=== PATIENT | female | born 1975 | race Caucasian/White ===

== ENCOUNTER 2018-07-08 01:30 | Emergency (ER) | payer MEDICAID, SELFPAY ==
[2018-07-08] VITALS (9 sets, daily range): BP systolic 143–160; BP diastolic 85–90; PULSE 78–97; RESP 14–18; TEMP 37; O2SAT 97–99; BMI 39.9
[2018-07-08 02:01] LABS: Absolute Lymphocyte Count 3.04 X10^3/ul (0.83-4.51); Absolute Neutrophil Count 10.4 X10^3/uL (2.0-7.7); Basophil# 0.04 X10^3/uL; Basophil% 0.3 % (0-1); Eosinophil# 0.11 X10^3/uL; Eosinophils% 0.8 % (0-5); Hemoglobin 14.8 g/dl (12.0-15.0); Lymphocyte # 3.04 X10^3/ul (4.0); Lymphocyte % 21.5 % (19-41); Mean Corp Hgb Conc 33.6 g/gl (32-36); Mean Corpuscular Hgb 30.5 pg (27.0-32.0); Mean Corpuscular Volume 90.5 fL (81-99); Mean Platelet Vol. 8.8 fl (6.2-12.0); Monocyte# 0.53 X10^3/uL; Monocyte% 3.7 % (0-10); Neutrophil # 10.39 X10^3/uL (2.7-7.7); Neutrophil % 73.4 % (47-70); POSITIVE COUNT NO; POSITIVE DIFFERENTIAL NO; POSITIVE MORPHOLOGY NO; Platelet Count 342 K/mm3 (150-450); RBC Distribution Width CV 13.5 % (11.6-14.6); RBC Distribution Width SD 44.4 fl (35.1-43.9); Red Blood Count 4.86 M/mm3 (4.2-5.4); White Blood Count 14.2 K/mm3 (4.4-11.0)
[2018-07-08 02:03] LABS: Bacteria 0 SEEN /hpf (None Seen); Mucous, Urine 0 SEEN /hpf (<or=2+); Red Blood Cells-Urine 0 SEEN /hpf (0-5); White Blood Cells 0 SEEN /hpf (0-5)
[2018-07-08 02:11] LABS: Internal QC Validated? YES +Cl - CLEAR BKGD; Pregnancy, Urine Negative Negative
[2018-07-08 02:16] LABS: Color, Urine Yellow (Yellow); Glucose, Dipstick Normal (Normal); Ketone-Dipstick Negative (Negative); Leukocyte Esterase-Dipstick Negative /ul (Negative); Nitrite-Dipstick Negative (Negative); Occult Blood-Urine Negative /ul (Negative); Protein-Dipstick Negative (Negative); Specific Gravity, Urine 1.005 (1.002-1.030); Urine Bilirubin Dipstick Negative (Negative); Urine Clarity Sl. Cloudy (Clear); Urine Urobilinogen Normal (Normal)
[2018-07-08 02:17] LABS: Squamous Epithelial Cells - UA 0-5 SEEN /hpf (5-10)
[2018-07-08 02:32] LABS: ALB/GLOB Ratio 1.1 RATIO (0.9-2.4); AST(SGOT) 19 U/L (15-37); Alanine Aminotransfer ALT/SGPT 39 U/L (13-56); Albumin, Serum 3.8 g/dL (3.2-5.0); Alkaline Phosphatase 100 U/L (45-117); Anion Gap 7 (5-15); BUN 9 mg/dL (7-18); BUN/Creat Ratio 12.3 RATIO (10-20); Calcium,Total 8.8 mg/dL (8.5-10.1); Chloride 109 mmol/L (98-107); Creatinine, Serum 0.73 mg/dL (0.55-1.02); EST Glomerular Filtration Rate 92 mL/min (>60); Est Glom Filt Rate - Afr Amer 112 mL/min (>60); Estimated Creatinine Clearance 90.34 ml/min; Globulin 3.5 g/dL (2.2-4.2); Glucose 97 mg/dL (74-106); Potassium 3.6 mmol/L (3.5-5.1); Protein, Total 7.3 g/dL (6.4-8.2); Sodium Level 139 mmol/L (136-145)
[2018-07-08 02:40] LABS: Amphetamine Urine VISTA NEGATIVE (<1000 ng/mL); Barbiturate Urine VISTA NEGATIVE (< 200 ng/mL); Benzodiazepine Urine VISTA NEGATIVE (< 200 ng/mL); Cocaine Urine VISTA NEGATIVE (< 300 ng/mL); Ecstacy Urine VISTA NEGATIVE (< 500 ng/mL); Methadone Urine VISTA NEGATIVE (< 300 ng/mL); PCP Urine VISTA NEGATIVE (< 25 ng/mL); THC Urine VISTA NEGATIVE (< 50 ng/mL); Vista UDS pH Range 7
--- NOTE | 2018-07-08 03:17 | ED.DCSUM_ITS ---
History of Present Illness Chief Complaint: Suicidal Informant: Patient Narrative: As per nursing triage notes, patient was having suicidal thoughts and intentions and wanted help. Has been drinking some alcohol tonight but denies being intoxicated and denies using any other substances except tobacco. When asked why she is feeling depressed, she simply states I am done. She provides very little specific information about events or feelings tonight other than that she has may be felt this way for a couple days at least. She is not in counseling, takes no antidepressant medications, and has had no prior treatment for depression. - Past Medical History (1) Hypothyroid Status: Chronic (2) Migraines Status: Chronic Past Medical History - Allergies and Home Meds Allergies/Adverse Reactions: Allergies Beef Containing Products Allergy (Verified 07/08/18 01:33) Angioedema corn Allergy (Verified 07/08/18 01:33) Angioedema egg Allergy (Verified 07/08/18 01:33) Angioedema Pork/Porcine Containing Products Allergy (Verified 07/08/18 01:33) Angioedema rice Allergy (Verified 07/08/18 01:33) Angioedema gabapentin [From Neurontin] Adverse Reaction (Verified 07/08/18 01:33) Other prochlorperazine [From Compazine] Adverse Reaction (Verified 07/08/18 01:33) Other Primary Care Physician: Michelle Sears MD [Primary Care Provider] - Lives: Spouse/ Significant Other Smoking Status: Current every day smoker Alcohol: Occasional Drugs: None Review of Systems General: Denies: Chills, Fever, Sweats Eyes: Denies: Visual changes - bilaterally, Diplopia ENT: Denies: Rhinorrhea, Sore throat Cardiovascular: Denies: Chest pain, Palpitations Respiratory: Denies: Dyspnea, Cough, Dyspnea on exertion Gastrointestinal: Denies: Abdominal pain, Nausea, Vomiting, Diarrhea, Melena, Hematochezia Genitourinary: Denies: Dysuria, Hematuria, Frequency Musculoskeletal: Denies: Back pain, Extremity Pain Skin: Denies: Rash, Wounds Neurological: Denies: Headache, Weakness, Numbness Psych: Reports: Depression, Suicidal thoughts, Suicidal ideations Physical Exam Vital Signs/Narrative: Vital Signs Temp Pulse Resp BP Pulse Ox 07/08/18 02:44 16 99 07/08/18 01:30 98.6 F 97 16 160/90 H 97 Inital Vital Signs reviewed: Yes General: Well nourished, Well developed, No Acute Distress Head: Normocephalic, Atraumatic Eyes: Perrl, EOMI ENT: Moist mucous membranes, No rhinorrhea Neck: Supple, Nontender Cardiovascular: Regular rate, Regular rhythm, No murmurs Respiratory: No distress, CTA bilaterally, Chest nontender Abdomen: Soft, Nontender, Nondistended, Normal bowel sounds Back: Nontender, Normal Inspection Extremities: Nontender, No edema Skin: Normal color, No rash Neurological: Alert, Oriented x3, Cranial nerves II-XII grossly intact, Normal Strength, Normal Sensation Psychological: Normal Mood, - - Flat affect. Paucity of speech. Answers every question with 1 or 2 word answers. Very poor eye contact. Diagnostic/Tx/Re-eval Laboratory Results 07/08/18 07/08/18 07/08/18 01:40 01:40 01:40 WBC RBC Hgb Hct MCV MCH MCHC RDW RDW Differential Plt Count MPV Immature Gran % (Auto) Neut % (Auto) Lymph % (Auto) Gentry % (Auto) Eos % (Auto) Baso % (Auto) Absolute Neuts (auto) Absolute Lymphs (auto) Total Counted Sodium Potassium Chloride Carbon Dioxide Anion Gap BUN Creatinine Estim Creat Clear Calc Est GFR (MDRD) Af Amer Est GFR (MDRD) Non-Af BUN/Creatinine Ratio Glucose Calcium Total Bilirubin AST ALT Alkaline Phosphatase Total Protein Albumin Globulin Albumin/Globulin Ratio Urine Color Yellow Urine Clarity Sl. Cloudy Urine pH 7.0 Ur Specific [place] 1.005 Urine Protein Negative Urine Glucose (UA) Normal Urine Ketones Negative Urine Occult Blood Negative Urine Nitrite Negative Urine Bilirubin Negative Urine Urobilinogen Normal Ur Leukocyte Esterase Negative Urine RBC 0 SEEN Urine WBC 0 SEEN Ur Squamous Epith Cells 0-5 SEEN Urine Bacteria 0 SEEN Urine Mucus 0 SEEN Urine Test Negative Urine Opiates Screen NEGATIVE Urine Methadone Screen NEGATIVE Ur Barbiturates Screen NEGATIVE Ur Phencyclidine Scrn NEGATIVE Ur Amphetamines Screen NEGATIVE U Methamphetamin-MDMA NEGATIVE U Benzodiazepines Scrn NEGATIVE Urine Cocaine Screen NEGATIVE U Cannabinoids Screen NEGATIVE Ur Drug Screen Comment Ethyl Alcohol 07/08/18 07/08/18 07/08/18 01:55 01:55 01:55 WBC 14.2 H RBC 4.86 Hgb 14.8 Hct 44.0 MCV 90.5 MCH 30.5 MCHC 33.6 RDW 13.5 RDW Differential 44.4 H Plt Count 342 MPV 8.8 Immature Gran % (Auto) 0.300 Neut % (Auto) 73.4 H Lymph % (Auto) 21.5 Gentry % (Auto) 3.7 Eos % (Auto) 0.8 Baso % (Auto) 0.3 Absolute Neuts (auto) 10.4 H Absolute Lymphs (auto) 3.04 Total Counted Not Reportable Sodium 139 Potassium 3.6 Chloride 109 H Carbon Dioxide 23.0 Anion Gap 7 BUN 9 Creatinine 0.73 Estim Creat Clear Calc 90.34 Est GFR (MDRD) Af Amer 112 Est GFR (MDRD) Non-Af 92 BUN/Creatinine Ratio 12.3 Glucose 97 Calcium 8.8 Total Bilirubin 0.50 AST 19 ALT 39 Alkaline Phosphatase 100 Total Protein 7.3 Albumin 3.8 Globulin 3.5 Albumin/Globulin Ratio 1.1 Urine Color Urine Clarity Urine pH Ur Specific [place] Urine Protein Urine Glucose (UA) Urine Ketones Urine Occult Blood Urine Nitrite Urine Bilirubin Urine Urobilinogen Ur Leukocyte Esterase Urine RBC Urine WBC Ur Squamous Epith Cells Urine Bacteria Urine Mucus Urine Test Urine Opiates Screen Urine Methadone Screen Ur Barbiturates Screen Ur Phencyclidine Scrn Ur Amphetamines Screen U Methamphetamin-MDMA U Benzodiazepines Scrn Urine Cocaine Screen U Cannabinoids Screen Ur Drug Screen Comment Ethyl Alcohol 39.0 - Medical Decision Making Medically cleared for psychiatric evaluation. Alcohol is only 39. Awaiting crisis evaluation. She is cooperative. Crisis evaluated and agrees she is high risk and should be admitted. I discussed with the patient, she does not want to be admitted, however she was pink slipped by the police, and in the documentation it states that she sent several text messages to friends about wanting to kill herself and wrote several suicide notes as well, and had a bottle of amitriptyline that she was considering overdosing on that is prescribed to her. She is more forthcoming with discussion now. She did not overdose on her amitriptyline or take any extra pills. ED Disposition - Plan for ED Patient: Disposition: Psychiatric Hospital or Unit Diagnosis: Suicidal ideation, Major depression Referrals: Michelle Sears MD [Primary Care Provider] -
== END 2018-07-08 11:05 ==
PROVIDERS: Emergency Provider Emergency Medicine; Family Provider Family Medicine; PCP Family Medicine
DX: R45.851 Suicidal ideations (principal); F32.9 Major depressive disorder, single episode, unspecified; E03.9 Hypothyroidism, unspecified; G43.909 Migraine, unspecified, not intractable, without status migrainosus
CPT/HCPCS: 80053; 80307; 80320; 81001; 81025; 85025; 99284; G0480

== ENCOUNTER → 2019-11-05 09:10 | Outpatient (CLI) | payer MEDICAID, SELFPAY ==
[2019-11-05 09:06] VITALS: BMI 39.9
--- NOTE | 2019-11-05 09:11 | RAD_ITS ---
STUDY: X-RAY - LEFT KNEE REASON FOR EXAM: Female, 44 years old. PAIN, POPPING AND CRACKING, NKI TECHNIQUE: 4 view(s) of the knee. COMPARISON: None. FINDINGS: Normal visualized distal femur. Normal visualized proximal tibia and fibula. Normal proximal tibiofibular articulation. Normal medial femorotibial compartment. Normal lateral femorotibial compartment. Normal patellofemoral articulation. The soft tissue structures are unremarkable. RAD/Knee 4 or More Views IMPRESSION: Normal x-ray examination of the knee. Electronically Signed: Crispin Barton, at 9:45 EDT , Service support ,
--- NOTE | 2019-11-05 09:11 | RAD_ITS ---
STUDY: X-RAY - RIGHT KNEE REASON FOR EXAM: Female, 44 years old. PAIN, POPPING AND CRACKING, NKI TECHNIQUE: 3 view(s) of the knee. COMPARISON: None. FINDINGS: Normal visualized distal femur. Normal visualized proximal tibia and fibula. Normal proximal tibiofibular articulation. Normal medial femorotibial compartment. Normal lateral femorotibial compartment. Normal patellofemoral articulation. Small joint effusion. RAD/Knee 4 or More Views IMPRESSION: Small joint effusion. Electronically Signed: Crispin Barton, at 9:44 EDT , Service support ,
== END ==
PROVIDERS: Referring Provider Orthopaedic Surgery; Visit Provider Orthopaedic Surgery
DX: M25.561 Pain in right knee (principal); M25.562 Pain in left knee
CPT/HCPCS: 73564

== ENCOUNTER 2023-08-11 18:29 | Emergency (ER) | payer MEDICAID, SELFPAY ==
[2023-08-11 18:29] VITALS: BP 132/98; PULSE 89; RESP 18; TEMP 35.9; O2SAT 98; BMI 42.3
--- NOTE | 2023-08-11 19:52 | RAD_ITS ---
STUDY: X-RAY CHEST REASON FOR EXAM: Female, 48 years old. Pleuritic chest pain, history of lupus TECHNIQUE: Frontal and lateral views of the chest. COMPARISON: None. FINDINGS: The lungs are clear and expanded. There is no demonstrated pleural abnormality. Normal size heart. Normal mediastinum and pop. Normal visualized pulmonary arteries. Normal visualized aortic arch and descending thoracic aorta. Normal visualized thoracic spine. Normal visualized ribs, clavicles, and shoulders. There is no demonstrated abnormality of the visualized soft tissue structures of the upper abdomen. RAD/Chest PA and Lateral IMPRESSION: Normal x-ray examination of the chest. Electronically Signed: Booker Cottrell MD at 20:36 EDT ,
--- NOTE | 2023-08-11 19:59 | EDS_ITS ---
HPI History of Present Illness Chief Complaint: Chest Other Detail of Chief Complaint: Pleuritic chest pain Informant: patient Onset/Context/Timing Onset: Days (Tuesday) Context: Sudden Onset Timing: Continuous and Waxes and wanes Quality: Pain, tight sensation around chest Location: Bra line Current Severity: Mild Maximum Severity: Moderate Worsened by: Breathing Relieved by: Nothing Associated Symptoms Associated Symptoms: Nothing Narrative Narrative: Patient is a 48-year-old woman with history of lupus, chronic pain, asthma, hypothyroidism, anxiety and depression and eosinophilic esophagitis. She also has history of chronic erythema and nodosum. Patient was seen at [facility] earlier today. She had a troponin which was negative. Had a D-dimer which was negative. EKG reportedly negative. No chest x-ray was obtained. Patient denies nausea, vomit diarrhea. She denies black or maroon-colored stool. She denies leg pain, swelling discoloration. She denies renal involvement with regards to her lupus. She states it has affected her liver enzymes. She denies pain in the left upper quadrant or right upper quadrant. There is no history of pancreatitis. [facility] Medical History Bronchitis Carpal tunnel syndrome, right Hx of mixed connective tissue disease Hx of pleurisy Hx of spinal stenosis Lipoma of axilla Home Medications albuterol sulfate 2.5 mg/0.5 mL solution for nebulization 2.5 mg inhalation Q20M 11/10/21 [History Last Taken Unknown] albuterol sulfate 90 mcg/actuation aerosol inhaler 1 inh inhalation ONCE 11/10/21 [History Last Taken Unknown] cetirizine 10 mg tablet 10 mg PO DAILY PRN 11/10/21 [History Last Taken Unknown] cyanocobalamin (vitamin B-12) 1,000 mcg/mL injection solution 100 mcg IM QMONTH 11/10/21 [History Last Taken Unknown] ergocalciferol (vitamin D2) 50 mcg (2,000 unit) capsule 50 mcg PO DAILY 11/10/21 [History Last Taken Unknown] famotidine 40 mg tablet 40 mg PO DAILY 11/10/21 [History Last Taken Unknown] fluticasone furoate 50 mcg/actuation blister powder for inhalation inhalation 11/10/21 [History Last Taken Unknown] ibuprofen 200 mg capsule 200 mg PO Q6H PRN 11/10/21 [History Last Taken Unknown] paroxetine HCl 10 mg tablet 10 mg PO DAILY 11/10/21 [History Last Taken Unknown] potassium chloride 20 mEq/15 mL oral liquid 20 meq PO DAILY 11/10/21 [History Last Taken Unknown] ropinirole 1 mg tablet 1 mg PO DAILY 11/10/21 [History Last Taken Unknown] prednisone 10 mg tablet 10 mg PO UD #33 tabs 08/11/23 [Rx Last Taken Unknown] Allergy/AdvReac Type Severity Reaction Status Date / Time Beef Containing Products Allergy Angioedema Verified 08/11/23 18:33 corn Allergy Angioedema Verified 08/11/23 18:33 egg Allergy Angioedema Verified 08/11/23 18:33 Pork/Porcine Containing Allergy Angioedema Verified 08/11/23 18:33 Products rice Allergy Angioedema Verified 08/11/23 18:33 gabapentin [From Neurontin] AdvReac Other Verified 08/11/23 18:33 prochlorperazine AdvReac Other Verified 08/11/23 18:33 [From Compazine] Family History Mother CHF (congestive heart failure) Diabetes type 1 Myocardial infarction Hypertension Hypercholesterolemia Renal failure CVA (cerebral vascular accident) Father Cancer colon Surgical History H/O esophagogastroduodenoscopy Hx of arthroscopy of knee Hx of cholecystectomy Hx of colonoscopy Hx of total hysterectomy Social History Smoking Status: Current every day smoker tobacco type: cigarettes ROS ROS ED Constitutional Constitutional ED: Denies chills, fever(s), subjective, sweats or weight loss Eyes Eyes: Denies blurry vision or change in vision ENT ENT ED: Denies ear pain, rhinorrhea or sore throat Cardiovascular Cardiovascular: Reports chest pain; Denies orthopnea, palpitations, paroxysmal nocturnal dyspnea or racing heartbeat Respiratory/Chest Respiratory/Chest: Denies cough, dyspnea, dyspnea on exertion, orthopnea or paroxysmal nocturnal dyspnea Gastrointestinal Gastrointestinal: Denies abdominal pain, melena, nausea or vomiting Genitourinary Genitourinary ED: Denies dysuria, hematuria or urinary frequency Musculoskeletal Musculoskeletal: Denies arthralgias, back pain or myalgias Integumentary Denies rash Neurologic Neurologic: Denies headache(s) or paresthesias Psychiatric Psychiatric: Denies anxiety or depression Endocrine Endocrinology: Denies cold intolerance or heat intolerance Hematologic/Lymphatic Hematologic/Lymphatic: Reports systems reviewed and no addt'l complaints, except as documented EXAM Physical Exam Const Vital Signs: 08/11/23 18:29 08/11/23 20:29 08/11/23 20:29 Temperature 96.6 F L Temperature Source Temporal Pulse Rate 89 69 Respiratory Rate 18 14 Respiratory Effort Normal Respiratory Pattern Normal Blood Pressure 132/98 H 165/89 H Blood Pressure Mean 109 114 Pulse Ox 98 99 Oxygen Delivery Method Room Air Room Air Positive well nourished, well developed and obese General Appearance ED: well developed and NAD; Negative for cyanotic, diaphoretic or pallor Nutritional Appearance: obese HEENT Reports moist mucous membranes Negative for trauma or tenderness Eyes PERRL and EOMs intact bilaterally General Eye ED: Negative for pale conjunctiva or scleral icterus Neck no lymphadenopathy, supple and no JVD Chest Wall inspection of chest normal and palpation of chest normal Chest Narrative: There is pain to palpation right side. There is no crepitus subcutaneous air. Resp normal respiratory effort and clear to auscultation bilaterally Cardio regular rate, regular rhythm, S1 normal heart sound, S2 normal heart sound and no murmurs GI normal to inspection, nondistended, normoactive bowel sounds, non-tender, non- distended and no masses; Negative for hepatosplenomegaly Palpation: soft Back/Spine Back/Spine Narrative: Inspection of the back is normal. Extremity Extremity Narrative: There is no asymmetry, swelling, discoloration, leg vein distention, palpable cords or tenderness along the distribution of the deep venous system. Neuro oriented x3 and CN's II-XII intact bilaterally Sensorium / Orientation: alert Skin no rashes or lesions noted, no wounds and skin turgor normal General Skin Exam: elasticity normal; Negative for jaundice or pallor MDM MDM MDM Narrative Medical decision making narrative: With a normal D-dimer normal troponin these were not repeated. This would rule out PE. Suspect this is pleurisy and may be related to her lupus. Chest x-ray was obtained to rule out infiltrate. Patient was treated with prednisone. History & Record Review Additional record(s) reviewed:: Prior outpatient record (Records from outside facility obtained today were reviewed and documented), Prior ED visit and Prior labs Radiography Chest X-Ray - ED: 2 View and Read by ED Physician (3 view chest x-ray report reviewed interpreted by me. There is no abnormality noted. Cardiac silhouette size normal. Hilum is normal. Lung parenchyma is normal. There is no effusion. Osseous trucks unremarkable.) Diagnostic Testing: Clinical Impression(s) from Imaging Studies Chest X-Ray 08/11/23 19:52 IMPRESSION: Normal x-ray examination of the chest. Electronically Signed: Booker Cottrell MD at 20:36 EDT , Treatment and Re-Evaluation :: Patient was discharged prescription for prednisone. Discharge Plan Triage Chief Complaint: Chest Other ED Provider: Samy Alarcon Dx/Rx/DC Orders Clinical Impression: Pleuritic chest pain, Hypothyroid, Eosinophilic esophagitis, History of lupus Instructions: ED Pain, Acute, Uncertain Cause Prescriptions: New prednisone 10 mg tablet 10 mg PO UD Qty: 33 0RF Rx Instructions: Take 4 tablets daily for 3 days, then 3 daily for 3 days, then 2 daily for 3 days, then 1 a day for 3 days then 1 QOD for 3 doses. No Action albuterol sulfate 90 mcg/actuation HFA aerosol inhaler 1 inh inhalation ONCE albuterol sulfate 2.5 mg/0.5 mL solution for nebulization 2.5 mg inhalation Q20M Rx Instructions: for up to 3 doses cetirizine 10 mg tablet 10 mg PO DAILY PRN cyanocobalamin (vitamin B-12) 1,000 mcg/mL solution 100 mcg IM QMONTH ergocalciferol (vitamin D2) 50 mcg (2,000 unit) capsule 50 mcg PO DAILY famotidine 40 mg tablet 40 mg PO DAILY fluticasone furoate 50 mcg/actuation blister with device inhalation ibuprofen 200 mg capsule 200 mg PO Q6H PRN paroxetine HCl 10 mg tablet 10 mg PO DAILY potassium chloride 20 mEq/15 mL liquid 20 meq PO DAILY ropinirole 1 mg tablet 1 mg PO DAILY Primary Care Provider: Michelle Alvarez Referrals: Michelle Alvarez DO [Primary Care Provider] - 3-5 Days Disposition Disposition: Home, Self Care
[2023-08-11] MEDS: predniSONE 20 MG Tablet 60 MG PO (20:19)
[2023-08-11 20:29] VITALS: BP 165/89; PULSE 69; RESP 14; O2SAT 99
== END 2023-08-11 21:55 | disposition home or self-care (01) ==
PROVIDERS: Emergency Provider Emergency Medicine; PCP Family Medicine; Visit Provider Emergency Medicine
DX: R07.81 Pleurodynia (principal); M32.9 Systemic lupus erythematosus, unspecified; E03.9 Hypothyroidism, unspecified; F41.9 Anxiety disorder, unspecified; F32.A Depression, unspecified; K20.0 Eosinophilic esophagitis; J45.909 Unspecified asthma, uncomplicated; F17.210 Nicotine dependence, cigarettes, uncomplicated; Z79.51 Long term (current) use of inhaled steroids; Z90.49 Acquired absence of other specified parts of digestive tract; Z90.710 Acquired absence of both cervix and uterus
CPT/HCPCS: 71046; 99282

== ENCOUNTER 2023-09-12 21:45 | Emergency (ER) | payer MEDICAID, SELFPAY ==
[2023-09-12 21:49] VITALS: BP 158/99; PULSE 83; RESP 18; TEMP 36.3; O2SAT 97
[2023-09-12 22:45] LABS: Absolute Lymphocyte Count 5.34 X10^3/uL (0.83-4.51); Absolute Neutrophil Count 10.2 X10^3/uL (2.0-7.7); Basophil# 0.09 X10^3/uL; Basophil% 0.5 % (0-1); Eosinophil# 0.24 X10^3/uL; Eosinophils% 1.4 % (0-5); Hematocrit 43.8 % (37-47); Hemoglobin 14.6 g/dL (12.0-15.0); Lymphocyte # 5.34 X10^3/ul (0.83-4.51); Lymphocyte % 32.1 % (19-41); Mean Corp Hgb Conc 33.3 g/dL (32-36); Mean Corpuscular Hgb 29.5 pg (27.0-32.0); Mean Corpuscular Volume 88.5 fL (81-99); Mean Platelet Vol. 8.9 fl (6.2-12.0); Monocyte# 0.68 X10^3/uL; Monocyte% 4.1 % (0-10); NRBC Flagged by Analyzer 0 % (0-5); Neutrophil # 10.18 X10^3/uL (2.7-7.7); Neutrophil % 61.4 % (47-70); POSITIVE DIFFERENTIAL YES; POSITIVE MORPHOLOGY YES; Platelet Count 395 K/mm3 (150-450); RBC Distribution Width CV 13.2 % (11.6-14.6); RBC Distribution Width SD 42.9 fl (35.1-43.9); Red Blood Count 4.95 M/mm3 (4.2-5.4); White Blood Count 16.6 K/mm3 (4.4-11.0)
[2023-09-12 22:47] VITALS: RESP 16
[2023-09-12 22:47] LABS: Differential Indicated SCAN CRITERIA MET
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
[2023-09-12 23:11] LABS: Differential Comment SCANNED
[2023-09-12 23:15] LABS: Amphetamine Urine VISTA NEGATIVE (<1000 ng/mL); Barbiturate Urine VISTA NEGATIVE (< 200 ng/mL); Benzodiazepine Urine VISTA NEGATIVE (< 200 ng/mL); Cocaine Urine VISTA NEGATIVE (< 300 ng/mL); Ecstacy Urine VISTA NEGATIVE (< 500 ng/mL); Methadone Urine VISTA NEGATIVE (< 300 ng/mL); PCP Urine VISTA NEGATIVE (< 25 ng/mL); THC Urine VISTA NEGATIVE (< 50 ng/mL); Vista UDS pH Range 6
[2023-09-12 23:25] LABS: Anion Gap 5 (5-15); BUN 11 mg/dL (7-18); BUN/Creat Ratio 13.5 RATIO (10-20); Calcium,Total 9.3 mg/dL (8.5-10.1); Chloride 105 mmol/L (98-107); Creatinine, Serum 0.81 mg/dL (0.55-1.02); EST Glomerular Filtration Rate 80 mL/min (>60); Est Glom Filt Rate - Afr Amer 97 mL/min (>60); Glucose 96 mg/dL (74-106); Potassium 3.7 mmol/L (3.5-5.1); Sodium Level 137 mmol/L (136-145)
[2023-09-12 23:48] LABS: Internal QC Validated? YES +Cl - CLEAR BKGD; Pregnancy, Serum, hCG Quali. NEGATIVE Negative
[2023-09-13] VITALS: PULSE 68; RESP 16; TEMP 37.1; O2SAT 98
[2023-09-13] MEDS: Ibuprofen 600 MG Tablet PO (00:18)
[2023-09-13] MEDS: Metoclopramide 10 MG Tablet PO (00:18)
[2023-09-13] MEDS: hydrOXYzine PAM 25 MG Capsule 50 MG PO (00:18)
[2023-09-13 00:37] LABS: Alcohol, Blood (Medical)-Serum < 3.0 mg/dL
[2023-09-13 01:17] VITALS: BP 118/69; PULSE 68; RESP 16; TEMP 36.5; O2SAT 98
[2023-09-13 05:15] VITALS: BP 126/63; PULSE 61; RESP 17; O2SAT 93
== END 2023-09-13 07:11 ==
PROVIDERS: Emergency Provider Emergency Medicine; PCP Family Medicine; Visit Provider Emergency Medicine
DX: R45.851 Suicidal ideations (principal); F32.A Depression, unspecified; F17.210 Nicotine dependence, cigarettes, uncomplicated; F41.9 Anxiety disorder, unspecified; Z90.49 Acquired absence of other specified parts of digestive tract; Z90.710 Acquired absence of both cervix and uterus; Z79.899 Other long term (current) drug therapy
CPT/HCPCS: 80048; 80307; 80320; 84703; 85025; 87635; 99284; G0480

== ENCOUNTER 2023-10-04 08:00 | Outpatient (RCR) | payer MEDICAID, SELFPAY ==
--- NOTE | 2023-10-04 10:10 | BH.SGPN.GN ---
Behaviors/Verbalizations/Mental Status: [] Eye contact is fair. Motor activity is appropriate. Appearance is casual. Speech is Appropriate. Mood is anxious. Affect is congruent. Thoughts are linear and logical. No evidence of psychosis. Client Response/Progress/Benefit: [] Client responded well to session AEB sharing and listening attentively to others. Group identified types of social support (family, pets, professionals, spiritual, etc) and provided examples of benefits of having social support, including: decreased stress, increased self-esteem, encouragement, distraction, etc. Client also participated in group discussion regarding the barriers to accessing support such as: lack of awareness, lack of trust, and low self-esteem. Client stated she struggles with allowing others to help her because she's so focused on being there for others. Client participated in experiential activity illustrating the impact communication, boundaries, and patience play in creating healthy support systems. Client appeared to benefit from increased knowledge of the benefits of social support and greater self-awareness. Will continue IOP to improve distress tolerance, increase healthy coping skills, and prevent decompensation.
--- NOTE | 2023-10-04 11:10 | BH.SGPN.GN ---
Behaviors/Verbalizations/Mental Status: [] Client alert and oriented, casually dressed and groomed. Eye contact good. Motor activity appropriate. Speech within normal limits. Affect congruent, mood depressed and anxious. Thoughts linear, logical, no signs of hallucinations or delusions. Client Response/Progress/Benefit: [] Client was an active participant throughout AEB contributing to discussion, providing personal examples, and taking notes. Client processed emotions felt in the activity and how they coped in the moment. Client provided input during discussion on the types of support our supports can provide. Client able to identify current support system and barriers that get in the way of using supports by drawing out their own support net. Client reported after identifying what type of supports they receive; they gained awareness that they could benefit from more social and emotional supports. Client identified steps to achieve this by challenging herself to follow-through with making and keeping plans with healthy friends, as well as working on more vulnerable communication. Client shared increasing social and emotional supports will help them have more of a sense of belonging and different perspective. Client seemed to benefit from identifying the type of support client needs to work on improving. Client recommended to continue IOP tx to promote continued application distress tolerance and boundary setting skills and increase self-compassion skills. Narrative Note: []
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
--- NOTE | 2023-10-04 14:53 | BH.COMM ---
Communication Note Communication with Client Communication Note: Met with pt to complete initial paperwork and administer the CSSR-S screening and risk assessment. Pt is high risk as pt was recently hospitalized for suicide ideation with plan for overdose. This was in August 2023. Pt denies any current SI, plan, or intent since discharging from the hospital. Pt has multiple protective factors including her friends, children, and goals for her future. No access to weapons or stockpiles of medications. Discussed case with Dr. Pinzon and pt will be admitted to [facility] with a diagnosis of MDD F33.2 Pt and therapist also discussed treatment goals and began the psychosocial assessment.
--- NOTE | 2023-10-05 09:03 | BH.SGPN.GN ---
Behaviors/Verbalizations/Mental Status: [] Eye contact fair to good, tearful. Motor activity appropriate. Speech within normal limits. Affect constricted, mood depressed. Thoughts linear, logical, no signs of hallucinations or delusions. Reviewed client?s symptom tracker, denies SI, plan, or intent as of 10/05/2023. Client Response/Progress/Benefit: [] Client second day in IOP treatment, receptive of session, attentive and willing to process with group. Identified not knowing what her mental health ?wins? are today as she is struggling with only being able to focus on her stressors. Described going through several losses including her relationship of 6 years, housing, and being able to see her ex partner's children whom client helped to raise. Noted she got to a place of deep depression and struggled with seeing another way out, resulting in hospitalization and beginning the IOP program. Discussed wanting to maintain boundaries with her ex, learn to rebuild her life, and finding more hope for herself and her future. Noted she has been isolated for the past 6 years while in the relationship and is now staying with supportive friends. Shared this has been very helpful and she is hoping to reconnect with other supportive people from her past as well. Receptive of and appearing to benefit from supportive feedback and suggestions provided by the group. Recommended continued IOP tx to improve mood stability, promote skill building and application, as well as prevent decompensation. Narrative Note: []
--- NOTE | 2023-10-05 11:20 | BH.NA ---
Physical Data Vital Signs Pulse Rate: 77 Blood Pressure: 156/89 Height/Weight Height: 1.65 m Weight:: 111.13 kg Weight in Pounds: 245.0 lbs Current Medication Compliance Medication Compliance Do you take your medication as prescribed?: Yes (when able, client states some of her meds are at her old residence now) Nutritional History Appetite Nutritional Instructions: Describe your appetite:: Fair Additional nutritional information:: Client states she has unintentionally lost weight recently due to a decrease in appetite. Functional Assessment Sleep Pattern Describe any problems with sleeping: Client states she sleeps about 3 hours per night. Sensory/Communication Assess Communication Problems Do you have difficulty understanding what people are saying?: No Medical Problems/History Cardiac Conditions Cardiovascular: Hypertension and Other (See comments) (high cholesterol) Respiratory Conditions Respiratory: Asthma and Other (See comments) (hx pleurisy) Neurological Conditions Neurological: Headaches Metabolic Conditions Metabolic: Other (See comments) (pre-diabetic) Gastrointestinal Conditions Gastrointestinal: Other (See comments) (Barretts esophagus, eosinophilic esophagitis ) Musculoskeletal Conditions Musculoskeletal: Other (See comments) (degenerative disc disease, neck pain, spinal stenosis, connective tissue disease, fibromyalgia, carpal tunnel) Pain Assessment Do you have acute or chronic pain?: Yes (neck/back/joints) Family History Family History Mother CHF (congestive heart failure) Diabetes type 1 Myocardial infarction Hypertension Hypercholesterolemia Renal failure CVA (cerebral vascular accident) Father Cancer colon Additional History Additional comments:: history of lupus, restless leg syndrome Surgical History Surgical History Have you had any surgeries? If so, list type and date:: Yes (carpal tunnel, rasheed, hysterectomy, knee scope) Substance Abuse Substance Abuse Please describe substance abuse in the last 30 days:: Client states she used to drink alcohol heavily in the past, stating she currently drinks occasionally on weekends. Client states she has been a cigarette smoker since age 14 and currently smokes 1 pack per day. Client states she was a cocaine user in the past, stating she quit when she was 25. Client states she did relapse and used cocaine for a few days in April 2023. Client states she currently drinks 5-7 energy drinks per day. Discussed with client about how unhealthy this is for mental health, sleep, and for her overall health (especially with cardiac history in family and clients need for cardiac testing). Client voiced understanding of same. Mental Status Summary Mental Status Significant Findings/Observations on Appearance and Mood:: Client is alert and oriented x 4. Client is casually groomed. Client is cooperative with assessment. Client makes good eye contact. Client's voice has normal rate and volume. Client has appropriate affect. Client makes logical associations and has normal processing. Client denies delusions/hallucinations. Client reports survival ambivalence since discharge from hospital 09/16/23, but denies active SI. Suicide Assessment Suicidal Ideation Are you currently or have you been suicidal in the past?: Yes Suicidal Intentional Rating Scale (SIRS): Suicidal thoughts (past) Physician Notification Past Psychiatric History MH Treatment Hx Past Psychiatric Medications:: Paxil in her 20's Age of first mental health symptoms: Client states she first took medication for depression in her 's, and until recently had not been on medication until after her hospitalization in August 2023. Describe (age, circumstance, etc) any past hospitalizations: Once in the , recently at [facility] 09/11-09/16/23 for SI with plan to overdose on BP meds. Current providers for mental health treatment (counselor, psychiatrist, manager case, etc.): therapy at [facility] Fall Risk Assessment Age Age: Less than 60 Mental Status Mental Status: Willing & able to ask for assistance when needed Physical Status Physical Status: No problems Impairments Impairments: None Elimination Elimination: Continent AND independent Gait or Balance Gait or Balance: Walks independently Hx of Falls History of falls in the past 6 months: No known history Medications/Substances Psychotropics:: Antidepressants Others:: Antihypertensives Medications/substances used within the past 24 hours or ordered to administer: 1-2 of the medications/substances listed above Total Score Total Points:: 1 RN Summary of Impressions Impressions Recommendations Impressions: Psychiatric Issues: 1. Major depressive disorder, recurrent severe without psychosis 2. Generalized anxiety disorder 3. PTSD 4. Primary support issues Impression: General Medical Conditions: Discussed with client possible poor health outcomes with high caffeine intake (mental health, sleep, cardiac health). Client voices understanding and agrees she should cut back on caffeine use. Client states she was told she had high cholesterol and triglycerides while hospitalized at [facility]. Client states she was given Lipitor while in the hospital but was not ordered it on discharge. Client states she is going to talk to her PCP to see if they have blood test results regarding cholesterol, kidney function (was told it was decreased) and potassium (was told it was low). Client states prior to hospitalization, client's PCP talked to her about needing to get a cardiac stress test done due to recent new diagnosis of HTN and family history of mother dying from CHF and had stents in her 50's. Client states she is going to follow up with PCP soon about her BP and will discuss cardiac tests again with PCP. Level of Care How do the client's current symptoms and functional deficits support need for this level of care?: Client was referred to IOP after a recent hospitalization 09/11-09/16/23 due to SI with plan to overdose on BP medication. Client states she has had a stressful several months, mainly surrounding her relationship with her now ex-girlfriend. Client states her ex-girlfriend lies a lot, was manipulative, and was very back and forth with her about their relationship over the last 6 years. Client states as of today, her ex-girlfriend texted her and told the client she will no longer be on her health insurance and client states this is a stressor to her financially about this program and her current medical issues. Client denies SI since hospitalization, but does report survival ambivalence, stating she often feels like it doesn't matter if she wakes up in the morning. Client states her ex has 5 kids that she was close to, and it is a stressor to her that she no longer gets to see them/have a relationship with them. Client has several current health concerns (HTN, high cholesterol that needs addressed by PCP, needs cardiac stress test) and client states I'm not very good at taking care of myself because I feel like I've always had to take care of other people. IOP will promote gains and prevent further decompensation while providing social support and skills training.
[2023-10-05 12:01] VITALS: BP 156/89; PULSE 77
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
--- NOTE | 2023-10-05 12:25 | BH.DR.ITP ---
Initial Treatment Plan Patient Information Visit Information: ADMISSION DATE: EXPECTED LOS: 4-6 weeks Problems/Symptoms Problem #1:: Depression Symptom:: Sadness, hopelessness, worthlessness, guilt, low energy, decreased concentration, biological disruption of sleep, anhedonia, passive thoughts of , recent suicidal ideation Problem #2:: Anxiety Symptom:: Worry, rumination, avoidance, nightmares, flashbacks
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
--- NOTE | 2023-10-06 10:10 | BH.SGPN.GN ---
Behaviors/Verbalizations/Mental Status: [] Eye contact is good. Alert and oriented. Motor activity is appropriate. Appearance is casual. grooming is appropriate. Speech is Appropriate. Mood is anxious and depressed. Affect is congruent. Thoughts are linear and logical. No evidence of psychosis or hallucinations. Client Response/Progress/Benefit: [] Client was an active participate AEB listening attentively to others, participating in group discussions, and taking notes throughout. Participated as the group identified the impact of emotions on communication such as change in tone, body language, shutting down, misperceiving the communication, and willingness to communicate. Participated with peers to identified reasons why one stuffs emotions which include; to avoid conflict, not draw attention to struggles, being emotional can be perceived as a weakness, and it can make when feel vulnerable.Participated during group activity. Client benefited from session by gaining an increased understanding on the importance of managing emotions to improve daily functioning. Client will continue IOP to prevent decompensation/re-admission to psych unit, increase healthy coping strategies, and improve functioing. Narrative Note: []
--- NOTE | 2023-10-06 11:15 | BH.SGPN.GN ---
Behaviors/Verbalizations/Mental Status: []Pt alert and oriented, casually dressed and well groomed. Eye contact good. Motor activity appropriate. Speech within normal limits. Affect constricted, mood anxious. Thoughts linear, logical, no signs of hallucinations or delusions. Client Response/Progress/Benefit: [] Pt engaged in session AEB Pt listening attentively to peers and providing input. Attentive during psychoeducation on 4 zones of regulation. Pt able to identify feelings and behaviors for each zone. Pt identified coping skills one can use to support self in each zone. Pt wants to practice opposite action, engaging in hobbies, and moving body as skills that can help get self out of the blue zone when feeling low. Benefited from increased education on zones of regulation or stages of alertness for emotions and healthy coping skills to use for each zone. Will continue IOP tx to challenge distorted thoughts, improve distress tolerance, and prevent decompensation.
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
--- NOTE | 2023-10-11 10:10 | BH.SGPN.GN ---
Behaviors/Verbalizations/Mental Status: [] Eye contact is good. Motor activity is appropriate. Appearance is casual. Speech is Appropriate. Mood is dysthymic and anxious. Affect is congruent. Thoughts are linear and logical. No evidence of psychosis. Client Response/Progress/Benefit: []Pt engaged participant AEB listening to others, engaging in activity, and providing feedback at times. Attentive during psychoeducation and provided insight into obstacles that impede mental wellness. Pt shared with group current mental health reality and desired mental health reality. Stated she would like to feel more stable and do things that she enjoys. Identified barriers to desired reality include: using humor to mask emotions, financial stress, low self-esteem, lack of boundaries, and toxic relationships. Benefited from taking look at current mental health state and obstacles for progress. Pt to continue IOP tx to improve view of self, reduce thought distortions, and prevent decompensation.
--- NOTE | 2023-10-11 11:15 | BH.SGPN.GN ---
Behaviors/Verbalizations/Mental Status: [] Eye contact is good. Motor activity is appropriate. Appearance is casual. Speech is Appropriate. Mood is anxious and depressed. Affect is congruent. Thoughts are linear and logical. No evidence of psychosis Client Response/Progress/Benefit: [] Pt was an active participant in group discussion and activity. Worked with group to identify strategies to help overcome barriers and obstacles to desired reality. Group developed strategies for the common barriers. Identified personal barriers to desired reality and choose one obstacle to work. Pt stated he wants to work on barrier of poor boundaries by practicing checking in with herself on what her boundaries are and then regularly communicating them. Pt seemed to benefit from increased repertoire of healthy coping skills/strategies to overcome common barriers to moving forward. Pt is to continue IOP to improve confidence, increase healthy coping skill application, and prevent decompensation. Narrative Note: []
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
--- NOTE | 2023-10-12 10:15 | BH.SGPN.GN ---
Behaviors/Verbalizations/Mental Status: [] Eye contact is good. Motor activity is appropriate. Appearance is casual. Speech is Appropriate. Mood is depressed and anxious. Affect is congruent. Thoughts are linear and logical. No evidence of psychosis. Client Response/Progress/Benefit: [] Client receptive to session AEB listening attentively to others, providing input, and taking notes. Contributed and attentive throughout psychoeducation on the cognitive triangle and maintenance cycles. Attentive during group discussion reviewing the impact of daily activities and behaviors in either reinforcing unhealthy maintenance cycles and depression or assisting in reducing symptoms (?down? vs ?up? activities). Client identified personal ?down? activities they engage in as: humor as a defense, isolation, and accept mistreatment from others. Attentive during discussion on Common ?Up? activities client identified theirs to include: completing hygiene routine and engaging with healthy supports. Appeared to benefit from increased awareness of current behaviors and impact these have on mental health. Will continue in IOP to stabilize mood, prevent decompensation, and improve functioning. Narrative Note: []
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
--- NOTE | 2023-10-13 10:15 | BH.SGPN.GN ---
Behaviors/Verbalizations/Mental Status: []Pt alert and oriented, neatly dressed and groomed. Eye contact good. Motor activity appropriate. Speech within normal limits. Affect congruent, mood anxious. Thoughts linear, logical, no signs of hallucinations or delusions. Client Response/Progress/Benefit: [] Pt was attentive during psychoeducation and participated in group activity. Group discussed what contributes to a person?s perspective and how perspective can positively or negatively impact mental health treatment. Pt reflected on their perspective today and how it is impacting them. Pt shared her perspective today is ?almost hopeful and positive? as pt is open-minded and tying new skills to help her challenge her thoughts. However, pt still struggles with negative self-talk and all or nothing expectations of self. Pt appeared to benefit from increasing awareness of different perspectives and how they can affect mental health. Pt will continue IOP tx to prevent decompensation, improve daily functioning, and increase self-confidence in boundary setting. ? Narrative Note: []
--- NOTE | 2023-10-13 11:15 | BH.SGPN.GN ---
Behaviors/Verbalizations/Mental Status: []Pt alert and oriented, casually dressed and groomed. Eye contact good. Motor activity appropriate. Speech within normal limits. Affect congruent, mood depressed and anxious. Thoughts linear, logical, no signs of hallucinations or delusions. Client Response/Progress/Benefit: []Pt was attentive and contributed to group discussion. Pt worked with group to identify strategies that can help with challenging negative perspective. Pt completed strengths exploration worksheet, identifying empathy, kindness, love, and humor as personal strengths. Pt able to acknowledge how these strengths are helping pt and can continue to help pt in mental health journey. Pt identified wanting to work on leaning on his strength of love to begin practicing treating herself with kindness and improve self-care. Benefited from identifying personal strengths and strategies for enhancing use of identified strengths. Pt will continue IOP tx to work on application of distress tolerance skills, improve mood stability and boundary setting, and prevent decompensation. Narrative Note: []
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
--- NOTE | 2023-10-20 09:02 | BH.SGPN.GN ---
Behaviors/Verbalizations/Mental Status: [] Eye contact good. Motor activity appropriate. Speech within normal limits. Affect congruent, mood depressed. Thoughts linear, logical, no signs of hallucinations or delusions. Reviewed client?s symptom tracker, denies SI, plan, or intent as of 10/20/2023. Client Response/Progress/Benefit: [] Client receptive of session, attentive and willing to process with group. Identified mental health ?wins? as making progress on her ability to sit with the uncomfortable and remind herself that maintaining boundaries with her ex is the best thing for her own mental health. Reports this has been a struggle but reading the list of reasons why the boundary is important has been helpful in encouraging her to maintain the boundaries. Went on to share an additional win as engaging in some much needed self-care by allowing herself to challenge negative thoughts that she isn't allowed to take up space and finally setting up a room for herself in her friends finished basement. Shared feeling accomplished and relieved to finally have a space of her own. Shared that the relationship and moving forward from it remains an ongoing stressor. Receptive of and appearing to benefit from supportive feedback and suggestions provided by the group. Recommended continued IOP tx to improve mood stability, promote skill building and application, as well as prevent decompensation. Narrative Note: []
--- NOTE | 2023-10-20 10:10 | BH.SGPN.GN ---
Behaviors/Verbalizations/Mental Status: [] Client alert and oriented, casually dressed and groomed. Eye contact good. Motor activity appropriate. Speech within normal limits. Affect congruent, mood depressed. Thoughts linear, logical, no signs of hallucinations or delusions. Client Response/Progress/Benefit: [] Client was an active participant, AEB taking notes and providing input in group discussions and activities. Attentive during psychoeducation. Client engaged during interactive discussion in which the group defined self-care and discussed its benefits. Group discussed barriers to engaging in self-care. Group members together came up with guilt, time, urge to put others first, not knowing what to do for self-care,and perception that its unproductive as barriers to engage in self care. Client participated in small groups where they worked to identified and challenged common self-care ?myths?. Benefited from increased awareness of self-care, its benefits, and the consequences of not utilizing self-care strategies. Will continue IOP tx to prevent decompensation/readmissoin to psych unit, stablize mood, and increase healthy coping. Narrative Note: []
--- NOTE | 2023-10-20 11:10 | BH.SGPN.GN ---
Behaviors/Verbalizations/Mental Status: [] Client alert and oriented, casually dressed and groomed. Eye contact fair. Motor activity appropriate. Speech within normal limits. Affect constricted, mood dysthymic and anxious. Thoughts linear, logical, no signs of hallucinations or delusions. Client Response/Progress/Benefit: [] Client a little distracted during group when compared to previous group sessions. Client engaged in completing self-assessment of current self care and providing input throughout discussion. Client completed worksheet identifying current self-care practices and what self-care activities client wants to start using. Client selected emotional self-care to begin practicing more consistently. Client plans to do this by setting boundaries. Appeared to benefit from completing the self-care evaluation and gaining insights into current self-care practices, as well as identifying areas in which client would like to improve upon. Client will continue IOP tx to prevent decompensation and increase emotional regulation skills.
--- NOTE | 2023-10-20 13:42 | BH.MDN ---
Multi-Disciplinary Note Note 60-min Individual: Time Started:: 11:35 Date: 10/19/23 Purpose of session/treatment goals addressed:: Purpose of session to address recent stressor impacting pt ability to maintain consistent boundaries and impacting pt mental health. Additionally, discussed strategies for improving self-talk. Eye Contact:: Good (tearful) Motor Activity:: Appropriate Appearance:: Neat and Casual Speech:: Appropriate Mood:: Anxious and Depressed Affect:: Congruent Thoughts:: Linear, Logical and No evidence of hallucinations/delusions noted Staff Interventions:: thought challenging, motivational interviewing, psychoeducation on: (positive affirmations and behavioral activation to promote self-care), CBT techniques and strengths perspective Client Response:: Pt receptive of session, actively engaged throughout. Reports she has been trying to maintain the boundary of no contact with her ex; however, this was recently made more difficult. Explained that her ex?s cousin, whom pt had been close to, was murdered over the weekend and she has been communicating with her ex about this. Reports she has been doing well to maintain firm boundaries that all communication is limited to discussing the /memorial plans and nothing else. Shared that her ex has made several attempts to steer the conversation back to their relationship and her desire to reconcile. Pt reports reading the list of reasons she does not want to and communicating that she is not willing to discuss it. Shared that since her ex is no longer blocked, she has also made attempts to contact pt and apologize or guilt pt for not being in contact with her ex?s children any longer. Pt shared she does not respond or acknowledge these messages and plans to block her ex again after the memorial arrangements have been finalized. Went on to report taking steps to continue moving forward from the relationship by making arrangements to get the remainder of her things from the house she had been renting with her ex. Additionally, moved her things from the enclosed porch of her friend?s home, where she had been staying, to their finished basement. Reports continuing to struggle with feeling comfortable in the home as she still feels like an inconvenience or in the way. Did well to challenge these thoughts and remind herself that her friends want her to be there and have encouraged her to make herself comfortable in the home. Receptive of beginning to practice daily affirmations and reminders that ?This is my home too?, ?I am wanted and deserve to be here?, as well as ?I have the right to take up space?. Additional goal to begin a daily accomplishment log to improve her self-confidence and reflect on progress despite ongoing stressors. Reflected on some areas of progress since beginning IOP tx and pt reports improving upon her boundaries and self-care, as well as beginning to reconnect with healthy supports from her past. Described getting breakfast with old friends over the weekend and plans to spend time with her grandson this coming weekend as well. Risks/Concerns:: Pt denies suicidal ideation, plan, or intent as of this date, 10/19/23 Progress Toward Goals/Plan:: Progress noted. Pt continues to apply skills she is learning in groups and individual sessions. She reports working to improve her ability to maintain the boundaries set with her ex and refrain from contacting her. This boundary was recently broken due to the of a mutual support. Despite this pt reports maintaining firm on boundary of not discussing their relationship despite attempts from her ex. Improving upon her engagement in self-care and communication with healthy supports. Continues to report difficulties with self-talk but has made strides to begin challenging and reframing unhelpful thoughts and self-talk statements. Continues to endorse anxiety, crying spells, low self-confidence, rumination, doubt, and moments of hopelessness. Pt recommended continued IOP tx to promote ongoing skill building, challenge unhelpful thoughts, as well as prevent decompensation. Time Stopped:: 12:22
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
--- NOTE | 2023-10-21 10:15 | BH.SGPN.GN ---
Behaviors/Verbalizations/Mental Status: [] Eye contact is good. Motor activity is appropriate. Appearance is casual. Speech is Appropriate. Mood is depressed and anxious. Affect is congruent. Thoughts are linear and logical. No evidence of psychosis. Client Response/Progress/Benefit: [] Attentive and engaged throughout the group discussions. Attentive during psychoeducation on the 4 communication styles (Passive, Passive-Aggressive, Aggressive, and Assertive) and the obstacles to effective communication. Attentive during interactive discussion on the benefits of communicating effectively, as well as the benefits and disadvantages to the different communication styles. Reports connecting most with passive styles which has resulted in pt being taken advantage of and her needs not being met. Benefited from increased understanding of communication styles and how these can impact effective communication. Will continue in IOP to prevent decompensation, increase healthy coping and self-confidence, and improve functioning. Narrative Note: []
--- NOTE | 2023-10-21 11:15 | BH.SGPN.GN ---
Behaviors/Verbalizations/Mental Status: []Pt alert and oriented, casually dressed. Eye contact good. Motor activity appropriate. Speech within normal limits. Affect congruent, mood depressed and anxious. Thoughts linear, logical, no signs of hallucinations or delusions. Client Response/Progress/Benefit: [] Pt responded well to session AEB Pt listening attentively to others and providing input during group discussion on the pay offs and costs of the different communication styles. Pt able to connect how current communication style impacts mental health. Connected with peers? comments about importance of using assertive communication. Pt did well being assertive in the group activity and worked with group to identify potential skills for improving communication skills. Pt seemed to benefit from increasing awareness of healthy strategies to improve communication and identified wanting to work on improving ability to better express herself in a confident manner. Will continue IOP tx to prevent decompensation, gain distress tolerance skills and self-confidence, and improve daily functioning. Narrative Note: []
== END 2023-10-23 23:59 ==
LOC: BHIOP 08:00
PROVIDERS: PCP Family Medicine; Referring Provider Psychiatry & Neurology Psychiatry; Visit Provider Psychiatry & Neurology Psychiatry
DX: F33.2 Major depressive disorder, recurrent severe without psychotic features (principal); F41.1 Generalized anxiety disorder; F43.10 Post-traumatic stress disorder, unspecified; F15.99 Other stimulant use, unspecified with unspecified stimulant-induced disorder; Z79.899 Other long term (current) drug therapy
CPT/HCPCS: 90839; 99213; H2012; H2020; S9480; T1002; 90832; 90834; 90837

== ENCOUNTER 2023-10-24 07:15 | Outpatient (RCR) | payer MEDICAID, SELFPAY ==
[2023-10-24 00:25] VITALS: BP 156/89; PULSE 77
--- NOTE | 2023-10-25 09:05 | BH.SGPN.GN ---
Behaviors/Verbalizations/Mental Status: [] Eye contact is good. Motor activity is appropriate. Appearance is casual. Speech is Appropriate. Mood is anxious/irritable. Affect is congruent. Thoughts are linear and logical. No evidence of psychosis. Reviewed daily check in sheet and no reports of suicidal ideations or intent. Client Response/Progress/Benefit: [] ?Pt was an active participant in group discussions. Attentive. Daily symptom tacker notes 4/5 for anxiety and irritability. Pt states ?my life is a trainwreck?. Elaborated on several psychosocial stressors which are impacting her thoughts and mood. She describes her emotions as ? a rollercoaster?. Feels that her like is ?chaos? and is stressed about everything. Limited progress. Difficulty managing situational stressors. Benefited from group support, encouragement, and feedback. Will continue in IOP to precent decompensation, increase healthy coping, and stabilize mood. Narrative Note: []
--- NOTE | 2023-10-25 10:10 | BH.SGPN.GN ---
Behaviors/Verbalizations/Mental Status: []Pt alert and oriented, causally dressed and groomed. Eye contact fair. Motor activity appropriate. Speech within normal limits. Affect congruent, mood anxious. Thoughts linear, logical, no signs of hallucinations or delusions. Client Response/Progress/Benefit: [] Pt was actively engaged, providing input, and taking notes throughout session. Connected with the topic of pitfalls and listened to group discussion on internal and external barriers that prevent from choosing a healthier path to mental wellness. Group worked together to identify examples of personal internal pitfalls. Engaged in activity and worked cooperatively with peers. Shared personal pitfalls to include difficulty maintaining boundaries, negative self-talk, and reacting before thinking. Pt engaged in learning about the difference between external triggers and self-sabotaging behaviors. Seemed to benefit from increased awareness of personal pitfalls. Pt will continue IOP tx to improve confidence, increase healthy coping skills, and prevent decompensation.
--- NOTE | 2023-10-26 10:10 | BH.SGPN.GN ---
Behaviors/Verbalizations/Mental Status: [] Eye contact is good. Motor activity is appropriate. Appearance is casual. Speech is Appropriate. Mood is dysthymic. Affect is constricted. Thoughts are linear and logical. No evidence of psychosis. Client Response/Progress/Benefit: [] Pt receptive to session AEB contributing to small group discussion, as well as listening attentively to others, and taking notes. Worked with group to brainstorm the positive and negative aspects of stress on physical and mental health as well as the impact of distress on performance, relationships, and mental health. Pt shared her top stressors to be: rebuilding her belongings, low self-worth, and improve self-advocacy. Shared when feeling overwhelmed with stress she tends to shut down, isolate, give up, and feel worthless. Benefited from increased awareness of positive and negative stress as well as how stress impact individuals. Will continue in IOP to continue work on setting/maintaining boundaries, improving self-talk, and prevent decompensation.
--- NOTE | 2023-10-26 11:10 | BH.SGPN.GN ---
Behaviors/Verbalizations/Mental Status: []Pt alert and oriented, casually dressed and groomed. Eye contact good. Motor activity appropriate. Speech within normal limits. Affect congruent, mood anxious and content. Thoughts linear, logical, no signs of hallucinations or delusions. Client Response/Progress/Benefit: [] Pt was an attentive and active participant in group discussions and experiential activity, doing well to regulate their emotions throughout the activity and work with peers. Attentive during psychoeducation on the 4 A's (Avoid, adapt, alter, accept) of coping with stress. Shared that they would benefit most from avoiding when possible and altering her responses when addressing toxic or unhelpful interactions with her ex. Was able to identify the connection between the experiential activity and utilization of stress management skills. Benefited from increased awareness of stress management strategies. Pt will continue IOP tx to prevent decompensation, improve daily functioning, and increase consistent boundaries and self-care skills. Narrative Note: []
--- NOTE | 2023-10-26 11:18 | BH.MTP_ITS ---
Treatment Plan Review Demographics Date of Admission:: 10/04/23 Date of Treatment Plan Review:: 10/26/23 Admitting Diagnoses:: 1. Major depressive disorder, recurrent severe without psychosis 2. Generalized anxiety disorder 3. PTSD Current Diagnoses:: 1. Major depressive disorder, recurrent severe without psychosis 2. Generalized anxiety disorder 3. PTSD Patient Status Patient's Response to Treatment:: Consistent and engaged in IOP and engaged in both group and individual sessions. Pt completes all homework. Medication compliant. According to pt she benefits from IOP structure, support, and psychoeducation. Does report reduction in energy drink consumption since admission to IOP. Status of Current Problems and Symptoms: Outcomes measurements show a reduction in symptoms since admission to IOP. Scores indicate 19% sx reduction since admission with suicidal ideation reducing by 100%, depression and anxiety however maintaining the same. Pt self-reports decreased depression and anxiety as well as increased functioning; unchanging score may be associated with recent increase in psychosocial stressors associated with her ex and ex?s children. Reports she has been unable to follow-through with blocking her ex out of fear for the children and wanting to ensure children services follows up with pt?s recent complaint. Self-reports improved functioning at work as well as within her healthy supportive friendships. Does indicate feeling overwhelmed by current stressors though. Pt continues to make progress in improving her sense of self- worth and positive self-talk. Progress Problem #1: Problem Name:: Depression, mood stability Status of Goals:: Outcomes scores show no reduction in depression; however do report a 29% reduction in ?personality function? domain. Obj1- incomplete with ongoing work encouraged; pt is learning about depression triggers, warning signs, and coping skills through group psychoeducation and is doing well to begin to apply treatment materials learned. Pt struggles with guilt in doing so and often reports feeling uncomfortable and unpracticed in taking care of herself. Working to challenge mistaken beliefs reinforcing these thoughts. Obj2- Incomplete with ongoing work encouraged; awareness of mistaken beliefs and cog. distortions, however continuing to work on being able to consistently reframe and challenge these independently. Pt continues to struggle significantly with the relationship she has with herself. Is however reporting some improvement in self-confidence and more consistent use of positive affirmations. Team Recommendations:: Due to progress noted plan would be to continue with IOP and current treatment plan. Problem #2: Problem Name:: Anxiety, PTSD Status of Goals:: Outcome scores indicate no reduction in anxiety which is likely related to current stress regarding the safety of her ex?s children. Obj1- incomplete; pt is learning about healthy calming skills for managing sx of anxiety through individual sessions and group psychoeducation. Working on better communicating her needs as well to improve her ability to establish and maintain healthy boundaries in order to prevent taking on additional unnecessary stressors. Object 2- incomplete; pt is learning about anxiety and emotion dysregulation ques/triggers, warning signs, and coping skills through group psychoeducation and individual sessions. Pt continues to do well to connect with this information, but has ongoing difficulties with consistently translating the information into her own life. Team Recommendations:: Due to progress noted plan would be to continue with IOP and current treatment plan.
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
--- NOTE | 2023-11-02 09:00 | BH.SGPN.GN ---
Behaviors/Verbalizations/Mental Status: [] Eye contact is good. Motor activity is appropriate. Appearance is casual. Speech is Appropriate. Mood is anxious. Affect is constricted. Thoughts are linear and logical. No evidence of psychosis. Reviewed daily check in sheet and no reports of suicidal ideations or intent. Client Response/Progress/Benefit: [] Pt was an active participant in group discussions. Attentive. Pt stated feeling stressed because her medical health has started to decline and is starting to experience symptoms of her kidney and cardiac issues. Pt stated she is going to focus on improving her health by taking small steps with healthier decisions. Pt reported mental health positive as setting boundaries with an someone that crossed her verbalized boundaries. Pt stated she was able to manage stressful situation with her ex more effectively when compared to the past. Progress noted per pt report. Benefited from group support, encouragement, and feedback. Will continue in IOP to continue setting boundaries, challenge distortions, and prevent decompensation.
--- NOTE | 2023-11-02 11:05 | BH.SGPN.GN ---
Behaviors/Verbalizations/Mental Status: []Pt alert and oriented, neatly dressed and groomed. Eye contact good. Motor activity appropriate. Speech within normal limits. Affect congruent, mood dysthymic. Thoughts linear, logical, no signs of hallucinations or delusions. Client Response/Progress/Benefit: []Pt responded well to session, engaged in the experiential activity and attentive throughout group processing. Pt reported fear of failure has kept pt from ?truly finding time to get to know myself.? Pt completed fear of failure worksheet and was able to identify thoughts and behaviors that reinforce personal fear of failure including people pleasing, poor boundaries, and not finding worth in herself. Pt participated in group discussion regarding strategies to overcome fear of failure. Identified wanting to work on sitting with the uncomfortable and being kind to herself. Appeared to benefit from increased knowledge of strategies to combat fear of failure and gaining self-awareness. Pt will continue IOP tx to prevent decompensation, improve daily functioning, and gain healthy coping skills. Narrative Note: []
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
--- NOTE | 2023-11-07 09:05 | BH.SGPN.GN ---
Behaviors/Verbalizations/Mental Status: [] Eye contact is good. Motor activity is appropriate. Appearance is casual. Speech is Appropriate. Mood is anxious. Affect is congruent. Thoughts are linear and logical. No evidence of psychosis. Reviewed daily check in sheet and no reports of suicidal ideations or intent. Client Response/Progress/Benefit: [] Pt was an active participant in group discussion. Attentive. Daily symptom tracker notes 4/5 for anxiety and irritability. Shared with the group health issues for the past week which has impacted her ability to work and function. Elaborated briefly on her health issues. Has appt with PCP this afternoon. Gave examples of boundary-setting which has been beneficial to her mental health. She was able to video chat her her ex's kids last week and has begun communicating civilly with her ex simply because of the kids whom she raised and misses. Benefited from group support, encouragement, and feedback.Will continue in IOP to prevent decompensation, stabilize mood, and increase healthy coping. Narrative Note: []
--- NOTE | 2023-11-07 10:10 | BH.SGPN.GN ---
Behaviors/Verbalizations/Mental Status: []Pt alert and oriented, casually dressed and groomed. Eye contact good. Motor activity appropriate. Speech within normal limits. Affect congruent, mood content. Thoughts linear, logical, no signs of hallucinations or delusions. Client Response/Progress/Benefit: [] Pt connected with topic of anxiety and participated throughout, providing input and taking notes. Participated throughout interactive discussion defining anxiety and identifying cognitive and physiological symptoms of anxiety. Group discussed how anxiety can prevent them from trying new things. Pt identified their physical signs of anxiety as: racing heart, leg bouncing, stomach flipping, and jaw clenching. Pt identified safety behaviors as: cancel plans, overly apologize, and isolate. Benefited from increased awareness and insight on anxiety and its impact. Pt will continue IOP tx to maintain boundaries, build confidence, and prevent decompensation.
--- NOTE | 2023-11-07 11:15 | BH.SGPN.GN ---
Behaviors/Verbalizations/Mental Status: []Pt alert and oriented, neatly dressed and groomed. Eye contact good. Motor activity appropriate. Speech within normal limits. Affect congruent, mood tired and stressed. Thoughts linear, logical, no signs of hallucinations or delusions. Client Response/Progress/Benefit: []Pt was an active participant AEB pt providing input and listening attentively to peers. Attentive during psychoeducation on mindfulness coping skills and their impact on reducing anxiety and improving overall mental health wellness. Group was able to identify self-soothing and mind-based coping skills which included: 5-senses, meditation, deep breathing, TIPP, thought challenging, and progressive muscle relaxation. Pt also participated with peers in practicing mindfulness skills in session including deep breathing and PMR. Pt would like to work on using ?pep talks? to manage anxiety. Appeared to benefit from increasing repertoire of anxiety reduction skills. Pt will continue in [facility] tx to improve self-care practices, reduce negative thinking, and increase emotional regulation skills. Narrative Note: []
--- NOTE | 2023-11-09 11:15 | BH.SGPN.GN ---
Behaviors/Verbalizations/Mental Status: []Pt alert and oriented, casually dressed and groomed. Eye contact good. Motor activity appropriate. Speech within normal limits. Affect congruent, mood content. Thoughts linear, logical, no signs of hallucinations or delusions. Client Response/Progress/Benefit: [] Pt responded well to session, participating in activity and small group discussion. Group reviewed the rest of the defense mechanisms and discussed how these are adaptive, maladaptive, or somewhere in the wyman. Pt participated in the experiential activity which encouraged pts to draw a castle that portrayed their different defense mechanisms. Pt's defense mechanisms included suppression, humor, and rationalization. Pt shared she is working on managing suppression by gaining more awareness of when and why she does this. Pt listened to vp production teach different skills to help pt?s cope with or change their defense mechanisms. Pt appeared to benefit from gaining insight to the different defense mechanisms and learning coping skills. Pt will continue IOP tx to promote mood stability, maintain boundaries, and prevent decompensation. Narrative Note: [] Narrative Note: []
--- NOTE | 2023-11-09 12:29 | PCM.BH.PN ---
Progress Note Progress Note: The patient is a 48-year-old female with a history of depression and anxiety and PTSD and caffeine use disorder who is seen in follow-up at the [facility] behavioral health IOP. I last saw the patient 3 weeks ago and at that time she was strongly encouraged to eliminate energy drinks that she was drinking 5-7 Monster energy drinks a day. The patient subsequently had swelling and palpitations and saw her primary care doctor and was found to have atrial fibrillation and edema and some kidney issues. They felt this was due to her high-dose energy drink use so the patient has eliminated completely all caffeine and has not had any caffeine for the past 3 days. She is currently having withdrawal symptoms including severe headaches due to caffeine withdrawal. The patient is still has to complete the workup which is includes getting 2 different kinds of stress test, an echocardiogram and wearing a Holter monitor and blood work every 2 weeks. The patient's sleep is somewhat disrupted lately possibly due to the withdrawal from the caffeine. She feels that her mood is a little less depressed but she has had to decrease her length of her work shifts to not more than 5 hours at a time and so can only work 20 hours a week now and this is causing some financial stress. Her ex girlfriend is being more civil lately and the patient has been able to talk to her her children on the phone and is visiting them tomorrow as she was the caregiver for her ex girlfriend's biological children. She is having much less passive thoughts of now. She denies suicidal ideation, plan for suicide, homicidal ideation, hallucinations or delusions. History of Present Illness/Interim History: [] Current Psychiatric Medications: [] Cymbalta 20 mg p.o. twice daily; trazodone 100 mg p.o. nightly; hydrochlorothiazide added with magnesium and supplements to help with her edema and other issues. Mental Status Examination: [] The patient is a 48-year-old obese female with 3 lip piercings, 1 tongue piercing and bilateral tattoos on both shins and forearms. She has short hair and a somewhat masculine appearance. She is ambulatory with a normal gait and has no psychomotor agitation or retardation. Speech is normal rate and rhythm and fluent with no pressure. Eye contact is good. She is cooperative and pleasant during the interview. Mood is depressed. Affect is mildly constricted. Thought process is goal-directed and organized. Thought content: There is evidence of occasional passive thoughts of but decreasing in incidence. There is no evidence of suicidal ideation, plan for suicide, homicidal ideation, hallucinations or delusions. Reality testing is intact. Judgment is intact. Insight fair and improving. Diagnoses: [] 1. Major depressive disorder, recurrent, severe without psychosis 2. Generalized anxiety disorder 3. PTSD 4. Caffeine withdrawal disorder 5. Primary support issues and health issues Plan: [] The patient will continue the IOP in behavioral health at [facility] as the structure, support, education and group therapy will hopefully prevent worsening of the patient's symptoms. She felt safe during the interview and if it anytime she does not feel safe she agrees to let us know or go to the emergency room. She will continue to stay off of all caffeine and understands the mental health and physical health issues that they can cause. We will observe the patient closely as she is off caffeine for a longer period of time than the current 3 days. She will continue to follow-up with her outpatient medical and psychiatric providers and complete the workup and I will see the patient in follow-up in 2 weeks.
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
--- NOTE | 2023-11-16 10:10 | BH.SGPN.GN ---
Behaviors/Verbalizations/Mental Status: [] Eye contact is good. Motor activity is appropriate. Appearance is casual. Speech is Appropriate. Mood is anxious. Affect is congruent. Thoughts are linear and logical. No evidence of psychosis. Client Response/Progress/Benefit: [] Pt responded well to session AEB contributing to small group discussion, taking notes, and listening attentively to others. Group defined anger and discussed the benefits of managed anger and anger as a secondary emotion. Group shared perspective on personal benefits of anger as advocating for self. Pt completed worksheet on anger triggers and personal warning signs of anger. Pt identified a common trigger for her is when others misplace blame on to others. Pt able to create her personal anger cycle. Appeared to benefit from increased knowledge of the anger cycle as well as personal triggers. Will continue IOP to maintain boundaries, increase consistent use of healthy coping skills, challenge distortions, and prevent decompensation.
--- NOTE | 2023-11-16 11:15 | BH.SGPN.GN ---
Behaviors/Verbalizations/Mental Status: []Client alert and oriented, casually dressed and groomed. Eye contact fair to good. Motor activity appropriate. Speech within normal limits. Affect congruent, mood content. Thoughts linear, logical, no signs of hallucinations or delusions. Client Response/Progress/Benefit: []Pt was engaged throughout AEB contributing to group discussion and activity. Group processed how they each responded to the intentionally difficult task they were asked to completed and described the physical and emotional anger cues experienced throughout, as well as strategies used for managing these frustrations. Pt contributed as group brainstormed healthy coping skills for better managing anger which included: music, walking/exercise, taking a break, healthy venting, avoiding unnecessary stressors, reflection, and journaling. Pt identified plans to work on recognizing her progress and using positive self-talk rather than internalize the anger and self-depreciating. Pt appeared to benefit from identifying different techniques to manage anger as well as gaining awareness of potential consequences of unmanaged anger. Pt to continue IOP to promote use of healthy coping skills, maintain mood stability, and prevent decompensation. Narrative Note: []
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
--- NOTE | 2023-11-22 09:05 | BH.SGPN.GN ---
Behaviors/Verbalizations/Mental Status: [] Eye contact is good. Motor activity is appropriate. Appearance is casual. Speech is Appropriate. Mood is euthymic. Affect is full. Thoughts are linear and logical. No evidence of psychosis. Reviewed daily check in sheet and no reports of suicidal ideations or intent. Client Response/Progress/Benefit: [] Pt was an active participant in group discussions. Attentive. Daily symptom tracker notes 2/5 for anxiety, depression, and irritability. States I'm a basket case. I've had a crapload of stressors. She saw her kids for the first time in several months which was bittersweet. Continuing to maintain boundaries with ex. Utilizing self-care appropriately. Able to spend a whole day resting and completing self-care. I wasn't depressed or thinking negatively I was just enjoying alone time. She reports It was kerwin like a restart. Progress noted. Benefited from group support, encouragement, and feedback. Will continue in IOP to prevent decompensation, stabilize mood, and increase healthy coping skills. Narrative Note: []
--- NOTE | 2023-11-22 10:10 | BH.SGPN.GN ---
Behaviors/Verbalizations/Mental Status: []Pt alert and oriented, casually dressed and groomed. Eye contact good. Motor activity appropriate. Speech within normal limits. Affect congruent, mood content. Thoughts linear, logical, no signs of hallucinations or delusions. Client Response/Progress/Benefit: []Pt was an active participant in group discussion and activity. Attentive during psychoeducation. Along with peers, pt was able to identify barriers to taking action in their life. Identified several symptoms and stressors that pt feels are holding them back from progress such as poor boundaries, people pleasing, and low self-esteem. Stated these things have kept pt from loving herself and leaving toxic environments. Pt shared that she wants to begin addressing low self-esteem. Benefited from increased self-awareness of obstacles. Will continue IOP tx to prevent decompensation, maintain boundarie, and promote ongoing mood stability. Narrative Note: []
--- NOTE | 2023-11-22 11:10 | BH.SGPN.GN ---
Behaviors/Verbalizations/Mental Status: []Pt alert and oriented, casually dressed and groomed. Eye contact good. Motor activity appropriate. Speech within normal limits. Affect congruent, mood euthymic. Thoughts linear, logical, no signs of hallucinations or delusions. Client Response/Progress/Benefit: [] Pt responded well to session, taking notes and participating in worksheet discussion. Pt connected with the discussion on motion vs action steps, and this helped pt learn how to set goals differently. Pt set a goal to improve self-love by living by her boundaries. Pt identified motion steps including positive affirmations, setting boundaries with others, and listing positive qualities. Pt also made action steps which included saying positive things about self every morning while getting ready. Additional step identified as writing down basic boundaries every on a post it note as daily reminder. Appeared to benefit from identifying a small goal to benefit mental health. Client is to continue IOP to continue use of healthy coping skills, challenge distortions, maintain boundaries, and prevent decompensation.
== END 2023-11-23 23:59 ==
LOC: BHIOP 07:15
PROVIDERS: PCP Family Medicine; Referring Provider Psychiatry & Neurology Psychiatry; Visit Provider Psychiatry & Neurology Psychiatry
DX: F33.2 Major depressive disorder, recurrent severe without psychotic features (principal); F41.1 Generalized anxiety disorder; F43.10 Post-traumatic stress disorder, unspecified
CPT/HCPCS: 99213; H2012; H2020; S9480; 90834; 90837

== ENCOUNTER 2023-11-24 07:13 | Outpatient (RCR) | payer MEDICAID, SELFPAY ==
[2023-11-24 00:40] VITALS: BP 156/89; PULSE 77
--- NOTE | 2023-11-24 09:02 | BH.SGPN.GN ---
Behaviors/Verbalizations/Mental Status: [] Client alert and oriented, casual appearance. Eye contact good. Motor activity appropriate. Speech within normal limits. Affect congruent, mood euthymic. Thoughts linear, logical, no signs of hallucinations or delusions. Reviewed client's symptom tracker, no risk for suicidal ideation, plan, or intent. Client Response/Progress/Benefit: [] Client responded well to session AEB listening to others and sharing thoughts/feelings. Client stated mental health positive as doing really well since starting her new position at work with more responsibilities. Client reported her quality engineering manager has noticed how well client has adapted to new responsibilities. Client reported additional mental health positive as getting to see her exes kids that she helped raise on a more regular basis. Client stated she's been able to maintain boundaries with her ex because she recognizes it was extremely unhealthy for her to be in that relationship. Appeared to benefit from support from peers. Will continue IOP tx to maintain boundaries, build confidence, and prevent decompensation.
--- NOTE | 2023-11-24 10:10 | BH.SGPN.GN ---
Behaviors/Verbalizations/Mental Status: [] Eye contact is good. Motor activity is appropriate. Appearance is casual. Speech is Appropriate. Mood is euthymic. Affect is full. Thoughts are linear and logical. No evidence of psychosis. Client Response/Progress/Benefit: [] Pt was an engaged participant AEB listening attentively to others, taking notes, and providing feedback in small group discussions. Attentive during psychoeducation AEB by note taking and providing some input. Pt worked along with peers in small groups to define inappropriate guilt and appropriate guilt. Interactive discussion on examples of both inappropriate and appropriate guilt. Pt able to connect impact inappropriate guilt can have on MH. Benefited from increased awareness of guilt and the differences between appropriate and inappropriate guilt. Plan is to discharge successfully from [facility] today. Narrative Note: []
--- NOTE | 2023-11-24 11:15 | BH.SGPN.GN ---
Behaviors/Verbalizations/Mental Status: []Pt alert and oriented, casually dressed and groomed. Eye contact good. Motor activity appropriate. Speech within normal limits. Affect congruent, mood content, euthymic. Thoughts linear, logical, no signs of hallucinations or delusions. Client Response/Progress/Benefit: []Pt engaged participant AEB listening attentively to others and providing input throughout group. Pt worked within their small group to identify strategies to manage inappropriate guilt. Identified a personal example of inappropriate guilt as ?Not taking someone's shift at work when they asked? Insight cues a feeling of ?fear of disappointing them or potential conflict? Pt wants to work on combatting inappropriate guilt by being more self-compassionate and practicing improving self-confidence. Pt seemed to benefit from learning about strategies to manage appropriate and inappropriate guilt. Pt will d/c from IOP tx and continue in outpatient setting to prevent decompensation and maintain mood stability. ? Narrative Note: []
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
== END 2023-11-24 12:50 | disposition home or self-care (01) ==
LOC: BHIOP 07:13
PROVIDERS: PCP Family Medicine; Referring Provider Psychiatry & Neurology Psychiatry; Visit Provider Psychiatry & Neurology Psychiatry
DX: F33.2 Major depressive disorder, recurrent severe without psychotic features (principal); F41.1 Generalized anxiety disorder; F43.10 Post-traumatic stress disorder, unspecified
CPT/HCPCS: H2020; S9480; 90832

== ENCOUNTER 2023-12-01 13:44 | Outpatient (RCR) | payer MEDICAID, SELFPAY | END 2023-12-23 06:48 | disposition home or self-care (01) | LOC: BHOG 13:44 | PROVIDERS: PCP Family Medicine; Referring Provider Psychiatry & Neurology Psychiatry; Visit Provider Psychiatry & Neurology Psychiatry | DX: F33.2 Major depressive disorder, recurrent severe without psychotic features (principal); F41.1 Generalized anxiety disorder; F43.10 Post-traumatic stress disorder, unspecified | CPT/HCPCS: 90853 ==

== ENCOUNTER 2024-10-12 21:50 | Emergency (ER) | payer MEDICAID, SELFPAY ==
[2024-10-12 21:50] VITALS: BP 181/100; PULSE 98; RESP 18; TEMP 36.8; O2SAT 99
[2024-10-12 21:57] VITALS: BP 181/100; PULSE 98; RESP 18; TEMP 36.8; O2SAT 99; BMI 42.8
--- OUTSIDE RECORDS SUMMARY | 2024-10-12 22:19 | XMS RPT_ITS | CCD ---
Author Organization [facility] Care Team Providers Care Damaged Freight Inspector Name Role Phone Joshua Sebastian Unavailable Unavailable PROVIDER, UNKNOWN Unavailable Unavailable Sid Sears Unavailable Unavailable SID SEARS Unavailable Unavailable SID SEARS M Unavailable Unavailable SID SEARS M Unavailable Unavailable ISD SEARS M Unavailable Unavailable TANIYA SEARSISTIN M Unavailable Unavailable SID SEARS M Unavailable Unavailable SID ALVAREZ DO Primary Care Physician [phone] Sid Alvarez DO Primary Care Provider [phone] CONNER RUEDA Referring Unavailable SID ALVAREZ Primary Care Unavailable SID ALVAREZ Primary Care Unavailable CONNER RUEDA Attending Unavailable Joshua Dean Attending Unavailable SID ALVAREZ DO Primary Care Physician [phone] Sid Alvarez DO Primary Care Provider [phone] SID ALVAREZ Primary Care Unavailable SELF Referring Unavailable SID ALVAREZ Primary Care Unavailable SOCRATES MORRIS Attending UnavailSID Soares DO Primary Care Unavailable SID ALVAREZ DO Primary Care Unavailable CAREY MLEENDREZ DO Attending Unavailable DANETTE ABERNATHY, DR GEORGE Loera Attending Unavailadore e SID ALVAREZ DO Primary Care Unavailable LILLY CALLAWAY Attending SID Villarreal DO Primary Care Unavailable LILLY CALLAWAY Attending SID Villarreal DO Primary Care Unavailable SID ALVAREZ DO Primary Care Unavailable ANTHONY CA DO Attending Unavailable DANY SANTANA MD Attending Unavail able KIM DO, SID Primary Care Unavailable Kim, Sid Primary Care Unavailable Elliot Heller Attending Unavailable Kim, Sid Primary Care Unavailable Erica Pinzon Attending Unavailable Alberta, Erica Referring Unavailable Kim, Sid Referring Unavailable Michi Layne Attending Unavailable Kim, Sid Primary Care Unavailable Kim, Sid Primary Care Unavailable Iglesia Pinzonon Attending Unavailable Alberta, Erica Referring Unavailable Kim, Sid Primary Care Unavailable Erica Pinzon Attending Unavailable Erica Pinzon Referring Unavailable ELLIOT HELLER Admitting Unavailable ELLIOT HELLER Attending Unavailable KIM, SID M Primary Care Unavailable Allergies Allergy Classification Reported Allergen(s) Allergy Type Date of Onset Reaction(s) Facility (20 sources) gabapentin; Translations: [gabapentin] Drug Allergy 12-20-19 15 Other [facility] Work Phone: Comment on above: SUICIDAL (16 sources) influenza A virus A/[facility]/[id number] 5 (H1N1) antigen / influenza A virus A//CY5008 5 (H3N2) antigen / influenza B virus B/ antigen / influenza B virus B/ antigen; Translations: [influenza virus vaccine] Drug Allergy Unknown [facility] Work Phone: (20 sources) Prochlorperazine; Translations: [prochlorperazine] Drug Allergy 08-31-19 04 Other [facility] Work Phone: Comment on above: ANXIOUS, BEHAVIOR CH ANGES (10 sources) hydroCHLOROthiazide; Translations: [hydrochlorothiazide] Drug Allergy Magnesium deficiency (disorder) [facility] (3 sources) Codeine Drug Allergy 12-20-19 15 [facility] (3 sources) Haemophilus influenzae type b Drug Allergy 10-10-19 23 Unknown [facility] (3 sources) hydroCHLOROthiazide Drug Allergy 10-10-19 [facility] (3 sources) Pneumococcal vaccine Drug Allergy 10-10-19 [facility] (3 sources) Eggs Or Egg-Derived Products Propensity to adverse reactions 10-10-19 [facility] (8 sources) Egg Food allergy [facility] (4 sources) Naproxen; Translations: [NAPROXEN] Drug Allergy 09-02-19 12 Other: See Comments [facility] Work Phone: (2 sources) brown rice preparation; Translations: [rice] Drug Allergy 08-11-19 Angioedema [facility] (1 source) corn allergenic extract Drug Allergy 08-11-19 Angioedema [facility] (1 source) egg extract Drug Allergy 08-11-19 24 Angioedema [facility] (1 source) Beef Containing Products Allergy to substance 08-11-19 Angioedema [facility] (1 source) Pork/Porcine Containing Products [facility] ([facility] source) corn extract Drug Allergy 07-11-19 [facility] Repository (1 source) egg extract Drug Allergy 07-11-19 [facility] Repository (1 source) gabapentin Drug Allergy 07-11-19 25 [facility] Repository (1 source) Prochlorperazine Drug Allergy 07-11-19 25 [facility] Repository (1 source) Influenza Virus Vaccines Drug allergy (disorder) 07-11-19 25 [facility] Repository (1 source) Beef Containing Products Drug allergy (disorder) 07-11-19 25 [facility] Repository (1 source) Pork/Porcine Containing Products Drug allergy (disorder) 07-11-19 [facility] Repository Medications Current Medications Medication Drug Class(es) Dates Sig (Normalized) Sig (Original) albuterol 0.833 mg/ml / ipratropium bromide 0.167 mg/ml inhalation solution (14 sources) Anticholinergic, beta2-Adrenergic Agonist Start: 01-17-2023 take 1 dose by inhalation every four hours albuterol-ipratro pium 2.5 mg-0.5 mg/3 mL inhalation solution Dose = 3 mL, Inhalation, q4h, # 100 EA, 0 Refill(s), Pharmacy: [facility] #[id number], Asthma without acute exacerbation, 165.1, cm, 01/17/23 15:13:00 EDT, Height, kg, 07/15/22 14:04:00 EDT, Dosing Weight Start Date: 01/17/23 Status: Ordered Start: 03-16-2022 take 1 dose by inhal ation every four hours albuterol-ipratropium 2.5 mg-0.5 mg/3 mL inhalation solution Dose = 3 mL, Inhalation, q4h, # 100 EA, 0 Refill(s), Pharmacy: [facility] #[id number], Asthma without acute exacerbation, 166, cm, 10/19/21 11:27:00 EDT, Height, kg, 10/19/21 11:27:00 EDT, Dosing Weight Start Date: 03/16/22 Status: Ordered Start: 04-20-2021 take 1 dose by inhal ation every four hours albuterol-ipratropium 2.5 mg-0.5 mg/3 mL inhalation solution Dose = 3 mL, Inhalation, q4h, # 100 EA, 0 Refill(s), Pharmacy: [facility], 165.1, cm, 04/19/21 20:36:00 EST, Height, kg, 04/19/21 20:36:00 EST, Dosing Weight Start Date: 04/20/21 Status: Ordered amoxicillin 500 mg oral capsule (3 sources) Penicillin-class Antibacterial Start: 10-09-2022 End: 10-19-2022 take 2 capsules by mouth once daily amoxicillin (Amoxil) 500 MG capsule Take 2 capsules (1,000 mg) by mouth daily for 10 days. 20 capsule 0 10/09/2022 10/19/2022 Active amoxicillin 875 mg / clavulanate 125 mg oral tablet (1 source) Penicillin-class Antibacterial Start: 07-13-2023 End: 07-20-2023 take 1 tablet by mouth every twelve hours amoxicillin-clavula deniz potassium (AUGMENTIN) 875-125 mg per tablet Take 1 tablet by mouth every 12 hours for 7 days. Patient should start on July 13, 2023. 14 tablet 0 07/13/2023 07/20/2023 Active Comment on above: Take 1 tablet by teddy th every 12 hours for 7 days. Patient should start on July 13, 2023. azithromycin 250 mg oral tablet (1 source) Macrolide Antimicrobial Start: 03-17-2022 End: 03-22-2022 Zithromax 250 mg oral tablet Dose : 250 mg = 1 tab(s), Oral, qDay, follow directions on Z-Cale, X 5 day(s), # 6 tab(s), 0 Refill(s), 03/22/22 8:10:00 EST, Pharmacy: [facility] #[id number], Acute bronchitis with asthma, 166, cm, 10/19/21 11:27:00 EDT, Height, 123.3 Start Date: 03/17/22 Stop Date: 03/22/22 Status: Ordered cetirizine hydrochloride 10 mg oral tablet (8 sources) Histamine-1 Receptor Antagonist Start: 10-07-2021 Zyrtec 10 mg oral tablet Dose : 10 mg = 1 tab(s), Oral, qDay, # 90 tab(s), 1 Refill(s), Pharmacy: [facility] #[id number], Seasonal allergies, 166, cm, 06/10/22 11:32:00 EST, Height, kg, 06/10/22 11:32:00 EST, Dosing Weight Start Date: 06/10/22 Status: Ordered cyclobenzaprine hydrochloride 10 mg oral tablet (1 source) Muscle Relaxant Start: 08-11-2023 End: 08-16-2023 take 1 tablet by mouth every eight hours as needed cyclobenzaprine (FLEXERIL) 10 mg tablet Indications: Rib pain Take 1 tablet by mouth every 8 hours as needed for up to 5 days. 10 tablet 0 08/11/2023 08/16/2023 Active Comment on above: Take 1 tablet by teddy every 8 hours as needed for up to 5 days. DULoxetine 20 mg delayed release oral capsule (7 sources) Serotonin and Norepinephrine Reuptake Inhibitor Start: 09-06-2023 DULoxetine 20 mg oral delayed release capsule Dose : 20 mg = 1 cap(s), Oral, BID, # 180 cap(s), 1 Refill(s), Pharmacy: [facility] #[id number], Recurrent major depression Anxiety, 166, cm, 09/06/23 8:31:00 EDT, Height, kg, 09/06/23 8:31:00 EDT, Dosing Weight Start Date: 09/06/23 Status: Ordered Start: 06-10-2022 Cymbalta 20 mg oral delayed release capsule Dose : 20 mg = 1 cap(s), Oral, BID, inform patient to start at this dose please, # 60 cap(s), 0 Refill(s), [facility]: [facility] #[id number], Anxiety and depression, 166, cm, 06/10/22 11:32:00 EST, Height Start Date: 06/10/22 Status: Ordered Start: 07-06-2021 Cymbalta 20 mg oral delayed release capsule Dose : 20 mg = 1 cap(s), Oral, BID, # 60 cap(s), 1 Refill(s), [facility]: [facility] Anxiety and depression Lumbar radiculopathy, chronic, 165.1, cm, 07/06/21 10:26:00 EDT, Height, kg, 07/06/21 10:26:00 EDT, Dosing Weight Start Date: 07/06/21 Status: Ordered ergocalciferol 0.05 mg oral capsule (1 source) Provitamin D2 Compound Start: 11-10-2021 take 50 ug by mouth once daily Ergocalciferol (Vitamin D2) Active 50 MCG PO DAILY November 10, 2021 12:00am famotidine 40 mg oral tablet (8 sources) Histamine-2 Receptor Antagonist Start: 07-06-2021 End: 01-02-2022 take 40 mg by mouth once daily Famotidine Active 40 MG PO DAILY November 10, 2021 12:00am Start: 12-01-2020 End: 01-30-2021 famotidine 40 mg oral tablet Dose : 40 mg = 1 tab(s), Oral, BID, # 60 tab(s), 1 Refill(s), [facility]: [facility] [facility], 165, cm, 12/01/20 10:30:00 EDT, Height, kg, 12/01/20 10:30:00 EDT, Dosing Weight Start Date: 12/01/20 Stop Date: 01/30/21 Status: Ordered hydroCHLOROthiazide 12.5 mg oral capsule (4 sources) Thiazide Diuretic Start: 11-07-2023 hydroCHLOROthiazide 12.5 mg oral capsule Dose : 12.5 mg = 1 cap(s), Oral, qDay, # 30 cap(s), 2 Refill(s), [facility]acy: [facility] #[id number], 165, cm, 11/07/23 13:31:00 EDT, Height, kg, 11/07/23 13:31:00 EDT, Dosing Weight Start Date: 11/07/23 Status: Ordered Start: 10-07-2021 hydroCHLOROthi azide 25 mg oral tablet Dose : 25 mg = 1 tab(s), Oral, qDay, # 30 tab(s), 2 Refill(s), [facility]acy: [facility] [facility], Hypertension, 165, cm, 10/07/21 10:38:00 EDT, Height Start Date: 10/07/21 Status: Ordered ibuprofen 200 mg oral capsule (7 sources) Nonsteroidal Anti-inflammatory Drug Start: 11-10-2021 take 200 mg by mouth every six hours Ibuprofen Active 200 MG PO EVERY 6 HOURS November 10, 2021 12:00am Start: 07-06-2021 ibuprofen 200 mg oral tablet Dose : 800 mg = 4 tab(s), Oral, q6hr, PRN as needed for fever, # 120 tab(s), 0 Refill(s) Start Date: 07/06/21 Status: Ordered losartan potassium 25 mg oral tablet (2 sources) Angiotensin 2 Receptor Denise Start: 11-07-2023 End: 02-05-2024 losartan 25 mg oral tablet Dose : 50 mg = 2 tab(s), Oral, qDay, # 60 tab(s), 2 Refill(s), [facility]acy: [facility] #[id number], Hypertension, 165, cm, 11/07/23 13:31:00 EDT, Height, kg, 11/07/23 13:31:00 EDT, Dosing Weight Start Date: 11/07/23 Stop Date: 02/05/24 Status: Ordered naproxen sodium 220 mg oral capsule (1 source) Nonsteroidal Anti-inflammatory Drug Start: 08-07-2020 Aleve 220 mg oral capsule Dose : 440 mg = 2 cap(s), Oral, 0 Refill(s) Start Date: 08/07/20 Status: Ordered pantoprazole 40 mg delayed release oral tablet (4 sources) Proton Pump Inhibitor Start: 09-06-2023 Protonix 40 mg oral enteric coated tablet Dose : 40 mg = 1 tab(s), Oral, qDay, # 90 tab(s), 1 Refill(s), [facility]: [facility] #[id number], Chronic GERD, 166, cm, 09/06/23 8:31:00 EDT, Height, kg, 09/06/23 8:31:00 EDT, Dosing Weight Start Date: 09/06/23 Status: Ordered Start: 08-11-2023 Protonix 40 mg oral enteric coated tablet Dose : 40 mg = 1 tab(s), Oral, qDay, # 30 tab(s), 0 Refill(s) Start Date: 08/11/23 Status: Ordered End: 07-10-2023 take 1 tablet by mouth once daily pantoprazole DR (PROTONIX) 40 mg tablet Take 40 mg by mouth once daily. 0 07/10/2023 Discontinued Comment on above: Take 40 mg by mouth once daily. PARoxetine hydrochloride 10 mg oral tablet (5 sources) Serotonin Reuptake Inhibitor Start: 10-07-2021 take 10 mg by mouth once daily Paroxetine Hcl Active 10 MG PO DAILY November 10, 2021 12:00am potassium chloride 1.33 meq/ml oral solution (3 sources) Start: 11-10-2021 take 20 mEq by mouth once daily Potassium Chloride Active 20 MEQ PO DAILY November 10, 2021 12:00am Start: 10-14-2021 End: 10-21-2021 K-Tab 20 mEq oral tablet, ex tended release Dose : 20 mEq = 1 tab(s), Oral, qDay, # 7 tab(s), 0 Refill(s), Palpitations Hyperglycemia Start Date: 10/14/21 Stop Date: 10/21/21 Status: Ordered predniSONE 10 mg oral tablet (3 sources) Start: 08-11-2023 take 4 tablets by mouth once daily, then take 3 tablets by mouth once daily, then take 2 tablets by mouth once daily, then take 1 tablet by mouth once daily, then take 1 tablet by mouth every other day Prednisone Active 10 MG PO DIRECTED 33 August 11, 2023 12:00am Take 4 tablets daily for 3 days, then 3 daily for 3 days, then 2 daily for 3 days, then 1 a day for 3 days then 1 QOD for 3 doses. Start: 07-10-2023 End: 07-15-2023 take 2 tablets by mouth once daily predniSONE (DELTASONE) 20 mg tablet Indications: SOB (shortness of breath) Take 2 tablets by mouth once daily for 5 days. 10 tablet 0 07/10/2023 07/15/2023 Active Start: 12-17-2020 End: 12-23-2020 prednisone 10mg tab (TAPER) Taper 78-50-09-30-20-10 x 1 day, Oral, qAM, # 21 tab(s), 0 Refill(s), [facility]: [facility] 165, cm, 12/16/20 11:06:00 EDT, Height, kg, 12/16/20 11:06:00 EDT, Dosing Weight Start Date: 12/17/20 Stop Date: 12/23/20 Status: Ordered Comment on above: Take 2 tablets by [facility] once daily for 5 days. rOPINIRole 1 mg oral tablet (11 sources) Nonergot Dopamine Agonist Start: 07-06-2021 rOPINIRole 1 mg oral tablet Dose : 1 mg = 1 tab(s), Oral, qHS, # 90 tab(s), 1 Refill(s), [facility]acy: [facility] #[id number], Restless leg syndrome, 166, cm, 06/10/22 11:32:00 EST, Height, kg, 06/10/22 11:32:00 EST, Dosing Weight Start Date: 06/10/22 Status: Ordered Start: 07-08-2020 rOPINIRole 1 m g oral tablet Dose : 1 mg = 1 tab(s), Oral, qHS, # 30 tab(s), 5 Refill(s), [facility]acy: [facility], Restless leg syndrome, 166, cm, 07/08/20 10:37:00 EDT, Height, kg, 07/08/20 10:37:00 EDT, Dosing Weight Start Date: 07/08/20 Status: Ordered traZODone hydrochloride 100 mg oral tablet (3 sources) Serotonin Reuptake Inhibitor Start: 11-07-2023 traZODone 100 mg oral tablet 0 Refill(s) Start Date: 11/07/23 Status: Ordered End: 07-10-2023 take 1 tablet by mouth once daily at bedtime traZODone (DESYREL) 50 mg tablet Take 50 mg by mouth daily at bedtime. 0 07/10/2023 Discontinued Comment on above: Take 50 mg by mouth daily at bedtime. vitamin b12 1 mg oral tablet (6 sources) Vitamin B12 Start: 06-11-2022 cyanocobalamin 1000 mcg oral tablet Dose : 1,000 mcg = 1 tab(s), Oral, qDay, # 90 tab(s), 3 Refill(s), Pharmacy: [facility] #[id number], Vitamin B12 deficiency, 166, cm, 06/10/22 11:32:00 EST, Height Start Date: 06/11/22 Status: Ordered Start: 11-10-2021 inject 100 ug by int ramuscular injection every month Cyanocobalamin (Vitamin B-12) Active 100 MCG IM EVERY MONTH November 10, 2021 12:00am Start: 10-13-2021 inject 1 mL by intra muscular injection every month cyanocobalamin 1000 mcg/mL injectable solution Dose : 1,000 mcg = 1 mL, Intramuscular, qmonth, NOT SENT IN - to get at dr's office monthly, # 1 mL, 11 Refill(s), other reason (Rx), B12 deficiency Start Date: 10/13/21 Status: Ordered Vitamin D2 1.25 mg (50,000 intl units) oral capsule (6 sources) Start: 10-13-2021 Vitamin D2 1.2 5 mg (50,000 intl units) oral capsule Dose : 50,000 International_Unit = 1 cap(s), Oral, 2X/week, # 26 cap(s), 3 Refill(s), Pharmacy: [email or web address], Vitamin D deficiency, 165, cm, 10/07/21 10:38:00 EDT, Height, kg, 10/07/21 10:36:00 EDT, Dosing Weight Start Date: 10/13/21 Status: Ordered Start: 07-22-2021 End: 10-20-2021 Vitamin D2 1.25 mg (50,000 i ntl units) oral capsule Dose : 50,000 International_Unit = 1 cap(s), Oral, qWeek, # 13 cap(s), 3 Refill(s), Pharmacy: [email or web address], Vitamin D deficiency, 165.1, cm, 07/21/21 10:38:00 EDT, Height Start Date: 07/22/21 Stop Date: 10/20/21 Status: Ordered Vitamin D3 1250 mcg (50,000 intl units) oral capsule (1 source) Start: 06-11-2022 Vitamin D3 125 0 mcg (50,000 intl units) oral capsule Dose : 1,250 mcg = 1 cap(s), Oral, 2X/week, # 26 cap(s), 3 Refill(s), Pharmacy: [facility] #[id number], Vitamin D deficiency, 166, cm, 06/10/22 11:32:00 EST, Height Start Date: 06/11/22 Status: Ordered Completed/Discontinued Medications Medication Drug Class(es) Dates Sig (Normalized) Sig (Original) [id number] 200 actuat albuterol 0.09 mg/actuat metered dose inhaler (5 sources) beta2-Adrenergic Agonist Start: 07-10-2023 take 2 puff(s) by inhalation every four hours as needed albuterol HFA (PROVENTIL HFA, VENTOLIN HFA) 90 mcg/actuation inhaler Indications: SOB (shortness of breath) Inhale 2 Puffs as instructed every 4 hours as needed. 8 g 0 07/10/2023 Active Start: 11-10-2021 Albuterol Sulf ate Active 2.5 MG INHALATION Q20M November 10, 2021 12:00am for up to 3 doses Start: 11-10-2021 Albuterol Sulf ate Active 1 INH INHALATION ONCE November 10, 2021 12:00am Start: 09-03-2020 take 2 puff(s) by in halation four times daily as needed for wheezing ProAir HFA MDI (90 mcg/inh) inhalation aerosol 2 puff(s), Inhalation, QID, PRN as needed for wheezing, # 8.5 gram(s), 0 Refill(s) Start Date: 09/03/20 Status: Ordered Comment on above: Inhale 2 Puffs as in structed every 4 hours as needed. albuterol MDI (90 mcg/inh) CFC free inhalation aerosol (16 sources) Start: 3 End: 3 take 2 puff(s) by inhalation every six hours albuterol MDI (90 mcg/inh) CFC free inhalation aerosol 2 puff(s), Inhalation, q6hr, # 1 EA, 5 Refill(s), Pharmacy: [facility] #[id number], Asthma without acute exacerbation Seasonal allergies, 166, cm, 06/10/22 11:32:00 EST, Height, kg, 06/10/22 11:32:00 EST, Dosing Weight Start Date: 06/10/22 Stop Date: 12/07/22 Status: Ordered Start: 03-16-2022 take 2 puff(s) by in halation every two hours albuterol MDI (90 mcg/inh) CFC free inhalation aerosol 2 puff(s), Inhalation, q2h, # 1 EA, 5 Refill(s), Pharmacy: [facility] #[id number], Asthma without acute exacerbation, 166, cm, 10/19/21 11:27:00 EDT, Height, kg, 10/19/21 11:27:00 EDT, Dosing Weight Start Date: 03/16/22 Status: Ordered Start: 04-19-2021 take 2 puff(s) by in halation every two hours albuterol MDI (90 mcg/inh) CFC free inhalation aerosol 2 puff(s), Inhalation, q2h, # 1 EA, 0 Refill(s) Start Date: 04/19/21 Status: Ordered Start: 12-16-2020 take 2 puff(s) by in halation every four hours as needed for wheezing albuterol MDI (90 mcg/inh) CFC free inhalation aerosol 2 puff(s), Inhalation, q4h, PRN as needed for wheezing, # 18 gram(s), 0 Refill(s), Pharmacy: [facility] Cough, 165, cm, 12/16/20 11:06:00 EDT, Height, kg, 12/16/20 11:06:00 EDT, Dosing Weight Start Date: 12/16/20 Status: Ordered baclofen 10 mg oral tablet (1 source) gamma-Aminobutyric Acid-ergic Agonist End: 07-10-2023 take 1 tablet by mouth twice daily baclofen (LIORESAL) 10 mg tablet Take 10 mg by mouth twice daily. 0 07/10/2023 Discontinued Comment on above: Take 10 mg by mouth twice daily. benzonatate 100 mg oral capsule (4 sources) Non-narcotic Antitussive Start: 07-10-2023 take 2 capsules by mouth every eight hours as needed benzonatate (TESSALON PERLES) 100 mg capsule Indications: Viral upper respiratory tract infection with cough Take 2 capsules by mouth every 8 hours as needed. 60 capsule 0 07/10/2023 Active Start: 04-03-2017 End: 07-10-2023 Tessalon Perles 100 mg oral capsule Dose : 100 mg = 1 cap(s), Oral, TID, X 14 day(s), # 42 cap(s), 0 Refill(s), 03/30/22 9:34:00 EST, [facility]acy: [facility] #[id number], URI with cough and congestion, 166, cm, 10/19/21 11:27:00 EDT, Height Start Date: 03/16/22 Stop Date: 03/30/22 Status: Ordered Comment on above: Take 2 capsules by m outh every 8 hours as needed. Take 1 capsule by mo uth three times daily as needed. citalopram 20 mg oral tablet (1 source) Serotonin Reuptake Inhibitor End: 07-10-19 take 1 tablet by mouth once daily citalopram (CELEXA) 20 mg tablet Take 20 mg by mouth once daily. 0 07/10/2023 Discontinued Comment on above: Take 20 mg by mouth once daily. dicyclomine hydrochloride 10 mg oral capsule (1 source) Anticholinergic Start: 12-02-19 End: 01-13-20 dicyclomine 10 mg oral capsule Dose : 10 mg = 1 cap(s), Oral, QID, # 84 cap(s), 1 Refill(s), [facility]acy: [facility], 165, cm, 12/01/20 10:30:00 EDT, Height, kg, 12/01/20 10:30:00 EDT, Dosing Weight Start Date: 12/01/20 Stop Date: 01/12/21 Status: Ordered 2 ml dupilumab 150 mg/ml prefilled syringe (1 source) Interleukin-4 Receptor alpha Antagonist End: 07-10-19 dupilumab (DUPIXENT) 300 mg/2 mL syrg Inject subcutaneously. 0 07/10/2023 Discontinued Comment on above: Inject subcutaneousl y. fluticasone propionate 0.05 mg/actuat metered dose nasal spray (15 sources) Corticosteroid Start: 07-10-19 take 1 spray(s) nasal route twice daily fluticasone (FLONASE ALLERGY RELIEF) 50 mcg/actuation nasal spray Indications: Viral upper respiratory tract infection with cough Use 1 [place] in each nostril two times a day. 1 Each 0 07/10/2023 Active Start: 01-17-2023 End: 07-16-2023 take 1 dose nasal route once daily Flonase 50 mcg/inh nasal spray Dose = 2 spray(s), Nostril, each, qDay, # 3 EA, 1 Refill(s), Pharmacy: [facility] #[id number], Seasonal allergies, 165.1, cm, 01/17/23 15:13:00 EDT, Height, kg, 07/15/22 14:04:00 EDT, Dosing Weight Start Date: 01/17/23 Stop Date: 07/16/23 Status: Ordered Start: 06-10-2022 End: 12-07-2022 take 1 dose nasal route once daily Flonase 50 mcg/inh nasal spray Dose = 2 spray(s), Nostril, each, qDay, # 3 EA, 1 Refill(s), Pharmacy: [facility] #[id number], Seasonal allergies, 166, cm, 06/10/22 11:32:00 EST, Height, kg, 06/10/22 11:32:00 EST, Dosing Weight Start Date: 06/10/22 Stop Date: 12/07/22 Status: Ordered Start: 11-10-2021 Fluticasone Fu roate Active INHALATION November 10, 2021 12:00am Start: 10-07-2021 take 1 dose nasal ro artemio once daily in the morning Flonase 50 mcg/inh nasal spray Dose = 2 spray(s), Nostril, each, qAM, # 1 EA, 5 Refill(s), Pharmacy: [facility], Seasonal allergies, 165, cm, 10/07/21 10:38:00 EDT, Height Start Date: 10/07/21 Status: Ordered Start: 04-03-2017 End: 07-10-2023 take 2 puff(s) by inhalation twice daily fluticasone (FLOVENT HFA) 110 mcg/actuation inhaler Inhale 2 Puffs as instructed twice daily. 1 Inhaler 5 04/03/2017 07/10/2023 Discontinued Start: 01-10-2017 End: 07-10-2023 take 2 spray(s) nasal route once daily fluticasone (FLONASE) 50 mcg/actuation nasal spray place 2 sprays into each nostril once daily 0 01/10/2017 07/10/2023 Discontinued Comment on above: Use 1 [place] in each nostril two times a day. place 2 sprays into each nostril once daily Inhale 2 Puffs as in structed twice daily. 12 hr guaiFENesin 600 mg extended release oral tablet (1 source) Start: 04-03-20 End: 07-10-19 take 2 tablets by mouth twice daily guaiFENesin (MUCINEX) 600 mg 12 hr tablet Indications: Viral URI with cough Take 2 tablets by mouth twice daily. 30 tablet 0 04/03/2017 07/10/2023 Discontinued Comment on above: Take 2 tablets by [facility] twice daily. lidocaine hydrochloride 20 mg/ml mucous membrane topical solution (1 source) Antiarrhythmic, Amide Local Anesthetic Start: 04-03-20 End: 07-10-19 lidocaine viscous (LIDOCAINE VISCOUS) 2 % solution Indications: Sore throat Gargle and spit 10-15mLs every 3-4 hours as need for throat discomfort. 120 mL 0 04/03/2017 07/10/2023 Discontinued Comment on above: Gargle and spit 10-1 5mLs every 3-4 hours as need for throat discomfort. meloxicam (1 source) Nonsteroidal Anti-inflammatory Drug End: 07-10-19 MELOXICAM ORAL Take by mouth once daily. 0 07/10/2023 Discontinued Comment on above: Take by mouth once d aily. metFORMIN hydrochloride 500 mg oral tablet (1 source) Biguanide End: 07-10-19 take 1 tablet by mouth once daily at breakfast metFORMIN (GLUCOPHAGE) 500 mg tablet Take 500 mg by mouth daily with breakfast. 0 07/10/2023 Discontinued Comment on above: Take 500 mg by mouth daily with breakfast. montelukast 10 mg oral tablet (1 source) Leukotriene Receptor Antagonist Start: 01-11-20 End: 07-10-19 24 take 1 tablet by mouth once daily montelukast (SINGULAIR) 10 mg tablet take 1 tablet by mouth once daily 0 01/10/2017 07/10/2023 Discontinued Comment on above: take 1 tablet by teddy th once daily NexIUM 40 mg oral delayed release capsule (1 source) Start: 12-02-19 End: 01-31-20 NexIUM 40 mg oral delayed release capsule Dose : 40 mg = 1 cap(s), Oral, qDayAC, # 30 cap(s), 1 Refill(s), Pharmacy: [facility] [id number], 165, cm, 12/01/20 10:30:00 EDT, Height, kg, 12/01/20 10:30:00 EDT, Dosing Weight Start Date: 12/01/20 Stop Date: 01/30/21 Status: Ordered propranolol hydrochloride 20 mg oral tablet (1 source) beta-Adrenergic Denise End: 07-10-19 take 1 tablet by mouth twice daily propranolol (INDERAL) 20 mg tablet Take 20 mg by mouth twice daily. 0 07/10/2023 Discontinued Comment on above: Take 20 mg by mouth twice daily. sodium chloride 0.111 meq/ml nasal spray (2 sources) Start: 07-10-19 sodium chloride (SALINE MIST) 0.65 % nasal spray Indications: Viral upper respiratory tract infection with cough Use 1 [place] in the nose as needed. 15 mL 0 07/10/2023 Active Comment on above: Use 1 [place] in the n ose as needed. Problems Active Problems Problem Classification Problem Date Documented Da te Episodic/Chronic Anxiety disorders (16 sources) Mixed anxiety and depressive disorder; Translations: [Anxiety disorder, unspecified] 07-06-2021 Chronic Asthma (20 sources) Exacerbation of asthma; Translations: [Asthma] 04-20-2021 Chronic Cardiac dysrhythmias (18 sources) Palpitations; Translations: [Palpitations] Onset: 10-14-2021 05-07-2020 Episodic Chronic obstructive pulmonary disease and bronchiectasis (15 sources) Bronchitis 04-20-2021 Episodic Chronic ulcer of skin (1 source) Non-pressure chronic ulcer of other part of left foot with fat layer exposed; Translations: [Ulcer of left foot, with fat layer exposed (HCC)] Onset: 10-05-2024 Chronic Conditions associated with dizziness or vertigo (3 sources) Dizziness 11-07-2023 Episodic Diabetes mellitus without complication (1 source) Hyperglycemia; Translations: [Hyperglycemia, unspecified] Onset: 10-14-2021 Episodic Diseases of white blood cells (10 sources) Leukocytosis; Translations: [Elevated white blood cell count, unspecified] 06-10-2022 Chronic Disorders of lipid metabolism (3 sources) Dyslipidemia; Translations: [Hyperlipidemia, unspecified] Onset: 12-19-2014 02-04-2022 Chronic E Codes: Fall (16 sources) Fall in home 03-18-2020 Esophageal disorders (20 sources) Pal's esophagus; Translations: [Eosinophilic esophagitis] Onset: 12-19-2014 03-29-2016 Chronic Essential hypertension (17 sources) Hypertensive disorder; Translations: [Essential hypertension] Onset: 10-14-2021 10-07-2021 Chronic Fluid and electrolyte disorders (1 source) Hypokalemia; Translations: [Hypokalemia] Onset: 10-14-2021 Episodic Headache; including migraine (3 sources) Migraine; Translations: [Migraine, unspecified, not intractable, without status migrainosus] 06-16-2011 Chronic Joint disorders and dislocations; trauma-related (2 sources) Chondromalacia of patella; Translations: [Chondromalacia of patella] Onset: 09-14-2011 09-14-2011 Chronic Malaise and fatigue (15 sources) Fatigue 07-06-2021 Episodic Menstrual disorders (6 sources) Irregular periods; Translations: [Irregular menstruation, unspecified] Onset: 02-23-2011 02-23-2011 Chronic Mood disorders (20 sources) Depression; Translations: [Depressive disorder] Onset: 11-14-2022 11-07-2018 Chronic Mycoses (16 sources) Candidiasis of vagina 01-18-2020 Episodic Neoplasms of unspecified nature or uncertain behavior (19 sources) Neoplastic disease of uncertain behavior; Translations: [Neoplasm of uncertain behavior of skin] Onset: 12-19-2014 11-14-2019 Episodic Nonspecific chest pain (19 sources) Atypical chest pain; Translations: [Left sided chest pain] 05-07-2020 Episodic Nutritional deficiencies (15 sources) Vitamin D deficiency 07-06-2021 Chronic Other aftercare (16 sources) Post-discharge follow-up 11-08-2018 Episodic Other aftercare (1 source) Surgical follow-up 09-10-2020 Episodic Other and unspecified benign neoplasm (16 sources) Lipoma of axilla 07-16-2020 Episodic Other and unspecified benign neoplasm (1 source) Benign neoplasm of connective and other soft tissue of left lower limb, including hip; Translations: [Benign neoplasm of connective and soft tissue of leg, including hip, left] Onset: 10-05-2024 Episodic Other connective tissue disease (17 sources) Bursitis; Translations: [Bursopathy, unspecified] 03-29-2016 Episodic Other connective tissue disease (16 sources) H/O: musculoskeletal disease 03-29-2016 Episodic Other connective tissue disease (2 sources) Other specified soft tissue disorders; Translations: [Other specified soft tissue disorders] Onset: 11-07-2023 Episodic Other connective tissue disease (1 source) Foot pain; Translations: [Pain in unspecified foot] Onset: 01-10-2024 Episodic Other connective tissue disease (1 source) Pain in left foot; Translations: [Left foot pain] Onset: 10-05-2024 Episodic Other female genital disorders (2 sources) Dyspareunia; Translations: [Dyspareunia] Onset: 02-23-2011 02-23-2011 Chronic Other gastrointestinal disorders (16 sources) Antibiotic-associated diarrhea 01-18-2020 Episodic Other hematologic conditions (1 source) Serum total protein abnormal; Translations: [Other specified abnormalities of plasma proteins] 12-14-2021 Episodic Other hereditary and degenerative nervous system conditions (20 sources) Restless legs; Translations: [Restless legs syndrome] Onset: 12-19-2014 07-08-2020 Chronic Other infections; including parasitic (16 sources) H/O: viral illness 05-07-2020 Episodic Other inflammatory condition of skin (17 sources) Chronic erythema nodosum; Translations: [Erythema nodosum] 03-29-2016 Episodic Other inflammatory condition of skin (2 sources) Erythema nodosum; Translations: [Erythema nodosum] 06-16-2011 Episodic Other injuries and conditions due to external causes (1 source) Injury of left foot; Translations: [Unspecified injury of left foot, initial encounter] Onset: 01-22-2023 Episodic Other lower respiratory disease (16 sources) Dyspnea on exertion 05-07-2020 Episodic Other lower respiratory disease (16 sources) H/O: respiratory disease 03-29-2016 Episodic Other lower respiratory disease (1 source) Dyspnea; Translations: [Shortness of breath] 07-10-2023 Episodic Other lower respiratory disease (1 source) Pleuritic pain; Translations: [Pleurodynia] 08-11-2023 Episodic Other lower respiratory disease (1 source) Rib pain; Translations: [Pleurodynia] 08-11-2023 Episodic Other nervous system disorders (16 sources) Carpal tunnel syndrome 03-29-2016 Chronic Other non-traumatic joint disorders (16 sources) Shoulder pain 03-18-2020 Episodic Other non-traumatic joint disorders (1 source) Pain in right knee; Translations: [Chronic pain of both knees] 11-10-2021 Episodic Other non-traumatic joint disorders (1 source) Pain of right wrist; Translations: [Pain in right wrist] Onset: 06-05-2024 Episodic Other nutritional; endocrine; and metabolic disorders (10 sources) Body mass index 40+ - severely obese 10-19-2021 Chronic Other nutritional; endocrine; and metabolic disorders (10 sources) Morbid obesity 10-19-2021 Chronic Other nutritional; endocrine; and metabolic disorders (2 sources) Obesity; Translations: [Obesity, unspecified] 06-16-2011 Chronic Other skin disorders (16 sources) H/O: skin disorder 03-29-2016 Episodic Other skin disorders (17 sources) Mass of axilla; Translations: [Localized swelling, mass and lump, unspecified upper limb] 08-07-2020 Episodic Other skin disorders (16 sources) Multiple skin tags 11-14-2019 Episodic Other skin disorders (16 sources) Pigmented skin lesion 11-14-2019 Episodic Other skin disorders (3 sources) Swelling of lower leg 11-07-2023 Episodic Other upper respiratory disease (13 sources) Seasonal allergy 10-07-2021 Chronic Other upper respiratory infections (20 sources) Pharyngitis; Translations: [Upper respiratory infection] Onset: 10-09-2022 10-19-2021 Episodic Residual codes; unclassified (16 sources) Edema of lower extremity 11-08-2018 Episodic Residual codes; unclassified (16 sources) History of arthroscopy of knee joint 03-29-2016 Episodic Residual codes; unclassified (1 source) Bilateral lower limb edema; Translations: [Localized edema] 11-10-2021 Episodic Skin and subcutaneous tissue infections (20 sources) Abscess of left foot; Translations: [Cutaneous abscess of left foot] 08-07-2020 Episodic Spondylosis; intervertebral disc disorders; other back problems (20 sources) Other spondylosis, lumbosacral region; Translations: [Degeneration of cervical intervertebral disc] Onset: 12-19-2014 03-29-2016 Chronic Spondylosis; intervertebral disc disorders; other back problems (20 sources) Lumbago with sciatica, right side; Translations: [Sciatica, left side] Onset: 05-27-2017 07-21-2021 Episodic Sprains and strains (16 sources) Strain of neck muscle 07-08-2020 Episodic Suicide and intentional self-inflicted injury (4 sources) Suicidal thoughts; Translations: [Suicidal ideations] 07-09-2018 Episodic Systemic lupus erythematosus and connective tissue disorders (20 sources) Systemic lupus erythematosus; Translations: [Lupus erythematosus] Onset: 12-19-2014 03-29-2016 Chronic Thyroid disorders (1 source) Hypothyroidism; Translations: [Hypothyroidism, unspecified] 08-11-2023 Chronic Unclassified (1 source) Unknown / UNK(Unknown) Onset: 10-22-2016 Unclassified (16 sources) Patient encounter status 08-07-2020 Unclassified (15 sources) Pain of knee region 07-21-2021 Unclassified (1 source) History of immune disorder; Translations: [History of lupus] 08-11-2023 Past or Other Problems Problem Classification Problem Date Documented Da te Episodic/Chronic Allergic reactions (6 sources) Eczema; Translations: [Dermatitis, unspecified] Onset: 12-19-2014 02-04-2022 Episodic Epilepsy; convulsions (3 sources) Seizure; Translations: [Unspecified convulsions] Onset: 10-10-2018 02-04-2022 Episodic Gastrointestinal hemorrhage (3 sources) Rectal hemorrhage; Translations: [Hemorrhage of anus and rectum] Onset: 12-19-2014 02-04-2022 Episodic Genitourinary symptoms and ill-defined conditions (2 sources) Urgent desire to urinate; Translations: [Urgency of urination] Onset: 02-23-2011 02-23-2011 Episodic Immunizations and screening for infectious disease (2 sources) Contact with and (suspected) exposure to infections with a predominantly sexual mode of transmission; Translations: [Contact with and (suspected) exposure to infections with a predominantly sexual mode of transmission] Onset: 05-30-2023 Episodic Intestinal infection (3 sources) Infection caused by Helicobacter pylori; Translations: [Other specified bacterial intestinal infections] Onset: 12-19-2014 02-04-2022 Episodic Other and unspecified benign neoplasm (3 sources) Benign neoplasm of soft tissue; Translations: [Melanocytic nevi, unspecified] Onset: 12-19-2014 02-04-2022 Episodic Other connective tissue disease (2 sources) Muscle pain; Translations: [Myalgia and myositis, unspecified] Onset: 12-22-2004 12-22-2004 Episodic Other female genital disorders (2 sources) Female genital organ symptoms; Translations: [Unspecified condition associated with female genital organs and menstrual cycle] Onset: 02-23-2011 02-23-2011 Episodic Other gastrointestinal disorders (3 sources) Diarrhea; Translations: [Diarrhea, unspecified] Onset: 12-19-2014 02-04-2022 Episodic Other non-traumatic joint disorders (3 sources) Joint pain; Translations: [Pain in unspecified joint] Onset: 12-19-2014 02-04-2022 Episodic Residual codes; unclassified (2 sources) High risk heterosexual behavior; Translations: [High risk heterosexual behavior] Onset: 05-30-2023 Episodic Residual codes; unclassified (2 sources) Other specified personal risk factors, not elsewhere classified; Translations: [Other specified personal risk factors, not elsewhere classified] Onset: 05-30-2023 Episodic Unclassified (1 source) XRAY OF FOREARM Onset: 10-22-2016 Results Test Name Value Interpretation Reference Range Facility ANES POSTPROC EVALon 025 ANES POSTPROC EVAL HNO ID: [id number] Author: ANTHONY LLAMAS DO Service: Anesthesiology Author Type: Anesthesiologist Type: Anesthesia Postprocedure Evaluation Filed: 10/05/2024 12:18 Note Text: POST ANESTHESIA EVALUATION NOTE : 1975 Procedure Summary Date: 10/05/24 Room / Location: MR OR 05 / MR OR Anesthesia Start: 728 Anesthesia Stop: 854 Procedures: EXCISION SOFT TISSUE TUMOR SUBFASCIAL OF ANKLE = / > 3CM (Left: Foot) EXCISION BENIGN LESION FEET 3.1 TO 4.0 CM (Left: Foot) TRANSFER / REARRANGEMENT ADJACENT TISSUE FOOT DEFECT 10 SQ CM OR LESS (Left: Foot) APPLICATION WOUND VAC EXTREMITY LOWER TOTAL WOUND SURFACE LESS THAN 50 SQ CENTIMETERS (Left: Foot) Diagnosis: Benign neoplasm of connective and soft tissue of leg, including hip, left Left foot pain Ulcer of left foot, with fat layer exposed (HCC) (Benign neoplasm of connective and soft tissue of leg, including hip, left [D21.22]) (Left foot pain [M79.672]) (Ulcer of left foot, with fat layer exposed (HCC) [L97.522]) Surgeons: Elliot Heller DPM Responsible Provider: Anthony Llamas DO Anesthesia Type: general ASA Status: 2 Anesthesia Type: general Airway Type: LMA Last Vitals Vitals Value Taken Time BP 149/75 10/05/24 1044 Temp 36.7 ?C (98 ?F) 10/05/24 1044 HR SpO2 66 10/05/24 1044 Resp 16 10/05/24 1044 SpO2 98 % 10/05/24 1044 Post Anesthesia Patient Status Patient Evaluation: PACU. PACU/ICU Patient Condition: stable. Anticipated Disposition: phase 2 then home. Neurological Status: aware and responsive. Pulmonary Status: breathing comfortably on room air Airway Control: returned to baseline unsupported. Cardiovascular Status: stable. Pain Management: clinically adequate - multimodal analgesia pain management approach Postoperative Hydration: acceptable. Intraoperative Events: no significant anesthesia events Recommendation: continue current plan of care. Anesthesia Observations No Documentation SIGNATURE: Anthony Llamas DO PATIENT NAME: Bere Ortega DATE: October 05, 2024 TIME: 12:18 PM CSN: [id number] [facility] ANES PRE-OPon 10-05-2024 ANES PRE-OP HNO ID: [id number] Author: ANTHONY LLAMAS DO Service: Anesthesiology Author Type: Anesthesiologist Type: Anesthesia Preprocedure Evaluation Filed: 10/05/2024 06:58 Note Text: ANESTHESIOLOGY DAY OF SURGERY NOTE : 1975 Procedure Information Date/Time: 10/05/24 0730 Procedures: EXCISION SOFT TISSUE TUMOR SUBFASCIAL OF ANKLE = / > 3CM (Left: Foot) EXCISION BENIGN LESION FEET 3.1 TO 4.0 CM (Left: Foot) TRANSFER / REARRANGEMENT ADJACENT TISSUE FOOT DEFECT 10 SQ CM OR LESS (Left: Foot) APPLICATION WOUND VAC EXTREMITY LOWER TOTAL WOUND SURFACE LESS THAN 50 SQ CENTIMETERS (Left: Foot) Location: MR OR 05 / MR OR Surgeons: Elliot Heller DPM Estimated body mass index is 44.94 kg/m? as calculated from the following: Height as of this encounter: 165.1 cm (5' 5). Weight as of this encounter: 122.5 kg (270 lb 1 oz). Most recent hematocrit and potassium results: Hematocrit 42.9 08/31/2003 Potassium 4.2 08/31/2003 Relevant Problems CARDIO (+) Migraine headache NEURO-PSYCH (+) Migraine headache Patient is a 49 year old female with a past medical history of asthma and left foot ulcer presenting for excision of left foot soft tissue tumor I - PHYSICAL EVALUATION AIRWAY Patient intubated: No. Tracheostomy tube not present Mallampati: II. TM distance: >3 FB. Neck ROM: full ROM without neurological symptoms. Mouth opening: adequate. Short neck: no. Thick neck: no DENTAL Dental findings: teeth intact. Additional exam findings: no II - ANESTHESIA PLAN ASA Score: 2 Anesthetic Plan: general Airway type: LMA The patient is not a current smoker. NPO Status: adequate Beta Denise Monitoring Plan Monitoring plan: Standard ASA. Post Procedure Analgesic Plan Postoperative analgesic plan: parenteral or oral opioids and multimodal analgesia. Informed Consent Anesthetic risks, benefits, alternatives, personnel and consent discussed: yes. Patient / Responsible Alliance Party agrees to proceed: yes Patient / Surrogate agrees to blood products: yes DNR status not reviewed with patient and/or family prior to surgery. Significant changes in the patient condition since the History and Physical, not otherwise documented in primary service progress note: no. Potential Anesthesia issues that may suggest increased risk of complications or contraindication to planned procedure: none. Discussed the possibility of lip / dental damage: yes Vitals Value Taken Time BP 153/72 10/05/24 0612 Pulse 83 10/05/24 0611 Resp Temp 36.9 ?C (98.5 ?F) 10/05/24 0609 SpO2 96 % 10/05/24 0611 Vitals shown include unfiled device data. Facility-Administered Medications as of 10/05/2024 Medication Dose Route Frequency lidocaine (PF) 10 mg/mL (1 %) 2 mg injection (XYLOCAINE) 0.2 mL INTRADERMAL PRN NaCl 0.9% iv infusion 30 mL/hr INTRAVENOUS CONTINUOUS NaCl 0.9% iv flush bag 20 mL INTRAVENOUS PRN ceFAZolin iv piggyback 2 g in D5W (iso-osmotic) 100 mL (ANCEF) 2 g INTRAVENOUS ONCE Outpatient Medications as of 10/05/2024 Medication Sig albuterol HFA (PROVENTIL HFA, VENTOLIN HFA) 90 mcg/actuation inhaler Inhale 2 Puffs as instructed every 4 hours as needed. Hemoglobin (g/dL) Date Value 08/31/2003 14.5 Hematocrit (%) Date Value 08/31/2003 42.9 WBC (k/uL) Date Value 08/31/2003 10.94 Platelet Count (K/uL) Date Value 08/31/2003 367 CMP: Glucose 71 08/31/2003 BUN 10 08/31/2003 Creatinine 1.0 08/31/2003 Sodium 141 08/31/2003 Potassium 4.2 08/31/2003 Chloride 104 08/31/2003 CO2 28 08/31/2003 Protein, Total 7.3 08/31/2003 Albumin 4.4 08/31/2003 Calcium 9.9 08/31/2003 Alkaline Phosphatase 87 08/31/2003 Bilirubin, Total 0.8 08/31/2003 AST 20 08/31/2003 ALT 18 08/31/2003 No results found for: INR I have interviewed and examined the patient. I have reviewed the medical record and/or the pre-anesthesia evaluation, pertinent labs, and test results. This contains updated information obtained within 48 hours of Surgery/Procedure. SIGNATURE: Anthony Llamas DO PATIENT NAME: Bere Ortega DATE: October 05, 2024 TIME: 6:56 AM CSN: [id number] [facility] HISTORY PHYSICALon HISTORY PHYSICAL HNO ID: [id number] Author: ELLIOT HELLER DPM Service: Podiatry Author Type: Resident Type: H&P Filed: 10/05/2024 09:05 Note Text: Attestation signed by Elliot Heller DPM at 10/05/2024 9:05 AM Patient was seen and evaluated and they understand all risks and complications about her surgery and all risks complicatiions discussed with the patient HISTORY AND PHYSICAL EXAMINATION SERVICE DATE: 10/05/2024 SERVICE TIME: 7:08AM PRIMARY CARE PHYSICIAN: Sid Alvarez DO Subjective CHIEF COMPLAINT: left foot pain HPI: This is a 49 year old female who presents with soft tissue mass on her left foot. Patient has been treating conservatively and has failed conservative treatment. Patient reports it is affecting her ability to walk and to do normal daily functions. Patient is presenting for excision of the soft tissue lesion today. PAST MEDICAL HISTORY: PAST MEDICAL HISTORY Diagnosis Date Asthma (HCC) ASTHMA WHEN SICK, OR WITH EXERTION AT TIMES, DENIES PULMONARY, PRIMARY NEEDED AND MDI NEEDED Pal esophagus PRIMARY MONITORS, DENIES CURRENT MED Bursitis hips Degenerative disc disease, lumbar 04/25/2006 CHRONIC BACK PAIN, DENIES CURRENT ORTHO Delayed emergence from general anesthesia SLOW TO WAKE UP Endometriosis, site unspecified Endometriosis HYSTERECTOMY Erythema nodosum Excessive or frequent menstruation HYSTERECTOMY Fibromyalgia PRIMARY Left foot pain DR HELLER LEFT FOOT SOFT FATTY TUMOR D/T AUTO IMMUNE DIS Lupus PRIMARY MIXED CONNECTIVE TISSUE DISEASE Migraine headache PRIMARY Mixed connective tissue disease (HCC) PRIMARY AT THIS TIME Obesity PCOS (polycystic ovarian syndrome) PRIMARY Pleurisy without mention of effusion or current tuberculosis Pleurisy A FEW TIMES, D/T LUPUS PRIMARY NEEDED Spinal stenosis in cervical region 12/24/2014 CHRONIC BACK AND NECK PAIN PRIMARY NEEDED PAST SURGICAL HISTORY: PAST SURGICAL HISTORY Procedure Laterality Date ARTHROSCOPY KNEE DIAGNOSTIC W/WO SYNOVIAL BX SPX Arthroscopy, right knee COLONOSCOPY 04/25/2011 COLONOSCOPY FLX DX W/COLLJ SPEC WHEN PFRMD 02/26/2015 Colonoscopy ESOPHAGOGASTRODUODENOSCOPY TRANSORAL DIAGNOSTIC 02/26/2015 EGD HYSTERECTOMY HX 04/25/2014 LAPAROSCOPY SURG CHOLECYSTECTOMY Cholecystectomy, lap NEUROPLASTY AND/TRANSPOS MEDIAN NRV CARPAL TUNNE Carpal tunnel decomp on right PAST SURGICAL HISTORY OF Right MASS REMOVED FROM RIGHT ARM PIT FAMILY HISTORY: FAMILY HISTORY Problem Relation Age of Onset Colon Cancer Father Diabetes Father Diabetes Mother Hypertension Mother Heart Mother Kidney Disease Mother Stroke Mother COPD Mother Cancer Mother 50 uterine SOCIAL HISTORY: Social History Tobacco Use Smoking status: Every Day Current packs/day: 0.50 Average packs/day: 0.5 packs/day for 14.0 years (7.0 ttl pk-yrs) Types: Cigarettes Passive exposure: Current Smokeless tobacco: Never Tobacco comments: up to 1 /2 PPD Vaping Use Vaping status: Never Used Substance Use Topics Alcohol use: Not Currently Drug use: No MEDICATIONS: Prior to Admission Medications albuterol HFA (PROVENTIL HFA, VENTOLIN HFA) 90 mcg/actuation inhaler, Inhale 2 Puffs as instructed every 4 hours as needed., Disp: 8 g, Rfl: 0, Taking As Needed CURRENT ALLERGIES: Allergies As of Date: 09/26/2024 Allergen Noted Reaction ALEVE [NAPROXEN] 09/02/2011 Other: See Comments PROCHLORPERAZINE 08/31/2003 Fully Assessed 08/11/2023 COMPLETE REVIEW OF SYSTEMS: REVIEW OF SYSTEMS PAIN ASSESSMENT: Negative for pain, history of chronic pain, or current treatment for a chronic pain condition. GENERAL: No weight loss, malaise or fevers RESPIRATORY: Negative for cough, hemoptysis, wheezing, COPD, dyspnea or shortness of breath CARDIOVASCULAR: Negative for chest pain, leg swelling, hypertension, CHF or palpitations NEURO: No history of headaches, syncope, paralysis, seizures or tremors Objective PHYSICAL EXAM: Patient Vitals for the past 24 hrs: BP Temp Temp src Pulse SpO2 Height Weight 10/05/24 0612 153/72 -- -- -- -- -- -- 10/05/24 0609 162/74 36.9 ?C (98.5 ?F) Temporal 84 96 % 165.1 cm (5' 5) 122.5 kg (270 lb 1 oz) Body mass index is 44.94 kg/m?. PHYSICAL EXAMINATION: General appearance: Well appearing, alert, in no acute distress, well-hydrated, well nourished. Lungs: Lungs clear to auscultation. No wheezing, rhonchi, rales. Heart: RRR without murmur, gallop, or rubs. No ectopy Abdomen: Normal abdominal exam, Abdomen soft, non-tender. Bowel sounds normal. No masses, organomegaly Extremities: No deformities, edema, skin discoloration, clubbing or cyanosis. Good capillary refill. Musculoskeletal: No joint swelling, deformity, or tenderness Peripheral pulses: Normal N (more content not included)... [facility] NURSING PROGon 10-05-2024 NURSING PROG HNO ID: [id number] Author: TERRY HOLLINGSWORTH RN Service: Nursing Author Type: Registered Nurse Type: Nursing Progress Note Filed: 10/05/2024 11:19 Note Text: Pt continues to wait for dr. Heller to come assess seeping bandage. Otherwise, pt is ready for discharge. Crutches provided for home going ambulation. [facility] [facility] OPERATIVE NOon 10-05-2024 OPERATIVE NO HNO ID: [id number] Author: ELLIOT HELLER DPM Service: Orthopaedic Surgery Author Type: Physician Type: Operative Report Filed: 10/07/2024 16:52 Note Text: ORTHO OPERATIVE REPORT LOG ID: [id number] Surgery/Procedure Date: 10/05/2024 Incision/Procedure Start Time: 7:45 AM Incision Close/Procedure End Time: 8:32 AM Surgeon(s)/Procedural ist(s) and Memory Care Director(s): Surgeons and Role: * Elliot Heller DPM - Primary * Josesito King DPM - Resident - Assisting Non Morse Intercept Technician (Relief): Pamela Krueger SA Procedure(s): 1. Excision of mass left ankle 3.0cm large 2. Excision of mass left foot 5.2cm large 3. Excision of mass left foot 2.4cm large 4. Neuroplasty left lateral ankle of sural nerve 5. Neuroplasty left lateral foot Anesthesia: General Procedure Details: Patient seen as a patient of ours at [facility] with pain across the left lateral foot and ankle. She has had pain across the left foot and ankle. Painful nerve pain and nerve pressure with shoes and with rubbing and irritation. She has had these masses for quite sometime and some have been removed before and have grown back to be painful and sore. Today left foot will be treated today. Patient seen for painful mass and benign skin lesion of the left ankle and foot patient has tried all conservative methods and plan for surgical excision and mass removal. Patient has constant pain to her ankle and foot. Patient seen for surgery and understands all risks complications and benefits of the surgery at hand. All risks discussed with the patient. Today patient seen and all questions answered and no guarantees given. Patient seen and pre op holding area. Discussed with the patient that the surgery is best for her to remove these lesions and treat the nerves of the lateral foot and ankle. Today patient seen consent signed and then patient placed on the operating table. Patient placed under general anesthetic and tourniquet placed on the thigh and then injected the ankle and foot with 20 cc's of marcaine plain left ankle Time out performed and then treatment of the left ankle and left foot. Patient then seen and then tourniquet applied and eschmark and set at 250mmhg. Then then the incision oft he lateral posterior heel and ankle was made 4.5 cm and incised into subq and then the fatty tissue was then removed and the fat mass was removed and the tissue was excised in multiple areas of the left ankle and then dissection was then removed around the sural nerve Soft tissue dissection was then treated and mass of fatty lipoma was removed around the nerve and the sural nerve was then neuroplasty was treated of the left ankle and heel Then closed with vicryl and prolene and Monocryl. Then the lateral foot and the sinus tarsi had a large incision made in a serpentine incision and then incised to subq tissue and the mass that was large was 5.2 size of cm and the area was excised with soft tissue dissection and Bovie dissection and removed completley down to the muscle and joint. Next in same incision the other mass was removed dissected again sharp and blunt to the mass that was 2.4 cm and removed to the area of the left foot. Sent off to pathology and then the mass was sent off. Then the nerve of the lateral cutaneous nerve was then dissected and the nerve was released and neuroplasty of the left foot and lower leg was then treated. Then the mass was removed and flushed and the incision was then dressed with steri strips and the provena vac put on the incision and applied with dsd and the vac was set at 125mmhg She tolerated procedure well and given percocet for pain. PRE-OP/PRE-PROCEDURE DIAGNOSIS: 1. Large Painful lipoma mass 2. Neuritis of the sural nerve 3. Neuritis of the superficial peroneal nerve 4. 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 Pain left ankle POST-OP/POST-PROCEDURE DIAGNOSIS: Same as Preop Estimated Blood Loss: 20 mls Specimens: None Implant: Implant Name Type Inv. Item Serial No. Time Clerk Lot No. LRB No. Used Action AlloAid Amniotic Allograft Implant [id number] IMPLANT [id number] MTF Left 1 Implanted [employer] 500MG Graft [facility]-[id number] Left 1 Implanted Drains: None Complications: None Participation in Procedure: I/primary surgeon/proceduralist performed the procedure with assistance. SIGNATURE: Elliot Heller DPM PATIENT NAME: Bere Ortega DATE: October 07, 2024 TIME: 4:29 PM PAGER/CONTACT #: [facility] Pathology biopsy report Magdaleno (Tiss)on 10-05-2024 AP DISCLAIMER [facility] Comment on above: Order Comment: Speci shantell Type: TISSUE SPECIMEN Ordering Facility: [facility] Address: [address] [place] [address] Result Comment: Adriana taylor Developed Test (LDT) Disclaimer: Performance characteristics of immunohistochemical, immunofluorescent, and chromogenic in-situ hybridization tests have been determined by the performing laboratory within [facility] ([facility], [facility], [facility], [facility], [facility], [facility], or [facility]) in a manner consistent with CLIA requirements. One or more of these tests may not have been cleared or approved by the FDA. [facility] is regulated under CLIA as qualified to perform high-complexity testing. These tests are used for clinical purposes. These should not be regarded as investigational or for research. Positive and negative controls stain appropriately. Performed By: #### 6 6121-5 #### [facility] CLIA [id number] [address] [place], [place] [id number] [place] CASE REPORT [facility] Comment on above: Order Comment: Speci men Type: TISSUE SPECIMEN Ordering Facility: [facility] Address: [address] [place] [address] Result Comment: Surg ical Pathology Report Case: [id number] Authorizing Provider: Elliot Heller DPM Collected: 10/05/2024 08:02 AM Ordering Location: [facility] Surgery Received: 10/05/2024 10:02 AM Pathologist: Maurice Shaffer MD Specimen: Lipoma, Left ankle lipoma Performed By: #### 6 6121-5 #### [facility] CLIA [id number] [address] [place] [address] CLINICAL HISTORY Normal [facility] Comment on above: Order Comment: Speci men Type: TISSUE SPECIMEN Ordering Facility: [facility] Address: [address] [place] [address] Result Comment: Pre- op diagnosis: 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 at 1447 EDT Performed By: #### 6 6121-5 #### [facility] CLIA [id number] [address] [place] [address] FINAL PERFORMING LAB Normal [facility] Comment on above: Order Comment: Speci men Type: TISSUE SPECIMEN Ordering Facility: [facility] Address: [address] [place] [address] Result Comment: Diag nostic interpretation performed at: [facility], [address] [place] [address] CLIA# [id number] [employer] Supervisor: Lexii Rajan MD Performed By: #### 6 6121-5 #### [facility] CLIA [id number] [address] [place], [place] [id number] [facility] GROSS DESCRIPTION A. Lipoma Normal [facility] Comment on above: Order Comment: Speci men Type: TISSUE SPECIMEN Ordering Facility: [facility] Address: [address] [place] [address] Result Comment: Rece ived in formalin labeled left ankle lipoma is a yellow-pink, lobulated, fragmented mass aggregating to 5.2 x 4.1 x 2.3 cm. Sectioning reveals lobulated, homogenous cut surfaces. No areas of induration, hemorrhage, or necrosis are identified. Card Services Specialist sections are submitted in cassette A1. [place] [address] JXM 10/05/24 12:10 PM Performed By: #### 6 6121-5 #### [facility] CLIA [id number] [address] [place], [place] [id number] [facility] [place] Office Visit Reporton 2024 Office Visit Report [facility] [address] 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 Allergies Beef Containing Products Allergy (Verified 07/10/24 09:27) Angioedema corn Allergy (Verified 07/10/24 09:27) Angioedema egg Allergy (Verified 07/10/24 09:27) Angioedema Influenza Virus Vaccines (flu shot) Allergy (Verified 07/10/24 09:27) Other Pork/Porcine Containing Products Allergy (Verified 07/10/24 09:27) Angioedema rice Allergy (Verified 07/10/24 09:27) Angioedema gabapentin (From Neurontin) Adverse Reaction (Verified 07/10/24 09:27) Other prochlorperazine (From Compazine) Adverse Reaction (Verified 07/10/24 09:27) Other Office Procedures [facility] Billing Sheet Testing Breath Alcohol Test Pre-Employment: Yes Pre-Employment Drug Screen: Yes Pre-Employment PE: Yes 07/23/24 0708 Date Michi BOND Cosigner Signature: Date (if applicable) CC: Normal [facility] Urgent Care Visit Reporton 0 07-10-2024 Urgent Care Visit Report [facility] [address], [address] [place] [address] OFFICE VISIT Date of Service: 07/10/24 MR#: [id number] Acct: [id number] Name: BERE ORTEGA Rep #: [id number] : 1975 Provider: RONDA Tracy Age/Sex: 49/F Location: [facility] Status: Signed Intake Vital Signs 10/05/23 12:01 07/10/24 09:26 Height 5 ft 5 in 5 ft 5 in Weight: 251 lb 2 oz BMI 41.8 BP 124/82 H Position Sitting Pulse 83 Temp 98.1 F Temp Source Oral Pulse Oximetry (%) 96 Oxygen Delivery Method room air Intake Visit Reasons: PE NON DOT PHYSICAL/GILCREST Accompanied by: Self Allergies Beef Containing Products Allergy (Verified 07/10/24 09:27) Angioedema corn Allergy (Verified 07/10/24 09:27) Angioedema egg Allergy (Verified 07/10/24 09:27) Angioedema Influenza Virus Vaccines (flu shot) Allergy (Verified 07/10/24 09:27) Other Pork/Porcine Containing Products Allergy (Verified 07/10/24 09:27) Angioedema rice Allergy (Verified 07/10/24 09:27) Angioedema gabapentin (From Neurontin) Adverse Reaction (Verified 07/10/24 09:27) Other prochlorperazine (From Compazine) Adverse Reaction (Verified 07/10/24 09:27) Other Medications ???Medication ???Instructions ???Recorded ???Confirmed ???Type ibuprofen 200 mg tablet 200 mg PO Q6H PRN 07/10/24 5 History Nurse's Note: Patient here for a pre-employment physical. [facility] Medical History (Updated 07/10/24 @ 10:17 by Michi BOND, PA) Physical exam, pre-employment PTSD (post-traumatic stress disorder) Generalized anxiety disorder Major depressive disorder, recurrent severe without psychotic features Depression Lipoma of axilla Hx of spinal stenosis Hx of pleurisy Hx of mixed connective tissue disease Carpal tunnel syndrome, right Bronchitis Surgical History (Updated 10/05/23 @ 11:46 by Nveaeh Douglas) History of carpal tunnel release Hx of colonoscopy H/O esophagogastroduodenoscopy Hx of cholecystectomy Hx of total hysterectomy Hx of arthroscopy of knee Family History Mother CHF (congestive heart failure) Diabetes type 1 Myocardial infarction Hypertension Hypercholesterolemia Renal failure CVA (cerebral vascular accident) Father Cancer colon Social History (Updated 09/12/23 @ 22:[address] Ashish Thompson MD) Smoking Status: Current every day smoker tobacco type: cigarettes substance use type: does not use HPI HPI Details: BERE ORTEGA, is a 49 F who presents to the office today for Office Procedures Physical Exam Coding PE Coding Pre-employment PE: Yes Coding Level of Care Code No Charge Diagnoses Physical exam, pre-employment Z02.1 Assessment and Plan Assessment and Plan (1) Physical exam, pre-employment: Status: Acute 07/10/24 1018 Date Michi BOND Cosigner Signature: Date (if applicable) CC: [facility] XR WRIST MINIMUM 3 VIEWS RIG on 06-05-2024 XR WRIST MINIMUM 3 VIEWS RIGHT ORIGINAL EXAMINATION: XR right wrist three views 06/05/2024 12:56 pm COMPARISON: None HISTORY: ORDERING SYSTEM PROVIDED HISTORY: Reason for Exam: Pain, swelling, FINDINGS: No acute fracture, dislocation, lytic process or periosteal reaction is seen in the visualized bones and joints. No erosive type of arthritis. No periarticular soft tissue calcification. No significant degenerative changes at the wrist. IMPRESSION: No acute skeletal abnormality is seen. . Interpreted by: Lakshmi Antoine MD Preliminary Report By: Lakshmi Antoine MD Electronically signed By Lakshmi Antoine MD Dictated Date: 06/05/2024 1:08:29 PM Prelim Date: 06/05/2024 1:09:11 PM Sign Date: 06/05/2024 1:09:11 PM Ordering Provider: MICHI ALARCON [facility] XR FOOT MINIMUM 3 VIEWS [facility] 01-10-2024 XR FOOT MINIMUM 3 VIEWS RIGHT ORIGINAL EXAMINATION: THREE XRAY VIEWS OF THE RIGHT FOOT 01/10/2024 10:24 am COMPARISON: None. HISTORY: ORDERING SYSTEM PROVIDED HISTORY: Reason for Exam: pain Nontraumatic pain great toe. FINDINGS: There is no evidence of acute fracture. There is normal alignment of the tarsometatarsal joints. No acute joint abnormality. No focal osseous lesion. No focal soft tissue abnormality. IMPRESSION: No acute osseous abnormality. Interpreted by: Aniket Rich DO Preliminary Report By: Aniket Rich DO Electronically signed By Aniket Rich DO Dictated Date: 01/10/2024 10:29:56 AM Prelim Date: 01/10/2024 10:31:18 AM Sign Date: 01/10/2024 10:31:18 AM Ordering Provider: ANTHONY CA [facility] .GFRon 11-07-2023 GFR 92 ml/min/1.73sqm [facility] ([place]) Comment on above: Result Comment: GFR Population mean for , Non- Americans Ages 20-29 = 116 mL/min/1.73 sq.m. Ages 30-39 = 107 mL/min/1.73 sq.m. Ages 40-49 = 99 mL/min/1.73 sq.m. Ages 50-59 = 93 mL/min/1.73 sq.m. Ages 60-69 = 85 mL/min/1.73 sq.m. Ages 70+ = 75 mL/min/1.73 sq.m. Chronic Kidney Disease: Less than 60 mL/min/1.73 square meters End Stage Renal Disease: Less than 15 mL/min/1.73 square meters Performed By: #### N GPCR1, CTPCR #### [address] [address] GFR Non- 76 ml/min/1.73sqm Normal [facility] ([place]) Comment on above: Result Comment: GFR Population mean for , Non- Americans Ages 20-29 = 116 mL/min/1.73 sq.m. Ages 30-39 = 107 mL/min/1.73 sq.m. Ages 40-49 = 99 mL/min/1.73 sq.m. Ages 50-59 = 93 mL/min/1.73 sq.m. Ages 60-69 = 85 mL/min/1.73 sq.m. Ages 70+ = 75 mL/min/1.73 sq.m. Chronic Kidney Disease: Less than 60 mL/min/1.73 square meters End Stage Renal Disease: Less than 15 mL/min/1.73 square meters Performed By: #### N GPCR1, CTPCR #### [address] [address] [facility] 11-07-2023 BUN/Creatinine Ratio 17 ratio Normal 7-27 [facility] ([place]) Comment on above: Performed By: #### N GPCR1, CTPCR #### [address] [address] Calcium [Mass/Vol] 9.1 mg/dL Normal 8.4-10.2 [facility] ([place]) Comment on above: Performed By: #### N GPCR1, CTPCR #### [address] [address] Chloride [Moles/Vol] 103 mmol/L Normal 98-107 [facility] ([place]) Comment on above: Performed By: #### N GPCR1, CTPCR #### [address] [address] CO2 [Moles/Vol] 29 mmol/L Normal 22-29 [facility] ([place]) Comment on above: Performed By: #### N GPCR1, CTPCR #### [address] [address] Creatinine [Mass/Vol] 0.81 mg/dL Normal 0.55-1.02 [facility] ([place]) Comment on above: Performed By: #### N GPCR1, CTPCR #### [address] [address] Electrolyte Balance 6.0 mEq/L Normal 4.0-15.0 [facility] ([place]) Comment on above: Performed By: #### N GPCR1, CTPCR #### [place] [address] Glucose [Mass/Vol] 114 mg/dL High 70-105 [facility] ([place]) Comment on above: Performed By: #### N GPCR1, CTPCR #### [place] [address] Potassium [Moles/Vol] 4.0 mmol/L Normal 3.5-5.1 [facility] ([place]) Comment on above: Performed By: #### N GPCR1, CTPCR #### [place] [address] Sodium [Moles/Vol] 138 mmol/L Normal 136-145 [facility] ([place]) Comment on above: Performed By: #### N GPCR1, CTPCR #### [place] [address] Urea nitrogen [Mass/Vol] 14 mg/dL Normal 7-18 [facility] ([place]) Comment on above: Performed By: #### N GPCR1, CTPCR #### [address] [address] LABORATORYOrdered By: SYSTEM SYSTEM on 11-07-2023 Calcium [Mass/Vol] 9.1 mg/dL Normal 8.4 - 10. 2 mg/dL AO ADM SS Chloride [Moles/Vol] 103 mmol/L Normal 98 - 10 7 mmol/L AO ADM SS CO2 [Moles/Vol] 29 mmol/L Normal 22 - 29 mmol/L AO ADM SS Creatinine [Mass/Vol] 0.81 mg/dL Normal 0.55 - 1.02 mg/dL AO ADM SS Electrolyte Balance 6.0 mEq/L Normal 4.0 - 15 .0 mEq/L AO ADM SS GFR/1.73 sq M.predicted among blacks MDRD (S/P/Bld) [Vol rate/Area] 92 ml/min/1.73sqm Invalid Interpretation Code AO Chemistry S Comment on above: Interpretive Data: GFR Population mean for , Non- Americans Ages 20-29 = 116 mL/min/1.73 sq.m. Ages 30-39 = 107 mL/min/1.73 sq.m. Ages 40-49 = 99 mL/min/1.73 sq.m. Ages 50-59 = 93 mL/min/1.73 sq.m. Ages 60-69 = 85 mL/min/1.73 sq.m. Ages 70+ = 75 mL/min/1.73 sq.m. Chronic Kidney Disease: Less than 60 mL/min/1.73 square meters End Stage Renal Disease: Less than 15 mL/min/1.73 square meters GFR/1.73 sq M.predicted among non-blacks MDRD (S/P/Bld) [Vol rate/Area] 76 ml/min/1.73sqm Invalid Interpretation Code AO Chemistry S Comment on above: Interpretive Data: GFR Population mean for , Non- Americans Ages 20-29 = 116 mL/min/1.73 sq.m. Ages 30-39 = 107 mL/min/1.73 sq.m. Ages 40-49 = 99 mL/min/1.73 sq.m. Ages 50-59 = 93 mL/min/1.73 sq.m. Ages 60-69 = 85 mL/min/1.73 sq.m. Ages 70+ = 75 mL/min/1.73 sq.m. Chronic Kidney Disease: Less than 60 mL/min/1.73 square meters End Stage Renal Disease: Less than 15 mL/min/1.73 square meters Glucose [Mass/Vol] 114 mg/dL High 70 - 105 mg/dL AO ADM SS Natriuretic peptide.B prohormone N-Terminal [Mass/Vol] 45 pg/mL Normal 0 - 125 pg/mL AO ADM SS Comment on above: Interpretive Data: N T-proBNP results of less than 300 pg/mL effectively rules out acute congestive heart failure with 99% negative predictive value. Potassium [Moles/Vol] 4.0 mmol/L Normal 3.5 - 5.1 mmol/L AO ADM SS Sodium [Moles/Vol] 138 mmol/L Normal 136 - 145 mmol/L AO ADM SS Urea nitrogen [Mass/Vol] 14 mg/dL Normal 7 - 18 mg/dL AO ADM SS Urea nitrogen/Creatinine [Mass ratio] 17 ratio Normal 7 - 27 ratio AO ADM SS PBNPon 11-07-2023 Natriuretic peptide B (Bld) [Mass/Vol] 45 pg/mL Normal 0-125 [facility] ([place]) Comment on above: Result Comment: NT-p roBNP results of less than 300 pg/mL effectively rules out acute congestive heart failure with 99% negative predictive value. Performed By: #### N GPCR1, CTPCR #### [place] [address] .Auto DiffOrdered By: SYSTEM SYSTEM on 08-11-2023 Basophil, Absolute 0.1 103/mcL Normal 0.0-0.2 AO Wo rkflow SS Comment on above: Performed By: #### M G, ADIFF, TROPHS, CBC, ANEU, MDW, GFR, CMP, PBNP #### [address] [address] Basophils/100 WBC (Bld) 1.0 % Normal 0.0-2.5 AO Workflow SS Comment on above: Performed By: #### M G, ADIFF, TROPHS, CBC, ANEU, MDW, GFR, CMP, PBNP #### [address] [address] Eosinophil, Absolute 0.2 103/mcL Normal 0.0-0.4 AO Workflow SS Comment on above: Performed By: #### M G, ADIFF, TROPHS, CBC, ANEU, MDW, GFR, CMP, PBNP #### [address] [address] Eosinophils/100 WBC (Bld) 1.1 % Normal 0.0-7.0 AO Workflow SS Comment on above: Performed By: #### M G, ADIFF, TROPHS, CBC, ANEU, MDW, GFR, CMP, PBNP #### [address] [address] Lymphocyte, Absolute 3.1 103/mcL Normal 0.8-3.9 AO Workflow SS Comment on above: Performed By: #### M G, ADIFF, TROPHS, CBC, ANEU, MDW, GFR, CMP, PBNP #### [address] [address] Lymphocytes/100 WBC (Bld) 22.5 % Normal 10.0-50.0 AO Workflow SS Comment on above: Performed By: #### M G, ADIFF, TROPHS, CBC, ANEU, MDW, GFR, CMP, PBNP #### [address] [address] Monocyte, Absolute 0.6 103/mcL Normal 0.2-1.0 AO Wo rkflow SS Comment on above: Performed By: #### M G, ADIFF, TROPHS, CBC, ANEU, MDW, GFR, CMP, PBNP #### [address] [address] Monocytes/100 WBC (Bld) 4.3 % Normal 1.7-13.0 AO Workflow SS Comment on above: Performed By: #### M G, ADIFF, TROPHS, CBC, ANEU, MDW, GFR, CMP, PBNP #### [address] [address] Neutrophils/100 WBC (Bld) 71.1 % Normal 37.0-80.0 AO Workflow SS Comment on above: Performed By: #### M G, ADIFF, TROPHS, CBC, ANEU, MDW, GFR, CMP, PBNP #### [address] [address] .GFRon 08-11-2023 GFR 71 ml/min/1.73sqm Normal [facility] ([place]) Comment on above: Result Comment: GFR Population mean for , Non- Americans Ages 20-29 = 116 mL/min/1.73 sq.m. Ages 30-39 = 107 mL/min/1.73 sq.m. Ages 40-49 = 99 mL/min/1.73 sq.m. Ages 50-59 = 93 mL/min/1.73 sq.m. Ages 60-69 = 85 mL/min/1.73 sq.m. Ages 70+ = 75 mL/min/1.73 sq.m. Chronic Kidney Disease: Less than 60 mL/min/1.73 square meters End Stage Renal Disease: Less than 15 mL/min/1.73 square meters Performed By: #### N GPCR1, CTPCR #### [address] [address] GFR Non- 59 ml/min/1.73sqm Normal [facility] ([place]) Comment on above: Result Comment: GFR Population mean for , Non- Americans Ages 20-29 = 116 mL/min/1.73 sq.m. Ages 30-39 = 107 mL/min/1.73 sq.m. Ages 40-49 = 99 mL/min/1.73 sq.m. Ages 50-59 = 93 mL/min/1.73 sq.m. Ages 60-69 = 85 mL/min/1.73 sq.m. Ages 70+ = 75 mL/min/1.73 sq.m. Chronic Kidney Disease: Less than 60 mL/min/1.73 square meters End Stage Renal Disease: Less than 15 mL/min/1.73 square meters Performed By: #### N GPCR1, CTPCR #### [address] [address] .MDWon 08-11-2023 Monocyte Distribution Width 19.76 Normal 0.00-20.00 [facility] ([place]) Comment on above: Result Comment: For ED adult patients suspected of sepsis, MDW<=20.0 does not rule out sepsis or risk of sepsis Performed By: #### M G, ADIFF, TROPHS, CBC, ANEU, MDW, GFR, CMP, PBNP #### Juan Ramon [address] [address] .NEUABSOrdered By: SYSTEM SY STEM on 08-11-2023 Neutrophil, Absolute 9.8 103/mcL High 2.9-6.2 AO Workflow SS Comment on above: Performed By: #### M G, ADIFF, TROPHS, CBC, ANEU, MDW, GFR, CMP, PBNP #### [address] [address] CBCOrdered By: SYSTEM SYSTEM on 08-11-2023 Erythrocyte distribution width (RBC) [Ratio] 13.8 % Normal 11.5-14.5 AO Workflow SS Comment on above: Performed By: #### M G, ADIFF, TROPHS, CBC, ANEU, MDW, GFR, CMP, PBNP #### [place] [address] Hematocrit (Bld) [Volume fraction] 38.3 % Normal 37.0-47.0 AO Workflow SS Comment on above: Performed By: #### Luther G, ADIFF, TROPHS, CBC, ANEU, MDW, GFR, CMP, PBNP #### Juan Ramon [place] [address] MCH (RBC) [Entitic mass] 30.5 pg Normal 27.0-31.2 AO Workflow SS Comment on above: Performed By: #### M G, ADIFF, TROPHS, CBC, ANEU, MDW, GFR, CMP, PBNP #### Juan Ramon [place] [id number] MCHC 35.5 G/dL Normal 33.0-37.0 AO Workflow SS Comment on above: Performed By: #### M G, ADIFF, TROPHS, CBC, ANEU, MDW, GFR, CMP, PBNP #### [address] [address] MCV (RBC) [Entitic vol] 86.0 fL Normal 80.0-94.0 AO Workflow SS Comment on above: Performed By: #### M G, ADIFF, TROPHS, CBC, ANEU, MDW, GFR, CMP, PBNP #### Juan Ramon [address] [address] Platelet mean volume (Bld) [Entitic vol] 6.8 fL Low 7.4-10.4 AO Workflow SS Comment on above: Performed By: #### M G, ADIFF, TROPHS, CBC, ANEU, MDW, GFR, CMP, PBNP #### [address] [address] CBCon 08-11-2023 Hgb 13.6 G/dL Normal 12.0-16.0 [facility] ([place]) Comment on above: Performed By: #### M G, ADIFF, TROPHS, CBC, ANEU, MDW, GFR, CMP, PBNP #### [address] [address] Platelet 358 10 3/mcL Normal 130-400 [facility] ([place]) Comment on above: Performed By: #### M G, ADIFF, TROPHS, CBC, ANEU, MDW, GFR, CMP, PBNP #### [address] [address] RBC 4.45 10 6/mcL Normal 4.20-5.40 [facility] ([place]) Comment on above: Performed By: #### M G, ADIFF, TROPHS, CBC, ANEU, MDW, GFR, CMP, PBNP #### [address] [address] WBC 13.8 10 3/mcL High 4.6-10.8 [facility] ([place]) Comment on above: Performed By: #### M G, ADIFF, TROPHS, CBC, ANEU, MDW, GFR, CMP, PBNP #### [address] [address] CMPon 08-11-2023 Albumin Level 3.5 G/dL Normal 3.5-5.0 [facility] ([place]) Comment on above: Performed By: #### M G, ADIFF, TROPHS, CBC, ANEU, MDW, GFR, CMP, PBNP #### [address] [address] ALT [Catalytic activity/Vol] 27 U/L Normal 14-59 [facility] ([place]) Comment on above: Performed By: #### M G, ADIFF, TROPHS, CBC, ANEU, MDW, GFR, CMP, PBNP #### [address] [address] AST [Catalytic activity/Vol] 17 U/L Normal 10-40 [facility] ([place]) Comment on above: Performed By: #### M G, ADIFF, TROPHS, CBC, ANEU, MDW, GFR, CMP, PBNP #### [address] [address] Bili Total 0.6 mg/dL Normal 0.2-1.0 [facility] ([place]) Comment on above: Result Comment: Use of this assay is not recommended for patients undergoing treatment with eltrombopag due to the potential for falsely elevated results. Performed By: #### M G, ADIFF, TROPHS, CBC, ANEU, MDW, GFR, CMP, PBNP #### [address] [address] BUN/Creatinine Ratio 10 ratio Normal 7-27 [facility] ([place]) Comment on above: Performed By: #### M G, ADIFF, TROPHS, CBC, ANEU, MDW, GFR, CMP, PBNP #### [address] [address] Total Protein 6.7 G/dL Normal 6.4-8.2 [facility] ([place]) Comment on above: Performed By: #### M G, ADIFF, TROPHS, CBC, ANEU, MDW, GFR, CMP, PBNP #### [address] [address] CMPOrdered By: SYSTEM SYSTEM on 08-11-2023 Albumin/Globulin [Mass ratio] 1.1 {ratio} Normal 1.1-2.5 AO ADM SS Comment on above: Performed By: #### M G, ADIFF, TROPHS, CBC, ANEU, MDW, GFR, CMP, PBNP #### [address] [address] ALP [Catalytic activity/Vol] 113 U/L Normal 40-135 AO ADM SS Comment on above: Performed By: #### M G, ADIFF, TROPHS, CBC, ANEU, MDW, GFR, CMP, PBNP #### [address] [address] Calcium [Mass/Vol] 8.6 mg/dL Normal 8.4-10.2 AO ADM SS Comment on above: Performed By: #### M G, ADIFF, TROPHS, CBC, ANEU, MDW, GFR, CMP, PBNP #### [place] [id number] Chloride [Moles/Vol] 101 mmol/L Normal 98-107 AO A DM SS Comment on above: Performed By: #### M G, ADIFF, TROPHS, CBC, ANEU, MDW, GFR, CMP, PBNP #### [place] [address] CO2 [Moles/Vol] 26 mmol/L Normal 22-29 AO ADM SS Comment on above: Performed By: #### M G, ADIFF, TROPHS, CBC, ANEU, MDW, GFR, CMP, PBNP #### [place] [id number] Creatinine [Mass/Vol] 1.01 mg/dL Normal 0.55-1.02 AO ADM SS Comment on above: Performed By: #### M G, ADIFF, TROPHS, CBC, ANEU, MDW, GFR, CMP, PBNP #### [address] [address] Electrolyte Balance 9.0 mEq/L Normal 4.0-15.0 AO AD M SS Comment on above: Performed By: #### M G, ADIFF, TROPHS, CBC, ANEU, MDW, GFR, CMP, PBNP #### [address] [address] Globulin 3.2 G/dL Normal AO ADM SS Comment on above: Performed By: #### M G, ADIFF, TROPHS, CBC, ANEU, MDW, GFR, CMP, PBNP #### [place] [address] Glucose [Mass/Vol] 117 mg/dL High 70-105 AO ADM SS Comment on above: Performed By: #### M G, ADIFF, TROPHS, CBC, ANEU, MDW, GFR, CMP, PBNP #### [address] [address] Potassium [Moles/Vol] 3.4 mmol/L Low 3.5-5.1 AO ADM SS Comment on above: Performed By: #### M G, ADIFF, TROPHS, CBC, ANEU, MDW, GFR, CMP, PBNP #### [address] [address] Sodium [Moles/Vol] 136 mmol/L Normal 136-145 AO ADM SS Comment on above: Performed By: #### M G, ADIFF, TROPHS, CBC, ANEU, MDW, GFR, CMP, PBNP #### [address] [address] Urea nitrogen [Mass/Vol] 10 mg/dL Normal 7-18 AO ADM SS Comment on above: Performed By: #### M G, ADIFF, TROPHS, CBC, ANEU, MDW, GFR, CMP, PBNP #### [address] [address] CNOVon 08-11-2023 CNOV Office Visit (SHELBIE ) BERE ORTEGA ([id number]) 1975 F Date Time Provider Department 08/11/23 12:25 PM CARMITA KHAN During your visit today, we recorded the following information about you: Temperature Pulse Blood pressure Weight 97.8 degrees 94/minute 144/82 114.2 kg Carmita Khan APRN.SLICING MACHINE FEEDER 08/11/2023 12:54 PM Signed This note was created using NoteWriter. Subjective Bere Ortega is a 48 year old female. HPI by patient: Bere is a 48 year old presenting to the office with the complaint of rib pain. Elevated BP Started approximately Tuesday. HAs hx of pleuirsy. NO recent URI. Was in the center of chest originally and shooting through to the back. Now pain is wrapping around her ribs on both sides. Hurts with taking a breath in and with movements. 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 They also did a ECG which showed BBB and a depression per patient. Denies any other concerns Covid Immunization Dates Overdue - Covid-19 Vaccine ( season) Never done No completion, postpone, frequency change, or communication history exists for this topic. ALLERGIES Aleve [Naproxen] Other: See Comments Comment:states that had cramping and rectal bleeding Prochlorperazine Comment:compazine Family History Reviewed Including Cardiac Diseases, Psychiatric Diseases, AND Substance Abuse Problem: Colon Cancer Relation: Father Age of Onset: (Not Specified) Problem: Diabetes Relation: Father Age of Onset: (Not Specified) Problem: Diabetes Relation: Mother Age of Onset: (Not Specified) Problem: Hypertension Relation: Mother Age of Onset: (Not Specified) Problem: Heart Relation: Mother Age of Onset: (Not Specified) Problem: Kidney Disease Relation: Mother Age of Onset: (Not Specified) Problem: Stroke Relation: Mother Age of Onset: (Not Specified) Problem: COPD Relation: Mother Age of Onset: (Not Specified) Problem: Cancer Relation: Mother Age of Onset: 50 Comment: uterine Social History Tobacco Use Smoking status: Every Day Packs/day: 0.50 Years: 14.00 Additional pack years: 0.00 Total pack years: 7.00 Types: Cigarettes Smokeless tobacco: Never Tobacco comments: up to 1 /2 PPD Alcohol use: Yes Comment: rarely Drug use: No Review of Systems Constitutional: Negative. HENT: Negative. Respiratory: Negative. Cardiovascular: Negative. Musculoskeletal: Positive for arthralgias. Lower rib cage pain on both sides Objective BP 144/82 Pulse 94 Temp 36.6 ?C (97.8 ?F) Wt 114.2 kg (251 lb 12.3 oz) LMP 05/02/2014 SpO2 97% BMI 41.90 kg/m? Physical Exam Vitals and nursing note reviewed. Constitutional: Appearance: She is well-developed. Pulmonary: Effort: Pulmonary effort is normal. Skin: General: Skin is warm and dry. Neurological: Mental Status: She is alert and oriented to person, place, and time. Assessment and Plan ASSESSMENT/PLAN: 1. Rib pain - ICD9: 786.50, ICD10: R07.81 Atypical chest pain, symptoms are not consistent with cardiac ischemia due to pleuritic nature of pain possible etiology include Pleurisy Consider ED for cardiac work up vs follow up with PCP - CYCLOBENZAPRINE 10 MG TABLET - XR RIBS/CHEST 3V AP RIB/OBLS/CXR LEFT Carmita Khan APRN.CNP Medical Decision Making: Problems: Moderate: New problem with uncertain prognosis Data: Unique source(s) for external note(s) reviewed: 1 Unique test(s) ordered: 1 Risk: Moderate: Drug management Medical Decision Making Level: 4 - Moderate Allergies As of Date: 08/11/2023 Noted Allergy Reaction ALEVE (NAPROXEN) 09/02/2011 14 - Other: See Comments Comments: states that had cramping and rectal bleeding PROCHLORPERAZINE 08/31/2003 Comments: compazine Date Reviewed: 08/11/2023 Reviewed by: Brooke Loya MA - Fully Assessed Reason for Visit: Rib Pain [Other] Cmt: Started 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 Primary Visit Diagnosis:Rib pain [R07.81] Order(s):cyclobenzaprine (FLEXERIL) 10 mg tabletTake 1 tablet by mouth every 8 hours as needed for up to 5 days.Disp: 10 tabletRfl: 0 XR RIBS/CHEST 3V AP RIB/OBLS/CXR LEFT [[id number]] Order #: [id number] FUTURE Prescriptions as of 08/11/2023 - cyclobenzaprine (FLEXERIL) 10 mg tablet Take 1 tablet by mouth every 8 hours as needed for up to 5 days. - benzonatate (TESSALON PERLES) 100 mg capsule Take 2 capsules by mouth every 8 hours as needed. - fluticasone (FLONASE ALLERGY RELIEF) 50 mcg/actuation nasal spray Use 1 [place] in each nostril two times a day. - sodium chloride (SALINE MIST) 0.65 % nasal spray Use 1 [place] in the nose as needed. - albuterol HFA (PROVENTIL HFA, VENTOLIN HFA) 90 mcg/actuation inhaler Inhale 2 P (more content not included)... Normal [facility] DIMERon 08-11-2023 D-Dimer <200 Normal 0-230 [facility] ([place]) Comment on above: Order Comment: Hemol yzed Result Comment: The result of the D-Dimer test should be evaluated in the context of all the clinical and laboratory data available. In those instances where the laboratory result does not agree with the clinical evaluation, additional tests should be performed accordingly. If the D-Dimer result is used to exclude DVT or PE, the recommended cutoff value is less than 230 ng/mL. The D-Dimer result should not be used alone to rule in DVT/PE, but should be used in conjunction with a clinical pretest probability (PTP)assessment model to exclude venous thromboembolism (VTE) in outpatients suspected of deep venous thrombosis (DVT) and pulmonary embolism (PE). Performed By: #### M G, ADIFF, TROPHS, CBC, ANEU, MDW, GFR, CMP, PBNP #### [place] [address] LABORATORYOrdered By: Benja Valenzuela on 08-11-2023 D-Dimer ng/mL D-DU Normal 0 - 230 ng/mL D-DU AO Coagulation S Comment on above: Interpretive Data: T he result of the D-Dimer test should be evaluated in the context of all the clinical and laboratory data available. In those instances where the laboratory result does not agree with the clinical evaluation, additional tests should be performed accordingly. If the D-Dimer result is used to exclude DVT or PE, the recommended cutoff value is less than 230 ng/mL. The D-Dimer result should not be used alone to rule in DVT/PE, but should be used in conjunction with a clinical pretest probability (PTP)assessment model to exclude venous thromboembolism (VTE) in outpatients suspected of deep venous thrombosis (DVT) and pulmonary embolism (PE). LABORATORYOrdered By: SYSTEM SYSTEM on 08-11-2023 Troponin I.cardiac DL <= 0.01 ng/mL [Mass/Vol] 4 ng/L Normal 0 - 51 ng/L AO ADM SS Comment on above: Interpretive Data: H igh Sensitive Troponin I Reference Ranges: Female: 0-51 ng/L Male: 0-76 ng/L Testing performed on [employer] using a homogeneous sandwich chemiluminescent immunoassay based on [employer] technology. Albumin BCP dye [Mass/Vol] 3.5 G/dL Normal 3.5 - 5.0 G/dL AO ADM SS ALT With P-5'-P [Catalytic activity/Vol] 27 U/L Normal 14 - 59 U/L AO ADM SS AST With P-5'-P [Catalytic activity/Vol] 17 U/L Normal 10 - 40 U/L AO ADM SS Bilirubin [Mass/Vol] 0.6 mg/dL Normal 0.2 - 1 .0 mg/dL AO ADM SS Comment on above: Interpretive Data: U se of this assay is not recommended for patients undergoing treatment with eltrombopag due to the potential for falsely elevated results. GFR/1.73 sq M.predicted among blacks MDRD (S/P/Bld) [Vol rate/Area] 71 ml/min/1.73sqm Invalid Interpretation Code AO Chemistry S Comment on above: Interpretive Data: GFR Population mean for , Non- Americans Ages 20-29 = 116 mL/min/1.73 sq.m. Ages 30-39 = 107 mL/min/1.73 sq.m. Ages 40-49 = 99 mL/min/1.73 sq.m. Ages 50-59 = 93 mL/min/1.73 sq.m. Ages 60-69 = 85 mL/min/1.73 sq.m. Ages 70+ = 75 mL/min/1.73 sq.m. Chronic Kidney Disease: Less than 60 mL/min/1.73 square meters End Stage Renal Disease: Less than 15 mL/min/1.73 square meters GFR/1.73 sq M.predicted among non-blacks MDRD (S/P/Bld) [Vol rate/Area] 59 ml/min/1.73sqm Invalid Interpretation Code AO Chemistry S Comment on above: Interpretive Data: GFR Population mean for , Non- Americans Ages 20-29 = 116 mL/min/1.73 sq.m. Ages 30-39 = 107 mL/min/1.73 sq.m. Ages 40-49 = 99 mL/min/1.73 sq.m. Ages 50-59 = 93 mL/min/1.73 sq.m. Ages 60-69 = 85 mL/min/1.73 sq.m. Ages 70+ = 75 mL/min/1.73 sq.m. Chronic Kidney Disease: Less than 60 mL/min/1.73 square meters End Stage Renal Disease: Less than 15 mL/min/1.73 square meters Hemoglobin (Bld) [Mass/Vol] 13.6 G/dL Normal 12.0 - 16.0 G/dL AO Workflow SS Monocyte distribution width Auto (Bld) [Entitic vol] 19.76 1 Normal 0.00 - 20.00 AO Workflow SS Comment on above: Result Comment: For ED adult patients suspected of sepsis, MDW<=20.0 does not rule out sepsis or risk of sepsis Natriuretic peptide.B prohormone N-Terminal [Mass/Vol] 28 pg/mL Normal 0 - 125 pg/mL AO ADM SS Comment on above: Interpretive Data: N T-proBNP results of less than 300 pg/mL effectively rules out acute congestive heart failure with 99% negative predictive value. Platelets (Bld) [#/Vol] 358 103/mcL Normal 130 - 400 10^3/mcL AO Workflow SS Protein [Mass/Vol] 6.7 G/dL Normal 6.4 - 8.2 G/dL AO ADM SS RBC (Bld) [#/Vol] 4.45 106/mcL Normal 4.20 - 5.4 0 10^6/mcL AO Workflow SS Troponin I.cardiac DL <= 0.01 ng/mL [Mass/Vol] ng/L Normal 0 - 51 ng/L AO ADM SS Comment on above: Interpretive Data: H igh Sensitive Troponin I Reference Ranges: Female: 0-51 ng/L Male: 0-76 ng/L Testing performed on [employer] using a homogeneous sandwich chemiluminescent immunoassay based on [employer] technology. Urea nitrogen/Creatinine [Mass ratio] 10 ratio Normal 7 - 27 ratio AO ADM SS WBC (Bld) [#/Vol] 13.8 103/mcL High 4.6 - 10.8 10^3/mcL AO Workflow SS MGOrdered By: SYSTEM SYSTEM on 08-11-2023 Magnesium [Mass/Vol] 1.8 mg/dL Normal 1.8-2.4 AO A DM SS Comment on above: Performed By: #### N GPCR1, CTPCR #### [address] 08-11-2023 Natriuretic peptide B (Bld) [Mass/Vol] 28 pg/mL Normal 0-125 [facility] ([place]) Comment on above: Result Comment: NT-p roBNP results of less than 300 pg/mL effectively rules out acute congestive heart failure with 99% negative predictive value. Performed By: #### M G, ADIFF, TROPHS, CBC, ANEU, MDW, GFR, CMP, PBNP #### [address] [address] TROPHSon 08-11-2023 High Sensitivity Troponin I 4 ng/L Normal 0-51 [facility] ([place]) Comment on above: Result Comment: High Sensitive Troponin I Reference Ranges: Female: 0-51 ng/L Male: 0-76 ng/L Testing performed on [employer]ension [employer] using a homogeneous sandwich chemiluminescent immunoassay based on [employer] technology. Performed By: #### N GPCR1, CTPCR #### [facility] [address] [place] [address] High Sensitivity Troponin I <4 Normal 0-51 [facility] ([place]) Comment on above: Result Comment: High Sensitive Troponin I Reference Ranges: Female: 0-51 ng/L Male: 0-76 ng/L Testing performed on Dimension EXL using a homogeneous sandwich chemiluminescent immunoassay based on [employer] technology. Performed By: #### M G, ADIFF, TROPHS, CBC, ANEU, MDW, GFR, CMP, PBNP #### [address] [address] XR CHEST 1 VIEWon 08-11-2023 XR CHEST 1 VIEW ORIGINAL EXAMINATION: ONE XRAY VIEW OF THE CHEST 08/11/2023 2:24 pm COMPARISON: 10/14/2021 HISTORY: ORDERING SYSTEM PROVIDED HISTORY: Reason for Exam: chest pain FINDINGS: The cardiomediastinal silhouette is normal. There is no focal consolidation, pleural effusion, vascular congestion, or pneumothorax. Monitoring leads overlie the image. IMPRESSION: No acute radiographic findings. Interpreted by: Catherine Rojo MD Preliminary Report By: Catherine Rojo MD Electronically signed By Catherine Rojo MD Dictated Date: 08/11/2023 2:31:09 PM Prelim Date: 08/11/2023 2:32:02 PM Sign Date: 08/11/2023 2:32:02 PM Ordering Provider: GEORGE Everett [facility] ([place]) Camilla 07-10-2023 CNOV Office Visit ([place]ALK[place] ) BERE ORTEGA ([id number]) 1975 F Date Time Provider Department 07/10/23 10:25 AM ODALIS URRUTIA During your visit today, we recorded the following information about you: Temperature Pulse Respiration Blood pressure 97 degrees 80/minute 16/minute 121/73 Weight Height 113.6 kg 1.651 m Odalis Urrutia APRN.CNP 07/10/2023 10:46 AM Addendum (J06.9) Viral upper respiratory tract infection with cough (primary encounter diagnosis) Plan: benzonatate (TESSALON PERLES) 100 mg capsule, fluticasone (FLONASE ALLERGY RELIEF) 50 mcg/actuation nasal spray, sodium chloride (SALINE MIST) 0.65 % nasal spray (R06.02) SOB (shortness of breath) Plan: predniSONE (DELTASONE) 20 mg tablet, albuterol HFA (PROVENTIL HFA, VENTOLIN HFA) 90 mcg/actuation inhaler Education on viral vs bacterial infections. Most viral infections will last 10 days, sometimes 14. It is possible to have back to back viral infections. An antibiotic will not treat a virus. -Albuterol to help open the airways, prednisone with food for shortness of breath. Tessalon for cough, these are capsules you swallow, do not chew. -Paper script for antibiotic if no improvement with current plan. -Drink lots of fluids and get plenty of rest. -Vaporizers, cool mist humidifiers, warm showers, and warm fluids help open respiratory and sinus passages. Clean humidifiers daily. -OTC tylenol/ibuprofen as directed on the bottle. -Saline nasal spray as needed. Flonase twice daily can help reduce inflammation through the sinus cavities. -Cough/deep breathing education, promote clearing of the airways and good lung expansion. -Make follow up with primary care for monitoring and resolution in symptoms. -Signs that warrant an ER evaluation: Sudden change/worsening in condition, lethargy, signs of dehydration, fever greater than 102 F that is not responding to Tylenol or ibuprofen (Motrin, Advil), drooling, difficulty swallowing, difficulty breathing, shortness of breath, chest pain, evidence of airway compromise (tripod position, neck extension, retractions), seizures, changes in mental status, or other concerns. Odalis Urrutia APRN.SLICING MACHINE FEEDER 07/10/2023 10:49 AM Signed This note was created using [employer]. Subjective Bere Ortega is a 48 year old female. HPI by patient: Bere Ortega is a 48 year old presenting to the office with the complaint of viral symptoms. Started approximately 1 week ago. Associated symptoms include cough, congestion, headache, and shortness of breath. Denies fever, chills, body aches, fatigue, and gi symptoms. Covid Immunization Dates Overdue - Covid-19 Vaccine ( season) Never done No completion, postpone, frequency change, or communication history exists for this topic. Sick contacts: unsure. Smoking history/second hand smoke: none. OTC not helping. No antibiotic use in the last 60 days. ALLERGIES Aleve [Naproxen] Other: See Comments Comment:states that had cramping and rectal bleeding Prochlorperazine Comment:compazine Family History Reviewed Including Cardiac Diseases, Psychiatric Diseases, AND Substance Abuse Problem: Colon Cancer Relation: Father Age of Onset: (Not Specified) Problem: Diabetes Relation: Father Age of Onset: (Not Specified) Problem: Diabetes Relation: Mother Age of Onset: (Not Specified) Problem: Hypertension Relation: Mother Age of Onset: (Not Specified) Problem: Heart Relation: Mother Age of Onset: (Not Specified) Problem: Kidney Disease Relation: Mother Age of Onset: (Not Specified) Problem: Stroke Relation: Mother Age of Onset: (Not Specified) Problem: COPD Relation: Mother Age of Onset: (Not Specified) Problem: Cancer Relation: Mother Age of Onset: 50 Comment: uterine Social History Tobacco Use Smoking status: Every Day Packs/day: 0.50 Years: 14.00 Additional pack years: 0.00 Total pack years: 7.00 Types: Cigarettes Smokeless tobacco: Never Tobacco comments: up to 1 /2 PPD Alcohol use: Yes Comment: rarely Drug use: No Active Ambulatory Problems Myalgia and myositis, unspecified Date Noted: 12/22/2004 Irregular menstrual cycle Date Noted: 02/23/2011 Excessive or frequent menstruation Date Noted: 02/23/2011 Dysmenorrhea Date Noted: 02/23/2011 Dyspareunia Date Noted: 02/23/2011 Unspecified symptom associated with female genital organs Date Noted: 02/23/2011 Urgency of urination Date Noted: 02/23/2011 Obesity Erythema nodosum Migraine headache Pal esophagus Lupus (HCC) Chondromalacia patella Date Noted: 09/14/2011 Resolved Ambulatory Problems No Resolved Ambulatory Problems Past Medical History: No date: Bursitis 2007: Degenerative disc disease, lumbar No date: Endometriosis, site unspecified No date: Fibromyalgia No date: PCOS (polycystic ovarian syndrome) No danielle (more content not included)... Normal [facility] CTPCRon 05-31-2023 C. trachomatis Interp Normal See CT Interp N [facility] ([place]) Comment on above: Result Comment: C. t rachomatis DNA not detected. Specimen is presumptive negative for C. trachomatis. A negative result does not preclude C. trachomatis infection because results depend on adequate specimen collection, absence of inhibitors, and sufficient DNA to be detected. See CT Interp N Performed By: #### N GPCR1, CTPCR #### [address] [address] C.trachomatis PCR Negative Normal Negative [facility] ([place]) Comment on above: Result Comment: Mole cular (PCR) assay performed on the Anneliese Bennie 4800 system. Performed By: #### N GPCR1, CTPCR #### [address] [address] Chlam Source Vaginal Normal [facility] ([place]) Comment on above: Performed By: #### N GPCR1, CTPCR #### [address] [address] [id number] 05-31-2023 GC PCR Source Vaginal Normal [facility] ([place]) Comment on above: Performed By: #### N GPCR1, CTPCR #### [place] [address] N. gonorrhoeae (PCR) Negative Normal Negative [facility] ([place]) Comment on above: Result Comment: Felipe holley (PCR) assay performed on the Anneliese Bennie 4800 System. Performed By: #### N GPCR1, CTPCR #### [place] [address] N. gonorrhoeae Interp Normal See NG Interp N [facility] ([place]) Comment on above: Result Comment: N. g onorrhoeae DNA not detected. Specimen is presumptive negative for N. gonorrhoeae. A negative result does not preclude Neisseria gonorrhoeae infection because results depend on adequate specimen collection, absence of inhibitors, and sufficient DNA to be detected. See NG Interp N Performed By: #### N GPCR1, CTPCR #### [place] [address] RPRon 05-31-2023 Reagin Ab RPR Ql (S) Non-Reactive Normal Non-Lisco ctiv e [facility] ([place]) Comment on above: Result Comment: The RPR test is a non-treponemal assay useful as an aid in the diagnosis of primary and secondary syphilis. It converts to positive generally within 2 weeks after the appearance of a lesion. This test is also useful for monitoring response to antibiotic therapy. A positive RPR screening test will be followed by the FTA ABS test. False positive RPR tests may occur in 1) patients with underlying autoimmune disorders, 2) elderly patients, 3) , and 4) other conditions with abnormal serum globulins. Performed By: #### N GPCR1, CTPCR #### [place] [address] TRVAMPon 05-31-2023 Trich vag EMMETT Cancelled Normal [facility] ([place]) Comment on above: Order Comment: kim booker office and spoke to Umm miranda container they're going to recollect. - KK 05/30/2023 1613 Performed By: #### N GPCR1, CTPCR #### [place] [address] HCVon 05-30-2023 Hep C Ab Non-Reactive Normal Non-Reactiv e [facility] ([place]) Comment on above: Performed By: #### N GPCR1, CTPCR #### [place] [address] Hep C Ab Int Normal [facility] ([place]) Comment on above: Result Comment: Nonr eactive: Samples with a value < 0.80 are considered nonreactive (negative) for antibodies to HCV. A negative test result does not exclude the possibility of exposure to or infection with HCV. HCV antibodies may be undetectable in some stages of the infection and in some clinical conditions. See Interp Performed By: #### N GPCR1, CTPCR #### [place] [address] HIVRPon 05-30-2023 HIV p24 Antigen Non-Reactive Normal Non-Reactiv e [facility] ([place]) Comment on above: Result Comment: Dete ction of p24 may be inhibited by biotin in the sample, causing false negative results in acute infection. Therefore do not test samples from patients who are taking biotin. Performed By: #### N GPCR1, CTPCR #### [place] [address] HIV P24 Int Non-Reactive Invalid Interpretation Code [facility] ([place]) Comment on above: Performed By: #### N GPCR1, CTPCR #### [place] [address] Rapid HIV 1/2 Antibody Non-Reactive Normal Non-Reactiv e [facility] ([place]) Comment on above: Performed By: #### N GPCR1, CTPCR #### [place] [address] RHIV 1/2 Ab Int Non-Reactive Invalid Interpretation Code [facility] ([place]) Comment on above: Performed By: #### N GPCR1, CTPCR #### [place] [address] LABORATORYOrdered By: Catherine Kent on 05-30-2023 Trich vag EMMETT (LC) Cancelled Invalid Interpretation Code AO Sendouts SS LABORATORYOrdered By: Patrizia Flynn on 05-30-2023 Trich Vag Source (LC) Urine (05/30/23 3:57 PM) Normal AO Sendouts SS LABORATORYOrdered By: Cynthia Jimenez on 05-30-2023 C. trachomatis DNA EMMETT+probe Ql (Unsp spec) Negative 2 (05/30/23 3:56 PM) Normal AH Auto Viro/Sero SS Comment on above: Interpretive Data: M olecular (PCR) assay performed on the [employer] 4800 system. C. trachomatis DNA EMMETT+probe Ql (Unsp spec) C. trachomatis DNA not detected. Specimen is presumptive negative forC. trachomatis.A negative result does not preclude C. trachomatis infection becauseresults depend on adequate specimen collection, absence of inhibitors,and sufficient DNA to be detected. Normal See CT Interp N AH Auto Viro/Sero SS N. gonorrhoeae DNA EMMETT+probe Ql (Unsp spec) Negative 1 (05/30/23 3:56 PM) Normal AH Auto Viro/Sero SS Comment on above: Interpretive Data: M olecular (PCR) assay performed on the [employer] 4800 System. N. gonorrhoeae DNA EMMETT+probe Ql (Unsp spec) N. gonorrhoeae DNA not detected. Specimen is presumptive negative forN. gonorrhoeae. A negative result does not preclude Neisseria gonorrhoeaeinfection because results depend on adequate specimen collection, absenceof inhibitors, and sufficient DNA to be detected. Normal See NG Interp N AH Auto Viro/Sero SS LABORATORYOrdered By: Aicha Carpenter on 05-30-2023 HIV 1 p24 Ab Ql (S) Non-Reactive 1 (05/30/23 2:31 PM) Normal Non-Reactiv e AO Rapid Testing SS Comment on above: Interpretive Data: D etection of p24 may be inhibited by biotin in the sample, causing false negative results in acute infection. Therefore do not test samples from patients who are taking biotin. HIV 1 p24 Ab Ql (S) Non-Reactive Invalid Interpretation Code AO Rapid Testing SS HIV 1+2 Ab IA Ql Non-Reactive Invalid Interpretation Code AO Rapid Testing SS HIV 1+2 Ab IA.rapid Ql (Unsp spec) Non-Reactive (05/30/23 2:31 PM) Normal Non-Reactiv e AO Rapid Testing SS LABORATORYOrdered By: Liz Gomez on 05-30-2023 HCV Ab IA Ql Non-Reactive (05/30/23 2:30 PM) Normal Non-Reactiv e AH ADM SS HCV Ab IA Ql Nonreactive: Samples with a value < 0.80 are considered nonreactive (negative) for antibodies to HCV.A negative test result does not exclude the possibility of exposure to or infection with HCV. HCV antibodies may be undetectable in some stages of the infection and in some clinical conditions. Invalid Interpretation Code AH Chemistry S Laboratory - Specimen inform ationOrdered By: Cynthia Jimenez on 05-30-2023 Specimen source Nom (Unsp spec) Vaginal (05/30/23 3:56 PM) Normal Auto Viro/Sero SS TRVAMPon 05-30-2023 Trich Vag Source Urine Normal [facility] ([place]) Comment on above: Order Comment: kim booker office and spoke to Umm wrong container they're going to recollect. - KK 05/30/2023 1613 Performed By: #### N GPCR1, CTPCR #### [place] [address] XR FOOT MINIMUM 3 VIEWS LEFT on 01-22-2023 XR FOOT MINIMUM 3 VIEWS LEFT ORIGINAL EXAMINATION: THREE XRAY VIEWS OF THE LEFT FOOT 01/22/2023 6:14 pm COMPARISON: None. HISTORY: ORDERING SYSTEM PROVIDED HISTORY: Reason for Exam: injury FINDINGS: No acute fracture or dislocation. Small accessory ossicle proximal to the medial navicular. Mild degenerative changes of the tibiotalar joint. Calcaneal enthesophytes at the insertion of the Achilles tendon and plantar fascia. Dorsal soft tissue swelling. No radiopaque foreign body. IMPRESSION: No acute osseous abnormality. I have personally reviewed the images of this examination and agree with the resident's findings and interpretation. Interpreted by: Cristian Crystal Preliminary Report By: Brittany Null Electronically signed By Cristian Crystal Dictated Date: 01/22/2023 6:19:06 PM Prelim Date: 01/22/2023 6:21:34 PM Sign Date: 01/22/2023 6:25:37 PM Ordering Provider: ALBARO ORTEGA Normal [facility] ([place]) LABORATORYOrdered By: Bridgette Sevilla on 11-14-2022 Acetaminophen [Mass/Vol] 0.0 ug/mL Invalid Interpretation Code 10.0 - 30.0 mcg/mL AO Chemistry S Amphetamines Screen Ql (U) Negative (11/14/22 6:33 AM) Invalid Interpretation Code AO Manual Urine SS Barbiturates Screen Ql (U) Negative (11/14/22 6:33 AM) Invalid Interpretation Code AO Manual Urine SS Benzodiazepines Ql (U) Negative (11/14/22 6:33 AM) Invalid Interpretation Code AO Manual Urine SS Benzoylecgonine Screen Ql (U) Negative (11/14/22 6:33 AM) Invalid Interpretation Code AO Manual Urine SS Cannabinoids tested Screen Nom (U) Negative (11/14/22 6:33 AM) Invalid Interpretation Code AO Manual Urine SS Ethanol [Mass/Vol] mg/dL Invalid Interpretation Code 0 - 3 mg/dL AO Chemistry S Methadone Screen Ql (U) Negative (11/14/22 6:33 AM) Invalid Interpretation Code AO Manual Urine SS Opiates Screen Ql (U) Negative (11/14/22 6:33 AM) Invalid Interpretation Code AO Manual Urine SS Phencyclidine Ql (U) Negative (11/14/22 6:33 AM) Invalid Interpretation Code AO Manual Urine SS Tricyclic antidepressants Screen Ql (U) Negative (11/14/22 6:33 AM) Invalid Interpretation Code AO Manual Urine SS LABORATORYOrdered By: SYSTEM SYSTEM on 11-14-2022 Albumin BCP dye [Mass/Vol] 3.7 G/dL Invalid Interpretation Code 3.5 - 5.0 G/dL AO ADM SS Albumin/Globulin [Mass ratio] 0.9 {ratio} Invalid Interpretation Code 1.1 - 2.5 ratio AO ADM SS ALP [Catalytic activity/Vol] 127 U/L Invalid Interpretation Code 40 - 135 U/L AO ADM SS ALT With P-5'-P [Catalytic activity/Vol] 37 U/L Invalid Interpretation Code 14 - 59 U/L AO ADM SS AST With P-5'-P [Catalytic activity/Vol] 19 U/L Invalid Interpretation Code 10 - 40 U/L AO ADM SS Basophil, Absolute 0.1 103/mcL Invalid Interpretation Code 0.0 - 0.2 10^3/mcL AO Workflow SS Basophils/100 WBC (Bld) 0.7 % Invalid Interpretation Code 0.0 - 2.5 % AO Workflow SS Bilirubin [Mass/Vol] 0.6 mg/dL Invalid Interpretation Code 0.2 - 1.0 mg/dL AO ADM SS Comment on above: Interpretive Data: U se of this assay is not recommended for patients undergoing treatment with eltrombopag due to the potential for falsely elevated results. Calcium [Mass/Vol] 9.2 mg/dL Invalid Interpretation Code 8.4 - 10.2 mg/dL AO ADM SS Chloride [Moles/Vol] 102 mmol/L Invalid Interpretation Code 98 - 107 mmol/L AO ADM SS CO2 [Moles/Vol] 25 mmol/L Invalid Interpretation Code 22 - 29 mmol/L AO ADM SS Creatinine [Mass/Vol] 0.79 mg/dL Invalid Interpretation Code 0.55 - 1.02 mg/dL AO ADM SS Electrolyte Balance 10.0 mEq/L Invalid Interpretation Code 4.0 - 15.0 mEq/L AO ADM SS Eosinophil, Absolute 0.2 103/mcL Invalid Interpretation Code 0.0 - 0.4 10^3/mcL AO Workflow SS Eosinophils/100 WBC (Bld) 1.3 % Invalid Interpretation Code 0.0 - 7.0 % AO Workflow SS Erythrocyte distribution width (RBC) [Ratio] 14.1 % Invalid Interpretation Code 11.5 - 14.5 % AO Workflow SS GFR/1.73 sq M.predicted among blacks MDRD (S/P/Bld) [Vol rate/Area] 95 ml/min/1.73sqm Invalid Interpretation Code AO Chemistry S Comment on above: Interpretive Data: GFR Population mean for , Non- Americans Ages 20-29 = 116 mL/min/1.73 sq.m. Ages 30-39 = 107 mL/min/1.73 sq.m. Ages 40-49 = 99 mL/min/1.73 sq.m. Ages 50-59 = 93 mL/min/1.73 sq.m. Ages 60-69 = 85 mL/min/1.73 sq.m. Ages 70+ = 75 mL/min/1.73 sq.m. Chronic Kidney Disease: Less than 60 mL/min/1.73 square meters End Stage Renal Disease: Less than 15 mL/min/1.73 square meters GFR/1.73 sq M.predicted among non-blacks MDRD (S/P/Bld) [Vol rate/Area] 78 ml/min/1.73sqm Invalid Interpretation Code AO Chemistry S Comment on above: Interpretive Data: GFR Population mean for , Non- Americans Ages 20-29 = 116 mL/min/1.73 sq.m. Ages 30-39 = 107 mL/min/1.73 sq.m. Ages 40-49 = 99 mL/min/1.73 sq.m. Ages 50-59 = 93 mL/min/1.73 sq.m. Ages 60-69 = 85 mL/min/1.73 sq.m. Ages 70+ = 75 mL/min/1.73 sq.m. Chronic Kidney Disease: Less than 60 mL/min/1.73 square meters End Stage Renal Disease: Less than 15 mL/min/1.73 square meters Globulin 4.1 G/dL Invalid Interpretation Code AO ADM SS Glucose [Mass/Vol] 138 mg/dL Invalid Interpretation Code 70 - 105 mg/dL AO ADM SS Hematocrit (Bld) [Volume fraction] 42.4 % Invalid Interpretation Code 37.0 - 47.0 % AO Workflow SS Hemoglobin (Bld) [Mass/Vol] 14.6 G/dL Invalid Interpretation Code 12.0 - 16.0 G/dL AO Workflow SS Lymphocyte, Absolute 3.8 103/mcL Invalid Interpretation Code 0.8 - 3.9 10^3/mcL AO Workflow SS Lymphocytes/100 WBC (Bld) 24.6 % Invalid Interpretation Code 10.0 - 50.0 % AO Workflow SS MCH (RBC) [Entitic mass] 29.8 pg Invalid Interpretation Code 27.0 - 31.2 pg AO Workflow SS MCHC 34.4 G/dL Invalid Interpretation Code 33.0 - 37.0 G/dL AO Workflow SS MCV (RBC) [Entitic vol] 86.6 fL Invalid Interpretation Code 80.0 - 94.0 fL AO Workflow SS Monocyte distribution width Auto (Bld) [Entitic vol] 17.17 1 Invalid Interpretation Code 0.00 - 20.00 AO Workflow SS Comment on above: Result Comment: For ED adult patients suspected of sepsis, MDW<=20.0 does not rule out sepsis or risk of sepsis Monocyte, Absolute 0.6 103/mcL Invalid Interpretation Code 0.2 - 1.0 10^3/mcL AO Workflow SS Monocytes/100 WBC (Bld) 4.1 % Invalid Interpretation Code 1.7 - 13.0 % AO Workflow SS Neutrophil, Absolute 10.7 103/mcL Invalid Interpretation Code 2.9 - 6.2 10^3/mcL AO Workflow SS Neutrophils/100 WBC (Bld) 69.3 % Invalid Interpretation Code 37.0 - 80.0 % AO Workflow SS Platelet mean volume (Bld) [Entitic vol] 6.7 fL Invalid Interpretation Code 7.4 - 10.4 fL AO Workflow SS Platelets (Bld) [#/Vol] 374 103/mcL Invalid Interpretation Code 130 - 400 10^3/mcL AO Workflow SS Potassium [Moles/Vol] 4.3 mmol/L Invalid Interpretation Code 3.5 - 5.1 mmol/L AO ADM SS Protein [Mass/Vol] 7.8 G/dL Invalid Interpretation Code 6.4 - 8.2 G/dL AO ADM SS RBC (Bld) [#/Vol] 4.90 106/mcL Invalid Interpretation Code 4.20 - 5.40 10^6/mcL AO Workflow SS Salicylates [Mass/Vol] 2.7 mg/dL Invalid Interpretation Code 2.8 - 20.0 mg/dL AO ADM SS Sodium [Moles/Vol] 137 mmol/L Invalid Interpretation Code 136 - 145 mmol/L AO ADM SS Urea nitrogen [Mass/Vol] 11 mg/dL Invalid Interpretation Code 7 - 18 mg/dL AO ADM SS Urea nitrogen/Creatinine [Mass ratio] 14 ratio Invalid Interpretation Code 7 - 27 ratio AO ADM SS WBC (Bld) [#/Vol] 15.5 103/mcL Invalid Interpretation Code 4.6 - 10.8 10^3/mcL AO Workflow SS LABORATORYOrdered By: Bradley Bermudez on 11-14-2022 SARS-CoV-2 (COVID-19) RNA EMMETT+probe Ql (Resp) Negative results do not preclude SARS-CoV-2 infection and should not be used as the sole basis for patient management decisions. Negative results must be combined with clinical observations, patient history, and epidemiological information.There is a risk of false negative values resulting from improperly collected, transported, or handled specimens.There is a risk of false negative values due to the presence of sequence variants in the pathogen targets of the assay, procedural errors, amplification inhibitors in specimens, or inadequate numbers of organisms for amplification.[employer] SARS-CoV-2 Assay is a Real-Time reverse-transcriptase polymerase chain reaction (RT-PCR) based qualitative in vitro diagnostic test intended for the qualitative detection of nucleic acid from the SARS-CoV-2 in nasopharyngeal swab specimens collected from individuals suspected of COVID-19 by their healthcare provider. Testing is limited to laboratories certified under the Clinical Laboratory Improvement Amendments of 1988 (CLIA), 42 U.S.C. 263a, to perform moderate and high complexity tests. Invalid Interpretation Code AO Auto Urine SS ED Nursing Noteon 10-09-2022 ED Nursing Note Discharge instructio ns, follow up care, and pain management discussed with patient. All questions answered, there are no further questions at this time. RN educated patient on newly prescribed medication including dose, use, and side effects. Patient verbalized understanding. Patient ambulated off the unit independently at discharge. Zuleyma Mcqueen RN 10/09/22 2971 [facility] ED Nursing Note Patient ambulatory t o room 6 presenting with fever, sore throat, body aches and chills for two days. Patient has been taking over the counter Dayquil and tylenol for fever at home, highest recorded temperature at home was last night 102.4. Patient reports difficulty swallowing due to sore throat. In triage patient is afebrile and vital signs are stable. Patient reports no known exposure to anyone who has been sick, has not been tested for COVID or the flu recently. Patient reports that she is non-compliant with medications at home for restless leg syndrome and allergies. Family is bedside, call light in reach. Patient is a daily smoker and smokes half a pack of cigarettes a day. Normal [facility] ED Provider Noteon 3 ED Provider Note EMERGENCY DEPARTMENT ENCOUNTER Pt Name: Bere Ortega Birthdate 1975 Date of evaluation: 10/09/2022 ED Provider: Conner Rueda DO CHIEF COMPLAINT Chief Complaint Patient presents with Fever Sore Throat Fever, sore throat, body aches/chills for 2 days, has been taking OTC medications, highest recorded temperature at home 102.4 HISTORY OF PRESENT ILLNESS (Location/Symptom, Timing/Onset, Context/Setting, Quality, Duration, Modifying Factors, Severity) Note limiting factors. I wore appropriate PPE for the entirety of this encounter. HPI Bere Ortega is a 47 y.o. female who presents to the emergency department with fevers, chills, sore throat, congestion, cough. The patient is currently day 3 of symptoms. The patient reports that cough is nonproductive of sputum. The patient admits to a history of lupus, she reports not taking any medication for it. Nursing Notes were reviewed. Limitations to history: Outside historians: REVIEW OF SYSTEMS Review of Systems Constitutional: Positive for chills and fever. HENT: Positive for congestion and sore throat. Respiratory: Positive for cough. PAST MEDICAL HISTORY Past Medical History: Diagnosis Date Anemia Anxiety Arthralgia Asthma mild Pal's esophagus Bulging discs lumbar DDD (degenerative disc disease) Lumbar Depression Diabetes (HCC) Diarrhea Dyslipidemia Eczema Dyshidrotic eczema, hands and feet Encounter for pain management counseling following physician in [place] Eosinophilic esophagitis [facility] Fibromyalgia GERD (gastroesophageal reflux disease) H. pylori infection IUD (intrauterine device) in place Lupus (CMS/HCC) (HCC) Migraines Neoplasm of uncertain behavior of skin Nevus Right cheek-R/O Atypical nevus. Right dorsal foot-R/O Atypical nevus. Rectal bleeding Restless leg syndrome Screening for skin cancer [facility] Dermatology Dr. Crabtree Spinal stenosis Well woman exam 04/2014 Dr. Patrick SURGICAL HISTORY Past Surgical History: Procedure Laterality Date CARPAL TUNNEL RELEASE 2000 COLONOSCOPY GALLBLADDER SURGERY 2003 HYSTERECTOMY 04/2014 still has ovaries ; Dr. Patrick KNEE SURGERY 1997 SKIN BIOPSY 03/2015 left hand, right foot Dr. Crabtree CURRENT MEDICATIONS Previous Medications No medications on file ALLERGIES Codeine, Eggs or egg-derived products, Gabapentin, Hydrochlorothiazide, Influenza virus vaccine, and Pneumococcal vaccine FAMILY HISTORY Family History Problem Relation Name Age of Onset Kidney disease Mother 70 renal failure Cancer Mother 70 Heart disease Mother 70 CHF Diabetes Mother 70 Diabetes Father Cancer Father colon Cancer Maternal Grandfather colon SOCIAL HISTORY Social History Socioeconomic History Marital status: Single Tobacco Use Smoking status: Former Packs/day: 1.00 Types: Cigarettes Smokeless tobacco: Never Tobacco comments: Quit smoking: pt states quit 4months ago Substance and Sexual Activity Alcohol use: Yes Alcohol/week: 0.0 standard drinks of alcohol Drug use: No SCREENINGS PHYSICAL EXAM ED Triage Vitals Temp Pulse Resp BP -- -- -- -- SpO2 Temp src Heart Rate Source Patient Position -- -- -- -- BP Location FiO2 (%) -- -- Physical Exam Constitutional: General: She is not in acute distress. HENT: Head: Normocephalic. Mouth/Throat: Mouth: Mucous membranes are moist. Pharynx: Posterior oropharyngeal erythema present. No oropharyngeal exudate. Eyes: Conjunctiva/sclera: Conjunctivae normal. Pulmonary: Effort: Pulmonary effort is normal. Abdominal: General: Abdomen is flat. Tenderness: There is no abdominal tenderness. Musculoskeletal: General: No deformity. Skin: General: Skin is warm and dry. Psychiatric: Mood and Affect: Mood normal. DIAGNOSTIC RESULTS RADIOLOGY (Per Emergency Physician): Interpretation per the Radiologist below, if available at the time of this note: XR chest 1 view Final Result No acute process. Report Dictated on Electronically Signed By: Jesse Guidry Electronically Signed Date/Time: 10/09/2022 1:11 PM EDT LABS: Labs Reviewed GROUP A STREP SCREEN BY PCR - Abnormal Result Value Group A Strep Screen Detected (*) Narrative: Methodology: real-time PCR SARS-COV-2, FLU A/B, AND RSV COMBO - Normal SARS-CoV-2 Not Detected Respiratory Syncytial Virus Not Detected Influenza A Not Detected Influenza B Not Detected Narrative: Methodology: real-time, RT-PCR The SARS-CoV-2, Flu A/B, and RSV Combo assay is intended for in vitro diagnostic use under the FDA Emergency Use Authorization (EUA). This test has not been FDA cleared or approved. In compliance with this authorization, please visit www.fda.gov/media/494568/do wnload or www.fda.gov/media/494945/do wnload to access the applicable information sheets. All other labs were within normal range or (more content not included)... Normal [facility] Laboratory - Microbiology an d Antimicrobial susceptibilityon 10-09-2022 FLUAV RNA EMMETT+probe Ql (Resp) Not detected Not Detected [facility] FLUBV RNA EMMETT+probe Ql (Resp) Not detected Not Detected [facility] RSV RNA EMMETT+probe Ql (Resp) Not detected Not Detected [facility] SARS-CoV-2 (COVID-19) RNA EMMETT+probe Ql (Resp) Not detected Not Detected [facility] SARS-CoV-2 (COVID-19) RNA EMMETT+probe Ql (Unsp spec) Methodology: real-time, RT-PCR The SARS-CoV-2, Flu A/B, and RSV Combo assay is intended for in vitro diagnostic use under the FDA Emergency Use Authorization (EUA). This test has not been FDA cleared or approved. In compliance with this authorization, please visit www.fda.gov/media/498435/do wnload or www.fda.gov/media/789505/do wnload to access the applicable information sheets. [facility] S. pyogenes DNA EMMETT+probe No m (Unsp spec)on 10-09-2022 Group A Strep Screen Detected Abnormal Not Detected [facility] Interpretation and review of laboratory results Abnormal [facility] Methodology: real-time PCR [facility] SARS-CoV-2, Flu A/B, and RSV Comboon 10-09-2022 Interpretation and review of laboratory results Normal [facility] XR Chest Single viewon 10-09 No acute process. Report Dictated on Electronically Signed By: Jesse Guidry Electronically Signed Date/Time: 10/09/2022 1:11 PM EDT [facility] Patient Name: BERE ORTEGA : 1975 Exam Date/Time: 10/09/2022 12:57 Procedure: XR CHEST 1 VIEW Ordering Provider: RUEDA JOSEPH Reason For Exam: COUGH PORTABLE CHEST: INDICATION: Cough COMPARISON: No previous studies are available for comparison. Obtained at 1300 hours. A single portable AP radiograph of the chest was obtained. The heart is normal in size. The mediastinal silhouette is normal. The lungs are clear. There are no effusions or infiltrates. There is no pleural thickening. The osseous structures are unremarkable. [facility] [place] Jesse GuidryDO - 10/09/2022 Patient Name: BERE ORTEGA : 1975 Exam Date/Time: 10/09/2022 12:57 Procedure: XR CHEST 1 VIEW Ordering Provider: RUEDA JOSEPH Reason For Exam: COUGH PORTABLE CHEST: INDICATION: Cough COMPARISON: No previous studies are available for comparison. Obtained at 1300 hours. A single portable AP radiograph of the chest was obtained. The heart is normal in size. The mediastinal silhouette is normal. The lungs are clear. There are no effusions or infiltrates. There is no pleural thickening. The osseous structures are unremarkable. IMPRESSION: No acute process. Report Dictated on Electronically Signed By: Jesse Guidry Electronically Signed Date/Time: 10/09/2022 1:11 PM EDT [facility] Radiology Study observation (narrative) [facility] XR Chest Single viewOrdered By: Jesse Guidry on 10-09-2022 [employer] Work Phone: LABORATORYOrdered By: SYSTEM SYSTEM on 06-10-2022 Albumin BCP dye [Mass/Vol] 3.8 G/dL Invalid Interpretation Code 3.5 - 5.0 G/dL AO ADM SS Albumin/Globulin [Mass ratio] 1.1 {ratio} Invalid Interpretation Code 1.1 - 2.5 ratio AO ADM SS ALP [Catalytic activity/Vol] 117 U/L Invalid Interpretation Code 40 - 135 U/L AO ADM SS ALT With P-5'-P [Catalytic activity/Vol] 48 U/L Invalid Interpretation Code 14 - 59 U/L AO ADM SS AST With P-5'-P [Catalytic activity/Vol] 33 U/L Invalid Interpretation Code 10 - 40 U/L AO ADM SS Bilirubin [Mass/Vol] 0.7 mg/dL Invalid Interpretation Code 0.2 - 1.0 mg/dL AO ADM SS Calcium [Mass/Vol] 9.2 mg/dL Invalid Interpretation Code 8.4 - 10.2 mg/dL AO ADM SS Chloride [Moles/Vol] 100 mmol/L Invalid Interpretation Code 98 - 107 mmol/L AO ADM SS CO2 [Moles/Vol] 28 mmol/L Invalid Interpretation Code 22 - 29 mmol/L AO ADM SS Cobalamin (Vitamin B12) [Mass/Vol] 382 pg/mL Invalid Interpretation Code 211 - 911 pg/mL AH ADM SS Creatinine [Mass/Vol] 0.73 mg/dL Invalid Interpretation Code 0.55 - 1.02 mg/dL AO ADM SS Electrolyte Balance 9.0 mEq/L Invalid Interpretation Code 4.0 - 15.0 mEq/L AO ADM SS Free T3 [Mass/Vol] 3.38 pg/mL Invalid Interpretation Code 2.30 - 4.00 pg/mL AO ADM SS Free T4 [Mass/Vol] 1.05 ng/dL Invalid Interpretation Code 0.76 - 1.46 ng/dL AO ADM SS GFR 104 ml/min/1.73sqm Invalid Interpretation Code AO Chemistry S GFR Non- 86 ml/min/1.73sqm Invalid Interpretation Code AO Chemistry S Globulin 3.6 G/dL Invalid Interpretation Code AO ADM SS Glucose [Mass/Vol] 85 mg/dL Invalid Interpretation Code 70 - 105 mg/dL AO ADM SS Magnesium [Mass/Vol] 1.9 mg/dL Invalid Interpretation Code 1.8 - 2.4 mg/dL AO ADM SS Potassium [Moles/Vol] 4.6 mmol/L Invalid Interpretation Code 3.5 - 5.1 mmol/L AO ADM SS Protein [Mass/Vol] 7.4 G/dL Invalid Interpretation Code 6.4 - 8.2 G/dL AO ADM SS Sodium [Moles/Vol] 137 mmol/L Invalid Interpretation Code 136 - 145 mmol/L AO ADM SS TSH Qn 1.18 m[IU]/L Invalid Interpretation Code 0.36 - 3.74 mcIU/mL AO ADM SS Urea nitrogen [Mass/Vol] 13 mg/dL Invalid Interpretation Code 7 - 18 mg/dL AO ADM SS Urea nitrogen/Creatinine [Mass ratio] 18 ratio Invalid Interpretation Code 7 - 27 ratio AO ADM SS Vit. D 25-Hydroxy 14.0 ng/mL Invalid Interpretation Code AO ADM SS LABORATORYOrdered By: Nicole Clemons on 06-10-2022 Basophil, Absolute 0.1 103/mcL Invalid Interpretation Code 0.0 - 0.2 10^3/mcL AO Workflow SS Basophils/100 WBC (Bld) 0.6 % Invalid Interpretation Code 0.0 - 2.5 % AO Workflow SS Eosinophil, Absolute 0.1 103/mcL Invalid Interpretation Code 0.0 - 0.4 10^3/mcL AO Workflow SS Eosinophils/100 WBC (Bld) 1.0 % Invalid Interpretation Code 0.0 - 7.0 % AO Workflow SS Erythrocyte distribution width (RBC) [Ratio] 13.8 % Invalid Interpretation Code 11.5 - 14.5 % AO Workflow SS Hematocrit (Bld) [Volume fraction] 40.6 % Invalid Interpretation Code 37.0 - 47.0 % AO Workflow SS Hemoglobin (Bld) [Mass/Vol] 13.8 G/dL Invalid Interpretation Code 12.0 - 16.0 G/dL AO Workflow SS Lymphocyte, Absolute 3.7 103/mcL Invalid Interpretation Code 0.8 - 3.9 10^3/mcL AO Workflow SS Lymphocytes/100 WBC (Bld) 28.8 % Invalid Interpretation Code 10.0 - 50.0 % AO Workflow SS MCH (RBC) [Entitic mass] 29.5 pg Invalid Interpretation Code 27.0 - 31.2 pg AO Workflow SS MCHC 34.1 G/dL Invalid Interpretation Code 33.0 - 37.0 G/dL AO Workflow SS MCV (RBC) [Entitic vol] 86.7 fL Invalid Interpretation Code 80.0 - 94.0 fL AO Workflow SS Monocyte, Absolute 0.5 103/mcL Invalid Interpretation Code 0.2 - 1.0 10^3/mcL AO Workflow SS Monocytes/100 WBC (Bld) 4.2 % Invalid Interpretation Code 1.7 - 13.0 % AO Workflow SS Neutrophil, Absolute 8.4 103/mcL Invalid Interpretation Code 2.9 - 6.2 10^3/mcL AO Workflow SS Neutrophils/100 WBC (Bld) 65.4 % Invalid Interpretation Code 37.0 - 80.0 % AO Workflow SS Platelet mean volume (Bld) [Entitic vol] 6.8 fL Invalid Interpretation Code 7.4 - 10.4 fL AO Workflow SS Platelets (Bld) [#/Vol] 407 103/mcL Invalid Interpretation Code 130 - 400 10^3/mcL AO Workflow SS RBC (Bld) [#/Vol] 4.68 106/mcL Invalid Interpretation Code 4.20 - 5.40 10^6/mcL AO Workflow SS WBC (Bld) [#/Vol] 12.9 103/mcL Invalid Interpretation Code 4.6 - 10.8 10^3/mcL AO Workflow SS LABORATORYOrdered By: Gabi cobb on 03-16-2022 Adenovirus DNA EMMETT+non-probe Ql (Nph) Not Detected *NA* (03/16/22 1:32 PM) Invalid Interpretation Code Not Detected AH Auto Viro/Sero SS B. parapertussis [id number] DNA EMMETT+non-probe Ql (Nph) Not Detected *NA* (03/16/22 1:32 PM) Invalid Interpretation Code Not Detected AH Auto Viro/Sero SS B. pertussis toxin promoter region EMMETT+non-probe Ql (Nph) Not Detected *NA* (03/16/22 1:32 PM) Invalid Interpretation Code Not Detected AH Auto Viro/Sero SS C. pneumoniae DNA EMMETT+non-probe Ql (Nph) Not Detected *NA* (03/16/22 1:32 PM) Invalid Interpretation Code Not Detected AH Auto Viro/Sero SS FLUAV RNA EMMETT+non-probe Ql (Nph) Not Detected *NA* (03/16/22 1:32 PM) Invalid Interpretation Code Not Detected AH Auto Viro/Sero SS FLUBV RNA MEMETT+non-probe Ql (Nph) Not Detected *NA* (03/16/22 1:32 PM) Invalid Interpretation Code Not Detected AH Auto Viro/Sero SS hMPV RNA EMMETT+non-probe Ql (Nph) Not Detected *NA* (03/16/22 1:32 PM) Invalid Interpretation Code Not Detected AH Auto Viro/Sero SS M. pneumoniae DNA EMMETT+non-probe Ql (Nph) Not Detected *NA* (03/16/22 1:32 PM) Invalid Interpretation Code Not Detected AH Auto Viro/Sero SS Parainfluenza virus 1 RNA EMMETT+non-probe Ql (Nph) Not Detected *NA* (03/16/22 1:32 PM) Invalid Interpretation Code Not Detected AH Auto Viro/Sero SS Parainfluenza virus 2 RNA EMMETT+non-probe Ql (Nph) Not Detected *NA* (03/16/22 1:32 PM) Invalid Interpretation Code Not Detected AH Auto Viro/Sero SS Parainfluenza virus 3 RNA EMMETT+non-probe Ql (Nph) Not Detected *NA* (03/16/22 1:32 PM) Invalid Interpretation Code Not Detected AH Auto Viro/Sero SS Parainfluenza virus 4 RNA EMMETT+non-probe Ql (Nph) Not Detected *NA* (03/16/22 1:32 PM) Invalid Interpretation Code Not Detected AH Auto Viro/Sero SS Rhinovirus+Enterovir us RNA EMMETT+non-probe Ql (Nph) Not Detected *NA* (03/16/22 1:32 PM) Invalid Interpretation Code Not Detected AH Auto Viro/Sero SS RSV RNA EMMETT+non-probe Ql (Nph) Not Detected *NA* (03/16/22 1:32 PM) Invalid Interpretation Code Not Detected AH Auto Viro/Sero SS SARS-CoV-2 (COVID-19) RNA EMMETT+probe Ql (Resp) Not Detected *NA* (03/16/22 1:32 PM) Invalid Interpretation Code Not Detected AH Auto Viro/Sero SS LABORATORYOrdered By: Bradley Bermudez on 10-16-2021 Albumin BCP dye [Mass/Vol] 3.7 G/dL Invalid Interpretation Code 3.5 - 5.0 G/dL AO ADM SS Albumin/Globulin [Mass ratio] 1.1 {ratio} Invalid Interpretation Code 1.1 - 2.5 ratio AO ADM SS ALP [Catalytic activity/Vol] 121 U/L Invalid Interpretation Code 40 - 135 U/L AO ADM SS ALT With P-5'-P [Catalytic activity/Vol] 82 U/L Invalid Interpretation Code 14 - 59 U/L AO ADM SS AST With P-5'-P [Catalytic activity/Vol] 49 U/L Invalid Interpretation Code 10 - 40 U/L AO ADM SS Bilirubin [Mass/Vol] 0.6 mg/dL Invalid Interpretation Code 0.2 - 1.0 mg/dL AO ADM SS Calcium [Mass/Vol] 9.3 mg/dL Invalid Interpretation Code 8.4 - 10.2 mg/dL AO ADM SS Chloride [Moles/Vol] 101 mmol/L Invalid Interpretation Code 98 - 107 mmol/L AO ADM SS CO2 [Moles/Vol] 28 mmol/L Invalid Interpretation Code 22 - 29 mmol/L AO ADM SS Creatinine [Mass/Vol] 0.97 mg/dL Invalid Interpretation Code 0.55 - 1.02 mg/dL AO ADM SS Electrolyte Balance 7.0 mEq/L Invalid Interpretation Code 4.0 - 15.0 mEq/L AO ADM SS Globulin 3.3 G/dL Invalid Interpretation Code AO ADM SS Glucose [Mass/Vol] 106 mg/dL Invalid Interpretation Code 70 - 105 mg/dL AO ADM SS Magnesium Lvl mg/dL Invalid Interpretation Code 1.8 - 2.4 mg/dL AO Chemistry S Potassium [Moles/Vol] 4.4 mmol/L Invalid Interpretation Code 3.5 - 5.1 mmol/L AO ADM SS Protein [Mass/Vol] 7.0 G/dL Invalid Interpretation Code 6.4 - 8.2 G/dL AO ADM SS Sodium [Moles/Vol] 136 mmol/L Invalid Interpretation Code 136 - 145 mmol/L AO ADM SS Urea nitrogen [Mass/Vol] 13 mg/dL Invalid Interpretation Code 7 - 18 mg/dL AO ADM SS Urea nitrogen/Creatinine [Mass ratio] 13 ratio Invalid Interpretation Code 7 - 27 ratio AO ADM SS LABORATORYOrdered By: SYSTEM SYSTEM on 10-16-2021 GFR 75 ml/min/1.73sqm Invalid Interpretation Code AO Chemistry S GFR Non- 62 ml/min/1.73sqm Invalid Interpretation Code AO Chemistry S LABORATORYOrdered By: Yamile Funez on 10-14-2021 Albumin BCP dye [Mass/Vol] 3.9 G/dL Invalid Interpretation Code 3.5 - 5.0 G/dL AO ADM SS Albumin/Globulin [Mass ratio] 1.1 {ratio} Invalid Interpretation Code 1.1 - 2.5 ratio AO ADM SS ALP [Catalytic activity/Vol] 120 U/L Invalid Interpretation Code 40 - 135 U/L AO ADM SS ALT With P-5'-P [Catalytic activity/Vol] 85 U/L Invalid Interpretation Code 14 - 59 U/L AO ADM SS AST With P-5'-P [Catalytic activity/Vol] 53 U/L Invalid Interpretation Code 10 - 40 U/L AO ADM SS Bilirubin [Mass/Vol] 0.6 mg/dL Invalid Interpretation Code 0.2 - 1.0 mg/dL AO ADM SS Calcium [Mass/Vol] 9.4 mg/dL Invalid Interpretation Code 8.4 - 10.2 mg/dL AO ADM SS Chloride [Moles/Vol] 98 mmol/L Invalid Interpretation Code 98 - 107 mmol/L AO ADM SS CO2 [Moles/Vol] 27 mmol/L Invalid Interpretation Code 22 - 29 mmol/L AO ADM SS Creatinine [Mass/Vol] 1.01 mg/dL Invalid Interpretation Code 0.55 - 1.02 mg/dL AO ADM SS Electrolyte Balance 10.0 mEq/L Invalid Interpretation Code 4.0 - 15.0 mEq/L AO ADM SS Globulin 3.7 G/dL Invalid Interpretation Code AO ADM SS Glucose [Mass/Vol] 147 mg/dL Invalid Interpretation Code 70 - 105 mg/dL AO ADM SS Magnesium [Mass/Vol] 1.7 mg/dL Invalid Interpretation Code 1.8 - 2.4 mg/dL AO ADM SS Natriuretic peptide.B prohormone N-Terminal [Mass/Vol] 10 pg/mL Invalid Interpretation Code 0 - 125 pg/mL AO ADM SS Potassium [Moles/Vol] 3.5 mmol/L Invalid Interpretation Code 3.5 - 5.1 mmol/L AO ADM SS Protein [Mass/Vol] 7.6 G/dL Invalid Interpretation Code 6.4 - 8.2 G/dL AO ADM SS Sodium [Moles/Vol] 135 mmol/L Invalid Interpretation Code 136 - 145 mmol/L AO ADM SS Troponin I.cardiac DL <= 0.01 ng/mL [Mass/Vol] 5.5 ng/L Invalid Interpretation Code 0.0 - 51.4 ng/L AO ADM SS TSH Qn 2.14 m[IU]/L Invalid Interpretation Code 0.36 - 3.74 mcIU/mL AO ADM SS Urea nitrogen [Mass/Vol] 13 mg/dL Invalid Interpretation Code 7 - 18 mg/dL AO ADM SS Urea nitrogen/Creatinine [Mass ratio] 13 ratio Invalid Interpretation Code 7 - 27 ratio AO ADM SS LABORATORYOrdered By: Bradley Bermudez on 10-14-2021 Basophil, Absolute 0.2 103/mcL Invalid Interpretation Code 0.0 - 0.2 10^3/mcL AO Workflow SS Basophils/100 WBC (Bld) 1.4 % Invalid Interpretation Code 0.0 - 2.5 % AO Workflow SS Eosinophil, Absolute 0.3 103/mcL Invalid Interpretation Code 0.0 - 0.4 10^3/mcL AO Workflow SS Eosinophils/100 WBC (Bld) 1.6 % Invalid Interpretation Code 0.0 - 7.0 % AO Workflow SS Erythrocyte distribution width (RBC) [Ratio] 14.1 % Invalid Interpretation Code 11.5 - 14.5 % AO Workflow SS Hematocrit (Bld) [Volume fraction] 42.5 % Invalid Interpretation Code 37.0 - 47.0 % AO Workflow SS Hemoglobin (Bld) [Mass/Vol] 14.8 G/dL Invalid Interpretation Code 12.0 - 16.0 G/dL AO Workflow SS Lymphocyte, Absolute 4.2 103/mcL Invalid Interpretation Code 0.8 - 3.9 10^3/mcL AO Workflow SS Lymphocytes/100 WBC (Bld) 25.2 % Invalid Interpretation Code 10.0 - 50.0 % AO Workflow SS MCH (RBC) [Entitic mass] 30.2 pg Invalid Interpretation Code 27.0 - 31.2 pg AO Workflow SS MCHC 34.9 G/dL Invalid Interpretation Code 33.0 - 37.0 G/dL AO Workflow SS MCV (RBC) [Entitic vol] 86.7 fL Invalid Interpretation Code 80.0 - 94.0 fL AO Workflow SS Monocyte distribution width Auto (Bld) [Entitic vol] 19.59 Invalid Interpretation Code 0.00 - 20.00 AO Workflow SS Comment on above: Result Comment: For ED adult patients suspected of sepsis, MDW<=20.0 does not rule out sepsis or risk of sepsis Monocyte, Absolute 0.6 103/mcL Invalid Interpretation Code 0.2 - 1.0 10^3/mcL AO Workflow SS Monocytes/100 WBC (Bld) 3.6 % Invalid Interpretation Code 1.7 - 13.0 % AO Workflow SS Neutrophil, Absolute 11.3 103/mcL Invalid Interpretation Code 2.9 - 6.2 10^3/mcL AO Workflow SS Neutrophils/100 WBC (Bld) 68.2 % Invalid Interpretation Code 37.0 - 80.0 % AO Workflow SS Platelet mean volume (Bld) [Entitic vol] 6.7 fL Invalid Interpretation Code 7.4 - 10.4 fL AO Workflow SS Platelets (Bld) [#/Vol] 398 103/mcL Invalid Interpretation Code 130 - 400 10^3/mcL AO Workflow SS RBC (Bld) [#/Vol] 4.90 106/mcL Invalid Interpretation Code 4.20 - 5.40 10^6/mcL AO Workflow SS WBC 16.6 103/mcL Invalid Interpretation Code 4.6 - 10.8 10^3/mcL AO Workflow SS LABORATORYOrdered By: SYSTEM SYSTEM on 10-14-2021 GFR 72 ml/min/1.73sqm Invalid Interpretation Code AO Chemistry S GFR Non- 59 ml/min/1.73sqm Invalid Interpretation Code AO Chemistry S LABORATORYOrdered By: Aicha Carpenter on 10-07-2021 Albumin BCP dye [Mass/Vol] 3.6 G/dL Invalid Interpretation Code 3.5 - 5.0 G/dL AO ADM SS Albumin/Globulin [Mass ratio] 1.1 {ratio} Invalid Interpretation Code 1.1 - 2.5 ratio AO ADM SS ALP [Catalytic activity/Vol] 111 U/L Invalid Interpretation Code 40 - 135 U/L AO ADM SS ALT With P-5'-P [Catalytic activity/Vol] 65 U/L Invalid Interpretation Code 14 - 59 U/L AO ADM SS AST With P-5'-P [Catalytic activity/Vol] 43 U/L Invalid Interpretation Code 10 - 40 U/L AO ADM SS Bilirubin [Mass/Vol] 0.9 mg/dL Invalid Interpretation Code 0.2 - 1.0 mg/dL AO ADM SS Calcium [Mass/Vol] 9.4 mg/dL Invalid Interpretation Code 8.4 - 10.2 mg/dL AO ADM SS Chloride [Moles/Vol] 102 mmol/L Invalid Interpretation Code 98 - 107 mmol/L AO ADM SS CO2 [Moles/Vol] 28 mmol/L Invalid Interpretation Code 22 - 29 mmol/L AO ADM SS Creatinine [Mass/Vol] 0.84 mg/dL Invalid Interpretation Code 0.55 - 1.02 mg/dL AO ADM SS Electrolyte Balance 8.0 mEq/L Invalid Interpretation Code 4.0 - 15.0 mEq/L AO ADM SS Globulin 3.4 G/dL Invalid Interpretation Code AO ADM SS Glucose [Mass/Vol] 114 mg/dL Invalid Interpretation Code 70 - 105 mg/dL AO ADM SS Potassium [Moles/Vol] 4.4 mmol/L Invalid Interpretation Code 3.5 - 5.1 mmol/L AO ADM SS Protein [Mass/Vol] 7.0 G/dL Invalid Interpretation Code 6.4 - 8.2 G/dL AO ADM SS Sodium [Moles/Vol] 138 mmol/L Invalid Interpretation Code 136 - 145 mmol/L AO ADM SS Urea nitrogen [Mass/Vol] 12 mg/dL Invalid Interpretation Code 7 - 18 mg/dL AO ADM SS Urea nitrogen/Creatinine [Mass ratio] 14 ratio Invalid Interpretation Code 7 - 27 ratio AO ADM SS Vit. D 25-Hydroxy 21.9 ng/mL Invalid Interpretation Code AO ADM SS LABORATORYOrdered By: [employer] SYSTEM on 10-07-2021 Cobalamin (Vitamin B12) [Mass/Vol] 309 pg/mL Invalid Interpretation Code 211 - 911 pg/mL AH ADM SS GFR 89 ml/min/1.73sqm Invalid Interpretation Code AO Chemistry S GFR Non- 73 ml/min/1.73sqm Invalid Interpretation Code AO Chemistry S LABORATORYOrdered By: Bridgette Sevilla on 04-19-2021 ADMITTED TO INTENSIVE CARE UNIT FOR CONDITION OF INTEREST:FIND:PT:^PA TIENT:ORD: No (04/19/21 9:15 PM) Invalid Interpretation Code AO Auto Urine SS EMPLOYED IN A HEALTHCARE SETTING:FIND:PT:^PAT IENT:ORD: No (04/19/21 9:15 PM) Invalid Interpretation Code AO Auto Urine SS FIRST TEST FOR CONDITION OF INTEREST:FIND:PT:^PA TIENT:ORD: No (04/19/21 9:15 PM) Invalid Interpretation Code AO Auto Urine SS HAS SYMPTOMS RELATED TO CONDITION OF INTEREST:FIND:PT:^PA TIENT:ORD: Yes (04/19/21 9:15 PM) Invalid Interpretation Code AO Auto Urine SS Illness or injury onset date and time [id number] Invalid Interpretation Code AO Auto Urine SS Patient was hospitalized because of this condition No (04/19/21 9:15 PM) Invalid Interpretation Code AO Auto Urine SS status Not (04/19/21 9:15 PM) Invalid Interpretation Code AO Auto Urine SS RESIDES IN A CONGREGATE CARE SETTING:FIND:PT:^PAT IENT:ORD: No (04/19/21 9:15 PM) Invalid Interpretation Code AO Auto Urine SS SARS-CoV-2 (COVID-19) RNA EMMETT+probe Ql (Resp) Negative (04/19/21 9:15 PM) Invalid Interpretation Code Negative AO Auto Urine SS SARS-CoV-2 (COVID-19) RNA EMMETT+probe Ql (Unsp spec) Negative results do not preclude SARS-CoV-2 infection and should not be used as the sole basis for patient management decisions. Negative results must be combined with clinical observations, patient history, and epidemiological information.There is a risk of false negative values resulting from improperly collected, transported, or handled specimens.There is a risk of false negative values due to the presence of sequence variants in the pathogen targets of the assay, procedural errors, amplification inhibitors in specimens, or inadequate numbers of organisms for amplification.[employer] SARS-CoV-2 Assay is a Real-Time reverse-transcriptase polymerase chain reaction (RT-PCR) based qualitative in vitro diagnostic test intended for the qualitative detection of nucleic acid from the SARS-CoV-2 in nasopharyngeal swab specimens collected from individuals suspected of COVID-19 by their healthcare provider. Testing is limited to laboratories certified under the Clinical Laboratory Improvement Amendments of 1988 (CLIA), 42 U.S.C. 263a, to perform moderate and high complexity tests. Invalid Interpretation Code AO Auto Urine SS APTTon 10-10-2018 aPTT Coag time (Bld) 29.7 s Normal 20.0-30.5 [facility] Comment on above: Result Comment: NOTE : The therapeutic time for Heparin anticoagulation, based on Xa activity inhibition, is an APTT of 46-80 seconds. Performed By: #### H EMO, APTT, PT, CK3, ETOH4, TSH5, SAL33, ACET4 #### [address] Acetaminophenon 10-10-2018 Acetaminophen mass conc < 10.0 Normal 10.0-30.0 [facility] Comment on above: Performed By: #### H EMOG, APTT, PT, CK3, ETOH4, TSH5, SAL33, ACET4 #### [address] Arterial Blood Gaseson 10-10 CO2 molar conc 24.9 mmol/L Normal 23.0-27.0 [facility] Comment on above: Performed By: #### H EMOG, APTT, PT, CK3, ETOH4, TSH5, SAL33, ACET4 #### [address] HCO3 molar conc (Bld) 23.8 mmol/L Normal 21.0-25.0 [facility] Comment on above: Performed By: #### H EMOG, APTT, PT, CK3, ETOH4, TSH5, SAL33, ACET4 #### [address] Hemoglobin mass conc (Bld) 14.3 g/dL Normal ScreenOnly [facility] Comment on above: Performed By: #### H EMOG, APTT, PT, CK3, ETOH4, TSH5, SAL33, ACET4 #### [address] Oxygen ppres (Bld) 80.6 mm[Hg] Normal 80.0-100.0 [facility] Comment on above: Performed By: #### H EMOG, APTT, PT, CK3, ETOH4, TSH5, SAL33, ACET4 #### [address] Oxygen saturation in Blood 95.9 % Normal 95.0-100.0 [facility] Comment on above: Performed By: #### H EMOG, APTT, PT, CK3, ETOH4, TSH5, SAL33, ACET4 #### [address] [place], [place] pCO2 35.2 mm[Hg] Normal 35.0-45.0 [facility] Comment on above: Performed By: #### H EMOG, APTT, PT, CK3, ETOH4, TSH5, SAL33, ACET4 #### [address] pH (Bld) 7.448 Normal 7.350-7.450 [facility] Comment on above: Performed By: #### H EMOG, APTT, PT, CK3, ETOH4, TSH5, SAL33, ACET4 #### [address] Std Base Excess 0.3 mmol/L Normal -3.0-3.0 [facility] Comment on above: Performed By: #### H EMOG, APTT, PT, CK3, ETOH4, TSH5, SAL33, ACET4 #### [address] [address] [place], [place] FIO2 No data Normal [facility] Comment on above: Performed By: #### H EMOG, APTT, PT, CK3, ETOH4, TSH5, SAL33, ACET4 #### [address] CKon 10-10-2018 CK enzyme act/vol 82 U/L Normal 30-170 [facility] Comment on above: Performed By: #### H EMOG, APTT, PT, CK3, ETOH4, TSH5, SAL33, ACET4 #### [address] Head or Brain w/o Contras ton 10-10-2018 CT Head or Brain w/o Contrast Patient Name: RENETTA CORREA CT Exam Date/Time 10/10/2018 00:54:[address] Head or Brain w/o Contrast Ordering Physician [id number] BARROS Accession Number [id number] CPT4 Codes 02902 () Reason For Exam STROKE Report CT HEAD WITHOUT CONTRAST CLINICAL INDICATION: Change in mental status, downgraded stroke team Axial CT images of the brain were obtained without intravenous contrast. Coronal and sagittal reformatted images were also made available for interpretation. COMPARISON: None. FINDINGS: The ventricles, sulci, and cisterns are within normal limits for the patient's age. No high attenuation material is seen to suggest hemorrhage. There is no evidence for acute cortical infarction. No midline shift or mass effect is noted. No fracture is identified on the bone windows. The visualized portion of the paranasal sinuses appear clear. IMPRESSION: Unremarkable noncontrast CT of the brain. Results were discussed with Dr. Weiner on the stroke team at 1:00 AM. Report Dictated on Workstation: [id number] Final Dictated: 10/10/2018 0:58 am Dictating Physician: MD BOURNE JONATHAN R Signed Date and Time: 10/10/2018 1:00 am Signed by: MD BOURNE JONATHAN R Transcribed Date and Time: 10/10/2018 0:58 Normal [facility] Complete Urinalysison 2018 Appearance Nom (U) Clear Normal [facility] Comment on above: Result Comment: Refe rence Range: Clear Performed By: #### C UA2, ABG, DRGA4 #### [address] [id number] Bilirubin,Urine Negative Normal [facility] Comment on above: Result Comment: Refe rence Range: Negative Performed By: #### C UA2, ABG, DRGA4 #### [facility] [address] [place] [address] Color Nom (U) Light-Yellow Normal [facility] Comment on above: Result Comment: Refe rence Range: Lt. Yellow Performed By: #### C UA2, ABG, DRGA4 #### [address] [address] [place] [address] Glucose Ql (U) Normal Normal [facility] Comment on above: Result Comment: Refe rence Range: Normal (<70) Performed By: #### C UA2, ABG, DRGA4 #### [facility] [address] [place], [place] Ketone,Urine Negative Normal [facility] Comment on above: Result Comment: Refe rence Range: Negative Performed By: #### C UA2, ABG, DRGA4 #### [facility] [address] [place], [place] Leukocytes,Urine Negative Normal [facility] Comment on above: Result Comment: Refe rence Range: Negative Performed By: #### C UA2, ABG, DRGA4 #### [facility] [address] [place], [place] Nitrites,Urine Negative Normal [facility] Comment on above: Result Comment: Refe rence Range: Negative Performed By: #### C UA2, ABG, DRGA4 #### [address] [address] [address] [place], [place] Occult Blood,Urine Negative Normal [facility] Comment on above: Result Comment: Refe rence Range: Negative Performed By: #### C UA2, ABG, DRGA4 #### [address] [address] [address] [place], [place] pH (U) 5.5 Normal 5.0-8.0 [facility] Comment on above: Performed By: #### C UA2, ABG, DRGA4 #### [facility] [address] [place], [place] Protein mass conc (U) Negative Normal [facility] Comment on above: Result Comment: Refe rence Range: Negative Performed By: #### C UA2, ABG, DRGA4 #### [facility] [address] [place], [place] Specific [place],Urine < 1.005 Normal 1.005-1.030 [facility] Comment on above: Performed By: #### C UA2, ABG, DRGA4 #### [address] [address] [place], [place] Urobilinogen,Urine Normal Normal [facility] Comment on above: Result Comment: Refe rence Range: Normal (0-1) Performed By: #### C UA2, ABG, DRGA4 #### [address] [place], [place] Drugs of Abuseon 10-10-2018 Phencyclidine (PCP), Ur Negative Normal [facility] Comment on above: Result Comment: The expected value for all of the drugs listed above is Negative. The following drugs or drug groups have been screened for by Immunoassay at the following thresholds: Amphetamine class (1000 ng/mL), Barbiturates (200 ng/mL), Benzodiazepines (200 ng/mL), Cocaine (300 ng/mL), Methadone (300 ng/mL), Opiates (300 ng/mL), Oxycodone (100 ng/mL), and PCP (25 ng/mL). NOTE: These results are for medical treatment only. Analysis performed using non-forensic procedures. POSITIVE results are NOT confirmed by a more specific alternative method unless requested. If confirmation is needed, request confirmation under separate order. Performed By: #### H EMOG, APTT, PT, CK3, ETOH4, TSH5, SAL33, ACET4 #### [address] [address] [place], [place] Methadone, Ur Negative Normal [facility] Comment on above: Performed By: #### H EMOG, APTT, PT, CK3, ETOH4, TSH5, SAL33, ACET4 #### [address] [place], [place] Opiates, Ur Negative Normal [facility] Comment on above: Performed By: #### H EMOG, APTT, PT, CK3, ETOH4, TSH5, SAL33, ACET4 #### [facility] [address] [facility], [place] Cocaine, Ur Negative Normal [facility] Comment on above: Performed By: #### H EMOG, APTT, PT, CK3, ETOH4, TSH5, SAL33, ACET4 #### [address] [place] [address] Barbiturates, Ur Negative Normal [facility] Comment on above: Performed By: #### H EMOG, APTT, PT, CK3, ETOH4, TSH5, SAL33, ACET4 #### [address] [place], [place] Benzodiazepines, Ur Negative Normal [facility] Comment on above: Performed By: #### H EMOG, APTT, PT, CK3, ETOH4, TSH5, SAL33, ACET4 #### [address] [place], [place] Amphetamines, Ur Negative Normal [facility] Comment on above: Performed By: #### H EMOG, APTT, PT, CK3, ETOH4, TSH5, SAL33, ACET4 #### [address] [address] [place], [place] Oxycodone/Oxymorphin e,Ur Negative Normal [facility] Comment on above: Performed By: #### H EMOG, APTT, PT, CK3, ETOH4, TSH5, SAL33, ACET4 #### [address] [place], [place] Ethanol Serum/Plasmaon 10-10 Ethanol-Serum/Plasma < 0.010 Normal 0.000-0.010 [facility] Comment on above: Result Comment: NOTE : This result is for medical treatment only. Analysis performed using non-forensic procedures. Performed By: #### H EMOG, APTT, PT, CK3, ETOH4, TSH5, SAL33, ACET4 #### [address] [place], [place] Hemogramon 10-10-2018 Erythrocyte distribution width Ratio (RBC) 13.8 % Normal 11.5-14.5 [facility] Comment on above: Performed By: #### H EMOG, APTT, PT, CK3, ETOH4, TSH5, SAL33, ACET4 #### [address] Hematocrit Volume Fraction (Bld) 41.2 % Normal 35.0-47.0 [facility] Comment on above: Performed By: #### H EMOG, APTT, PT, CK3, ETOH4, TSH5, SAL33, ACET4 #### [address] [place], [place] Hemoglobin mass conc (Bld) 14.4 g/dL Normal 11.7-16.0 [facility] Comment on above: Performed By: #### H EMOG, APTT, PT, CK3, ETOH4, TSH5, SAL33, ACET4 #### [address] MCH Entitic mass (RBC) 31.0 pg Normal 26.0-34.0 [facility] Comment on above: Performed By: #### H EMOG, APTT, PT, CK3, ETOH4, TSH5, SAL33, ACET4 #### [address] MCHC mass conc (RBC) 35.0 % Normal 32.0-36.0 [facility] Comment on above: Performed By: #### H EMOG, APTT, PT, CK3, ETOH4, TSH5, SAL33, ACET4 #### [address] MCV Entitic volume (RBC) 88.5 fL Normal 79.0-98.0 [facility] Comment on above: Performed By: #### H EMOG, APTT, PT, CK3, ETOH4, TSH5, SAL33, ACET4 #### [address] Platelet mean volume Entitic volume (Bld) 7.0 fL Low 7.4-10.4 [facility] Comment on above: Performed By: #### H EMOG, APTT, PT, CK3, ETOH4, TSH5, SAL33, ACET4 #### [address] Platelets #/vol (Bld) 341 10*3/uL Normal 140-440 [facility] Comment on above: Performed By: #### H EMOG, APTT, PT, CK3, ETOH4, TSH5, SAL33, ACET4 #### [address] RBC #/vol (Bld) 4.65 10*6/uL Normal 3.80-5.20 [facility] Comment on above: Performed By: #### H EMOG, APTT, PT, CK3, ETOH4, TSH5, SAL33, ACET4 #### [address] WBC #/vol (Bld) 13.7 10*3/uL High 3.6-10.7 [facility] Comment on above: Performed By: #### H EMOG, APTT, PT, CK3, ETOH4, TSH5, SAL33, ACET4 #### [address] [id number] Prothrombin Timeon 9 INR Coag RelTime (PPP) 1.0 Normal 0.9-1.1 [facility] [email or web address] Comment on above: Result Comment: David mmended Anticoagulant Therapy: SEE BELOW ----- INR of 2.0 - 3.0 : - Prophylaxis of Venous Thrombosis (high-risk surgery) - Treatment of Venous Thrombosis - Treatment of Pulmonary Embolism (Includes tissue heart valves, Acute Myocardial Infarction to prevent systemic embolism, Valvular Heart Disease, and Atrial Fibrillation) ----- INR of 2.5 - 3.5 : - Mechanical Prosthetic Valves (high risk) - If oral anticoagulant therapy is used to prevent Myocardial Infarction Performed By: #### H EMOG, APTT, PT, CK3, ETOH4, TSH5, SAL33, ACET4 #### [facility] [address] [address] [place], [place] Prothrombin time (PT) Coag time (PPP) 10.3 s Normal 9.0-12.0 [facility] Comment on above: Result Comment: . Performed By: #### H EMOG, APTT, PT, CK3, ETOH4, TSH5, SAL33, ACET4 #### [address] Salicylateson 10-10-2018 Salicylates < 1.0 Normal 0.0-20.0 [facility] [email or web address] Comment on above: Performed By: #### H EMOG, APTT, PT, CK3, ETOH4, TSH5, SAL33, ACET4 #### [facility] [address] [place] [address] Thyroid Stim. Hormoneon 09-23 Thyroid Stim. Hormone 1.928 u[IU]/mL Normal 0.465-4.680 [facility] Comment on above: Performed By: #### H EMOG, APTT, PT, CK3, ETOH4, TSH5, SAL33, ACET4 #### [facility] [address] [place] [address] CR Spine Lumbosacral 4+ View son 05-28-2017 CR Spine Lumbosacral 4+ Views Patient Name: BERE ORTEGA Diagnostic Radiology Exam Date/Time 05/27/2017 15:45:00 EST Exam CR Spine Lumbosacral 4+ Views Ordering Physician TRAY SEBASTIAN ROBERT K. Accession Number [id number] CPT4 Codes 78140 () Reason For Exam M54.5, M54.32, M54.41 Report LUMBAR SPINE 5 VIEWS CLINICAL INDICATION: M54.5, M54.32, M54.41 TECHNIQUE: Five views of the lumbar spine. COMPARISON: 07/18/2015 FINDINGS: Status post cholecystectomy. Normal SI joints. Moderate facet arthrosis L4-L5 and L5-S1. Grade 1 anterolisthesis of L4 on five with moderate L4-L5 disc space narrowing. Disc space narrowing is worse than on the prior study. Mild disc space narrowing L5-S1. Chronic appearing Schmorl's node upper endplate of L2. No acute fracture. IMPRESSION: 1. Degenerative changes, worse than on the prior study. Report Dictated on Final Dictating Physician: MD ELI, TINA Loera Signed Date and Time: 05/28/2017 8:53 pm Signed by: MD BENITEZ JOHN R Transcribed Date and Time: 05/28/2017 8:54 Normal [facility] VL VENOUS UNILATERAL UPPER E XT FOR DVTon 10-25-2016 INR Coag RelTime (Bld) ORIGINALDUPLEX UPPER EXTREMITY VENOUS DOPPLER: Right-sided Clinical Statement: pain , arm pain, rule out DVT/SVT Comparison: None Findings: The right subclavian, axillary, brachial, radial, ulnar, basilic and cephalic veins show no direct or indirect evidence of thrombosis. There is normal phasic spontaneous flow in these veins which are also compressible. The internal jugular vein is also patent. Spectral analysis shows normal flow augmentation in the subclavian, axillary and basilic veins with physiologic maneuvers. IMPRESSION:No evidence of deep or superficial vein thrombosis in right upper extremity. Interpreted By: Lakshmi Antoine MDPreliminary Report By: Lakshmi Antoine MDElectronically Signed By: Lakshmi Antoine MD Dictated Date: 10/25/2016 9:44:36 AM Prelim Date: 10/25/2016 9:44:36 AM Sign Date: 10/25/2016 9:48:10 AM Normal [facility] XR ELBOW COMPLETE RIGHTon XR ELBOW COMPLETE RIGHT ORIGINALXR ELBOW COMPLETE RIGHT3 views CLINICAL INDICATION: pain COMPARISON: None FINDINGS: There is no evidence of fracture or dislocation. Joint spaces are normally maintained. No soft tissue swelling is visible. IMPRESSION: Normal examination. Interpreted By: Markos Bhandari MDPreliminary Report By: Markos Bhandari MDElectronically Signed By: Markos Bhandari MD Dictated Date: 10/22/2016 9:50:59 AM Prelim Date: 10/22/2016 9:50:59 AM Sign Date: 10/22/2016 9:51:39 AM Normal [facility] Vital Signs Date Time Vital Sign Value Performing Clinician Facility 06-05-2024 12:27-0500 Body height 165 cm DANY SANTANA MD [facility] 06-05-2024 12:27-0500 Body temperature 97.88 [degF] DANY SANTANA MD [facility] 06-05-2024 12:27-0500 Body weight 113.6 kg DANY SANTANA MD [facility] 06-05-2024 12:27-0500 Diastolic Blood Pressure Non-Invasive 80 mm[Hg] DANY SANTANA MD [facility] 06-05-2024 12:27-0500 Heart rate 84 /min DANY SANTANA MD [facility] 06-05-2024 12:27-0500 Respiratory rate 18 /min DANY SANTANA MD [facility] 06-05-2024 12:27-0500 Systolic Blood Pressure Non-Invasive 139 mm[Hg] DANY SANTANA MD [facility] 01-10-2024 10:09-0400 Blood Pressure Location ANTHONY REICHFIELD DO [facility] 01-10-2024 10:09-0400 Blood Pressure Method ANTHONY REICHFIELD D O [facility] 01-10-2024 10:09-0400 Body temperature 98.06 [degF] ANTHONY REICHFIELD DO [facility] 01-10-2024 10:09-0400 Diastolic Blood Pressure Non-Invasive 86 mm[Hg] ANTHONY REICHFIELD DO [facility] 01-10-2024 10:09-0400 Heart rate 71 /min ANTHONY REICHFIELD DO [facility] 01-10-2024 10:09-0400 Respiratory rate 18 /min ANTHONY REICHFIELD DO [facility] 01-10-2024 10:09-0400 Systolic Blood Pressure Non-Invasive 138 mm[Hg] ANTHONY REICHFIELD DO [facility] 08-11-2023 20:29-0400 Diastolic blood pressure 89 mm[Hg] [facility] 08-11-2023 20:29-0400 Heart rate 69 /min [facility] 08-11-2023 20:29-0400 Respiratory rate 14 /min [facility] 08-11-2023 20:29-0400 SaO2% (BldA) [Mass fraction] 99 % [facility] 08-11-2023 20:29-0400 Systolic blood pressure 165 mm[Hg] [facility] 08-11-2023 18:29-0400 Body height 165.1 cm [facility] 08-11-2023 18:29-0400 Body mass index (BMI) [Ratio] 42.3 kg/m2 [facility] 08-11-2023 18:29-0400 Body temperature 96.6 [degF] [facility] 08-11-2023 18:29-0400 Body weight 115.24 kg [facility] 08-11-2023 17:09-0400 Heart rate 77 /min DR GEORGE SAMANIEGO MD [facility] 08-11-2023 17:09-0400 Respiratory rate 18 /min DR GEORGE SAMANIEGO MD [facility] 08-11-2023 13:42-0400 Body height 175.[address] GEORGE SAMANIEGO MD [facility] 08-11-2023 13:42-0400 Body temperature 98.78 [degF] DR GEORGE SAMANIEGO MD [facility] 08-11-2023 13:42-0400 Body weight 113.[address] GEORGE SAMANIEGO MD [facility] 08-11-2023 13:42-0400 Diastolic Blood Pressure Non-Invasive 85 mm[Hg] DR GEORGE SAMANIEGO MD [facility] 08-11-2023 13:42-0400 Heart rate 92 /min DR GEORGE SAMANIEGO MD [facility] 08-11-2023 13:42-0400 Respiratory rate 18 /min DR GEORGE SAMANIEGO MD [facility] 08-11-2023 13:42-0400 Systolic Blood Pressure Non-Invasive 165 mm[Hg] DR GEORGE SAMANIEGO MD [facility] 08-11-2023 12:22-0400 Body temperature 97.81 [degF] Carmita Ball HAT FINISHER.SLICING MACHINE FEEDER Work Phone: [facility] 08-11-2023 12:22-0400 Body weight 114.2 kg Carmita Ball HAT FINISHER.SLICING MACHINE FEEDER Work Phone: [facility] 08-11-2023 12:22-0400 Diastolic blood pressure 82 mm[Hg] Carmita Ball HAT FINISHER.SLICING MACHINE FEEDER Work Phone: [facility] 08-11-2023 12:22-0400 Heart rate 94 /min Carmita Ball HAT FINISHER.SLICING MACHINE FEEDER Work Phone: [facility] 08-11-2023 12:22-0400 SaO2% (BldA) [Mass fraction] 97 % Carmita Ball HAT FINISHER.SLICING MACHINE FEEDER Work Phone: [facility] 08-11-2023 12:22-0400 Systolic blood pressure 144 mm[Hg] Carmita Ball HAT FINISHER.SLICING MACHINE FEEDER Work Phone: [facility] 07-10-2023 10:30-0400 Body height 165.1 cm Odalis Urrutia HAT FINISHER.SLICING MACHINE FEEDER Work Phone: [facility] 07-10-2023 10:30-0400 Body temperature 97 [degF] Odalis Urrutia HAT FINISHER.SLICING MACHINE FEEDER Work Phone: [facility] 07-10-2023 10:30-0400 Body weight 113.6 kg Odalis Urrutia HAT FINISHER.SLICING MACHINE FEEDER Work Phone: [facility] 07-10-2023 10:30-0400 Diastolic blood pressure 73 mm[Hg] Odalis Urrutia HAT FINISHER.SLICING MACHINE FEEDER Work Phone: [facility] 07-10-2023 10:30-0400 Heart rate 80 /min Odalis Urrutia HAT FINISHER.SLICING MACHINE FEEDER Work Phone: [facility] 07-10-2023 10:30-0400 Respiratory rate 16 /min Odalis Urrutia HAT FINISHER.SLICING MACHINE FEEDER Work Phone: [facility] 07-10-2023 10:30-0400 SaO2% (BldA) [Mass fraction] 97 % Odalis Urrutia HAT FINISHER.SLICING MACHINE FEEDER Work Phone: [facility] 07-10-2023 10:30-0400 Systolic blood pressure 121 mm[Hg] Odalis Urrutia HAT FINISHER.SLICING MACHINE FEEDER Work Phone: [facility] 01-22-2023 17:51-0400 Blood Pressure Cuff Size CAREY DURESKA DO [facility] 01-22-2023 17:51-0400 Blood Pressure Location CAREY DURESKA DO [facility] 01-22-2023 17:51-0400 Blood Pressure Method CAREY DURESKA DO [facility] 01-22-2023 17:51-0400 Body temperature 98.24 [degF] CAREY DURESKA DO [facility] 01-22-2023 17:51-0400 Diastolic Blood Pressure Non-Invasive 90 1 CAREY DURESKA DO [facility] 01-22-2023 17:51-0400 Heart rate 95 /min CAREY DURESKA DO [facility] 01-22-2023 17:51-0400 Respiratory rate 18 /min CAREY DURESKA DO [facility] 01-22-2023 17:51-0400 Systolic Blood Pressure Non-Invasive 154 1 CAREY DURESKA DO [facility] 11-14-2022 09:51-0400 Diastolic Blood Pressure Non-Invasive 83 1 DANY SANTANA MD [facility] 11-14-2022 09:51-0400 Heart rate 86 /min DANY SANTANA MD [facility] 11-14-2022 09:51-0400 Respiratory rate 22 /min DANY SANTANA MD [facility] 11-14-2022 09:51-0400 Systolic Blood Pressure Non-Invasive 153 1 DANY SANTANA MD [facility] 11-14-2022 06:13-0400 Body temperature 99.68 [degF] DANY SANTANA MD [facility] 11-14-2022 06:13-0400 Diastolic Blood Pressure Non-Invasive 94 1 DANY SANTANA MD [facility] 11-14-2022 06:13-0400 Heart rate 85 /min DANY SANTANA MD [facility] 11-14-2022 06:13-0400 Respiratory rate 16 /min DANY SANTANA MD [facility] 11-14-2022 06:13-0400 Systolic Blood Pressure Non-Invasive 158 1 DANY SANTANA MD [facility] 10-09-2022 12:43-0400 Body height 165.1 cm Conner Rueda DO Work Phone: [facility] [place] 10-09-2022 12:43-0400 Body mass index (BMI) [Ratio] 44.93 kg/m2 Conner [facility]ueda DO [facility] 10-09-2022 12:43-0400 Body temperature 98.2 [degF] Conner Rueda DO [facility] 10-09-2022 12:43-0400 Body weight 122.47 kg Conner Rueda DO Work Phone: [facility] [place] 10-09-2022 12:43-0400 Diastolic blood pressure 79 mm[Hg] Conner Rueda DO [facility] 10-09-2022 12:43-0400 Heart rate 96 /min Conner Rueda DO Work Phone: [facility] [place] 10-09-2022 12:43-0400 Respiratory rate 17 /min Conner Rueda DO Work Phone: [facility] [place] 10-09-2022 12:43-0400 SaO2% (BldA) [Mass fraction] 98 % Conner Rueda DO Work Phone: [facility] [place] 10-09-2022 12:43-0400 Systolic blood pressure 128 mm[Hg] Conner Rueda DO Work Phone: [facility] [place] 10-14-2021 23:00-0400 Diastolic blood pressure 73 mm[Hg] MARILEE SIEGEL MD [facility] 10-14-2021 23:00-0400 Heart rate 89 /min MARILEE SIEGEL MD [facility] 10-14-2021 23:00-0400 Respiratory rate 19 /min MARILEE SIEGEL MD [facility] 10-14-2021 23:00-0400 Systolic blood pressure 128 mm[Hg] MARILEE SIEGEL MD [facility] 10-14-2021 22:30-0400 Diastolic blood pressure 75 mm[Hg] MARILEE SIEGEL MD [facility] 10-14-2021 22:30-0400 Heart rate 94 /min MARILEE SIEGEL MD [facility] 10-14-2021 22:30-0400 Respiratory rate 17 /min MARILEE SIEGEL MD [facility] 10-14-2021 22:30-0400 Systolic blood pressure 132 mm[Hg] MARILEE SIEGEL MD [facility] 10-14-2021 22:00-0400 Diastolic blood pressure 85 mm[Hg] MARILEE SIEGEL MD [facility] 10-14-2021 22:00-0400 Respiratory rate 20 /min MARILEE SIEGEL MD [facility] 10-14-2021 22:00-0400 Systolic blood pressure 139 mm[Hg] MARILEE SIEGEL MD [facility] 10-14-2021 20:10-0400 Body temperature 97.88 [degF] MARILEE SIEGEL MD [facility] 10-14-2021 20:10-0400 Heart rate 109 /min MARILEE SIEGEL MD [facility] 07-28-2021 07:50-0400 diastolic 93 mm[Hg] TINA RAMOS MD [facility] 07-28-2021 07:50-0400 Heart rate 81 /min TINA RAMOS MD [facility] 07-28-2021 07:50-0400 Respiratory rate 17 /min TINA RAMOS MD [facility] 07-28-2021 07:50-0400 systolic 148 mm[Hg] TINA RAMOS MD [facility] 07-28-2021 07:24-0400 Body height 165 cm TINA RAMOS MD [facility] 07-28-2021 07:24-0400 Body temperature 96.26 [degF] TINA RAMOS MD [facility] 07-28-2021 07:24-0400 Body weight 127 kg TINA RAMOS MD [facility] 07-28-2021 07:24-0400 Body weight 46.65 kg/m2 TINA RAMOS MD [facility] 07-28-2021 07:24-0400 diastolic 93 mm[Hg] TINA RAMOS MD [facility] 07-28-2021 07:24-0400 Heart rate 88 /min TINA RAMOS MD [facility] 07-28-2021 07:24-0400 Respiratory rate 20 /min TINA RAMOS MD [facility] 07-28-2021 07:24-0400 systolic 147 mm[Hg] TINA RAMOS MD [facility] 04-19-2021 20:36-0500 Body height 165.1 cm TITO DIANA MD [facility] 04-19-2021 20:36-0500 Body temperature 98.6 [degF] TITO DIANA MD [facility] 04-19-2021 20:36-0500 Body weight 122.7 kg TITO DIANA MD [facility] 04-19-2021 20:36-0500 Diastolic blood pressure 91 mm[Hg] TITO DIANA MD [facility] 04-19-2021 20:36-0500 Heart rate 97 /min TITO DIANA MD [facility] 04-19-2021 20:36-0500 Respiratory rate 20 /min TITO DIANA MD [facility] 04-19-2021 20:36-0500 Systolic blood pressure 157 mm[Hg] TITO DIANA MD [facility] Encounters Encounter Date Encounter Type Care Provider Facility Start: 10-05-2024 End: 10-05-2024 ambulatory ELLIOT HELLER Facility:[id number] Start: 10-04-2024 ambulatory Sid Alvarez Facility :[facility] Start: 07-10-2024 End: 07-10-2024 ambulatory Sid Alvarez [place] [place]: 06-05-2024 End: 06-05-2024 Emergency department patient visit DANY SANTANA MD [facility] Start: 01-10-2024 End: 01-10-2024 Emergency department patient visit ANTHONY CA [facility] Start: 12-01-2023 End: 12-23-2023 ambulatory Sid Kim Facility:[facility] Start: 11-24-2023 End: 11-24-2023 ambulatory Sid Kim Facility:[facility] Start: 11-07-2023 End: 11-11-2023 ambulatory SOCRATES MAST HAT FINISHER-SLICING MACHINE FEEDER Facility: Start: 11-07-2023 End: 11-11-2023 Outreach Lab SOCRATES MAST HAT FINISHER-SLICING MACHINE FEEDER [facility] Start: 10-24-2023 End: 11-23-2023 ambulatory Sid Kim Facility:[facility] Start: 08-11-2023 End: 08-11-2023 Emergency department patient visit [facility] Work Phone: Start: 08-11-2023 End: 08-11-2023 ambulatory SID M KIM Facility:[facility] Start: 08-11-2023 End: 08-11-2023 Emergency department patient visit DR GEORGE SAMANIEGO MD [facility] Start: 08-11-2023 End: 08-11-2023 Office outpatient visit 10 minutes Carmita Khan HAT FINISHER.SLICING MACHINE FEEDER Work Phone: [facility] Comment on above: Rib pain (Primary Dx ) Start: 07-10-2023 End: 07-10-2023 ambulatory SELF Facility:[facility] Start: 07-10-2023 End: 07-10-2023 Office outpatient new 30 minutes Odalis Urrutia HAT FINISHER.SLICING MACHINE FEEDER Work Phone: [facility] Comment on above: Viral upper respirat ory tract infection with cough (Primary Dx); SOB (shortness of breath) Start: 05-30-2023 End: 06-03-2023 ambulatory LILLY ENGLISH HAT FINISHER-SLICING MACHINE FEEDER Facility:[facility] Start: 05-30-2023 End: 06-03-2023 Outreach Lab LILLY ENGLISH HAT FINISHER-SLICING MACHINE FEEDER [facility] Start: 05-30-2023 End: 05-30-2023 ambulatory LILLY ENGLISH HAT FINISHER-SLICING MACHINE FEEDER Facility:[facility] Start: 05-30-2023 End: 05-30-2023 Patient encounter procedure LILLY ENGLISH HAT FINISHER-SLICING MACHINE FEEDER [facility] Start: 02-11-2023 ambulatory Joshua Dean [facility] Start: 01-22-2023 End: 01-22-2023 Emergency department patient visit CAREY MELENDREZ DO [facility] Start: 11-14-2022 End: 11-14-2022 Emergency department patient visit DANY SANTANA MD [facility] Start: 10-09-2022 End: 10-10-2022 Emergency department patient visit CONNER RUEDA [facility] Start: 10-09-2022 End: 10-09-2022 Subsequent hospital visit by physician [facility] Port[employer] [facility] Radiology Comment on above: Arrived Start: 10-09-2022 End: 10-09-2022 Emergency department patient visit Conner Rueda DO Work Phone: [facility] ED Comment on above: Strep pharyngitis (P rimary Dx) Start: 06-10-2022 End: 06-10-2022 Patient encounter procedure SID ALVAREZ DO [facility] Start: 03-16-2022 End: 03-20-2022 Outreach Lab SID ALVAREZ DO [facility] Start: 10-16-2021 End: 10-16-2021 Patient encounter procedure SID ALVAREZ DO [facility] Start: 10-14-2021 End: 10-14-2021 Emergency department patient visit MARILEE SIEGEL MD [facility] Start: 10-07-2021 End: 10-07-2021 Patient encounter procedure SID ALVAREZ DO [facility] Start: 09-15-2021 End: 09-15-2021 Patient encounter procedure TINA RAMOS MD [facility] Start: 07-28-2021 End: 07-28-2021 Minor Procedure TINA RAMOS MD [facility] Start: 04-19-2021 End: 04-19-2021 Emergency department patient visit TITO DIANA MD [facility] Start: 05-27-2017 Ambulatory [facility] Start: 10-25-2016 End: 10-26-2016 Ambulatory SID SEARS Facility[facility] Start: 10-22-2016 End: 10-23-2016 Ambulatory SID SEARS Facility:[facility] Procedures Date Procedure Procedure Detail Performing Clinician Start: 08-11-2023 Plain chest X-ray Start: 10-09-2022 Radiologic exam chest single view Conner Sony Rueda DO Work Phone: Start: 10-09-2022 Iadna streptococcus group a amplified probe tq Conner Rueda DO Work Phone: Start: 10-09-2022 SARS-COV-2, FLU A/B, AND RSV COMBO Navneet troy Rueda DO Work Phone: Start: 07-28-2021 Lumbar epidural steroid injection TINA GUERRERO MD Start: 02-26-2015 Colonoscopy Odalis Urrutia HAT FINISHER.SLICING MACHINE FEEDER Work Phone: Start: 03-28-2009 Lipid 1996 panel - Serum or Plasma Odalis chambers HAT FINISHER.SLICING MACHINE FEEDER Work Phone: Arthroscopic knee operation TITO DIANA MD Comment on above: right Cholecystectomy TITO DIANA MD Colonoscopy TITO DIANA MD Decompression of median nerve TITO DIANA MD Comment on above: right Esophagogastroduodenoscopy J OEL ADALGISA ABERNATHY H/O: hysterectomy TITO Sloan MD History of cholecystectomy Hx of cholecystectomy( Confirmed ) TITO DIANA MD History of total hysterectomy H/ O total hysterectomy( Confirmed ) TITO DIANA MD Lipoma (disorder) TITO Sloan MD Comment on above: lots of different lipoma's removed. Plan of Treatment Date Care Activity Detail Author Start: 2026 Zoster Vaccines (1 o f 2) Zoster Vaccines (1 of 2) [facility] Start: 12-25-2023 Influenza vaccination Influenz a Vaccine (Season Ended) [facility] Start: 08-11-2023 [facility] Start: 04-25-2023 Behavioral Health Screening Behavioral Health Screening [facility] Start: 04-25-2023 Depression Assessment Depression Ass essment [facility] Start: 12-24-2022 Covid-19 Vaccine ( season) Covid-19 Vaccine ( season) [facility] Start: 12-24-2022 Influenza vaccination Influenza Vacc ine (#1) [facility] Start: 2021 Diabetes Screening Diabetes Screenin g [facility] Start: 2021 Lipid panel Lipid Screening [facility] Start: 2021 Screening for malign ant neoplasm of colon [facility] Start: 02-27-2020 Screening for malign ant neoplasm of colon [facility] Start: 2016 Screening for malign ant neoplasm of breast [facility] Start: 11-01-2016 Screening for malign ant neoplasm of cervix Pap Testing [facility] Start: 2006 Screening for malign ant neoplasm of cervix [facility] Start: 1997 Screening for malign ant neoplasm of cervix Pap Smear [facility] Start: 1995 DTaP/Tdap/Td Vaccine s (1 - Tdap) DTaP/Tdap/Td Vaccines (1 - Tdap) [facility] Start: 1995 Hepatitis B Vaccine (1 of 3 - 19+ 3-dose series) Hepatitis B Vaccine (1 of 3 - 19+ 3-dose series) [facility] Start: 1995 Urine microalbumin profile DTaP,Tdap,Td Vaccine (1 - Tdap) [facility] Start: 1994 Diabetes mellitus screening Diabetes Screening [facility] Start: 1994 Hepatitis C screening Hepatitis C Sc reening [facility] Start: 1994 HIV screening HIV Screening [facility] Start: 1988 Depression Screening Depression Scre ening [facility] Start: 1982 Pneumococcal vaccination Pneumococcal Vaccine (1 of 2 - PCV) [facility] Start: 1977 MMR Vaccines (1 of 1 - Standard series) MMR Vaccines (1 of 1 - Standard series) [facility] Start: 1976 COVID-19 Vaccine (#1) COVID-19 Vacci ne (#1) [facility] Start: 1976 Examination of skin Derm Melan donnie Skin Check [facility] Start: 1975 Hepatitis B Vaccines (1 of 3 - 3-dose series) Hepatitis B Vaccines (1 of 3 - 3-dose series) [facility] Start: 1976 HIV screening HIV Screening [facility] Start: 1976 Lipid panel Lipid Panel [facility] Start: 1976 Screening for malign ant neoplasm of colon [facility] Patient Education ED Pain, Acute , Uncertain Cause [facility] Work Phone: Patient referral [facility] Work Phone: End: 09-09-2024 XR Ribs - left Views and Chest PA XR RIBS/CHEST 3V AP RIB/OBLS/CXR LEFT Radiology Routine Rib pain 1 Occurrences starting 08/11/2023 until 09/09/2024 [facility] Work Phone: Comment on above: 1 Occurrences starti ng 08/11/2023 until 09/09/2024 Immunizations Immunization Date Immunization Notes Care Provider Darrell jackson 03-25-2022 influenza virus vaccine, unspecified formulation Odalis Urrutia APRN.SLICING MACHINE FEEDER Work Phone: [facility] 01-30-2015 influenza virus vaccine, unspecified formulation Conner Rueda DO Work Phone: [facility] Payers Date Payer Category Payer Self-pay 2022 Medicaid [id number] 2022 Medicaid [id number] 2018 Private Health Insurance 2014 Private Health Insurance [id number] 1976 Unknown [id number] 2.16.8 [id number] 1976 Unknown [id number] 2.16.8 [id number] 1976 Unknown [id number] 2.16.8 [id number] 1976 Unknown [id number] 2.16.8 [id number] 1976 Unknown [id number] 2.16.8 [id number] 1976 Unknown [id number] 2.16.8 [id number] 1976 Unknown [id number] 2.16.8 [id number] Unknown [id number] 2.16.8 [id number] Unknown [id number] 2.16.8 [id number] Unknown [id number] 2.16.8 [id number] Unknown [id number] 2.16.8 [id number] Unknown [id number] 2.16.8 [id number] Unknown [id number] 2.16.8 [id number] Unknown [id number] 2.16.8 [id number] Social History Date Type Detail Facility Start: 05-07-2020 End: 11-07-2023 Heavy tobacco smoker (finding) [facility] Start: 1975 Sex Assigned At Female A [facility] Tobacco smoking stat [facility] Ex-smoker [facility] History of tobacco use Current smoker [facility] History of tobacco use Cigarette Smoker C [facility] Work Phone: Start: 12-10-2021 End: 10-09-2022 Alcohol intake Current drinker of alcohol (finding) [facility] Start: 03-30-2020 End: 10-09-2022 Alcohol intake [facility] Start: 1975 Sex Assigned At Not on file [facility] Start: 03-30-2020 End: 12-10-2021 Gender identity Not on file [facility] Start: 09-29-2022 End: 10-09-2022 Exposure to SARS-CoV-2 (event) Not sure [facility] Start: 06-16-2011 [facility] Work Phone: Start: 06-16-2011 Tobacco use and exposure Smoke less tobacco non-user [facility] Work Phone: National Score (1-10 0), lower number is lower risk Not on file [facility] Start: 06-16-2011 Tobacco [facility] Start: 06-16-2011 Alcohol Comment rarely [facility] Start: 08-11-2023 [facility] Unknown if ever smoked [facility] Start: 07-08-2018 Occasional [facility] Start: 07-08-2018 None [facility] Start: 07-08-2018 Spouse/ Signif icant Other [facility] Sexual Orientation [facility] Start: 10-18-2018 Sex Female (finding) [facility] Functional Status Date Assessment Result Facility 06-05-2024 Functional Status Up ad rolanda [facility] [place] [facility] 06-05-2024 Functional Status Standard Safet y ID band on, Allergy Band on, Call device within reach, Bed in low position, Wheels locked, Visitor at bedside [facility] 01-10-2024 Functional Status ID band on, Allergy Band on, Call device within reach, Bed in low position, Wheels locked, Upper/Half-Length side-rails up, Safety level maintained [facility] 08-11-2023 Functional Status Independent [facility] 01-22-2023 Functional Status Independent [facility] 01-22-2023 Functional Status Ambulation in [facility] 11-14-2022 Functional Status Independent [facility] 11-14-2022 Functional Status Awake, Resting 1 [facility] 11-14-2022 Functional Status N/A [facility] 10-14-2021 Functional Status Independent [facility] 10-14-2021 Functional Status ID band on, Call device within reach, Bed in low position, Wheels locked, Visitor at bedside [facility] 07-28-2021 Functional Status [facility] Mental Status Date Assessment Result Facility 06-05-2024 Mental Status [facility] 06-05-2024 Mental Status [facility] 01-10-2024 Mental Status Orientation Oriented x 4 [facility] 08-11-2023 Cognitive function Voice/Name [facility] Work Phone: 08-11-2023 Mental Status Orientation Oriented x [facility] 01-22-2023 Mental Status O[facility] Oriented x [facility] 01-22-2023 Mental Status [facility] 11-14-2022 Mental Status Orientation Oriented x [facility] 11-14-2022 Mental Status [facility] 10-14-2021 Mental Status Orientation Oriented x 4 [facility] 10-14-2021 Mental Status [facility] 07-28-2021 Mental Status [facility] Clinical Notes 05-07-2020 to 10-05-2024 Note Date & Type Note Facility 10-05-2024 Note HNO ID: [id number] Author: STEFAN MEZA AA Service: Anesthesiology Author Type: Medical Cost Consultant Type: Anesthesia Procedure Notes Filed: 10/05/2024 07:38 Note Text: ANESTHESIOLOGY PROCEDURE NOTE Airway General Information Procedure Start Time/Medication Administration: 10/05/2024 7:36 AM Procedure End Time: 10/05/2024 7:38 AM Patient location during procedure: OR Staffing Anesthesiologist: Anthony Llamas DO CAA: Stefan Meza AA Performed by: EDWARD Indications and Patient Condition Indications for airway management: anesthesia Preoxygenated: yes anesthesia circuit Method: sleep Difficult Mask: No Final Airway Details Final airway type: supraglottic airway Number of attempts at approach: 1 Final Supraglottic Airway: i-gel Size 4 Seal Adequate: yes Failed airway: no Unrecognized esophageal intubation: no Airway not difficult SIGNATURE: DELPHINE Blackman PATIENT NAME: Bere Ortega DATE: October 05, 2024 TIME: 7:38 AM CSN: [id number] [facility] 10-04-2024 Note HNO ID: [id number] Author: PAULINA STEVENSON, RN Service: Nursing Author Type: Registered Nurse Type: Progress Notes Filed: 10/04/2024 13:18 Note Text: MEDICATION INSTRUCTIONS PRIOR TO SURGERY Please read below carefully for your personalized instructions. Medications: If you are on blood thinner or anticoagulants including aspirin, please confirm with your surgical team on when to stop these medications. Unless instructed differently by your surgical team, stay on all of your medications until your surgery. Pre Surgery Med Instructions Medication instructions albuterol HFA (PROVENTIL HFA, VENTOLIN HFA) 90 mcg/actuation inhaler Continue as prescribed. If you have any medication changes between receiving these instructions and your surgery date, please provide this updated information with the nurse who calls you the week day prior to your surgical procedure so we can update your list and provide you with updated instructions for the morning of your procedure. PRE-PROCEDURE INSTRUCTIONS TO PREPARE FOR YOUR PROCEDURE: Your arrival time for your procedure is 0600. Do NOT eat any solid foods after MIDNIGHT the night prior to your procedure - this includes gum or mints. You can drink clear liquids* up until 0400, which is 2 hours before your arrival time. *Clear liquids = water, carbohydrate drink (sports drink that is clear or yellow in color), Ensure Pre-Surgery (given by CHANTALE or your DrRachel), fruit juice without pulp (apple/cranberry), clear tea, black coffee (no cream). NO CARBONATED BEVERAGES AND NO ALCOHOL. Shower the morning of the procedure, put on clean clothes, and have clean sheets for your bed to help prevent infection after your procedure. Leave all valuables such as jewelry including rings, piercings, wallets, and purses at home. Wear comfortable, loose-fitting clothing. If you wear glasses or contacts, please bring a case. SPECIAL INSTRUCTIONS: If instructed, bring your first voided urine specimen with you. If you were provided skin preparation to use prior to your procedure, complete this as directed. If you were provided Ensure Pre-Surgery drink, you need to drink this at n/a. This should be consumed quickly (in less than 5 minutes, rather than sipped over time) If a bowel preparation has been ordered by your physician, it is very important to follow the bowel prep instructions or your procedure may need to be rescheduled. If you use crutches or a walker, bring them with you. If you have a home CPAP/BIPAP machine, bring it with you. If you were instructed to complete a fleets enema or bowel prep, complete as directed. Bring copy of Living Will/Power of Numerical Control Tool Programmer. Do not smoke or chew. If you use tobacco, quit or at least cut down before surgery. Do not smoke or chew after midnight the day before your surgery. This effects bleeding, infection, healing, and so much more. Do not take any Diet or Herbal Supplements 2 weeks prior to your surgery date. Please notify your physician if there is any change in your physical condition such as a cold, cough, fever, sore throat, or skin irritation near the surgical site. Visitors under the age of 14 are restricted in the Surgery Center. UPON ARRIVAL: Access to [facility]the [facility]) is located on [address] [place] [address]. Line Fixer parking is available for your convenience from 5am-5pm- there is a $5.00 charge for this service. Take the elevators directly inside the entrance to the 1st Floor Surgery Lobby. Sign in at the podium located to the left when you get off the elevators. A payment may be expected at the time of service. One visitor may come back to the preoperative area with you. The preoperative staff will be reviewing your medical history, please let them know if you prefer not to have a visitor with you during this time. Once you are ready for your procedure, two visitors at a time are permitted in your preprocedure room. [facility] 10-03-2024 Note HNO ID: [id number] Author: ROMÁN HURST APRN.MARIUSZ Service: ? Author Type: Nurse Practitioner Type: Progress Notes Filed: 10/03/2024 15:25 Note Text: Summary: DOS MEDS MEDICATION INSTRUCTIONS PRIOR TO SURGERY Please read below carefully for your personalized instructions. Medications: If you are on blood thinner or anticoagulants including aspirin, please confirm with your surgical team on when to stop these medications. Unless instructed differently by your surgical team, stay on all of your medications until your surgery. Pre Surgery Med Instructions Medication instructions albuterol HFA (PROVENTIL HFA, VENTOLIN HFA) 90 mcg/actuation inhaler Continue as prescribed. If you have any medication changes between receiving these instructions and your surgery date, please provide this updated information with the nurse who calls you the week day prior to your surgical procedure so we can update your list and provide you with updated instructions for the morning of your procedure. [facility] 06-05-2024 Hospital Discharge instructions Patient Education 06/05/2024 13:44:01 R.I.C.E. RICE RICE stands for rest, ice, compression, and elevation. Doing these things helps limit pain and swelling after an injury. RICE also helps injuries heal faster. Use RICE for sprains, strains, and severe bruises or bumps. Follow the tips on this handout and begin RICE as soon as possible after an injury. Rest Pain is your body s way of telling you to rest an injured area. Whether you have hurt an elbow, hand, foot, or knee, limiting its use will prevent further injury and help you heal. Ice Applying ice right after an injury helps prevent swelling and reduce pain. Don t place ice directly on your skin. Wrap a cold pack or bag of ice in a thin cloth. Place it over the injured area. Ice for 10 minutes every 3 hours. Don t ice for more than 20 minutes at a time. Compression Putting pressure (compression) on an injury helps prevent swelling and provides support. Wrap the injured area firmly with an elastic bandage. If your hand or foot tingles, becomes discolored, or feels cold to the touch, the bandage may be too tight. Rewrap it more loosely. If your bandage becomes too loose, rewrap it. Do not wear an elastic bandage overnight. Elevation Keeping an injury elevated helps reduce swelling, pain, and throbbing. Elevation is most effective when the injury is kept elevated higher than the heart. Call your healthcare provider if you notice any of the following: Fingers or toes feel numb, are cold to the touch, or change color. Skin looks shiny or tight. Pain, swelling, or bruising worsens and is not improved with elevation. 4023-1582 [employer]. [address] [place] [address]. All rights reserved. This information is not intended as a substitute for professional medical care. Always follow your healthcare professional's instructions. Follow Up Care 06/05/2024 12:23:29 With:CROW GOODMAN DO Orthopedic Address: [address] [place] [address] [phone] When:2-4 days only if needed Comments:If pain is persisting/worsening With:SID ALVAREZ DO Address: [address] [place] [address] [phone] When:2-4 days [facility] 06-05-2024 Note Discharge Instructions Thank you for allowing [facility] to assist you with your healthcare needs. The following is important discharge information regarding your hospital visit. Diagnosis from Today's Visit Right wrist pain What to Do Next Instructions from Your Care Team No qualifying data available. Post Acute Orders No qualifying data available. You Need to Schedule the Following Appointments Follow Up with CROW GOODMAN DO, Orthopedic When:Within 2-4 days, only if needed Where:[address] [place] [phone] Additional Information: If pain is persisting/worsening Follow Up with SID ALVAREZ DO When:Within 2-4 days Where:[address] [place] [phone] Allergies Compazine Eggs Fluzone Unknown Neurontin hydroCHLOROthiazide Magnesium deficiency Medications Please ask your primary doctor or pharmacist before taking any other medication not listed, including over the counter drugs, herbal medications, vitamins and or supplements as they may interact with your home medications. What How Much When Why Instructions Last Dose New acetaminophen-hydrocodone (Monroe 325- 5 mg oral tablet) 1 tab(s) by mouth Every 8 hours as needed for for pain Right wrist pain Duration: 2 Days Printed Prescription New diclofenac topical (diclofenac 1% topical gel) 2.25 Inch(es) Topical Four (4) times a day as needed for Pain Printed Prescription New naproxen (naproxen 500 mg oral tablet) 1 tab(s) by mouth Two (2) times a day Duration: 10 Days Printed Prescription Unchanged albuterol (albuterol MDI (90 mcg/ inh) CFC free inhalation aerosol) 2 puff(s) by inhalation Every 6 hours Asthma without acute exacerbation Seasonal allergies Duration: 30 Days Unchanged albuterol-ipratropium (albuterol-ipratropium 2.5 mg-0.5 mg/ 3 mL inhalation solution) 3 Milliliter by inhalation Every 4 hours Asthma without acute exacerbation Unchanged DULoxetine (DULoxetine 20 mg oral delayed release capsule) 1 cap by mouth Two (2) times a day Recurrent major depression Anxiety Unchanged hydroCHLOROthiazide (hydroCHLOROthiazide 12.5 mg oral capsule) 1 cap by mouth Once a day Unchanged losartan (losartan 25 mg oral tablet) 2 tab(s) by mouth Once a day Hypertension Duration: 30 Days Unchanged pantoprazole (Protonix 40 mg oral enteric coated tablet) 1 tab(s) by mouth Once a day Chronic GERD Unchanged traZODone (traZODone 100 mg oral tablet) Please take this list to your next doctor s visit. Bring all medications you take, including over the counter medications, herbals and other supplements with you to your doctor s visit. Patients and families are reminded to discard old lists and to update any records with all medication providers or retail pharmacies. Medication Leaflets diclofenac topical (dye KLOE fen ak TOP ik al) Aspercreme Arthritis Pain, DicloPrep-100, Motrin Arthritis Pain, Pennsaid, Rexaphenac, Salonpas Arthritis Pain Relief, Voltaren Arthritis Pain What is the most important information I should know about diclofenac topical? Diclofenac topical can increase your risk of fatal heart attack or stroke. Do not use this medicine just before or after heart bypass surgery (coronary artery bypass graft, or CABG). Diclofenac topical may also cause stomach or intestinal bleeding, which can be fatal. What is diclofenac topical? Diclofenac topical (for the skin) is used in adults to treat joint pain caused by osteoarthritis. This medicine is for use on the hands, wrists, elbows, knees, ankles, or feet. Diclofenac topical is not for use on any other body area (such as back, hip, or shoulder). Diclofenac topical solution is for use only on the knees. Diclofenac topical 3% gel is used to treat warty overgrowths of skin (actinic keratosis) on sun-exposed areas of the body. Diclofenac topical may also be used for purposes not listed in this medication guide. What should I discuss with my healthcare provider before using diclofenac topical? Diclofenac topical can increase your risk of fatal heart attack or stroke. Do not use this medicine just before or after heart bypass surgery (coronary artery bypass graft, or CABG). Diclofenac topical may also cause stomach or intestinal bleeding, which can be fatal. This can occur without warning, especially in older adults. You should not use diclofenac topical if you are allergic to it, or if you have: asthma, or a severe allergic reaction (sneezing, runny or stuffy nose, wheezing) after taking aspirin or another NSAID. Do not use diclofenac topical gel 3% if you have a skin condition such as eczema, a skin infection, lombardi or wounds. Tell your doctor if you have ever had: heart disease, high blood pressure, high cholesterol, smoking, diabetes; a heart attack, stroke, or blood clot; stomach problems such as heartburn, ulcers or bleeding; any other bleeding problems; a habit of drinking more than 3 alcoholic beverages per day; asthma; fluid retention; or liver or kidney disease. Do not use diclofenac topical during unless your doctor tells you to. Using an NSAID in the last 20 weeks can harm the unborn baby or cause complications. Ask a doctor if it is safe to breastfeed while using this medicine. It may be harder for you to get while you are using this medicine. How should I use diclofenac topical? Follow all directions on your prescription label and read all medication guides or instruction sheets. Use the lowest effective dose for your condition. Diclofenac topical is usually applied up to 2 to 4 times a day. Do not use this medicine more often or longer than directed. Your doctor will determine how long you should use diclofenac topical. Your dose needs may change if you switch to a different brand, strength, or form of this medicine. Avoid medication errors by using exactly as directed on the label, or as prescribed by your doctor. Wash your hands before and after applying this medicine, unless you are using it to treat a hand condition. Clean and dry the affected area before application. Use only a small amount of medicine, apply a thin layer over the affected area and rub in gently. If you use diclofenac topical for arthritis pain, make sure to use the included dosing card when applying the medicine. Do not use large amounts of diclofenac topical without medical advice. Do not take by mouth. Topical medicine is for use only on the skin. Read and carefully follow any Instructions for Use provided with your medicine. Ask your doctor or pharmacist if you do not understand these instructions. Do not bandage treated skin, expose it to heat, or exercise right after applying. Your skin may absorb the medicine, which could cause harmful effects. You should wait until diclofenac topical has dried out where it was applied before using cosmetics, sunscreen, lotions, insect repellant, or other medicated skin products. Do not apply diclofenac topical in the eyes and nose, to more than 2 body areas at the same time, to sports injuries, an open skin wound, on areas of infection, rash, burn, or peeling skin. Call your doctor if your symptoms do not improve, or if they get worse. You may not fully benefit from this medicine for up to 30 days if you use it for actinic keratosis, and up to 7 days if you use it for arthritis pain. Your blood may need to be tested often. Store at room temperature away from moisture and heat. Do not freeze. What happens if I miss a dose? Apply the medicine as soon as you can, but skip the missed dose if it is almost time for your next dose. Do not apply two doses at one time. What happens if I overdose? Seek emergency medical attention or call the Poison Help line at if anyone has accidentally swallowed the medicine. What should I avoid while using diclofenac topical? Ask a doctor or pharmacist before using other medicines for pain, fever, swelling, or cold/flu symptoms. They may contain ingredients similar to diclofenac topical (such as aspirin, ibuprofen, ketoprofen, or naproxen). Avoid smoking and drinking alcohol. It may increase your risk of stomach bleeding. Avoid bathing or showering for at least 30 minutes after applying diclofenac topical solution. Avoid letting treated skin areas come into contact with other people. Diclofenac topical could make you sunburn more easily. Avoid sunlight or tanning beds. Wear protective clothing and use sunscreen (SPF 30 or higher) when you are outdoors. Avoid getting this medicine in your eyes. If contact does occur, rinse with water. Call your doctor if you have eye irritation that lasts longer than 1 hour. What are the possible side effects of diclofenac topical? Get emergency medical help if you have signs of an allergic reaction (hives, sneezing, runny or stuffy nose, wheezing or trouble breathing, swelling in your face or throat) or a severe skin reaction (fever, sore throat, burning eyes, skin pain, red or purple skin rash with blistering and peeling). Stop using diclofenac and seek medical treatment if you have a serious drug reaction that can affect many parts of your body. Symptoms may include skin rash, fever, swollen glands, muscle aches, severe weakness, unusual bruising, or yellowing of your skin or eyes. Get emergency medical help if you have signs of a heart attack or stroke: chest pain spreading to your jaw or shoulder, sudden numbness or weakness on one side of the body, slurred speech, leg swelling, feeling short of breath. Also call your doctor at once if you have: any skin rash, no matter how mild; kidney or heart problems--swelling, urinating less, rapid weight gain, feeling tired or short of breath; high blood potassium--tingly feeling, chest pain, irregular heartbeats, loss of movement; high blood pressure--severe headache, blurred vision, pounding in your neck or ears; liver problems--loss of appetite, nausea, vomiting, stomach pain (upper right side), itching, dark urine, sherrie-colored stools, jaundice (yellowing of the skin or eyes); low red blood cells (anemia)--pale skin, unusual tiredness, feeling light-headed or short of breath, cold hands and feet; or signs of stomach bleeding--bloody or tarry stools, coughing up blood or vomit that looks like coffee grounds. Common side effects may include: skin redness, numbness or tingly feeling, itching, dryness, scaling, or peeling where the medicine was applied. This is not a complete list of side effects and others may occur. Call your doctor for medical advice about side effects. You may report side effects to FDA at 6-380-GMQ-6133. What other drugs will affect diclofenac topical? Ask your doctor before using diclofenac topical if you take an antidepressant. Taking certain antidepressants with an NSAID may cause you to bruise or bleed easily. Diclofenac topical can harm your kidneys or liver, especially if you also use certain medicines for infections, control, high cholesterol, seizures, cancer, osteoporosis, organ transplant rejection, high blood pressure, or pain or arthritis (including Advil, Motrin, and Aleve). Tell your doctor about all your other medicines, especially: a blood thinner (warfarin, Coumadin, Jantoven); or steroid medicine (prednisone and others). This list is not complete and many other drugs may affect diclofenac. This includes prescription and qwep-[id number] medicines, vitamins, and herbal products. Not all possible drug interactions are listed here. Where can I get more information? Your doctor or pharmacist can provide more information about diclofenac topical. Remember, keep this and all other medicines out of the reach of children, never share your medicines with others, and use this medication only for the indication prescribed. Every effort has been made to ensure that the information provided by [employer]. [employer] is accurate, up-to-date, and complete, but no guarantee is made to that effect. Drug information contained herein may be time sensitive. [employer] information has been compiled for use by healthcare practitioners and consumers in the [place] and therefore [employer] does not warrant that uses outside of the [place] are appropriate, unless specifically indicated otherwise. [employer] drug information does not endorse drugs, diagnose patients or recommend therapy. [employer] drug information is an informational resource designed to assist licensed healthcare practitioners in caring for their patients and/or to serve consumers viewing this service as a supplement to, and not a substitute for, the expertise, skill, knowledge and judgment of healthcare practitioners. The absence of a warning for a given drug or drug combination in no way should be construed to indicate that the drug or drug combination is safe, effective or appropriate for any given patient. [employer] does not assume any responsibility for any aspect of healthcare administered with the aid of information [employer] provides. The information contained herein is not intended to cover all possible uses, directions, precautions, warnings, drug interactions, allergic reactions, or adverse effects. If you have questions about the drugs you are taking, check with your doctor, nurse or pharmacist. Copyright 6687-3784 [employer]. Version: 15.. Revision Date: 06/20/2023. naproxen (na PROX en) Aleve, Aleve Back and Muscle Pain, Aleve Easy Open Arthritis, Aleve Liquid Gels, Anaprox-DS, EC-Naprosyn, Naprelan, Naprosyn What is the most important information I should know about naproxen? Naproxen can increase your risk of fatal heart attack or stroke. Do not use this medicine just before or after heart bypass surgery (coronary artery bypass graft, or CABG). Naproxen may also cause stomach or intestinal bleeding, which can be fatal. What is naproxen? Naproxen is a nonsteroidal anti-inflammatory drug (NSAID). Naproxen is used to treat pain or inflammation caused by conditions such as arthritis, ankylosing spondylitis, tendinitis, bursitis, gout, or menstrual cramps. The delayed-release or extended-release tablets are slower-acting forms of naproxen that are used only for treating chronic conditions such as arthritis or ankylosing spondylitis. These forms of naproxen will not work fast enough to treat acute pain. Naproxen may also be used for purposes not listed in this medication guide. What should I discuss with my healthcare provider before taking naproxen? Naproxen can increase your risk of fatal heart attack or stroke, even if you don't have any risk factors. Do not use this medicine just before or after heart bypass surgery (coronary artery bypass graft, or CABG). Naproxen may also cause stomach or intestinal bleeding, which can be fatal. These conditions can occur without warning while you are using naproxen, especially in older adults. You should not use naproxen if you are allergic to it, or if you have ever had an asthma attack or severe allergic reaction after taking aspirin or an NSAID. Ask a doctor before giving naproxen to a child younger than 12 years old. Ask a doctor or pharmacist if this medicine is safe to use if you have: heart disease, high blood pressure, high cholesterol, diabetes, or if you smoke; a heart attack, stroke, or blood clot; stomach ulcers or bleeding; asthma; liver or kidney disease; fluid retention; or if you take aspirin to prevent heart attack or stroke. If you are , you should not take naproxen unless your doctor tells you to. Taking an NSAID during the last 20 weeks of can cause serious heart or kidney problems in the unborn baby and possible complications with your . It may not be safe to breastfeed while using this medicine. Ask your doctor about any risk. How should I take naproxen? Use exactly as directed on the label, or as prescribed by your doctor. Use the lowest dose that is effective in treating your condition. Shake the oral suspension (liquid) before you measure a dose. Measure a dose with the supplied measuring device (not a kitchen spoon). Take this medicine with food or milk if it upsets your stomach. Always follow directions on the medicine label about giving this medicine to a child. Naproxen doses are based on weight in children. Your child's dose needs may change if the child gains or loses weight. If you use naproxen long-term, you may need frequent medical tests. This medicine can affect the results of certain medical tests. Tell any doctor who treats you that you are using naproxen. Store at room temperature away from moisture, heat, and light. Keep the bottle tightly closed when not in use. What happens if I miss a dose? Since naproxen is used when needed, you may not be on a dosing schedule. Skip any missed dose if it's almost time for your next dose. Do not use two doses at one time. What happens if I overdose? Seek emergency medical attention or call the Poison Help line at . What should I avoid while taking naproxen? Avoid drinking alcohol. It may increase your risk of stomach bleeding. Avoid taking aspirin or other NSAIDs unless your doctor tells you to. Ask a doctor or pharmacist before using other medicines for pain, fever, swelling, or cold/flu symptoms. They may contain ingredients similar to naproxen (such as aspirin, ibuprofen, or ketoprofen). Ask your doctor before using an antacid, and use only the type your doctor recommends. Some antacids can make it harder for your body to absorb naproxen. What are the possible side effects of naproxen? Get emergency medical help if you have signs of an allergic reaction (runny or stuffy nose, wheezing or trouble breathing, hives, swelling in your face or throat) or a severe skin reaction (fever, sore throat, burning eyes, skin pain, red or purple skin rash with blistering and peeling). Stop using naproxen and seek medical treatment if you have a serious drug reaction that can affect many parts of your body. Symptoms may include skin rash, fever, swollen glands, muscle aches, severe weakness, unusual bruising, or yellowing of your skin or eyes. Get emergency medical help if you have signs of a heart attack or stroke: chest pain spreading to your jaw or shoulder, sudden numbness or weakness on one side of the body, slurred speech, leg swelling, feeling short of breath. Stop using naproxen and call your doctor at once if you have: shortness of breath (even with mild exertion); swelling or rapid weight gain; the first sign of any skin rash or blister, no matter how mild; signs of stomach bleeding--bloody or tarry stools, coughing up blood or vomit that looks like coffee grounds; liver problems--nausea, upper stomach pain, loss of appetite, dark urine, sherrie-colored stools, jaundice (yellowing of the skin or eyes); kidney problems--little or no urination, painful urination, swelling in your feet or ankles; or low red blood cells (anemia)--pale skin, unusual tiredness, feeling light-headed or short of breath, cold hands and feet. Common side effects may include: headache; indigestion, heartburn, stomach pain; or flu symptoms; This is not a complete list of side effects and others may occur. Call your doctor for medical advice about side effects. You may report side effects to FDA at 1-295-OCN-1380. What other drugs will affect naproxen? Ask your doctor before using naproxen if you take an antidepressant. Taking certain antidepressants with an NSAID may cause you to bruise or bleed easily. Ask a doctor or pharmacist before using naproxen with any other medications, especially: other NSAIDs or salicylates (diflunisal, salsalate); antacids and sucralfate; cholestyramine; cyclosporine; digoxin; lithium; methotrexate; pemetrexed; probenecid; warfarin (Coumadin, Jantoven) or similar blood thinners; a diuretic or 'water pill'; or heart or blood pressure medication. This list is not complete. Other drugs may affect naproxen, including prescription and epee-dio-jkfdrvg medicines, vitamins, and herbal products. Not all possible drug interactions are listed here. Where can I get more information? Your pharmacist can provide more information about naproxen. Remember, keep this and all other medicines out of the reach of children, never share your medicines with others, and use this medication only for the indication prescribed. Every effort has been made to ensure that the information provided by [employer] is accurate, up-to-date, and complete, but no guarantee is made to that effect. Drug information contained herein may be time sensitive. [employer] information has been compiled for use by healthcare practitioners and consumers in the [place] and therefore [employer] does not warrant that uses outside of the [place] are appropriate, unless specifically indicated otherwise. [employer] drug information does not endorse drugs, diagnose patients or recommend therapy. [employer] drug information is an informational resource designed to assist licensed healthcare practitioners in caring for their patients and/or to serve consumers viewing this service as a supplement to, and not a substitute for, the expertise, skill, knowledge and judgment of healthcare practitioners. The absence of a warning for a given drug or drug combination in no way should be construed to indicate that the drug or drug combination is safe, effective or appropriate for any given patient. [employer] does not assume any responsibility for any aspect of healthcare administered with the aid of information [employer] provides. The information contained herein is not intended to cover all possible uses, directions, precautions, warnings, drug interactions, allergic reactions, or adverse effects. If you have questions about the drugs you are taking, check with your doctor, nurse or pharmacist. Copyright 3607-4123 [employer]. Version: 22.. Revision Date: 11/25/2022. acetaminophen and hydrocodone (a SEET a MIN oh fen and yani droe KOE done) Verdrocet What is the most important information I should know about acetaminophen and hydrocodone? MISUSE OF OPIOID MEDICINE CAN CAUSE ADDICTION, OVERDOSE, OR . Keep the medication in a place where others cannot get to it. Taking opioid medicine during may cause life-threatening withdrawal symptoms in the . Fatal side effects can occur if you use opioid medicine with alcohol, or with other drugs that cause drowsiness or slow your breathing. Stop taking this medicine and call your doctor right away if you have skin redness or a rash that spreads and causes blistering and peeling. What is acetaminophen and hydrocodone? Acetaminophen and hydrocodone is a combination medicine used to relieve moderate to severe pain. Acetaminophen and hydrocodone contains an opioid medicine, and may be habit-forming. Acetaminophen and hydrocodone may also be used for purposes not listed in this medication guide. What should I discuss with my healthcare provider before taking acetaminophen and hydrocodone? You should not use this medicine if you are allergic to acetaminophen or hydrocodone, or if you have: severe asthma or breathing problems; or a blockage in your stomach or intestines. Tell your doctor if you have ever had: breathing problems, sleep apnea (breathing stops during sleep); liver disease; a drug or alcohol addiction; kidney disease; a head injury or seizures; urination problems; or problems with your thyroid, pancreas, or gallbladder. If you use opioid medicine while you are , your baby could become dependent on the drug. This can cause life-threatening withdrawal symptoms in the baby after it is born. Babies born dependent on opioids may need medical treatment for several weeks. Ask a doctor before using opioid medicine if you are . Tell your doctor if you notice severe drowsiness or slow breathing in the nursing baby. How should I take acetaminophen and hydrocodone? Follow all directions on your prescription label. Never take this medicine in larger amounts, or for longer than prescribed. An overdose can damage your liver or cause . Tell your doctor if you feel an increased urge to use more of this medicine. Never share this medicine with another person, especially someone with a history of drug abuse or addiction. MISUSE CAN CAUSE ADDICTION, OVERDOSE, OR . Keep the medicine in a place where others cannot get to it. Selling or giving away this medicine is against the law. Measure liquid medicine carefully. Use the dosing syringe provided, or use a medicine dose-measuring device (not a kitchen spoon). If you need surgery or medical tests, tell the doctor ahead of time that you are using this medicine. You should not stop using this medicine suddenly. Follow your doctor's instructions about tapering your dose. Store at room temperature away from moisture and heat. Keep track of your medicine. You should be aware if anyone is using it improperly or without a prescription. Do not keep leftover opioid medication. Just one dose can cause in someone using this medicine accidentally or improperly. Ask your pharmacist where to locate a drug take-back disposal program. If there is no take-back program, flush the unused medicine down the toilet. What happens if I miss a dose? Since this medicine is used for pain, you are not likely to miss a dose. Skip any missed dose if it is almost time for your next dose. Do not use two doses at one time. What happens if I overdose? Seek emergency medical attention or call the Poison Help line at . An overdose of this medicine can be fatal, especially in a child or other person using the medicine without a prescription. Overdose symptoms may include nausea, vomiting, sweating, severe drowsiness, pinpoint pupils, slow breathing, or no breathing. Your doctor may recommend you get naloxone (a medicine to reverse an opioid overdose) and keep it with you at all times. A person caring for you can give the naloxone if you stop breathing or don't wake up. Your caregiver must still get emergency medical help and may need to perform CPR (cardiopulmonary resuscitation) on you while waiting for help to arrive. Anyone can buy naloxone from a pharmacy or local health department. Make sure any person caring for you knows where you keep naloxone and how to use it. What should I avoid while taking acetaminophen and hydrocodone? Avoid driving or operating machinery until you know how this medicine will affect you. Dizziness or drowsiness can cause falls, accidents, or severe injuries. Do not drink alcohol. Dangerous side effects or could occur. Ask a doctor or pharmacist before using any other medicine that may contain acetaminophen (sometimes abbreviated as APAP). Taking certain medications together can lead to a fatal overdose. What are the possible side effects of acetaminophen and hydrocodone? Get emergency medical help if you have signs of an allergic reaction: hives; difficulty breathing; swelling of your face, lips, tongue, or throat. Opioid medicine can slow or stop your breathing, and may occur. A person caring for you should give naloxone and/or seek emergency medical attention if you have slow breathing with long pauses, blue colored lips, or if you are hard to wake up. In rare cases, acetaminophen may cause a severe skin reaction that can be fatal. This could occur even if you have taken acetaminophen in the past and had no reaction. Stop taking this medicine and call your doctor right away if you have skin redness or a rash that spreads and causes blistering and peeling. Call your doctor at once if you have: noisy breathing, sighing, shallow breathing, breathing that stops; a light-headed feeling, like you might pass out; liver problems--nausea, upper stomach pain, tiredness, loss of appetite, dark urine, sherrie-colored stools, jaundice (yellowing of the skin or eyes); low cortisol levels-- nausea, vomiting, loss of appetite, dizziness, worsening tiredness or weakness; o high levels of serotonin in the body--agitation, hallucinations, fever, sweating, shivering, fast heart rate, muscle stiffness, twitching, loss of coordination, nausea, vomiting, diarrhea. Serious breathing problems may be more likely in older adults and in those who are debilitated or have wasting syndrome or chronic breathing disorders. Common side effects include: dizziness, drowsiness, feeling tired; nausea, vomiting, stomach pain; constipation; or headache. This is not a complete list of side effects and others may occur. Call your doctor for medical advice about side effects. You may report side effects to FDA at 9-193-RES-9623. What other drugs will affect acetaminophen and hydrocodone? You may have breathing problems or withdrawal symptoms if you start or stop taking certain other medicines. Tell your doctor if you also use an antibiotic, antifungal medication, heart or blood pressure medication, seizure medication, or medicine to treat HIV or hepatitis C. Opioid medication can interact with many other drugs and cause dangerous side effects or . Be sure your doctor knows if you also use: cold or allergy medicines, bronchodilator asthma/COPD medication, or a diuretic ('water pill'); medicines for motion sickness, irritable bowel syndrome, or overactive bladder; other opioids--opioid pain medicine or prescription cough medicine; a sedative like Valium--diazepam, alprazolam, lorazepam, Xanax, Klonopin, Versed, and others; drugs that make you sleepy or slow your breathing--a sleeping pill, muscle relaxer, medicine to treat mood disorders or mental illness; drugs that affect serotonin levels in your body--a stimulant, or medicine for depression, Parkinson's disease, migraine headaches, serious infections, or nausea and vomiting. This list is not complete. Other drugs may affect acetaminophen and hydrocodone, including prescription and yahx-usc-jckxvqa medicines, vitamins, and herbal products. Not all possible interactions are listed here. Where can I get more information? Your doctor or pharmacist can provide more information about acetaminophen and hydrocodone. Remember, keep this and all other medicines out of the reach of children, never share your medicines with others, and use this medication only for the indication prescribed. Every effort has been made to ensure that the information provided by [employer] is accurate, up-to-date, and complete, but no guarantee is made to that effect. Drug information contained herein may be time sensitive. [employer] information has been compiled for use by healthcare practitioners and consumers in the [place] and therefore [employer] does not warrant that uses outside of the [place] are appropriate, unless specifically indicated otherwise. [employer] drug information does not endorse drugs, diagnose patients or recommend therapy. [employer] drug information is an informational resource designed to assist licensed healthcare practitioners in caring for their patients and/or to serve consumers viewing this service as a supplement to, and not a substitute for, the expertise, skill, knowledge and judgment of healthcare practitioners. The absence of a warning for a given drug or drug combination in no way should be construed to indicate that the drug or drug combination is safe, effective or appropriate for any given patient. [employer] does not assume any responsibility for any aspect of healthcare administered with the aid of information [employer] provides. The information contained herein is not intended to cover all possible uses, directions, precautions, warnings, drug interactions, allergic reactions, or adverse effects. If you have questions about the drugs you are taking, check with your doctor, nurse or pharmacist. Copyright 3652-5098 [employer]. Version: 19.. Revision Date: 08/02/2023. Education Materials RICE RICE stands for rest, ice, compression, and elevation. Doing these things helps limit pain and swelling after an injury. RICE also helps injuries heal faster. Use RICE for sprains, strains, and severe bruises or bumps. Follow the tips on this handout and begin RICE as soon as possible after an injury. Rest Pain is your body s way of telling you to rest an injured area. Whether you have hurt an elbow, hand, foot, or knee, limiting its use will prevent further injury and help you heal. Ice Applying ice right after an injury helps prevent swelling and reduce pain. Don t place ice directly on your skin. Wrap a cold pack or bag of ice in a thin cloth. Place it over the injured area. Ice for 10 minutes every 3 hours. Don t ice for more than 20 minutes at a time. Compression Putting pressure (compression) on an injury helps prevent swelling and provides support. Wrap the injured area firmly with an elastic bandage. If your hand or foot tingles, becomes discolored, or feels cold to the touch, the bandage may be too tight. Rewrap it more loosely. If your bandage becomes too loose, rewrap it. Do not wear an elastic bandage overnight. Elevation Keeping an injury elevated helps reduce swelling, pain, and throbbing. Elevation is most effective when the injury is kept elevated higher than the heart. Call your healthcare provider if you notice any of the following: Fingers or toes feel numb, are cold to the touch, or change color. Skin looks shiny or tight. Pain, swelling, or bruising worsens and is not improved with elevation. 8520-8674 [employer]. [address] [place] [address]. All rights reserved. This information is not intended as a substitute for professional medical care. Always follow your healthcare professional's instructions. Additional Information VACCINATE! IT SAVES LIVES! Members of the community who have not yet received the COVID-19 vaccine and would like to receive it can visit one of [facility] vaccine clinics. There are many vaccine clinic locations within the [place] [facility]. For locations and available times, please visit www.[email or web address] v/. It is important to note that some COVID mobile vaccine clinics are held outdoors and may be canceled in rainy or stormy conditions. To learn more about pediatric vaccinations (ages 5-11), we invite you to visit the [facility] webpage. https://www.[facility].org/pag es/8624-Jeylc-Bvmozwgkyda-Frequent ny-Unyre-Bnknabnix.html To learn more about the COVID-19 vaccine, we invite you to visit the CDC website for a list of frequently asked questions. https://www.cdc.gov/coronavirus/-ncov/vaccines/faq.html [facility] Patient Portal Access Instructions: Stay connected with your healthcare team and access your personal medical information anytime with the [facility] Patient Portal. If you would like a full copy of your medical records please contact the [facility] Medical Records Department Tuesday through Tuesday between 8a.m. and 4:30p.m. Please follow the directions below to access the portal: 1.Access the email account you provided upon registration to the [facility].2.Look for an invitation email from [facility].3.Open the email and access the invitation link: Accept Invitation to [facility]4.Fill in the required benito to create your account. Sign into www.[employer] with your username and password that you created in the above steps to stay up to date. You can then view a summary of results, a summary of your visits, and the ability to download your summaries to your computer or send the information securely to a physician. Remember that your healthcare information is confidential, so carefully consider who you will allow to register on the [facility] Patient Portal for access to your information. You can also access the [facility] Patient Portal on the [employer] rachael. Simply click on Health Records under Health Data and then click on the [employer] logo. HOW TO SAFELY DISPOSE OF PRESCRIPTION MEDICATIONS Please use one of the following methods to safely dispose of your unused medications. 1.Use a drug disposal kit: the drug disposal pouch allows you to safely discard your old and unused drugs. Ask your nurse to give you one when you are discharged.2.Visit a local take-back location: Many local pharmacies and police departments have programs that collect old and unwanted prescription drugs. Call your local pharmacy or go to http://bit.Redux/1S6Si7s to find one close to you.3.Make use of household items: Use cat litter or old coffee grounds to dispose medications if other options are not available. Mix your drugs with these household products, seal them in an airtight container and throw it into the garbage. Call [facility]: [phone] to be sure your drugs can be disposed of in this way. Some medicines may require a different approach.4.Never flush your medications down the toilet. IF YOU HAVE BEEN PRESCRIBED AN OPIOIDS FOR PAIN If you have been prescribed an opioid (such as hydrocodone, oxycodone or morphine), it is critical to understand the possible side effects and risks of opioid pain medications. Even when taken as directed, opioids can have several side effects including: Tolerance, meaning you might need to take more of a medication for the same pain relief. Nausea, vomiting and/or constipation. Sleepiness, dizziness, dry mouth, confusion, depression or itching. Physical dependence, meaning you have withdrawal symptoms when a medication is stopped ? this can develop within a few days. KNOW YOUR RESPONSIBILITIES It is important to know exactly how much and how often to take the opioid pain medications you are prescribed. Never take opioids in higher amounts or more often than prescribed. Do not combine opioids with alcohol or other drugs that cause drowsiness, such as benzodiazepines, also known as benzos, including diazepam and alprazolam, muscle relaxants or sleep aids. Never sell or share prescription opioids. This is illegal. Store opioids in a secure place and out of reach of others (including children, family, friends and visitors). The last page(s) of this document has been signed and retained as a CHART COPY Signatures Patient Education Materials R.[employer].C.E. Medication Leaflets diclofenac topical, naproxen, acetaminophen and hydrocodone My discharge plan and instructions have been reviewed and explained to me and I,BERE ORTEGA understand my current condition and have read and understand these discharge instructions. I have received a written copy of the plan/instructions. If I have questions, I am aware that I should contact my doctor. Patient/Card Services Specialist Signature: Date/Time: Relationship to Patient: ___ Witness Name/Signature: Date/Time: [facility] 06-05-2024 Note Exam Date Time Procedure Performing Provider Status 06/05/24 12:56 PM XR Wrist Minimum 3 Views Right LAKSHMI ANTOINE MD; Auth (Verified) [id number] ORIGINAL EXAMINATION: XR right wrist three views 06/05/2024 12:56 pm COMPARISON: None HISTORY: ORDERING SYSTEM PROVIDED HISTORY: Reason for Exam: Pain, swelling, FINDINGS: No acute fracture, dislocation, lytic process or periosteal reaction is seen in the visualized bones and joints. No erosive type of arthritis. No periarticular soft tissue calcification. No significant degenerative changes at the wrist. IMPRESSION: No acute skeletal abnormality is seen. . Interpreted by: Lakshmi Antoine MD Preliminary Report By: Lakshmi Antoine MD Electronically signed By Lakshmi Antoine MD Dictated Date: 06/05/2024 1:08:29 PM Prelim Date: 06/05/2024 1:09:11 PM Sign Date: 06/05/2024 1:09:11 PM Ordering Provider: [facility]09-17-2024 Hospital Discharge instructions Patient Education 01/10/2024 10:14:14 RICE RICE Rest an injury, elevate it, and use ice and compression as directed. RICE stands for rest, ice, compression, and elevation. These can limit pain and swelling after an injury. RICE may be recommended to help treat breaks (fractures), sprains, strains, and bruises or bumps. Home care Here are the details of RICE: Rest. Limit the use of the injured body part. This helps prevent further damage to the body part and gives it time to heal. In some cases, you may need a sling, brace, splint, or cast to help keep the body part still until it has healed. Ice. Applying ice right after an injury helps relieve pain and swelling. To make an ice pack, put ice cubes in a plastic bag that seals at the top. Wrap the bag in a clean, thin towel or cloth. Then place it over the injured area. Do this for 10 to 15 minutes every 3 to 4 hours. Continue for the next 1 to 3 days or until your symptoms improve. Never put ice directly on your skin. Don't ice an area longer than 15 minutes at a time. Compression. Putting pressure on an injury helps reduce swelling and provides support. Wrap the injured area firmly with an elastic bandage or wrap. Make sure not to wrap the bandage too tightly or you will cut off blood flow to the injured area. If your bandage loosens, rewrap it. Elevation. Keeping an injury raised or elevated above the level of your heart reduces swelling, pain, and throbbing. For instance, if you have a broken leg, it may help to rest your leg on several pillows when sitting or lying down. Try to keep the injured area elevated as often as possible. Follow-up care Follow up with your healthcare provider, or as advised. When to seek medical advice Call your healthcare provider right away if any of these occur: Fever of 100.4 F (38 C) or higher, or as directed by your healthcare provider Chills Increased pain or swelling in the injured body part Injured body part becomes cold, blue, numb, or tingly Signs of infection. These include warmth in the skin, redness, drainage, or bad smell coming from the injured body part. 9595-5279 [employer]. [address] [place] [address]. All rights reserved. This information is not intended as a substitute for professional medical care. Always follow yourhealthcare professional's instructions. Follow Up Care 01/10/2024 09:57:07 With:Go to emergency room if symptoms worsen Address:Unknown When:2-4 days With:SID ALVAREZ DO Address: [address] [place] [address] [place] [phone] When:2-4 days [facility] 09-17-2024 Emergency department Discharge summary Discharge Instructions Thank you for allowing [facility] to assist you with your healthcare needs. The following is importantdischarge information regarding your hospital visit. Diagnosis from Today's Visit Foot pain What to Do Next Instructions from Your Care Team Take Tylenol and or Motrin as needed for pain. Not exceed the recommended dose. [facility]. Return the emergency department if experience worsening symptoms or any other care concern. No qualifying data available. Post Acute Orders No qualifying data available. You Need to Schedule the Following Appointments Follow Up with Go to emergency room if symptoms worsen When:Within 2-4 days Follow Up with SID ALVAREZ DO When:Within 2-4 days Where:[address] [facility] [place] [address]- [phone] Allergies Compazine Eggs Fluzone Unknown Neurontin hydroCHLOROthiazide Magnesium deficiency Medications Please ask your primary doctor or pharmacist before taking any other medication not listed, including over the counter drugs, herbal medications, vitamins and or supplements as they may interact withyour home medications. What How Much When Why Instructions Last Dose Unchanged albuterol (albuterol MDI (90 mcg/ inh) CFC free inhalation aerosol) 2 puff(s) by inhalation Every 6 hours Asthma without acute exacerbation Seasonal allergies Duration: 30 Days Unchanged albuterol-ipratropium (albuterol-ipratropium 2.5 mg-0.5 mg/ 3 mL inhalation solution) 3 Milliliter by inhalation Every 4 hours Asthma without acute exacerbation Unchanged DULoxetine (DULoxetine 20 mg oral delayed release capsule) 1 cap by mouth Two (2) times a day Recurrent major depression Anxiety Unchanged hydroCHLOROthiazide (hydroCHLOROthiazide 12.5 mg oral capsule) 1 cap by mouth Once a day Unchanged losartan (losartan 25 mg oral tablet) 2 tab(s) by mouth Once a day Hypertension Duration: 30 Days Unchanged pantoprazole (Protonix 40 mg oral enteric coated tablet) 1 tab(s) by mouth Once a day Chronic GERD Unchanged traZODone (traZODone 100 mg oral tablet) Please take this list to your next doctor s visit. Bring all medications you take, including over the counter medications, herbals and other supplements with you to your doctor s visit. Patients and families are reminded to discard old lists and to update any records with all medication providers or retail pharmacies. Education Materials RICE Rest an injury, elevate it, and use ice and compression as directed. RICE stands for rest, ice, compression, and elevation. These can limit pain and swelling after an injury. RICE may be recommended to help treat breaks (fractures), sprains, strains, and bruises or bumps. Home care Here are the details of RICE: Rest. Limit the use of the injured body part. This helps prevent further damage to the body part and gives it time to heal. In some cases, you may need a sling, brace, splint, or cast to help keep the body part still until it has healed. Ice. Applying ice right after an injury helps relieve pain and swelling. To make an ice pack, put ice cubes in a plastic bag that seals at the top. Wrap the bag in a clean, thin towel or cloth. Then place it over the injured area. Do this for 10 to 15 minutes every 3 to 4 hours. Continue for the next 1 to 3 days or until your symptoms improve. Never put ice directly on your skin. Don't ice an area longer than 15 minutes at a time. Compression. Putting pressure on an injury helps reduce swelling and provides support. Wrap the injured area firmly with an elastic bandage or wrap. Make sure not to wrap the bandage too tightly or you will cut off blood flow to the injured area. If your bandage loosens, rewrap it. Elevation. Keeping an injury raised or elevated above the level of your heart reduces swelling, pain, and throbbing. For instance, if you have a broken leg, it may help to rest your leg on several pillows when sitting or lying down. Try to keep the injured area elevated as often as possible. Follow-up care Follow up with your healthcare provider, or as advised. When to seek medical advice Call your healthcare provider right away if any of these occur: Fever of 100.4 F (38 C) or higher, or as directed by your healthcare provider Chills Increased pain or swelling in the injured body part Injured body part becomes cold, blue, numb, or tingly Signs of infection. These include warmth in the skin, redness, drainage, or bad smell coming from the injured body part. [phone] [employer]. [address] [place] [address], [place] [address]. All rights reserved. This information is not intended as a substitute for professional medical care. Always follow yourhealthcare professional's instructions. Additional Information VACCINATE! IT SAVES LIVES! Members of the community who have not yet received the COVID-19 vaccine and would like to receive it can visit one of [facility] vaccine clinics. There are many vaccine clinic locations within the [facility]. For locations and available times, please visit www.[email or web address]/. It is important to note that some COVID mobile vaccine clinics are held outdoors and may be canceled in rainy or stormy conditions. To learn more about pediatric vaccinations (ages 5-11), we invite you to visit the [facility] webpage. https://www.[facility].org/pages/4310-Tldbc-Ypbfrsbvuwg-Fzxlgvstfr-Yojib-Xgx stions.htmlTo learn more about the COVID-19 vaccine, we invite you to visit the CDC website for a list of frequently asked questions. https://www.cdc.gov/coronavirus/2019-ncov/vaccines/faq.html [facility] Patient Portal Access Instructions: Stay connected with your healthcare team and access your personal medical information anytime with the [facility] Patient Portal. If you would like a full copy of your medical records please contact the [facility] Medical Records Department Tuesday through Tuesday between 8a.m. and 4:30p.m. Please follow the directions below to access the portal: 1.Access the email account you provided upon registration to the hospital.2.Look for an invitation email from [facility].3.Open the email and access the invitation link: Accept Invitation to [facility].Fill in the required benito to create your account. Sign into www.[employer] with your username and password that you created in the above steps to stay up to date. You can then view a summary of results, a summary of your visits, and the ability to download your summaries to your computer or send the information securely to a physician. Remember that your healthcare information is confidential, so carefully consider who you will allow to register on the [facility] Patient Portal for access to your information. You can also access the [facility] Patient Portal on the [employer] rachael. Simply click on Health Records under [employer] and then click on the [employer] logo. HOW TO SAFELY DISPOSE OF PRESCRIPTION MEDICATIONS Please use one of the following methods to safely dispose of your unused medications. 1.Use a drug disposal kit: the drug disposal pouch allows you to safely discard your old and unuseddrugs. Ask your nurse to give you one when you are discharged.2.Visit a local take-back location: Many local pharmacies and police departments have programs that collect old and unwanted prescriptiondrugs. Call your local pharmacy or go to http://bit.Redux/8U4Wa4b to find one close to you.3.Make use of household items: Use cat litter or old coffee grounds to dispose medications if other options arenot available. Mix your drugs with these household products, seal them in an airtight container andthrow it into the garbage. Call [facility]: [phone] to be sure your drugs can be disposed of in this way. Some medicines may require a different approach.4.Never flush your medications down the toilet. IF YOU HAVE BEEN PRESCRIBED AN OPIOIDS FOR PAIN If you have been prescribed an opioid (such as hydrocodone, oxycodone or morphine), it is critical to understand the possible side effects and risks of opioid pain medications. Even when taken as directed, opioids can have several side effects including: Tolerance, meaning you might need to take more of a medication for the same pain relief. Nausea, vomiting and/or constipation. Sleepiness, dizziness, dry mouth, confusion, depression or itching. Physical dependence, meaning you have withdrawal symptoms when a medication is stopped ? this can develop within a few days. KNOW YOUR RESPONSIBILITIES It is important to know exactly how much and how often to take the opioid pain medications you are prescribed. Never take opioids in higher amounts or more often than prescribed. Do not combine opioids with alcohol or other drugs that cause drowsiness, such as benzodiazepines, also known as benzos,including diazepam and alprazolam, muscle relaxants or sleep aids. Never sell or share prescriptionopioids. This is illegal. Store opioids in a secure place and out of reach of others (including children, family, friends and visitors). The last page(s) of this document has been signed and retained as a CHART COPY Signatures Patient Education Materials RICE Medication Leaflets My discharge plan and instructions have been reviewed and explained to me and IJORDAN AMY L understand my current condition and have read and understand these discharge instructions. I have receiveda written copy of the plan/instructions. If I have questions, I am aware that I should contact my do ctor. Patient/Card Services Specialist Signature: Date/Time: Relationship to Patient: Witness Name/Signature: Date/Time: [facility]09-17-2024 Note ORIGINAL EXAMINATION: THREE XRAY VIEWS OF THE RIGHT FOOT 01/10/2024 10:24 am COMPARISON: None. HISTORY: ORDERING SYSTEM PROVIDED HISTORY: Reason for Exam: pain Nontraumatic pain great toe. FINDINGS: There is no evidence of acute fracture. There is normal alignment of the tarsometatarsal joints. No acute joint abnormality. No focal osseous lesion. No focal soft tissue abnormality. IMPRESSION: No acute osseous abnormality. Interpreted by: Aniket Rich DO Preliminary Report By: Aniket Rich DO Electronically signed By Aniket Rich DO Dictated Date: 01/10/2024 10:29:56 AM Prelim Date: 01/10/2024 10:31:18 AM Sign Date: 01/10/2024 10:31:18 AM [facility] [place] + Plan note Future Scheduled Tests Laboratory* Basic Metabolic Panel 11/21/23 * HIV 1/2 Ab 05/30/23 Radiology* NM Myocardial Spect Rest/Stress 09/06/23 [facility] 07-29-2024 Evaluation + Plan note Future Scheduled Tests Laboratory* Basic Metabolic Panel 11/21/23 Radiology* NM Myocardial Spect Rest/Stress 09/06/23 [facility] 04-18-2024 Hospital Discharge instructions Patient Education 08/11/2023 17:07:06 Chest Pain, Uncertain Cause Uncertain Causes of Chest Pain Chest pain can happen for a number of reasons. Sometimes the cause can't be determined. If your condition does not seem serious, and your pain does not appear to be coming from your heart, your healthcare provider may recommend watching it closely. Sometimes the signs of a serious problem take moretime to appear. Many problems not related to your heart can cause chest pain. These include: Musculoskeletal. Costochondritis is an inflammation of the tissues around the ribs that can occur from trauma or overuse injuries, or a strain of the muscles of the chest wall Respiratory. Pneumonia, collapsed lung (pneumothorax), or inflammation of the lining of the chest and lungs (pleurisy) Gastrointestinal. Esophageal reflux, heartburn, ulcers, or gallbladder disease Anxiety and panic disorders Nerve compression and inflammation Rare miscellaneous problems such as aortic aneurysm (a swelling of the large artery coming out of the heart) or pulmonary embolism (a blood clot in the lungs) Home care After your visit, follow these recommendations: Rest today and avoid strenuous activity. Take any prescribed medicine as directed. Be aware of any recurrent chest pain and notice any changes Follow-up care Follow up with your healthcare provider if you do not start to feel better within 24 hours, or as advised. Call 911 Call 911 if any of these occur: A change in the type of pain: if it feels different, becomes more severe, lasts longer, or begins to spread into your shoulder, arm, neck, jaw or back Shortness of breath or increased pain with breathing Weakness, dizziness, or fainting Rapid heart beat Crushing sensation in your chest When to seek medical advice Call your healthcare provider right away if any of the following occur: Cough with dark colored sputum (phlegm) or blood Fever of 100.4 F (38 C) or higher, or as directed by your healthcare provider Swelling, pain or redness in one leg [phone] [employer]. [address] [place] [address]. All rights reserved. This information is not intended as a substitute for professional medical care. Always follow yourhealthcare professional's instructions. Follow Up Care 08/11/2023 13:33:11 With:SID ALVAREZ DO Address: [address] [place] [phone] When:1-2 days With:SID ALVAREZ DO Address: [address] [place] [phone] When:2-4 days [facility] 04-18-2024 Note Discharge Instructions Thank you for allowing [facility] to assist you with your healthcare needs. The following is importantdischarge information regarding your hospital visit. Diagnosis from Today's Visit Chest pain What to Do Next Instructions from Your Care Team No qualifying data available. Post Acute Orders No qualifying data available. You Need to Schedule the Following Appointments Follow Up with SID ALVAREZ DO When Within 1-2 days Where: [address] [place] [address]- [phone] Follow Up with SID ALVAREZ DO When Within 2-4 days Where: [address] [place] [address]- [phone] Allergies Compazine Eggs Fluzone (Unknown) Neurontin hydroCHLOROthiazide (Magnesium deficiency) Medications Please ask your primary doctor or pharmacist before taking any other medication not listed, including over the counter drugs, herbal medications, vitamins and or supplements as they may interact withur home medications. What How Much When Why Instructions Last Dose New pantoprazole (Protonix 40 mg oral enteric coated tablet) 1 tab(s) by mouth Once a day Printed Prescription Unchanged albuterol (albuterol MDI (90 mcg/ inh) CFC free inhalation aerosol) 2 puff(s) by inhalation Every 6 hours Asthma without acute exacerbation Seasonal allergies Duration: 30 Days Unchanged albuterol-ipratropium (albuterol-ipratropium 2.5 mg-0.5 mg/ 3 mL inhalation solution) 3 Milliliter by inhalation Every 4 hours Asthma without acute exacerbation Unchanged fluticasone nasal (Flonase 50 mcg/ inh nasal spray) 2 spray(s) each nostril Once a day Seasonal allergies Duration: 90 Days Please take this list to your next doctor s visit. Bring all medications you take, including over the counter medications, herbals and other supplements with you to your doctor s visit. Patients and families are reminded to discard old lists and to update any records with all medication providers or retail pharmacies. Medication Leaflets pantoprazole (oral/injection) (lovelace TOE pra zole) First-Pantoprazole, Protonix, Protonix IV What is the most important information I should know about pantoprazole? Pantoprazole can cause kidney problems or new or worsening symptoms of lupus. Tell your doctor if you have: pain in your side or lower back, painful urination, blood or pus in your urine, joint pain or a skin rash on your cheeks or arms that worsens in sunlight. This medicines can cause diarrhea. Tell your doctor if you have diarrhea that is watery or bloody. You may be more likely to have a broken bone while using pantoprazole. Talk with your doctor about ways to keep your bones healthy. What is pantoprazole? Pantoprazole is used to promote healing of erosive esophagitis (damage to your esophagus caused by stomach acid) in adults and children who are at least 5 years old. Pantoprazole is also used in adults to treat the symptoms of gastroesophageal reflux disease (GERD)and other conditions involving excessive stomach acid such as Harsh-Ibrahim syndrome. Pantoprazole may also be used for purposes not listed in this medication guide. What should I discuss with my healthcare provider before using pantoprazole? You should not use pantoprazole if you are allergic to it, or if you have: breathing problems; or you are allergic to any other stomach acid medicine such as lansoprazole, rabeprazole, esomeprazole, omeprazole, and others. Some drugs should not be used with pantoprazole. Your treatment plan may change if you also use anymedication that contains rilpivirine. Tell your doctor if you have or have ever had: a zinc deficiency; an electrolyte imbalance (such as low blood levels of potassium, calcium or magnesium); lupus; or liver or kidney disease. You may be more likely to have a broken bone while using pantoprazole. Talk with your doctor about ways to keep your bones healthy. Pantoprazole may harm an unborn baby. Tell your doctor if you are or plan to become . Ask a doctor if it is safe to breastfeed while using this medicine. How should I use pantoprazole? Follow all directions on your prescription label and read all medication guides or instruction sheets. Never use pantoprazole in larger amounts, or for longer than prescribed. Do not change your dose or stop using this medication without your doctor's advice. Avoid medication errors by using exactly as directed on the label, or as prescribed by your doctor. Pantoprazole is taken by mouth or given as an infusion into a vein. Pantoprazole tablets are taken by mouth, with or without food. Pantoprazole oral granules should betaken 30 minutes before a meal. Swallow the tablet whole and do not crush, chew, or break it. Read and carefully follow instructions for mixing and taking the oral granules. The oral granules can also be given through a nasogastric tube. Ask your doctor or pharmacist if you do not understand these instructions. Shake the oral suspension (liquid). Measure a dose with the supplied measuring device (not a kitchen spoon). Use this medicine for the full prescribed length of time, even if your symptoms quickly improve. You may use antacids if needed while you are taking pantoprazole tablets. Call your doctor if your symptoms do not improve, or if they get worse after using the medicine forthe number of days prescribed. You may need medical tests. This medicine can affect the results of certain medical tests. Tell any doctor or laboratory staff that you are using pantoprazole. This medicine can cause diarrhea. Tell your doctor if you have diarrhea that is watery or bloody. Store pantoprazole tablet and oral granules at room temperature away from moisture and heat. Store the oral suspension tightly closed in a refrigerator. Do not freeze and protect from light. Throw the medicine away after 30 days, even if there is still medicine left inside. What happens if I miss a dose? Use the medicine as soon as you can, but skip the missed dose if it is almost time for your next dose. Do not use two doses at one time. What happens if I overdose? Seek emergency medical attention or call the Poison Help line at . What should I avoid while using pantoprazole? Follow your doctor's instructions about any restrictions on food, beverages, or activity. Avoid getting pantoprazole oral suspension in your eyes. If contact does occur, rinse with water. What are the possible side effects of pantoprazole? Get emergency medical help if you have signs of an allergic reaction (hives, difficult breathing, swelling in your face or throat) or a severe skin reaction (fever, sore throat, burning eyes, skin pain, red or purple skin rash with blistering and peeling). Seek medical treatment if you have a serious drug reaction that can affect many parts of your body.Symptoms may include skin rash, fever, swollen glands, muscle aches, severe weakness, unusual bruising, or yellowing of your skin or eyes. Call your doctor at once if you have: severe stomach pain, diarrhea that is watery or bloody; nausea, vomiting, weight loss; sudden pain or trouble moving your hip, wrist, or back; pain, swelling, burning, or irritation around the IV needle; pain in your side or lower back, painful urination, blood or pus in your urine; signs of an electrolyte imbalance--increased thirst or urination, constipation, muscle weakness, leg cramps, numbness or tingling, feeling jittery, fluttering in your chest; new or worsening symptoms of lupus--joint pain, and a skin rash on your cheeks or arms that worsensin sunlight; or vitamin B12 deficiency--shortness of breath, feeling lightheaded, irregular heartbeats, muscle weakness, pale skin, tiredness, mood changes, numbness or tingling in your legs or arms. Long-term use of pantoprazole may increase your risk of serious side effects including stomach polyps. Talk with your doctor about these risks. Common side effects may include: headache, dizziness; stomach pain, gas, nausea, vomiting, diarrhea; joint pain; or fever, rash, or cold symptoms such as stuffy nose, sneezing, sore throat. This is not a complete list of side effects and others may occur. Call your doctor for medical advice about side effects. You may report side effects to FDA at 3-590-NVA-7023. What other drugs will affect pantoprazole? Tell your doctor about all your other medicines, especially: digoxin; methotrexate; or a diuretic or 'water pill'. This list is not complete. Other drugs may affect pantoprazole, including prescription and vyrw-xkr-ngpycjk medicines, vitamins, and herbal products. Not all possible drug interactions are listed here. Where can I get more information? Your doctor or pharmacist can provide more information about pantoprazole. Remember, keep this and all other medicines out of the reach of children, never share your medicines with others, and use this medication only for the indication prescribed. Every effort has been made to ensure that the information provided by [employer]. ('[employer]') is accurate, up-to-date, and complete, but no guarantee is made to that effect. Drug information contained herein may be time sensitive. [employer] information has been compiled for use by healthcare practitioners and consumers in the [place] and therefore [employer] does not warrant that uses outside of the [place] are appropriate, unless specifically indicated otherwise. [employer] drug information does not endorse drugs, diagnose patients or recommend therapy. [employer]'s drug information isan informational resource designed to assist licensed healthcare practitioners in caring for their p atients and/or to serve consumers viewing this service as a supplement to, and not a substitute for, the expertise, skill, knowledge and judgment of healthcare practitioners. The absence of a warningfor a given drug or drug combination in no way should be construed to indicate that the drug or drug combination is safe, effective or appropriate for any given patient. [facility] does not assume any responsibility for any aspect of healthcare administered with the aid of information [facility] provides. The information contained herein is not intended to cover all possible uses, directions, precautions, warnings, drug interactions, allergic reactions, or adverse effects. If you have questions about the drugs you are taking, check with your doctor, nurse or pharmacist. Copyright 7937-0280 [employer]. Version: 22.. Revision Date: 04/06/2023. Education Materials Uncertain Causes of Chest Pain Chest pain can happen for a number of reasons. Sometimes the cause can't be determined. If your condition does not seem serious, and your pain does not appear to be coming from your heart, your healthcare provider may recommend watching it closely. Sometimes the signs of a serious problem take moretime to appear. Many problems not related to your heart can cause chest pain. These include: Musculoskeletal. Costochondritis is an inflammation of the tissues around the ribs that can occur from trauma or overuse injuries, or a strain of the muscles of the chest wall Respiratory. Pneumonia, collapsed lung (pneumothorax), or inflammation of the lining of the chest and lungs (pleurisy) Gastrointestinal. Esophageal reflux, heartburn, ulcers, or gallbladder disease Anxiety and panic disorders Nerve compression and inflammation Rare miscellaneous problems such as aortic aneurysm (a swelling of the large artery coming out of the heart) or pulmonary embolism (a blood clot in the lungs) Home care After your visit, follow these recommendations: Rest today and avoid strenuous activity. Take any prescribed medicine as directed. Be aware of any recurrent chest pain and notice any changes Follow-up care Follow up with your healthcare provider if you do not start to feel better within 24 hours, or as advised. Call 911 Call 911 if any of these occur: A change in the type of pain: if it feels different, becomes more severe, lasts longer, or begins to spread into your shoulder, arm, neck, jaw or back Shortness of breath or increased pain with breathing Weakness, dizziness, or fainting Rapid heart beat Crushing sensation in your chest When to seek medical advice Call your healthcare provider right away if any of the following occur: Cough with dark colored sputum (phlegm) or blood Fever of 100.4 F (38 C) or higher, or as directed by your healthcare provider Swelling, pain or redness in one leg 3725-7056 [employer]. [address] [place] [address]. All rights reserved. This information is not intended as a substitute for professional medical care. Always follow yourhealthcare professional's instructions. Additional Information VACCINATE! IT SAVES LIVES! Members of the community who have not yet received the COVID-19 vaccine and would like to receive it can visit one of [facility] vaccine clinics. There are many vaccine clinic locations within the [facility]. For locations and available times, please visit www.[email or web address].[place].gov/. It is important to note that some COVID mobile vaccine clinics are held outdoors and may be canceled in rainy or stormy conditions. To learn more about pediatric vaccinations (ages 5-11), we invite you to visit the [facility] webpage. https://www.[email or web address].org/pages/4417-Jpluv-Qbvdfmkslhx-Aoiwqgbgwr-Ynfjo-Rnp stions.htmlTo learn more about the COVID-19 vaccine, we invite you to visit the CDC website for a list of frequently asked questions. https://www.cdc.gov/coronavirus/2019-ncov/vaccines/faq.html [facility] Patient Portal Access Instructions: Stay connected with your healthcare team and access your personal medical information anytime with the [facility] Patient Portal. If you would like a full copy of your medical records please contact the [facility] Medical Records Department Tuesday through Tuesday between 8a.m. and 4:30p.m. Please follow the directions below to access the portal: 1.Access the email account you provided upon registration to the hospital.2.Look for an invitation email from [facility].3.Open the email and access the invitation link: Accept Invitation to [facility].Fill in the required benito to create your account. Sign into www.[facility] with your username and password that you created in the above steps to stay up to date. You can then view a summary of results, a summary of your visits, and the ability to download your summaries to your computer or send the information securely to a physician. Remember that your healthcare information is confidential, so carefully consider who you will allow to register on the [facility] Patient Portal for access to your information. You can also access the [facility] Patient Portal on the [employer] rachael. Simply click on Health Records under [employer] and then click on the [employer] logo. HOW TO SAFELY DISPOSE OF PRESCRIPTION MEDICATIONS Please use one of the following methods to safely dispose of your unused medications. 1.Use a drug disposal kit: the drug disposal pouch allows you to safely discard your old and unuseddrugs. Ask your nurse to give you one when you are discharged.2.Visit a local take-back location: Many local pharmacies and police departments have programs that collect old and unwanted prescriptiondrugs. Call your local pharmacy or go to http://mytheresa.com.Redux/5D1Nj3q to find one close to you.3.Make use of household items: Use cat litter or old coffee grounds to dispose medications if other options arenot available. Mix your drugs with these household products, seal them in an airtight container andthrow it into the garbage. Call [facility]: [phone] to be sure your drugs can be disposed of in this way. Some medicines may require a different approach.4.Never flush your medications down the toilet. IF YOU HAVE BEEN PRESCRIBED AN OPIOIDS FOR PAIN If you have been prescribed an opioid (such as hydrocodone, oxycodone or morphine), it is critical to understand the possible side effects and risks of opioid pain medications. Even when taken as directed, opioids can have several side effects including: Tolerance, meaning you might need to take more of a medication for the same pain relief. Nausea, vomiting and/or constipation. Sleepiness, dizziness, dry mouth, confusion, depression or itching. Physical dependence, meaning you have withdrawal symptoms when a medication is stopped ? this can develop within a few days. KNOW YOUR RESPONSIBILITIES It is important to know exactly how much and how often to take the opioid pain medications you are prescribed. Never take opioids in higher amounts or more often than prescribed. Do not combine opioids with alcohol or other drugs that cause drowsiness, such as benzodiazepines, also known as benzos,including diazepam and alprazolam, muscle relaxants or sleep aids. Never sell or share prescriptionopioids. This is illegal. Store opioids in a secure place and out of reach of others (including children, family, friends and visitors). The last page(s) of this document has been signed and retained as a CHART COPY Signatures Patient Education Materials Chest Pain, Uncertain Cause Medication Leaflets pantoprazole (oral/injection) My discharge plan and instructions have been reviewed and explained to me and I,BERE ORTEGA understand my current condition and have read and understand these discharge instructions. I have receiveda written copy of the plan/instructions. If I have questions, I am aware that I should contact my do ctor. Patient/Card Services Specialist Signature: Date/Time: Relationship to Patient: Witness Name/Signature: Date/Time: [facility]04-18-2024 NoteHNO ID: [id number] Author: CARMITA KHAN APRN.[facility] Service: ? Author Type: Nurse Practitioner Type: Progress Notes Filed: 08/11/2023 12:54 Note Text: This note was created using NoteWriter. Subjective Bere Ortega is a 48 year old female. HPI by patient: Bere is a 48 year old presenting to the office with the complaint of rib pain. Elevated BP Started approximately Tuesday. HAs hx of pleuirsy. NO recent URI. Was in the center of chest originally and shooting through to the back. Now pain is wrapping around her ribs on both sides. Hurts with taking a breath in and with movements. 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 They also did a ECG which showed BBB and a depression per patient. Denies any other concerns Covid Immunization Dates Overdue - Covid-19 Vaccine ( season) Never done No completion, postpone, frequency change, or communication history exists for this topic. ALLERGIES Aleve [Naproxen] Other: See Comments Comment:states that had cramping and rectal bleeding Prochlorperazine Comment:compazine Family History Reviewed Including Cardiac Diseases, Psychiatric Diseases, AND Substance Abuse Problem: Colon Cancer Relation: Father Age of Onset: (Not Specified) Problem: Diabetes Relation: Father Age of Onset: (Not Specified) Problem: Diabetes Relation: Mother Age of Onset: (Not Specified) Problem: Hypertension Relation: Mother Age of Onset: (Not Specified) Problem: Heart Relation: Mother Age of Onset: (Not Specified) Problem: Kidney Disease Relation: Mother Age of Onset: (Not Specified) Problem: Stroke Relation: Mother Age of Onset: (Not Specified) Problem: COPD Relation: Mother Age of Onset: (Not Specified) Problem: Cancer Relation: Mother Age of Onset: 50 Comment: uterine Social History Tobacco Use Smoking status: Every Day Packs/day: 0.50 Years: 14.00 Additional pack years: 0.00 Total pack years: 7.00 Types: Cigarettes Smokeless tobacco: Never Tobacco comments: up to 1 /2 PPD Alcohol use: Yes Comment: rarely Drug use: No Review of Systems Constitutional: Negative. HENT: Negative. Respiratory: Negative. Cardiovascular: Negative. Musculoskeletal: Positive for arthralgias. Lower rib cage pain on both sides Objective BP 144/82 Pulse 94 Temp 36.6 ?C (97.8 ?F) Wt 114.2 kg (251 lb 12.3 oz) LMP 05/02/2014 SpO2 97% BMI 41.90 kg/m? Physical Exam Vitals and nursing note reviewed. Constitutional: Appearance: She is well-developed. Pulmonary: Effort: Pulmonary effort is normal. Skin: General: Skin is warm and dry. Neurological: Mental Status: She is alert and oriented to person, place, and time. Assessment and Plan ASSESSMENT/PLAN: 1. Rib pain - ICD9: 786.50, ICD10: R07.81 Atypical chest pain, symptoms are not consistent with cardiac ischemia due to pleuritic nature of pain possible etiology include Pleurisy Consider ED for cardiac work up vs follow up with PCP - CYCLOBENZAPRINE 10 MG TABLET - XR RIBS/CHEST 3V AP RIB/OBLS/CXR LEFT Carmita Khan APRN.CNP Medical Decision Making: Problems: Moderate: New problem with uncertain prognosis Data: Unique source(s) for external note(s) reviewed: 1 Unique test(s) ordered: 1 Risk: Moderate: Drug management Medical Decision Making [facility]: [facility] ORIGINAL EXAMINATION: ONE XRAY VIEW OF THE CHEST 08/11/2023 2:24 pm COMPARISON: 10/14/2021 HISTORY: ORDERING SYSTEM PROVIDED HISTORY: Reason for Exam: chest pain FINDINGS: The cardiomediastinal silhouette is normal. There is no focal consolidation, pleural effusion, vascular congestion, or pneumothorax. Monitoring leads overlie the image. IMPRESSION: No acute radiographic findings. Interpreted by: Catherine Rojo MD Preliminary Report By: Catherine Rojo MD Electronically signed By Catherine Rojo MD Dictated Date: 08/11/2023 2:31:09 PM Prelim Date: 08/11/2023 2:32:02 PM Sign Date: 08/11/2023 2:32:02 PM Ordering Provider: [facility]04-18-2024 Discharge summary Author Samy Alarcon [facility] August 11, 2023 9:46pm Note Date/Time August 11, 2023 8:0 5pm [facility] Medical Records Department [address] [place] [address] Emergency Department Summary 08/11/23 MR#: [id number] Acct: [id number] Name: BERE ORTEGA Rep #:[id number] : 1975 48 From: Samy Alarcon MD PCP: Dr. Sid Alvarez, DO Status:REG ER Location: ED HPI History of Present Illness Chief Complaint: Chest Other Detail of Chief Complaint: Pleuritic chest pain Informant: patient Onset/Context/Timing Onset: Days (Tuesday) Context: Sudden Onset Timing: Continuous and Waxes and wanes Quality: Pain, tight sensation around chest Location: Bra line Current Severity: Mild Maximum Severity: Moderate Worsened by: Breathing Relieved by: Nothing Associated Symptoms Associated Symptoms: Nothing Narrative Narrative: Patient is a 48-year-old woman with history of lupus, chronic pain, asthma, hypothyroidism, anxiety and depression and eosinophilic esophagitis. She also has history of chronic erythema and nodosum. Patient was seen at [facility] today. She had a troponin which was negative. Had a D-dimer which was negative. EKG reportedly negative. No chest x-ray was obtained. Patient denies nausea, vomit diarrhea. She denies black or maroon-colored stool. She denies leg pain, swelling discoloration. She denies renal involvement with regards to her lupus. She states it has affected her liver enzymes. She denies pain in the left upper quadrant or right upper quadrant. There is no history of pancreatitis. [facility] Medical History Bronchitis Carpal tunnel syndrome, right Hx of mixed connective tissue disease Hx of pleurisy Hx of spinal stenosis Lipoma of axilla Home Medications albuterol sulfate 2.5 mg/0.5 mL solution for nebulization 2.5 mg inhalation Q20M11/10/21 [History Last Taken Unknown] albuterol sulfate 90 mcg/actuation aerosol inhaler 1 inh inhalation ONCE 11/10/21 [History Last Taken Unknown] cetirizine 10 mg tablet 10 mg PO DAILY PRN 11/10/21 [History Last Taken Unknown] cyanocobalamin (vitamin B-12) 1,000 mcg/mL injection solution 100 mcg IM QMONTH 11/10/21 [History Last Taken Unknown] ergocalciferol (vitamin D2) 50 mcg (2,000 unit) capsule 50 mcg PO DAILY 11/10/21[History Last Taken Unknown] famotidine 40 mg tablet 40 mg PO DAILY 11/10/21 [History Last Taken Unknown] fluticasone furoate 50 mcg/actuation blister powder for inhalation inhalation 11/10/21 [History Last Taken Unknown] ibuprofen 200 mg capsule 200 mg PO Q6H PRN 11/10/21 [History Last Taken Unknown] paroxetine HCl 10 mg tablet 10 mg PO DAILY 11/10/21 [History Last Taken Unknown] potassium chloride 20 mEq/15 mL oral liquid 20 meq PO DAILY 11/10/21 [History Last Taken Unknown] ropinirole 1 mg tablet 1 mg PO DAILY 11/10/21 [History Last Taken Unknown] prednisone 10 mg tablet 10 mg PO UD #33 tabs 08/11/23 [Rx Last Taken Unknown] Allergy/AdvReac Type Severity Reaction Status Date / Time Beef Containing Products Allergy Angioedema Verified 08/11/23 18:33 corn Allergy Angioedema Verified 08/11/23 18:33 egg Allergy Angioedema Verified 08/11/23 18:33 Pork/Porcine Containing Allergy Angioedema Verified 08/11/23 18:33 Products rice Allergy Angioedema Verified 08/11/23 18:33 gabapentin [From Neurontin] AdvReac Other Verified 08/11/23 18:33 prochlorperazine AdvReac Other Verified 08/11/23 18:33 [From Compazine] Family History Mother CHF (congestive heart failure) Diabetes type 1 Myocardial infarction Hypertension Hypercholesterolemia Renal failure CVA (cerebral vascular accident) Father Cancer colon Surgical History H/O esophagogastroduodenoscopy Hx of arthroscopy of knee Hx of cholecystectomy Hx of colonoscopy Hx of total hysterectomy Social History Smoking Status: Current every day smoker tobacco type: cigarettes ROS ROS ED Constitutional Constitutional ED: Denies chills, fever(s), subjective, sweats or weight loss Eyes Eyes: Denies blurry vision or change in vision ENT ENT ED: Denies ear pain, rhinorrhea or sore throat Cardiovascular Cardiovascular: Reports chest pain; Denies orthopnea, palpitations, paroxysmal nocturnal dyspnea or racing heartbeat Respiratory/Chest Respiratory/Chest: Denies cough, dyspnea, dyspnea on exertion, orthopnea or paroxysmal nocturnal dyspnea Gastrointestinal Gastrointestinal: Denies abdominal pain, melena, nausea or vomiting Genitourinary Genitourinary ED: Denies dysuria, hematuria or urinary frequency Musculoskeletal Musculoskeletal: Denies arthralgias, back pain or myalgias Integumentary Denies rash Neurologic Neurologic: Denies headache(s) or paresthesias Psychiatric Psychiatric: Denies anxiety or depression Endocrine Endocrinology: Denies cold intolerance or heat intolerance Hematologic/Lymphatic Hematologic/Lymphatic: Reports systems reviewed and no addt'l complaints, exceptas documented EXAM Physical Exam Const Vital Signs: 08/11/23 18:29 08/11/23 20:29 08/11/23 20:29 Temperature 96.6 F L Temperature Source Temporal Pulse Rate 89 69 Respiratory Rate 18 14 Respiratory Effort Normal Respiratory Pattern Normal Blood Pressure 132/98 H 165/89 H Blood Pressure Mean 109 114 Pulse Ox 98 99 Oxygen Delivery Method Room Air Room Air Positive well nourished, well developed and obese General Appearance ED: well developed and NAD; Negative for cyanotic, diaphoretic or pallor Nutritional Appearance: obese HEENT Reports moist mucous membranes Negative for trauma or tenderness Eyes PERRL and EOMs intact bilaterally General Eye ED: Negative for pale conjunctiva or scleral icterus Neck no lymphadenopathy, supple and no JVD Chest Wall inspection of chest normal and palpation of chest normal Chest Narrative: There is pain to palpation right side. There is no crepitus subcutaneous air. Resp normal respiratory effort and clear to auscultation bilaterally Cardio regular rate, regular rhythm, S1 normal heart sound, S2 normal heart sound and no murmurs GI normal to inspection, nondistended, normoactive bowel sounds, non-tender, non-distended and no masses; Negative for hepatosplenomegaly Palpation: soft Back/Spine Back/Spine Narrative: Inspection of the back is normal. Extremity Extremity Narrative: There is no asymmetry, swelling, discoloration, leg vein distention, palpable cords or tenderness along the distribution of the deep venous system. Neuro oriented x3 and CN's II-XII intact bilaterally Sensorium / Orientation: alert Skin no rashes or lesions noted, no wounds and skin turgor normal General Skin Exam: elasticity normal; Negative for jaundice or pallor MDM MDM MDM Narrative Medical decision making narrative: With a normal D-dimer normal troponin these were not repeated. This would rule out PE. Suspect this is pleurisy and may be related to her lupus. Chest x-ray was obtained to rule out infiltrate. Patient was treated with prednisone. History & Record Review Additional record(s) reviewed:: Prior outpatient record (Records from outside facility obtained today were reviewed and documented), Prior ED visit and Prior labs Radiography Chest X-Ray - ED: 2 View and Read by ED Physician (3 view chest x-ray report reviewed interpreted by me. There is no abnormality noted. Cardiac silhouette size normal. Hilum is normal. Lung parenchyma is normal. There is no effusion. Osseous trucks unremarkable.) Diagnostic Testing: Clinical Impression(s) from Imaging Studies Chest X-Ray 08/11/23 19:52 IMPRESSION: Normal x-ray examination of the chest. Electronically Signed: Booker Cottrell MD at 20:36 EDT , Treatment and Re-Evaluation :: Patient was discharged prescription for prednisone. Discharge Plan Triage Chief Complaint: Chest Other ED Provider: Samy Alarcon Dx/Rx/DC Orders Clinical Impression: Pleuritic chest pain, Hypothyroid, Eosinophilic esophagitis, History of lupus Instructions: ED Pain, Acute, Uncertain Cause Prescriptions: New prednisone 10 mg tablet 10 mg PO UD Qty: 33 0RF Rx Instructions: Take 4 tablets daily for 3 days, then 3 daily for 3 days, then 2 daily for 3 days, then 1 a day for 3 days then 1 QOD for 3 doses. No Action albuterol sulfate 90 mcg/actuation HFA aerosol inhaler 1 inh inhalation ONCE albuterol sulfate 2.5 mg/0.5 mL solution for nebulization 2.5 mg inhalation Q20M Rx Instructions: for up to 3 doses cetirizine 10 mg tablet 10 mg PO DAILY PRN cyanocobalamin (vitamin B-12) 1,000 mcg/mL solution 100 mcg IM QMONTH ergocalciferol (vitamin D2) 50 mcg (2,000 unit) capsule 50 mcg PO DAILY famotidine 40 mg tablet 40 mg PO DAILY fluticasone furoate 50 mcg/actuation blister with device inhalation ibuprofen 200 mg capsule 200 mg PO Q6H PRN paroxetine HCl 10 mg tablet 10 mg PO DAILY potassium chloride 20 mEq/15 mL liquid 20 meq PO DAILY ropinirole 1 mg tablet 1 mg PO DAILY Primary Care Provider: Sid Alvarez Referrals: Sid Alvarez DO [Primary Care Provider] - 3-5 Days Disposition Disposition: Home, Self Care What to do if you have Problems For any increased pain, shortness of breath, bleeding, nausea or vomiting, chestpain, or any unexpected problems, contact your Primary Care Provider. Call [facility] ([phone]) or report to the closest Emergency Room. Call 911 if necessary. 08/11/232145 <Electronically signed by Samy Alarcon MD> Cosigner Signature (if applicable): CC: Dr. Sid Alvarez, ~ Signed [facility] Work Phone: [phone] 270-579504-18-2024 NoteSinus rhythm RSR' in V1 or V2, right VCD or RVH Electronic Signature: GEORGE SAMANIEGO MD 08/11/2023 14:08:07[facility] 04-18-2024 History of Present illness Narrative* Carmita Khan APRN.SLICING MACHINE FEEDER - 08/11/2023 12:37 PM EDT This note was created using [employer]. Subjective Bere Ortega is a 48 year old female. HPI by patient: Bere is a 48 year old presenting to the office with the complaint of rib pain. Elevated BP Started approximately Tuesday. HAs hx of pleuirsy. NO recent URI. Was in the center of chest originally and shooting through to the back. Now pain is wrapping around her ribs on both sides. Hurts with taking a breath in and with movements. 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 They also did a ECG which showed BBB and a depressionper patient. Denies any other concerns Covid Immunization Dates Overdue - Covid-19 Vaccine ( season) Never done No completion, postpone, frequency change, or communication history exists for this topic. ALLERGIES Aleve [Naproxen] Other: See Comments Comment:states that had cramping and rectal bleeding Prochlorperazine Comment:compazine Family History Reviewed Including Cardiac Diseases, Psychiatric Diseases, & Substance Abuse Problem: Colon Cancer Relation: Father Age of Onset: (Not Specified) Problem: Diabetes Relation: Father Age of Onset: (Not Specified) Problem: Diabetes Relation: Mother Age of Onset: (Not Specified) Problem: Hypertension Relation: Mother Age of Onset: (Not Specified) Problem: Heart Relation: Mother Age of Onset: (Not Specified) Problem: Kidney Disease Relation: Mother Age of Onset: (Not Specified) Problem: Stroke Relation: Mother Age of Onset: (Not Specified) Problem: COPD Relation: Mother Age of Onset: (Not Specified) Problem: Cancer Relation: Mother Age of Onset: 50 Comment: uterine Social History Tobacco Use Smoking status: Every Day Packs/day: 0.50 Years: 14.00 Additional pack years: 0.00 Total pack years: 7.00 Types: Cigarettes Smokeless tobacco: Never Tobacco comments: up to 1 1/2 PPD Alcohol use: Yes Comment: rarely Drug use: No Review of Systems Constitutional: Negative. HENT: Negative. Respiratory: Negative. Cardiovascular: Negative. Musculoskeletal: Positive for arthralgias. Lower rib cage pain on both sides Objective BP 144/82 Pulse 94 Temp 36.6 C (97.8 F) Wt 114.2 kg (251 lb 12.3 oz) LMP 05/02/2014 SpO2 97% BMI 41.90 kg/m Physical Exam Vitals and nursing note reviewed. Constitutional: Appearance: She is well-developed. Pulmonary: Effort: Pulmonary effort is normal. Skin: General: Skin is warm and dry. Neurological: Mental Status: She is alert and oriented to person, place, and time. Assessment and Plan ASSESSMENT/PLAN: 1. Rib pain - ICD9: 786.50, ICD10: R07.81 Atypical chest pain, symptoms are not consistent with cardiac ischemia due to pleuritic nature of pain possible etiology include Pleurisy Consider ED for cardiac work up vs follow up with PCP - CYCLOBENZAPRINE 10 MG TABLET - XR RIBS/CHEST 3V AP RIB/OBLS/CXR LEFT Carmita Khan APRN.CNP Medical Decision Making: Problems: Moderate: New problem with uncertain prognosis Data: Unique source(s) for external note(s) reviewed: 1 Unique test(s) ordered: 1 Risk: Moderate: Drug management Medical Decision Making Level: 4 - Moderate documented [facility] NoteHNO ID: [id number] Author: ODALIS URRUTIA APRN.MARIUSZ Service: ? Author Type: Nurse Practitioner Type: Progress Notes Filed: 07/10/2023 10:49 Note Text: This note was created using NoteWriter. Subjective Bere Ortega is a 48 year old female. HPI by patient: Bere Ortega is a 48 year old presenting to the office with the complaint of viral symptoms. Started approximately 1 week ago. Associated symptoms include cough, congestion, headache, and shortness of breath. Denies fever, chills, body aches, fatigue, and gi symptoms. Covid Immunization Dates Overdue - Covid-19 Vaccine ( season) Never done No completion, postpone, frequency change, or communication history exists for this topic. Sick contacts: unsure. Smoking history/second hand smoke: none. OTC not helping. No antibiotic use in the last 60 days. ALLERGIES Aleve [Naproxen] Other: See Comments Comment:states that had cramping and rectal bleeding Prochlorperazine Comment:compazine Family History Reviewed Including Cardiac Diseases, Psychiatric Diseases, AND Substance Abuse Problem: Colon Cancer Relation: Father Age of Onset: (Not Specified) Problem: Diabetes Relation: Father Age of Onset: (Not Specified) Problem: Diabetes Relation: Mother Age of Onset: (Not Specified) Problem: Hypertension Relation: Mother Age of Onset: (Not Specified) Problem: Heart Relation: Mother Age of Onset: (Not Specified) Problem: Kidney Disease Relation: Mother Age of Onset: (Not Specified) Problem: Stroke Relation: Mother Age of Onset: (Not Specified) Problem: COPD Relation: Mother Age of Onset: (Not Specified) Problem: Cancer Relation: Mother Age of Onset: 50 Comment: uterine Social History Tobacco Use Smoking status: Every Day Packs/day: 0.50 Years: 14.00 Additional pack years: 0.00 Total pack years: 7.00 Types: Cigarettes Smokeless tobacco: Never Tobacco comments: up to 04/26 PPD Alcohol use: Yes Comment: rarely Drug use: No Active Ambulatory Problems Myalgia and myositis, unspecified Date Noted: 12/22/2004 Irregular menstrual cycle Date Noted: 02/23/2011 Excessive or frequent menstruation Date Noted: 02/23/2011 Dysmenorrhea Date Noted: 02/23/2011 Dyspareunia Date Noted: 02/23/2011 Unspecified symptom associated with female genital organs Date Noted: 02/23/2011 Urgency of urination Date Noted: 02/23/2011 Obesity Erythema nodosum Migraine headache Pal esophagus Lupus (HCC) Chondromalacia patella Date Noted: 09/14/2011 Resolved Ambulatory Problems No Resolved Ambulatory Problems Past Medical History: No date: Bursitis 2007: Degenerative disc disease, lumbar No date: Endometriosis, site unspecified No date: Fibromyalgia No date: PCOS (polycystic ovarian syndrome) No date: Pleurisy without mention of effusion or current tuberculosis Dec 2014: Spinal stenosis in cervical region Review of Systems Constitutional: Negative. HENT: Positive for congestion, ear pain, sinus pressure and sinus pain. Negative for sore throat. Eyes: Negative. Respiratory: Positive for cough and shortness of breath. Cardiovascular: Negative. Gastrointestinal: Negative. Endocrine: Negative. Genitourinary: Negative. Musculoskeletal: Negative. Skin: Negative. Neurological: Positive for headaches. Hematological: Negative. Objective BP 121/73 Pulse 80 Temp 36.1 ?C (97 ?F) Resp 16 Ht 165.1 cm (5' 5) Wt 113.6 kg (250 lb 7.1 oz) LMP 05/02/2014 SpO2 97% BMI 41.68 kg/m? Physical Exam Vitals reviewed. Constitutional: General: She is not in acute distress. Appearance: She is not ill-appearing, toxic-appearing or diaphoretic. HENT: Head: Normocephalic and atraumatic. Right Ear: Tympanic membrane, ear canal and external ear normal. Left Ear: Tympanic membrane, ear canal and external ear normal. Nose: No rhinorrhea. Right Sinus: Maxillary sinus tenderness and frontal sinus tenderness present. Left Sinus: Maxillary sinus tenderness and frontal sinus tenderness present. Mouth/Throat: Mouth: Mucous membranes are moist. Pharynx: Oropharynx is clear. No oropharyngeal exudate or posterior oropharyngeal erythema. Cardiovascular: Rate and Rhythm: Normal rate and regular rhythm. Pulmonary: Effort: Pulmonary effort is normal. Breath sounds: Normal breath sounds. Lymphadenopathy: Head: Right side of head: No submandibular or tonsillar adenopathy. Left side of head: No submandibular or tonsillar adenopathy. Cervical: No cervical adenopathy. Psychiatric: Behavior: Behavior is cooperative. Assessment and Plan (J06.9) Viral upper respiratory tract infection with cough (primary encounter diagnosis) Plan: benzonatate (TESSALON PERLES) 100 mg capsule, fluticasone (FLONASE ALLERGY RELIEF) 50 mcg/actuation nasal spray, sodium chloride (SALINE MIST) 0.65 % nasal spray (R06.02) SOB (shortness of breath) Plan: p (more content not included)...[facility]03-17-2024 History of Present illness Narrative* Odalis Urrutia APRN.SLICING MACHINE FEEDER - 07/10/2023 10:33 AM EDT This note was created using NoteWriter. Subjective Bere Ortega is a 48 year old female. HPI by patient: Bere Ortega is a 48 year old presenting to the office with the complaint of viral symptoms. Started approximately 1 week ago. Associated symptoms include cough, congestion, headache, and shortness of breath. Denies fever, chills, body aches, fatigue, and gi symptoms. Covid Immunization Dates Overdue - Covid-19 Vaccine (2022- season) Never done No completion, postpone, frequency change, or communication history exists for this topic. Sick contacts: unsure. Smoking history/second hand smoke: none. OTC not helping. No antibiotic use in the last 60 days. ALLERGIES Aleve [Naproxen] Other: See Comments Comment:states that had cramping and rectal bleeding Prochlorperazine Comment:compazine Family History Reviewed Including Cardiac Diseases, Psychiatric Diseases, & Substance Abuse Problem: Colon Cancer Relation: Father Age of Onset: (Not Specified) Problem: Diabetes Relation: Father Age of Onset: (Not Specified) Problem: Diabetes Relation: Mother Age of Onset: (Not Specified) Problem: Hypertension Relation: Mother Age of Onset: (Not Specified) Problem: Heart Relation: Mother Age of Onset: (Not Specified) Problem: Kidney Disease Relation: Mother Age of Onset: (Not Specified) Problem: Stroke Relation: Mother Age of Onset: (Not Specified) Problem: COPD Relation: Mother Age of Onset: (Not Specified) Problem: Cancer Relation: Mother Age of Onset: 50 Comment: uterine Social History Tobacco Use Smoking status: Every Day Packs/day: 0.50 Years: 14.00 Additional pack years: 0.00 Total pack years: 7.00 Types: Cigarettes Smokeless tobacco: Never Tobacco comments: up to 1 1/2 PPD Alcohol use: Yes Comment: rarely Drug use: No Active Ambulatory Problems Myalgia and myositis, unspecified Date Noted: 12/22/2004 Irregular menstrual cycle Date Noted: 02/23/2011 Excessive or frequent menstruation Date Noted: 02/23/2011 Dysmenorrhea Date Noted: 02/23/2011 Dyspareunia Date Noted: 02/23/2011 Unspecified symptom associated with female genital organs Date Noted: 02/23/2011 Urgency of urination Date Noted: 02/23/2011 Obesity Erythema nodosum Migraine headache Pal esophagus Lupus (HCC) Chondromalacia patella Date Noted: 09/14/2011 Resolved Ambulatory Problems No Resolved Ambulatory Problems Past Medical History: No date: Bursitis 2007: Degenerative disc disease, lumbar No date: Endometriosis, site unspecified No date: Fibromyalgia No date: PCOS (polycystic ovarian syndrome) No date: Pleurisy without mention of effusion or current tuberculosis Dec 2014: Spinal stenosis in cervical region Review of Systems Constitutional: Negative. HENT: Positive for congestion, ear pain, sinus pressure and sinus pain. Negative for sore throat. Eyes: Negative. Respiratory: Positive for cough and shortness of breath. Cardiovascular: Negative. Gastrointestinal: Negative. Endocrine: Negative. Genitourinary: Negative. Musculoskeletal: Negative. Skin: Negative. Neurological: Positive for headaches. Hematological: Negative. Objective BP 121/73 Pulse 80 Temp 36.1 C (97 F) Resp 16 Ht 165.1 cm (5' 5) Wt 113.6 kg (250 lb 7.1oz) LMP 05/02/2014 SpO2 97% BMI 41.68 kg/m Physical Exam Vitals reviewed. Constitutional: General: She is not in acute distress. Appearance: She is not ill-appearing, toxic-appearing or diaphoretic. HENT: Head: Normocephalic and atraumatic. Right Ear: Tympanic membrane, ear canal and external ear normal. Left Ear: Tympanic membrane, ear canal and external ear normal. Nose: No rhinorrhea. Right Sinus: Maxillary sinus tenderness and frontal sinus tenderness present. Left Sinus: Maxillary sinus tenderness and frontal sinus tenderness present. Mouth/Throat: Mouth: Mucous membranes are moist. Pharynx: Oropharynx is clear. No oropharyngeal exudate or posterior oropharyngeal erythema. Cardiovascular: Rate and Rhythm: Normal rate and regular rhythm. Pulmonary: Effort: Pulmonary effort is normal. Breath sounds: Normal breath sounds. Lymphadenopathy: Head: Right side of head: No submandibular or tonsillar adenopathy. Left side of head: No submandibular or tonsillar adenopathy. Cervical: No cervical adenopathy. Psychiatric: Behavior: Behavior is cooperative. Assessment and Plan (J06.9) Viral upper respiratory tract infection with cough (primary encounter diagnosis) Plan: benzonatate (TESSALON PERLES) 100 mg capsule, fluticasone (FLONASE ALLERGY RELIEF) 50 mcg/actuation nasal spray, sodium chloride (SALINE MIST) 0.65 % nasal spray (R06.02) SOB (shortness of breath) Plan: predniSONE (DELTASONE) 20 mg tablet, albuterol HFA (PROVENTIL HFA, VENTOLIN HFA) 90 mcg/actuation inhaler Education on viral vs bacterial infections. Most viral infections will last 10 days, sometimes 14. It is possible to have back to back viral infections. An antibiotic will not treat a virus. Declines viral testing. -Albuterol to help open the airways, prednisone with food for shortness of breath. Tessalon for cough, these are capsules you swallow, do not chew. -Paper script for antibiotic if no improvement with current plan. -Drink lots of fluids and get plenty of rest. -Vaporizers, cool mist humidifiers, warm showers, and warm fluids help open respiratory and sinus passages. Clean humidifiers daily. -OTC tylenol/ibuprofen as directed on the bottle. -Saline nasal spray as needed. Flonase twice daily can help reduce inflammation through the sinus cavities. -Cough/deep breathing education, promote clearing of the airways and good lung expansion. -Make follow up with primary care for monitoring and resolution in symptoms. -Signs that warrant an ER evaluation: Sudden change/worsening in condition, lethargy, signs of dehydration, fever greater than 102 F thatis not responding to Tylenol or ibuprofen (Motrin, Advil), drooling, difficulty swallowing, difficulty breathing, shortness of breath, chest pain, evidence of airway compromise (tripod position, neck extension, retractions), seizures, changes in mental status, or other concerns. The patient will pursue further outpatient evaluation with the primary care physician or another Urgent Care/Express Care as outlined in the after visit summary. The patient is agreeable to this planof care and follow-up instructions have been explained in detail. The patient has received these instructions in written format and have expressed an understanding of the after visit summary. Medical Decision Making: Level: 4 - Moderate I spent a total of 20 minutes on the date of the service which included preparing to see the patient, [id number] patient care, completing clinical documentation, obtaining and/or reviewing separately obtained history, performing a medically appropriate examination, counseling and educating the pat ient/family/caregiver, and ordering medications, tests, or procedures. This patient encounter involved the screening or treatment of novel coronavirus infection (COVID-19). [facility] Instructions* Patient Instructions* Odalis Urrtuia APRN.CNP - 07/10/2023 10:33 AM EDT (J06.9) Viral upper respiratory tract infection with cough (primary encounter diagnosis) Plan: benzonatate (TESSALON PERLES) 100 mg capsule, fluticasone (FLONASE ALLERGY RELIEF) 50 mcg/actuation nasal spray, sodium chloride (SALINE MIST) 0.65 % nasal spray (R06.02) SOB (shortness of breath) Plan: predniSONE (DELTASONE) 20 mg tablet, albuterol HFA (PROVENTIL HFA, VENTOLIN HFA) 90 mcg/actuation inhaler Education on viral vs bacterial infections. Most viral infections will last 10 days, sometimes 14. It is possible to have back to back viral infections. An antibiotic will not treat a virus. -Albuterol to help open the airways, prednisone with food for shortness of breath. Tessalon for cough, these are capsules you swallow, do not chew. -Paper script for antibiotic if no improvement with current plan. -Drink lots of fluids and get plenty of rest. -Vaporizers, cool mist humidifiers, warm showers, and warm fluids help open respiratory and sinus passages. Clean humidifiers daily. -OTC tylenol/ibuprofen as directed on the bottle. -Saline nasal spray as needed. Flonase twice daily can help reduce inflammation through the sinus cavities. -Cough/deep breathing education, promote clearing of the airways and good lung expansion. -Make follow up with primary care for monitoring and resolution in symptoms. -Signs that warrant an ER evaluation: Sudden change/worsening in condition, lethargy, signs of dehydration, fever greater than 102 F thatis not responding to Tylenol or ibuprofen (Motrin, Advil), drooling, difficulty swallowing, difficulty breathing, shortness of breath, chest pain, evidence of airway compromise (tripod position, neck extension, retractions), seizures, changes in mental status, or other concerns. [facility] Evaluation + Plan note Diagnostic Tests Pending * Rapid Plasma Reagin Test 05/30/23 Future Scheduled Tests Laboratory* Vitamin B12 Level 07/23/22 * HIV 1/2 Ab 05/30/23 * Vitamin D Level 07/23/22 [facility] 01-02-2024 Evaluation + Plan note Future Scheduled Tests Laboratory* HIV 1/2 Ab 05/30/23 [facility] 09-30-2023 Hospital Discharge instructions Patient Education 01/22/2023 18:44:18 Foot Contusion Foot Contusion You have a contusion. This is also called a bruise. There is swelling and some bleeding under the skin, but no broken bones. This injury generally takes a few days to a few weeks to heal. During thattime, the bruise will typically change in color from reddish, to purple-blue, to greenish-yellow, then to yellow-brown. Home care Elevate the foot to reduce pain and swelling. As much as possible, sit or lie down with the foot raised about the level of your heart. This is especially important during the first 48 hours. Ice the foot to help reduce pain and swelling. Wrap a cold source (ice pack or ice cubes in a plastic bag) in a thin towel. Apply to the bruised area for 20 minutes every 1 to 2 hours the first day. Continue this 3 to 4 times a day until the pain and swelling goes away. Unless another medicine was prescribed, you can take acetaminophen, ibuprofen, or naproxen to control pain. (If you have chronic liver or kidney disease or ever had a stomach ulcer or gastrointestinal bleeding, talk with your healthcare provider before using these medicines.) Follow up Follow up with your healthcare provider or our staff as advised. Call if you are not improving within 1 to 2 weeks. When to seek medical advice Call your healthcare provider right away if you have any of the following: Increased pain or swelling Foot or leg becomes cold, blue, numb or tingly Signs of infection: Warmth, drainage, or increased redness or pain around the bruise Inability to move the injured foot Frequent bruising for unknown reasons [id number] [employer] [address] [place] [id number]. All rights reserved. This information is not intended as a substitute for professional medical care. Always follow yourhealthcare professional's instructions. Follow Up Care 01/22/2023 17:45:20 With:Go to emergency room if symptoms worsen Address:Unknown When:2-4 days With:DO LIBRA HAIRSTON DO Address: [address] [place] [phone] When:2-4 days [facility] 09-30-2023 Note Discharge Instructions Thank you for allowing [facility] to assist you with your healthcare needs. The following is importantdischarge information regarding your hospital visit. Diagnosis from Today's Visit Foot pain-swelling What to Do Next Instructions from Your Care Team Discharge Home Equipment - Ordered -- Post-op shoe, 99 month(s), 01/22/23 18:41:00 EDT Post Acute Orders No qualifying data available. You Need to Schedule the Following Appointments Follow Up with Go to emergency room if symptoms worsen When Within 2-4 days Follow Up with DO LIBRA HAIRSTON DO When Within 2-4 days Where: [address] [place] [phone] Allergies Compazine Eggs Fluzone (Unknown) Neurontin hydroCHLOROthiazide (Magnesium deficiency) Medications Please ask your primary doctor or pharmacist before taking any other medication not listed, including over the counter drugs, herbal medications, vitamins and or supplements as they may interact withyour home medications. Please take this list to your next doctor s visit. Bring all medications you take, including over the counter medications, herbals and other supplements with you to your doctor s visit. Patients and families are reminded to discard old lists and to update any records with all medication providers or retail pharmacies. Education Materials Foot Contusion You have a contusion. This is also called a bruise. There is swelling and some bleeding under the skin, but no broken bones. This injury generally takes a few days to a few weeks to heal. During thattime, the bruise will typically change in color from reddish, to purple-blue, to greenish-yellow, then to yellow-brown. Home care Elevate the foot to reduce pain and swelling. As much as possible, sit or lie down with the foot raised about the level of your heart. This is especially important during the first 48 hours. Ice the foot to help reduce pain and swelling. Wrap a cold source (ice pack or ice cubes in a plastic bag) in a thin towel. Apply to the bruised area for 20 minutes every 1 to 2 hours the first day. Continue this 3 to 4 times a day until the pain and swelling goes away. Unless another medicine was prescribed, you can take acetaminophen, ibuprofen, or naproxen to control pain. (If you have chronic liver or kidney disease or ever had a stomach ulcer or gastrointestinal bleeding, talk with your healthcare provider before using these medicines.) Follow up Follow up with your healthcare provider or our staff as advised. Call if you are not improving within 1 to 2 weeks. When to seek medical advice Call your healthcare provider right away if you have any of the following: Increased pain or swelling Foot or leg becomes cold, blue, numb or tingly Signs of infection: Warmth, drainage, or increased redness or pain around the bruise Inability to move the injured foot Frequent bruising for unknown reasons [phone] [employer]. [address] [place] [address]. All rights reserved. This information is not intended as a substitute for professional medical care. Always follow yourhealthcare professional's instructions. Additional Information VACCINATE! IT SAVES LIVES! Members of the community who have not yet received the COVID-19 vaccine and would like to receive it can visit one of [facility] vaccine clinics. There are many vaccine clinic locations within the [facility]. For locations and available times, please visit www.[email or web address].[place].gov/. It is important to note that some COVID mobile vaccine clinics are held outdoors and may be canceled in rainy or stormy conditions. To learn more about pediatric vaccinations (ages 5-11), we invite you to visit the [facility] webpage. https://www.[facility].org/pages/4665-Ldglu-Arilprjniuw-Mmdpjgysxv-Xybui-Sge stions.htmlTo learn more about the COVID-19 vaccine, we invite you to visit the CDC website for a list of frequently asked questions. https://www.cdc.gov/coronavirus/2019-ncov/vaccines/faq.html [facility] Patient Portal Access Instructions: Stay connected with your healthcare team and access your personal medical information anytime with the [facility] Patient Portal. If you would like a full copy of your medical records please contact the [facility] Medical Records Department Tuesday through Tuesday between 8a.m. and 4:30p.m. Please follow the directions below to access the portal: 1.Access the email account you provided upon registration to the [facility].2.Look for an invitation email from [facility].3.Open the email and access the invitation link: Accept Invitation to [facility]4.Fill in the required benito to create your account. Sign into www.[facility] with your username and password that you created in the above steps to stay up to date. You can then view a summary of results, a summary of your visits, and the ability to download your summaries to your computer or send the information securely to a physician. Remember that your healthcare information is confidential, so carefully consider who you will allow to register on the [facility] Patient Portal for access to your information. You can also access the [facility] Patient Portal on the [employer] rachael. Simply click on Health Records under [employer] and then click on the [employer] logo. HOW TO SAFELY DISPOSE OF PRESCRIPTION MEDICATIONS Please use one of the following methods to safely dispose of your unused medications. 1.Use a drug disposal kit: the drug disposal pouch allows you to safely discard your old and unuseddrugs. Ask your nurse to give you one when you are discharged.2.Visit a local take-back location: Many local pharmacies and police departments have programs that collect old and unwanted prescriptiondrugs. Call your local pharmacy or go to http://bit.Redux/1M9Jg9v to find one close to you.3.Make use of household items: Use cat litter or old coffee grounds to dispose medications if other options arenot available. Mix your drugs with these household products, seal them in an airtight container andthrow it into the garbage. Call [facility]: [phone] to be sure your drugs can be disposed of in this way. Some medicines may require a different approach.4.Never flush your medications down the toilet. IF YOU HAVE BEEN PRESCRIBED AN OPIOIDS FOR PAIN If you have been prescribed an opioid (such as hydrocodone, oxycodone or morphine), it is critical to understand the possible side effects and risks of opioid pain medications. Even when taken as directed, opioids can have several side effects including: Tolerance, meaning you might need to take more of a medication for the same pain relief. Nausea, vomiting and/or constipation. Sleepiness, dizziness, dry mouth, confusion, depression or itching. Physical dependence, meaning you have withdrawal symptoms when a medication is stopped ? this can develop within a few days. KNOW YOUR RESPONSIBILITIES It is important to know exactly how much and how often to take the opioid pain medications you are prescribed. Never take opioids in higher amounts or more often than prescribed. Do not combine opioids with alcohol or other drugs that cause drowsiness, such as benzodiazepines, also known as benzos,including diazepam and alprazolam, muscle relaxants or sleep aids. Never sell or share prescriptionopioids. This is illegal. Store opioids in a secure place and out of reach of others (including children, family, friends and visitors). The last page(s) of this document has been signed and retained as a CHART COPY Signatures Patient Education Materials Foot Contusion Medication Leaflets My discharge plan and instructions have been reviewed and explained to me and I,BERE ORTEGA understand my current condition and have read and understand these discharge instructions. I have receiveda written copy of the plan/instructions. If I have questions, I am aware that I should contact my do ctor. Patient/Card Services Specialist Signature: Date/Time: Relationship to Patient: Witness Name/Signature: Date/Time: [facility]09-30-2023 Note ORIGINAL EXAMINATION: THREE XRAY VIEWS OF THE LEFT FOOT 01/22/2023 6:14 pm COMPARISON: None. HISTORY: ORDERING SYSTEM PROVIDED HISTORY: Reason for Exam: injury FINDINGS: No acute fracture or dislocation. Small accessory ossicle proximal to the medial navicular. Mild degenerative changes of the tibiotalar joint. Calcaneal enthesophytes at the insertion of the Achilles tendon and plantar fascia. Dorsal soft tissue swelling. No radiopaque foreign body. IMPRESSION: No acute osseous abnormality. I have personally reviewed the images of this examination and agree with the resident's findings and interpretation. Interpreted by: Cristian Crystal Preliminary Report By: Brittany Null Electronically signed By Cristian Crystal Dictated Date: 01/22/2023 6:19:06 PM Prelim Date: 01/22/2023 6:21:34 PM Sign Date: 01/22/2023 6:25:37 PM Ordering Provider: [facility]07-23-2023 Hospital Discharge instructions Patient Education 11/14/2022 09:20:37 Depression Depression Depression is one of the most common mental health problems today. It is not just a state of unhappiness or sadness. It is a true disease. The cause seems to be related to a decrease in chemicals that transmit signals in the brain. Having a family history of depression, alcoholism, or suicide increases the risk. Chronic illness, chronic pain, migraine headaches, and high emotional stress also increase the risk. Depression is something we tend to recognize in others, but may have a hard time seeing in ourselves. It can show in many physical and emotional ways: Loss of appetite Overeating Not being able to sleep Sleeping too much Tiredness not related to physical exertion Restlessness or irritability Slowness of movement or speech Feeling depressed or withdrawn Loss of interest in things you once enjoyed Trouble concentrating, poor memory, trouble making decisions Thoughts of harming or killing oneself, or thoughts that life is not worth living Low self-esteem The treatment for depression may include both medicine and psychotherapy. Antidepressants can reduce suffering and can improve the ability to function during the depressed period. Therapy can offer emotional support and help you understand emotional factors that may be causing the depression. Home care Ongoing care and support help people manage this disease. Find a healthcare provider and therapist who meet your needs. Seek help when you feel like you may be getting ill. Be kind to yourself. Make it a point to do things that you enjoy (gardening, walking in nature, going to a movie). Reward yourself for small successes. Take care of your physical body. Eat a balanced diet (low in saturated fat and high in fruits and vegetables). Exercise at least 3 times a week for 30 minutes. Even mild-moderate exercise (like briskwalking) can make you feel better. Don't drink alcohol, which can make depression worse. Take medicine as prescribed. Tell each of your healthcare providers about all of the prescription and jlwc-moz-ebjwmka medicines, vitamins, and supplements you take. Certain supplements interact with medicines and can result in dangerous side effects. Ask your pharmacist when you have questions about medicine interactions. Talk with your family and trusted friends about your feelings and thoughts. Ask them to help you recognize behavior changes early so you can get help and, if needed, medicine can be adjusted. Follow-up care Follow up with your healthcare provider, or as advised. Call 911 Call 911 if you: Have suicidal thoughts, a suicide plan, and the means to carry out the plan; or serious thoughts ofhurting someone else Have trouble breathing Are very confused Feel very drowsy or have trouble awakening Faint or lose consciousness Have new chest pain that becomes more severe, lasts longer, or spreads into your shoulder, arm, neck, jaw, or back When to seek medical advice Call your healthcare provider right away if any of these happen: Feeling extreme depression, fear, anxiety, or anger toward yourself or others Feeling out of control Feeling that you may try to harm yourself or another Hearing voices that others do not hear Seeing things that others do not see Can t sleep or eat for 3 days in a row Friends or family express concern over your behavior and ask you to seek help [phone] [employer]. [address] [place] [address], [place] [address]. All rights reserved. This information is not intended as a substitute for professional medical care. Always follow yourhealthcare professional's instructions. Follow Up Care 11/14/2022 06:03:59 With:[facility] Address: When:2-4 days [facility] 07-23-2023 Note Discharge Instructions Thank you for allowing [facility] to assist you with your healthcare needs. The following is importantdischarge information regarding your hospital visit. Diagnosis from Today's Visit Depression, Depression Depression What to Do Next Instructions from Your Care Team No qualifying data available. Post Acute Orders No qualifying data available. You Need to Schedule the Following Appointments Follow Up with [facility] When Within 2-4 days Where: Allergies Compazine Eggs Fluzone (Unknown) Neurontin hydroCHLOROthiazide (Magnesium deficiency) Medications Please ask your primary doctor or pharmacist before taking any other medication not listed, including over the counter drugs, herbal medications, vitamins and or supplements as they may interact withyour home medications. What How Much When Why Instructions Last Dose Unchanged albuterol (albuterol MDI (90 mcg/ inh) CFC free inhalation aerosol) 2 puff(s) by inhalation Every 6 hours Asthma without acute exacerbation Seasonal allergies Duration: 30 Days Unchanged albuterol-ipratropium (albuterol-ipratropium 2.5 mg-0.5 mg/ 3 mL inhalation solution) 3 Milliliter by inhalation Every 4 hours Asthma without acute exacerbation Unchanged cetirizine (Zyrtec 10 mg oral tablet) 1 tab(s) by mouth Once a day Seasonal allergies Unchanged cholecalciferol (Vitamin D3 1250 mcg (50,000 intl units) oral capsule) 1 cap by mouth Twice a week Vitamin D deficiency Unchanged cyanocobalamin (cyanocobalamin 1000 mcg oral tablet) 1 tab(s) by mouth Once a day Vitamin B12 deficiency Unchanged DULoxetine (Cymbalta 20 mg oral delayed release capsule) 1 cap by mouth Two (2) times a day Anxiety and depression inform patient to start at this dose please Unchanged fluticasone nasal (Flonase 50 mcg/ inh nasal spray) 2 spray(s) each nostril Once a day Seasonal allergies Duration: 90 Days Unchanged rOPINIRole (rOPINIRole 1 mg oral tablet) 1 tab(s) by mouth Daily at bedtime Restless leg syndrome Please take this list to your next doctor s visit. Bring all medications you take, including over the counter medications, herbals and other supplements with you to your doctor s visit. Patients and families are reminded to discard old lists and to update any records with all medication providers or retail pharmacies. Education Materials Depression Depression is one of the most common mental health problems today. It is not just a state of unhappiness or sadness. It is a true disease. The cause seems to be related to a decrease in chemicals that transmit signals in the brain. Having a family history of depression, alcoholism, or suicide increases the risk. Chronic illness, chronic pain, migraine headaches, and high emotional stress also increase the risk. Depression is something we tend to recognize in others, but may have a hard time seeing in ourselves. It can show in many physical and emotional ways: Loss of appetite Overeating Not being able to sleep Sleeping too much Tiredness not related to physical exertion Restlessness or irritability Slowness of movement or speech Feeling depressed or withdrawn Loss of interest in things you once enjoyed Trouble concentrating, poor memory, trouble making decisions Thoughts of harming or killing oneself, or thoughts that life is not worth living Low self-esteem The treatment for depression may include both medicine and psychotherapy. Antidepressants can reduce suffering and can improve the ability to function during the depressed period. Therapy can offer emotional support and help you understand emotional factors that may be causing the depression. Home care Ongoing care and support help people manage this disease. Find a healthcare provider and therapist who meet your needs. Seek help when you feel like you may be getting ill. Be kind to yourself. Make it a point to do things that you enjoy (gardening, walking in nature, going to a movie). Reward yourself for small successes. Take care of your physical body. Eat a balanced diet (low in saturated fat and high in fruits and vegetables). Exercise at least 3 times a week for 30 minutes. Even mild-moderate exercise (like briskwalking) can make you feel better. Don't drink alcohol, which can make depression worse. Take medicine as prescribed. Tell each of your healthcare providers about all of the prescription and embm-ydg-xewunwr medicines, vitamins, and supplements you take. Certain supplements interact with medicines and can result in dangerous side effects. Ask your pharmacist when you have questions about medicine interactions. Talk with your family and trusted friends about your feelings and thoughts. Ask them to help you recognize behavior changes early so you can get help and, if needed, medicine can be adjusted. Follow-up care Follow up with your healthcare provider, or as advised. Call 911 Call 911 if you: Have suicidal thoughts, a suicide plan, and the means to carry out the plan; or serious thoughts ofhurting someone else Have trouble breathing Are very confused Feel very drowsy or have trouble awakening Faint or lose consciousness Have new chest pain that becomes more severe, lasts longer, or spreads into your shoulder, arm, neck, jaw, or back When to seek medical advice Call your healthcare provider right away if any of these happen: Feeling extreme depression, fear, anxiety, or anger toward yourself or others Feeling out of control Feeling that you may try to harm yourself or another Hearing voices that others do not hear Seeing things that others do not see Can t sleep or eat for 3 days in a row Friends or family express concern over your behavior and ask you to seek help [phone] [employer]. [address] [place] [address]. All rights reserved. This information is not intended as a substitute for professional medical care. Always follow yourhealthcare professional's instructions. Additional Information VACCINATE! IT SAVES LIVES! Members of the community who have not yet received the COVID-19 vaccine and would like to receive it can visit one of [facility] vaccine clinics. There are many vaccine clinic locations within the [facility]. For locations and available times, please visit www.[email or web address].[place].gov/. It is important to note that some COVID mobile vaccine clinics are held outdoors and may be canceled in rainy or stormy conditions. To learn more about pediatric vaccinations (ages 5-11), we invite you to visit the [facility] webpage. https://www.[facility].org/pages/0558-Vbdzq-Tqscbjfpunj-Xbomhulsol-Wsveu-Upy stions.htmlTo learn more about the COVID-19 vaccine, we invite you to visit the CDC website for a list of frequently asked questions. https://www.cdc.gov/coronavirus/2019-ncov/vaccines/faq.html [facility] Patient Portal Access Instructions: Stay connected with your healthcare team and access your personal medical information anytime with the [facility] Patient Portal. If you would like a full copy of your medical records please contact the [facility] Medical Records Department Tuesday through Tuesday between 8a.m. and 4:30p.m. Please follow the directions below to access the portal: 1.Access the email account you provided upon registration to the [facility].2.Look for an invitation email from [facility].3.Open the email and access the invitation link: Accept Invitation to [facility]4.Fill in the required benito to create your account. Sign into www.[facility] with your username and password that you created in the above steps to stay up to date. You can then view a summary of results, a summary of your visits, and the ability to download your summaries to your computer or send the information securely to a physician. Remember that your healthcare information is confidential, so carefully consider who you will allow to register on the [facility] Patient Portal for access to your information. You can also access the [facility] Patient Portal on the [employer]. Simply click on Health Records under [employer] and then click on the [facility] logo. HOW TO SAFELY DISPOSE OF PRESCRIPTION MEDICATIONS Please use one of the following methods to safely dispose of your unused medications. 1.Use a drug disposal kit: the drug disposal pouch allows you to safely discard your old and unuseddrugs. Ask your nurse to give you one when you are discharged.2.Visit a local take-back location: Many local pharmacies and police departments have programs that collect old and unwanted prescriptiondrugs. Call your local pharmacy or go to http://mytheresa.com.Redux/0R8Yf9m to find one close to you.3.Make use of household items: Use cat litter or old coffee grounds to dispose medications if other options arenot available. Mix your drugs with these household products, seal them in an airtight container andthrow it into the garbage. Call [facility]: [phone] to be sure your drugs can be disposed of in this way. Some medicines may require a different approach.4.Never flush your medications down the toilet. IF YOU HAVE BEEN PRESCRIBED AN OPIOIDS FOR PAIN If you have been prescribed an opioid (such as hydrocodone, oxycodone or morphine), it is critical to understand the possible side effects and risks of opioid pain medications. Even when taken as directed, opioids can have several side effects including: Tolerance, meaning you might need to take more of a medication for the same pain relief. Nausea, vomiting and/or constipation. Sleepiness, dizziness, dry mouth, confusion, depression or itching. Physical dependence, meaning you have withdrawal symptoms when a medication is stopped ? this can develop within a few days. KNOW YOUR RESPONSIBILITIES It is important to know exactly how much and how often to take the opioid pain medications you are prescribed. Never take opioids in higher amounts or more often than prescribed. Do not combine opioids with alcohol or other drugs that cause drowsiness, such as benzodiazepines, also known as benzos,including diazepam and alprazolam, muscle relaxants or sleep aids. Never sell or share prescriptionopioids. This is illegal. Store opioids in a secure place and out of reach of others (including children, family, friends and visitors). The last page(s) of this document has been signed and retained as a CHART COPY Signatures Patient Education Materials Depression Medication Leaflets My discharge plan and instructions have been reviewed and explained to me and I,BERE ORTEGA understand my current condition and have read and understand these discharge instructions. I have receiveda written copy of the plan/instructions. If I have questions, I am aware that I should contact my do ctor. Patient/Card Services Specialist Signature: Date/Time: Relationship to Patient: Witness Name/Signature: Date/Time: [facility]07-23-2023 NoteSinus rhythm Low voltage, precordial leads RSR' in V1 or V2, right VCD or RVH Electronic Signature: CLAUDIA OROZCO MD 11/14/2022 06:46:06[facility] 07-23-2023 SARS-CoV-2 (COVID-19) RNA EMMETT+probe Ql (Nph) Negative *NA* (11/14/22 6:33 AM)AO Auto Urine [id number] Emergency department Note* Zuleyma Mcqueen RN - 10/09/2022 1:48 PM EDT Discharge instructions, follow up care, and pain management discussed with patient. All questions answered, there are no further questions at this time. RN educated patient on newly prescribed medication including dose, use, and side effects. Patient verbalized understanding. Patient ambulated off the unit independently at discharge. Zuleyma Mcqueen RN 10/09/22 1347 [id number] Emergency department Note* Zuleyma Mcqueen RN - 10/09/2022 1:48 PM EDT Discharge instructions, follow up care, and pain management discussed with patient. All questions answered, there are no further questions at this time. RN educated patient on newly prescribed medication including dose, use, and side effects. Patient verbalized understanding. Patient ambulated off the unit independently at discharge. Zuleyma Mcqueen RN 10/09/22 1346 * Conner Rueda DO - 10/09/2022 12:28 PM EDT EMERGENCY DEPARTMENT ENCOUNTER Pt Name: Bere Ortega Birthdate 1975 Date of evaluation: 10/09/2022 ED Provider: Conner Rueda DO CHIEF COMPLAINT Chief Complaint Patient presents with Fever Sore Throat Fever, sore throat, body aches/chills for 2 days, has been taking OTC medications, highest recordedtemperature at home 102.4 HISTORY OF PRESENT ILLNESS (Location/Symptom, Timing/Onset, Context/Setting, Quality, Duration, Modifying Factors, Severity) Note limiting factors. I wore appropriate PPE for the entirety of this encounter. HPI Bere Ortega is a 47 y.o. female who presents to the emergency department with fevers, chills, sore throat, congestion, cough. The patient is currently day 3 of symptoms. The patient reports that cough is nonproductive of sputum. The patient admits to a history of lupus, she reports not taking any medication for it. Nursing Notes were reviewed. Limitations to history: Outside historians: REVIEW OF SYSTEMS Review of Systems Constitutional: Positive for chills and fever. HENT: Positive for congestion and sore throat. Respiratory: Positive for cough. PAST MEDICAL HISTORY Past Medical History: Diagnosis Date Anemia Anxiety Arthralgia Asthma mild Pal's esophagus Bulging discs lumbar DDD (degenerative disc disease) Lumbar Depression Diabetes (HCC) Diarrhea Dyslipidemia Eczema Dyshidrotic eczema, hands and feet Encounter for pain management counseling following physician in [place] Eosinophilic esophagitis [facility] Fibromyalgia GERD (gastroesophageal reflux disease) H. pylori infection IUD (intrauterine device) in place Lupus (CMS/HCC) (HCC) Migraines Neoplasm of uncertain behavior of skin Nevus Right cheek-R/O Atypical nevus. Right dorsal foot-R/O Atypical nevus. Rectal bleeding Restless leg syndrome Screening for skin cancer [facility] Dermatology Dr. Crabtree Spinal stenosis Well woman exam 04/2014 Dr. Patrick SURGICAL HISTORY Past Surgical History: Procedure Laterality Date CARPAL TUNNEL RELEASE 2000 COLONOSCOPY GALLBLADDER SURGERY 2004 HYSTERECTOMY 04/2014 still has ovaries ; Dr. Patrick KNEE SURGERY 1997 SKIN BIOPSY 03/2015 left hand, right foot Dr. Crabtree CURRENT MEDICATIONS Previous Medications No medications on file ALLERGIES Codeine, Eggs or egg-derived products, Gabapentin, Hydrochlorothiazide, Influenza virus vaccine, and Pneumococcal vaccine FAMILY HISTORY Family History Problem Relation Name Age of Onset Kidney disease Mother 70 renal failure Cancer Mother 70 Heart disease Mother 70 CHF Diabetes Mother 70 Diabetes Father Cancer Father colon Cancer Maternal Grandfather colon SOCIAL HISTORY Social History Socioeconomic History Marital status: Single Tobacco Use Smoking status: Former Packs/day: 1.00 Types: Cigarettes Smokeless tobacco: Never Tobacco comments: Quit smoking: pt states quit 4months ago Substance and Sexual Activity Alcohol use: Yes Alcohol/week: 0.0 standard drinks of alcohol Drug use: No SCREENINGS PHYSICAL EXAM ED Triage Vitals Temp Pulse Resp BP -- -- -- -- SpO2 Temp src Heart Rate Source Patient Position -- -- -- -- BP Location FiO2 (%) -- -- Physical Exam Constitutional: General: She is not in acute distress. HENT: Head: Normocephalic. Mouth/Throat: Mouth: Mucous membranes are moist. Pharynx: Posterior oropharyngeal erythema present. No oropharyngeal exudate. Eyes: Conjunctiva/sclera: Conjunctivae normal. Pulmonary: Effort: Pulmonary effort is normal. Abdominal: General: Abdomen is flat. Tenderness: There is no abdominal tenderness. Musculoskeletal: General: No deformity. Skin: General: Skin is warm and dry. Psychiatric: Mood and Affect: Mood normal. DIAGNOSTIC RESULTS RADIOLOGY (Per Emergency Physician): Interpretation per the Radiologist below, if available at the time of this note: XR chest 1 view Final Result No acute process. Report Dictated on Electronically Signed By: Jesse Guidry Electronically Signed Date/Time: 10/09/2022 1:11 PM EDT LABS: Labs Reviewed GROUP A STREP SCREEN BY PCR - Abnormal Result Value Group A Strep Screen Detected (*) Narrative: Methodology: real-time PCR SARS-COV-2, FLU A/B, AND RSV COMBO - Normal SARS-CoV-2 Not Detected Respiratory Syncytial Virus Not Detected Influenza A Not Detected Influenza B Not Detected Narrative: Methodology: real-time, RT-PCR The SARS-CoV-2, Flu A/B, and RSV Combo assay is intended for in vitro diagnostic use under the FDA Emergency Use Authorization (EUA). This test has not been FDA cleared or approved. In compliance with this authorization, please visit www.fda.gov/media/607998/download or www.fda.gov/media/655369/download to access the applicable information sheets. All other labs were within normal range or not returned as of this dictation. EMERGENCY DEPARTMENT COURSE and DIFFERENTIAL DIAGNOSIS/MDM: Vitals: Vitals: 10/09/22 1243 BP: 128/79 Pulse: 96 Resp: 17 Temp: 36.8 C (98.2 F) TempSrc: Oral SpO2: 98% Weight: 122 kg (270 lb) Height: 1.651 m (5' 5) Medications - No data to display MDM The patient presented with chief complaint of fevers, chills, cough, congestion, sore throat. The patient appears well, no acute distress, vitals are stable. See physical exam above. Differential diagnosis includes but is not limited to URI, COVID-19, strep throat, pneumonia. See orders. To aid in management, I performed an independent interpretation of all laboratory tests, EKG, imaging, and other diagnostics ordered. Viral swab is negative. Strep swab is positive. Chest x-ray is negative for focal infiltrate as interpreted by me, see radiologist report for details. Given the patient has pharyngitis, she will be treated for strep infection. The patient will be discharged with antibiotic prescription as below andgiven close follow-up to PCP. She was instructed to return back to the emergency department if her symptoms change or worsen. The patient demonstrated general understanding and was agreeable with themedical plan. I Conner Rueda DO am the respiratory clinician of record. PROCEDURES: Unless otherwise noted below, none Procedures FINAL IMPRESSION 1. Strep pharyngitis DISPOSITION Discharge 10/09/2022 01:43:04 PM PATIENT REFERRED TO: Sid Alvarez DO [address] [facility] [address] [facility] ED [address] [facility] [id number] DISCHARGE MEDICATIONS: New Prescriptions AMOXICILLIN (AMOXIL) 500 MG CAPSULE Take 2 capsules (1,000 mg) by mouth daily for 10 days. (Comment: Please note this report has been produced using speech recognition software and may contain errors related to that system including errors in grammar, punctuation, and spelling, as well as words and phrases that may be inappropriate. If there are any questions or concerns please feel freeto contact the dictating provider for clarification.) Conner Rueda DO (electronically signed) Emergency Medicine Provider Conner Rueda DO 10/09/22 1346 * Zuleyma Mcqueen RN - 10/09/2022 12:28 PM EDT Patient ambulatory to room 6 presenting with fever, sore throat, body aches and chills for two days. Patient has been taking over the counter Dayquil and tylenol for fever at home, highest recorded temperature at home was last night 102.4. Patient reports difficulty swallowing due to sore throat. In triage patient is afebrile and vital signs are stable. Patient reports no known exposure to anyonewho has been sick, has not been tested for COVID or the flu recently. Patient reports that she is non-compliant with medications at home for restless leg syndrome and allergies. Family is bedside, call light in reach. Patient is a daily smoker and smokes half a pack of cigarettes a day. documented in this [facility]06-17-2023 Emergency department Triage note* Zuleyma Mcqueen RN - 10/09/2022 12:28 PM EDT Patient ambulatory to room 6 presenting with fever, sore throat, body aches and chills for two days. Patient has been taking over the counter Dayquil and tylenol for fever at home, highest recorded temperature at home was last night 102.4. Patient reports difficulty swallowing due to sore throat. In triage patient is afebrile and vital signs are stable. Patient reports no known exposure to anyonewho has been sick, has not been tested for COVID or the flu recently. Patient reports that she is non-compliant with medications at home for restless leg syndrome and allergies. Family is bedside, call light in reach. Patient is a daily smoker and smokes half a pack of cigarettes a day. [id number] Physician Emergency department Note* Conner Rueda DO - 10/09/2022 12:28 PM EDT EMERGENCY DEPARTMENT ENCOUNTER Pt Name: Bere Ortega Birthdate 1975 Date of evaluation: 10/09/2022 ED Provider: Conner Rueda DO CHIEF COMPLAINT Chief Complaint Patient presents with Fever Sore Throat Fever, sore throat, body aches/chills for 2 days, has been taking OTC medications, highest recordedtemperature at home 102.4 HISTORY OF PRESENT ILLNESS (Location/Symptom, Timing/Onset, Context/Setting, Quality, Duration, Modifying Factors, Severity) Note limiting factors. I wore appropriate PPE for the entirety of this encounter. HPI Bere Ortega is a 47 y.o. female who presents to the emergency department with fevers, chills, sore throat, congestion, cough. The patient is currently day 3 of symptoms. The patient reports that cough is nonproductive of sputum. The patient admits to a history of lupus, she reports not taking any medication for it. Nursing Notes were reviewed. Limitations to history: Outside historians: REVIEW OF SYSTEMS Review of Systems Constitutional: Positive for chills and fever. HENT: Positive for congestion and sore throat. Respiratory: Positive for cough. PAST MEDICAL HISTORY Past Medical History: Diagnosis Date Anemia Anxiety Arthralgia Asthma mild Pal's esophagus Bulging discs lumbar DDD (degenerative disc disease) Lumbar Depression Diabetes (HCC) Diarrhea Dyslipidemia Eczema Dyshidrotic eczema, hands and feet Encounter for pain management counseling following physician in [place] Eosinophilic esophagitis [facility] Fibromyalgia GERD (gastroesophageal reflux disease) H. pylori infection IUD (intrauterine device) in place Lupus (CMS/HCC) (HCC) Migraines Neoplasm of uncertain behavior of skin Nevus Right cheek-R/O Atypical nevus. Right dorsal foot-R/O Atypical nevus. Rectal bleeding Restless leg syndrome Screening for skin cancer [facility] Dermatology Dr. Crabtree Spinal stenosis Well woman exam 04/2014 Dr. Patrick SURGICAL HISTORY Past Surgical History: Procedure Laterality Date CARPAL TUNNEL RELEASE 2000 COLONOSCOPY GALLBLADDER SURGERY 2004 HYSTERECTOMY 04/2014 still has ovaries ; Dr. Patrick KNEE SURGERY 1998 SKIN BIOPSY 03/2015 left hand, right foot Dr. Crabtree CURRENT MEDICATIONS Previous Medications No medications on file ALLERGIES Codeine, Eggs or egg-derived products, Gabapentin, Hydrochlorothiazide, Influenza virus vaccine, and Pneumococcal vaccine FAMILY HISTORY Family History Problem Relation Name Age of Onset Kidney disease Mother 70 renal failure Cancer Mother 70 Heart disease Mother 70 CHF Diabetes Mother 70 Diabetes Father Cancer Father colon Cancer Maternal Grandfather colon SOCIAL HISTORY Social History Socioeconomic History Marital status: Single Tobacco Use Smoking status: Former Packs/day: 1.00 Types: Cigarettes Smokeless tobacco: Never Tobacco comments: Quit smoking: pt states quit 4months ago Substance and Sexual Activity Alcohol use: Yes Alcohol/week: 0.0 standard drinks of alcohol Drug use: No SCREENINGS PHYSICAL EXAM ED Triage Vitals Temp Pulse Resp BP -- -- -- -- SpO2 Temp src Heart Rate Source Patient Position -- -- -- -- BP Location FiO2 (%) -- -- Physical Exam Constitutional: General: She is not in acute distress. HENT: Head: Normocephalic. Mouth/Throat: Mouth: Mucous membranes are moist. Pharynx: Posterior oropharyngeal erythema present. No oropharyngeal exudate. Eyes: Conjunctiva/sclera: Conjunctivae normal. Pulmonary: Effort: Pulmonary effort is normal. Abdominal: General: Abdomen is flat. Tenderness: There is no abdominal tenderness. Musculoskeletal: General: No deformity. Skin: General: Skin is warm and dry. Psychiatric: Mood and Affect: Mood normal. DIAGNOSTIC RESULTS RADIOLOGY (Per Emergency Physician): Interpretation per the Radiologist below, if available at the time of this note: XR chest 1 view Final Result No acute process. Report Dictated on Electronically Signed By: Jesse Guidry Electronically Signed Date/Time: 10/09/2022 1:11 PM EDT LABS: Labs Reviewed GROUP A STREP SCREEN BY PCR - Abnormal Result Value Group A Strep Screen Detected (*) Narrative: Methodology: real-time PCR SARS-COV-2, FLU A/B, AND RSV COMBO - Normal SARS-CoV-2 Not Detected Respiratory Syncytial Virus Not Detected Influenza A Not Detected Influenza B Not Detected Narrative: Methodology: real-time, RT-PCR The SARS-CoV-2, Flu A/B, and RSV Combo assay is intended for in vitro diagnostic use under the FDA Emergency Use Authorization (EUA). This test has not been FDA cleared or approved. In compliance with this authorization, please visit www.fda.gov/media/910238/download or www.fda.gov/media/710244/download to access the applicable information sheets. All other labs were within normal range or not returned as of this dictation. EMERGENCY DEPARTMENT COURSE and DIFFERENTIAL DIAGNOSIS/MDM: Vitals: Vitals: 10/09/22 1243 BP: 128/79 Pulse: 96 Resp: 17 Temp: 36.8 C (98.2 F) TempSrc: Oral SpO2: 98% Weight: 122 kg (270 lb) Height: 1.651 m (5' 5) Medications - No data to display MDM The patient presented with chief complaint of fevers, chills, cough, congestion, sore throat. The patient appears well, no acute distress, vitals are stable. See physical exam above. Differential diagnosis includes but is not limited to URI, COVID-19, strep throat, pneumonia. See orders. To aid in management, I performed an independent interpretation of all laboratory tests, EKG, imaging, and other diagnostics ordered. Viral swab is negative. Strep swab is positive. Chest x-ray is negative for focal infiltrate as interpreted by me, see radiologist report for details. Given the patient has pharyngitis, she will be treated for strep infection. The patient will be discharged with antibiotic prescription as below andgiven close follow-up to PCP. She was instructed to return back to the emergency department if her symptoms change or worsen. The patient demonstrated general understanding and was agreeable with themedical plan. I Conner Rueda DO am the respiratory clinician of record. PROCEDURES: Unless otherwise noted below, none Procedures FINAL IMPRESSION 1. Strep pharyngitis DISPOSITION Discharge 10/09/2022 01:43:04 PM PATIENT REFERRED TO: Sid Alvarez DO [address] [facility] [address] [facility] [address] [facility] [id number] DISCHARGE MEDICATIONS: New Prescriptions AMOXICILLIN (AMOXIL) 500 MG CAPSULE Take 2 capsules (1,000 mg) by mouth daily for 10 days. (Comment: Please note this report has been produced using speech recognition software and may contain errors related to that system including errors in grammar, punctuation, and spelling, as well as words and phrases that may be inappropriate. If there are any questions or concerns please feel freeto contact the dictating provider for clarification.) Conner Rueda DO (electronically signed) Emergency Medicine Provider Conner Rueda DO 10/09/22 1346 [id number] Evaluation + Plan note Future Scheduled Tests Laboratory* Vitamin B12 Level 07/23/22 * Vitamin D Level 07/23/22 * Complete Metabolic Panel 11/18/21 [facility] 03-31-2023 Evaluation + Plan note Future Scheduled Tests Laboratory* Vitamin B12 Level 07/23/22 * Vitamin D Level 07/23/22 [facility] 03-31-2023 Evaluation + Plan note Future Scheduled Tests Laboratory* Vitamin B12 Level 07/23/22 * HIV 1/2 Ab 05/30/23 * Vitamin D Level 07/23/22 [facility] 11-22-2022 HCoV 229E RNA EMMETT+non-probe Ql (Nph)Not Detected *NA* (03/16/22 1:32 PM) Auto Viro/Sero [id number] Evaluation + Plan note Future Scheduled Tests Laboratory* Magnesium Level 10/20/21 * Complete Metabolic Panel 11/18/21 [facility] 06-23-2022 Hospital Discharge instructions Patient Education 10/14/2021 22:06:55 Hypertension, Established Established High Blood Pressure High blood pressure (hypertension) is a chronic disease. Often, healthcare providers don t know what causes it. But it can be caused by certain health conditions and medicines. If you have high blood pressure, you may not have any symptoms. If you do have symptoms, they may include headache, dizziness, changes in your vision, chest pain, and shortness of breath. But even without symptoms, high blood pressure that s not treated raises your risk for heart attack, heart failure, and stroke. High blood pressure is a serious health risk and shouldn t be ignored. Blood pressure measurements are given as 2 numbers. Systolic blood pressure is the upper number. This is the pressure when the heart contracts. Diastolic blood pressure is the lower number. This is the pressure when the heart relaxes between beats. You will see your blood pressure readings written together. For example, a person with a systolic pressure of 118 and a diastolic pressure of 78 will have 118/78 written in the medical record. Blood pressure is categorized as normal, elevated, or stage 1 or stage 2 high blood pressure: Normal blood pressure is systolic of less than 120 and diastolic of less than 80 (120/80) Elevated blood pressure is systolic of 120 to 129 and diastolic less than 80 Stage 1 high blood pressure is systolic is 130 to 139 or diastolic between 80 to 89 Stage 2 high blood pressure is when systolic is 140 or higher or the diastolic is 90 or higher Home care If you have high blood pressure, follow these home care guidelines to help lower your blood pressure. If you are taking medicines for high blood pressure, these methods may reduce or end your need for medicines in the future. Start a weight-loss program if you are overweight. Cut back on how much salt you get in your diet. Here s how to do this: oDon t eat foods that have a lot of salt. These include olives, pickles, smoked meats, and salted potato chips. oDon t add salt to your food at the table. oUse only small amounts of salt when cooking. Start an exercise program. Talk with your healthcare provider about the type of exercise program that would be best for you. It doesn't have to be hard. Even brisk walking for 20 minutes 3 times a week is a good form of exercise. Don t take medicines that stimulate the heart. This includes many gcza-gtd-lkjgacq cold and sinus decongestant pills and sprays, as well as diet pills. Check the warnings about high blood pressure onthe label. Before buying any acij-vjz-ufbqzgu medicines or supplements, always ask the pharmacist about the product's potential interaction with your high blood pressure and your high blood pressure medicines. Stimulants such as amphetamine or cocaine could be deadly for someone with high blood pressure. Never take these. Limit how much caffeine you get in your diet. Switch to caffeine-free products. Stop smoking. If you are a long-time smoker, this can be hard. Talk to your healthcare provider about medicines and nicotine replacement options to help you. Also, enroll in a stop-smoking program tomake it more likely that you will quit for good. Learn how to handle stress. This is an important part of any program to lower blood pressure. Learnabout relaxation methods like meditation, yoga, or biofeedback. If your provider prescribed medicines, take them exactly as directed. Missing doses may cause your blood pressure get out of control. If you miss a dose or doses, check with your healthcare provider or pharmacist about what to do. Consider buying an automatic blood pressure machine to check your blood pressure at home. Ask your provider for a recommendation. You can get one of these at most pharmacies. The [place] [employer] recommends the following guidelines for home blood pressure monitoring: Don't smoke or drink coffee for 30 minutes before taking your blood pressure. Go to the bathroom before the test. Relax for 5 minutes before taking the measurement. Sit with your back supported (don't sit on a couch or soft chair); keep your feet on the floor uncrossed. Place your arm on a solid flat surface (like a table) with the upper part of the arm at heartlevel. Place the middle of the cuff directly above the bend of the elbow. Check the monitor's instruction manual for an illustration. Take multiple readings. When you measure, take 2 to 3 readings one minute apart and record all of the results. Take your blood pressure at the same time every day, or as your healthcare provider recommends. Record the date, time, and blood pressure reading. Take the record with you to your next medical appointment. If your blood pressure monitor has a built-in memory, simply take the monitor with you to your next appointment. Call your provider if you have several high readings. Don't be frightened by a single high blood pressure reading, but if you get several high readings, check in with your healthcare provider. Note: When blood pressure reaches a systolic (top number) of 180 or higher OR diastolic (bottom number) of 110 or higher, seek emergency medical treatment. Follow-up care You will need to see your healthcare provider regularly. This is to check your blood pressure and to make changes to your medicines. Make a follow-up appointment as directed. Bring the record of yourhome blood pressure readings to the appointment. When to seek medical advice Call your healthcare provider right away if any of these occur: Blood pressure reaches a systolic (upper number) of 180 or higher OR a diastolic (bottom number) of110 or higher Chest pain or shortness of breath Severe headache Throbbing or rushing sound in the ears Nosebleed Sudden severe pain in your belly (abdomen) Extreme drowsiness, confusion, or fainting Dizziness or spinning sensation (vertigo) Weakness of an arm or leg or one side of the face You have problems speaking or seeing [id number] [employer]. [address] [place] [address], [place] [address]. All rights reserved. This information is not intended as a substitute for professional medical care. Always follow yourhealthcare professional's instructions. 10/14/2021 22:06:49 Hypokalemia Hypokalemia Hypokalemia means a low level of potassium in the blood. This most often occurs in people who take water pills (diuretics). It can also occur because of severe vomiting or diarrhea. You may also haveit if you take laxatives for long periods of time. It sometimes happens if you have low magnesium (hypomagnesemia). If you have this, your healthcare provider will treat the low magnesium first. A mild case of hypokalemia usually causes no symptoms. It is only found with blood testing. More severe potassium loss causes overall weakness, muscle or abdominal cramps, rapid or irregular heartbeats (heart palpitations), low blood pressure, and muscle weakness. Home care Take any potassium supplements as prescribed. Eat foods rich in potassium. The highest amount is found in avocado, baked potatoes, spinach, cantaloupe, cod, halibut, salmon, and scallops. White, red, or cooney beans are also very good sources. A modest amount of potassium is found in orange juice, bananas, carrots, and tomato juice. If you take certain types of diuretics, you will also need to take potassium supplements. If you take a diuretic, discuss potassium supplements with your doctor. Follow-up care Follow up with your healthcare provider for a repeat blood test within the next week, or as advisedby our staff. When to seek medical advice Call your healthcare provider right away if any of the following occur: Increased weakness, fatigue, or muscle cramps Dizziness Call 911 Call 911 if any of the following occur: Irregular heartbeat, extra beats, or very fast heart rate Loss of consciousness [phone] [employer]. [address] [place] [address]. All rights reserved. This information is not intended as a substitute for professional medical care. Always follow yourhealthcare professional's instructions. 10/14/2021 22:06:46 High Blood Sugar (Hyperglycemia) High Blood Sugar (Hyperglycemia) Too much sugar (glucose) in your blood is called high blood sugar (hyperglycemia). This can lead toa dangerous condition called ketoacidosis. In severe cases, it can lead to fluid loss (dehydration)and coma. Possible causes of high blood sugar Having a poor treatment plan for diabetes Being sick Being under stress Taking certain medicines, such as steroids Eating too much food, especially carbohydrates Being less active than normal Not taking enough diabetes medicine Symptoms of high blood sugar High blood sugar may not cause symptoms. If you do have symptoms, they may include: Thirst Frequent need to urinate Feeling tired or drowsy Nausea and vomiting Itchy, dry skin Blurry vision Fast breathing and breath that smells fruity Weakness Dizziness Wounds or skin infections that don t heal Unexplained weight loss if hyperglycemia lasts for more than a few days What to do Do the following: Check your blood sugar. Drink plenty of sugar-free, caffeine-free liquids such as water. Don t drink fruit juice. Check your blood sugar again every 4 hours. If you take insulin or diabetes medicines, follow your sick-day plan for taking medicine. Call your healthcare provider if you are not able to eat. Check your blood or urine for ketones as directed. Call your provider if your blood sugar and ketones don't go back to your target range. If the value is high, take your diabetes medicines as prescribed. And check your blood sugar more often. Doses of medicines such as insulin can be increased slightly if blood sugars stay high. But your provider must approve this. Preventing high blood sugar To help keep your blood sugar from getting too high: Control stress. When you're ill, follow your sick-day plan. Follow your meal plan. Eat only the amount of food on your meal plan. Stick to your exercise plan. Take your insulin or diabetes medicines as directed by your healthcare team. Also test your blood sugar as directed. If the plan is not working for you, discuss it with your healthcare provider. Other things to do Carry a medical ID card or a [employer] drive. Or wear a medical alert bracelet or necklace. It should say that you have diabetes. It should also say what to do in case you pass out or go into a coma. Make sure family, friends, and coworkers know the signs of high blood sugar. Tell them what to do if your blood sugar gets very high and you can t help yourself. Talk with your healthcare team about other things you can do to prevent high blood sugar. Special note: Drink plenty of sugar-free and caffeine-free liquids when you feel symptoms of hyperglycemia. Call your healthcare provider if you keep having episodes of high blood sugar. [phone] [employer]. [address] [place] [address], [place] [address]. All rights reserved. This information is not intended as a substitute for professional medical care. Always follow [facility] professional's instructions. 10/14/2021 22:06:42 Palpitations Heart Palpitations Palpitations are the feeling that your heart is beating hard, fast, or irregular. Some describe it as pounding or skipped beats. Palpitations may occur in someone with heart disease, but can alsooccur in a healthy person. Heart-related causes: Arrhythmia (a change from the heart's normal rhythm) Heart valve disease Disease of the heart muscle Coronary artery disease High blood pressure Fqq-qtqjl-xebqlei causes: Certain medicines such as asthma inhalers and decongestants Some herbal supplements, energy drinks and pills, and weight loss pills Illegal stimulant drugs such as cocaine, crank, methamphetamine, PCP, bath salts, or ecstasy Caffeine, alcohol, and tobacco Medical conditions such as thyroid disease, anemia, anxiety, and panic disorder Sometimes the cause can't be found. Home care Follow these home care tips: Don't use too much caffeine, alcohol, tobacco, or any stimulant drugs. Tell your doctor about any prescription or prwn-xka-syqawgh or herbal medicines you take. Follow-up care Follow up with your doctor, or as advised. Call 911 This is the fastest and safest way to get to the emergency department. The paramedics can also begin treatment on the way to the hospital, if needed. Don't wait until your symptoms are severe to call 911. These are reasons to call 911: Chest pain Shortness of breath Feeling lightheaded, faint, or dizzy Fainting or loss of consciousness Very irregular heartbeat Rapid heartbeat that makes you uncomfortable Slower than usual heart rate associated with symptoms Slower than usual heart rate Chest pain with weakness, dizziness, heavy sweating, nausea, or vomiting Extreme drowsiness or confusion Weakness of an arm or leg, or on 1 side of the face Difficulty with speech or vision When to seek medical advice Call your healthcare provider right away if you have palpitations and any of the following: Weakness Dizziness Lightheadedness Fainting [phone] [employer]. [address] [place] [address], [place] [address]. All rights reserved. This information is not intended as a substitute for professional medical care. Always follow yourhealthcare professional's instructions. Follow Up Care 10/14/2021 20:05:52 With:your pcp Address:Unknown When:2-4 days Comments:Schedule appointment as soon as possibleReturn to ED if symptoms worsenFollow up for lab review andrecheck and outpatient monitor. Take 400 mg magnesium citrate or oxide daily. Return for symptoms as described. Stop smoking now [facility] Discharge instructions Patient Education 04/19/2021 22:10:12 COVID-19 Prevent the Spread of COVID-19 If You Are Sick (09/11/2019)(CUSTOM) Prevent the Spread of COVID-19 If You Are Sick Accessible version: https://www.cdc.gov/coronavirus/2019-ncov/cm-zwm-uua-sick/gtxlt-mygi-kiln.html If you are sick with COVID-19 or think you might have COVID-19, follow the steps below to help protect other people in your home and community. Stay home except to get medical care. Stay home. Most people with COVID-19 have mild illness and are able to recover at home without medical care. Do not leave your home, except to get medical care. Do not visit public areas. Take care of yourself. Get rest and stay hydrated. Get medical care when needed. Call your doctor before you go to their office for care. But, if you have trouble breathing or other concerning symptoms, call 911 for immediate help. Avoid public transportation, ride-sharing, or taxis. Separate yourself from other people and pets in your home. As much as possible, stay in a specific room and away from other people and pets in your home. Also, you should use a separate bathroom, if available. If you need to be around other people or animalsin or outside of the home, wear a cloth face covering. See COVID-19 and Animals if you have questions about pets: https://www.cdc.gov/coronavirus/2019ncov/faq.html#VPPDD72bciajuz Monitor your symptoms. Common symptoms of COVID-19 include fever and cough. Trouble breathing is a more serious symptom that means you should get medical attention. Follow care instructions from your healthcare provider and local health department. Your local health authorities will give instructions on checking your symptoms and reporting information. If you develop emergency warning signs for COVID-19 get medical attention immediately. Emergency warning signs include*: Trouble breathing Persistent pain or pressure in the chest New confusion or not able to be woken Bluish lips or face *This list is not all inclusive. Please consult your medical provider for any other symptoms that are severe or concerning to you. Call 911 if you have a medical emergency. If you have a medical emergency and need to call 911, notify the rotary bar operator that you have or think you might have, COVID-19. If possible, put on a facemask before medical help arrives Call ahead before visiting your doctor. Call ahead. Many medical visits for routine care are being postponed or done by phone or telemedicine. If you have a medical appointment that cannot be postponed, call your doctor s office. This will help the office protect themselves and other patients. If you are sick, wear a cloth covering over your nose and mouth. You should wear a cloth face covering over your nose and mouth if you must be around other people or animals, including pets (even at home). You don t need to wear the cloth face covering if you are alone. If you can t put on a cloth face covering (because of trouble breathing for example), cover your coughs and sneezes in some other way.Try to stay at least 6 feet away from other people. This will help protect the people around you. Note: During the COVID-19 pandemic, medical grade facemasks are reserved for healthcare workers andsome first responders. You may need to make a cloth face covering using a scarf or bandana. Cover your coughs and sneezes. Cover your mouth and nose with a tissue when you cough or sneeze. Throw used tissues in a lined trash can. Immediately wash your hands with soap and water for at least 20 seconds. If soap and water are not available, clean your hands with an alcohol-based hand review consultant that contains at least 60% alcohol. Clean your hands often. Wash your hands often with soap and water for at least 20 seconds. This is especially important after blowing your nose, coughing, or sneezing; going to the bathroom; and before eating or preparing food. Use hand review consultant if soap and water are not available. Use an alcohol-based hand review consultant with atleast 60% alcohol, covering all surfaces of your hands and rubbing them together until they feel dry. Soap and water are the best option, especially if your hands are visibly dirty. \ Avoid touching your eyes, nose, and mouth with unwashed hands. Avoid sharing personal household items. Do not share dishes, drinking glasses, cups, eating utensils, towels, or bedding with other people in your home. Wash these items thoroughly after using them with soap and water or put them in the turret lathe operator. Clean all high-touch surfaces everyday. Clean and disinfect high-touch surfaces in your sick room and bathroom. Let someone else clean and disinfect surfaces in common areas, but not your bedroom and bathroom. If a caregiver or other person needs to clean and disinfect a sick person s bedroom or bathroom, they should do so on an as-needed basis. The caregiver/other person should wear a mask and wait as long as possible after the sick person has used the bathroom High-touch surfaces include phones, remote controls, counters, tabletops, doorknobs, bathroom fixtures, toilets, keyboards, tablets, and bedside tables. Clean and disinfect areas that may have blood, stool, or body fluids on them. Use household aviation safety technician and disinfectants. Clean the area or item with soap and water or another detergent if it is dirty. Then use a household disinfectant. Be sure to follow the instructions on the label to ensure safe and effective use of the product. Many products recommend keeping the surface wet for several minutes to ensure germs are killed. Many also recommend precautions such as wearing gloves and making sure you have good ventilation during use of the product. Most EPA-registered household disinfectants should be effective. How to discontinue home isolation. People with COVID-19 who have stayed home (home isolated) can stop home isolation under the following conditions: If you will not have a test to determine if you are still contagious, you can leave home after these three things have happened: You have had no fever for at least 72 hours (that is three full days of no fever without the use ofmedicine that reduces fevers) AND other symptoms have improved (for example, when your cough or shortness of breath has improved) AND at least 10 days have passed since your symptoms first appeared. If you will be tested to determine if you are still contagious, you can leave home after these three things have happened: You no longer have a fever (without the use of medicine that reduces fevers) AND other symptoms have improved (for example, when your cough or shortness of breath has improved) AND you received two negative tests in a row, 24 hours apart. Your doctor will follow CDC guidelines. In all cases, follow the guidance of your healthcare provider and local health department. The decision to stop home isolation should be made in consultation with your healthcare provider and state and local health departments. Local decisions depend on local circumstances. cdc.gov/coronavirus 04/19/2021 22:10:07 URI, Viral, No Abx (Adult) Viral Upper Respiratory Illness (Adult) You have a viral upper respiratory illness (URI), which is another term for the common cold. This illness is contagious during the first few days. It is spread through the air by coughing and sneezing. It may also be spread by direct contact (touching the sick person and then touching your own eyes, nose, or mouth). Frequent handwashing will decrease risk of spread. Most viral illnesses go away within 7 to 10 days with rest and simple home remedies. Sometimes the illness may last for several weeks. Antibiotics will not kill a virus, and they are generally not prescribed for this condition. Home care If symptoms are severe, rest at home for the first 2 to 3 days. When you resume activity, don't letyourself get too tired. Don't smoke. If you need help stopping, talk with your healthcare provider. Avoid being exposed to cigarette smoke (yours or others ). You may use acetaminophen or ibuprofen to control pain and fever, unless another medicine was prescribed. If you have chronic liver or kidney disease, have ever had a stomach ulcer or gastrointestinal bleeding, or are taking blood-thinning medicines, talk with your healthcare provider before using these medicines. Aspirin should never be given to anyone under 18 years of age who is ill with a viral infection or fever. It may cause severe liver or brain damage. Your appetite may be poor, so a light diet is fine. Stay well hydrated by drinking 6 to 8 glasses of fluids per day (water, soft drinks, juices, tea, or soup). Extra fluids will help loosen secretions in the nose and lungs. Qycw-udf-oejtutl cold medicines will not shorten the length of time you re sick, but they may be helpful for the following symptoms: cough, sore throat, and nasal and sinus congestion. If you take prescription medicines, ask your healthcare provider or pharmacist which ycjg-xda-oevhory medicines are safe to use. (Note: Don't use decongestants if you have high blood pressure.) Follow-up care Follow up with your healthcare provider, or as advised. When to seek medical advice Call your healthcare provider right away if any of these occur: Cough with lots of colored sputum (mucus) Severe headache; face, neck, or ear pain Difficulty swallowing due to throat pain Fever of 100.4 F (38 C) or higher, or as directed by your healthcare provider Call 911 Call 911 if any of these occur: Chest pain, shortness of breath, wheezing, or difficulty breathing Coughing up blood Very severe pain with swallowing, especially if it goes along with a muffled voice [phone] [employer]. [address] [place] [address]. All rights reserved. This information is not intended as a substitute for professional medical care. Always follow yourhealthcare professional's instructions. Follow Up Care 04/19/2021 20:28:01 With:SID ALVAREZ DO Address: When:2-4 days [facility] 01-13-2021 Evaluation + Plan note Future Scheduled Tests Radiology* XR Chest 2 Views (PA & Lateral) 05/07/20 [facility] Evaluation + Plan note Future Appointments Appointment Date:08/18/2021 09:30:00 AM Scheduled Provider:SID ALVAREZ DO Location:[facility] Appointment Type:PC OV Appointment Date:09/15/2021 09:15:00 AM Scheduled Provider:TINA RAMOS MD Location:[facility] PM Appointment Type:PM OV Future Scheduled Tests Radiology* XR Spine Cervical w/ Flex/Ext 6 + Views 07/21/21 [facility] Evaluation + Plan note Future Appointments Appointment Date:11/20/2021 09:30:00 AM Scheduled Provider:SID ALVAREZ DO Location:[facility] Appointment Type:PC OV Future Scheduled Tests Laboratory* Complete Metabolic Panel 11/18/21 [facility] Evaluation + Plan note Future Appointments Appointment Date:11/11/2021 09:15:00 AM Scheduled Provider: Location:[facility] Appointment Type:PC Nurse Injection Appointment Date:11/20/2021 09:30:00 AM Scheduled Provider:SID ALVAREZ DO Location:[facility] Appointment Type:PC OV Future Scheduled Tests Laboratory* Complete Metabolic Panel 11/18/21 [facility] Evaluation + Plan note Future Appointments Appointment Date:07/29/2022 11:30:00 AM Scheduled Provider:SID ALVAREZ DO Location:[facility] Appointment Type:PC OV Future Scheduled Tests Laboratory* Magnesium Level 10/20/21 * Complete Metabolic Panel 11/18/21 [facility] Evaluation + Plan note Future Appointments Appointment Date:12/08/2023 11:00:00 AM Scheduled Provider:SID ALVAREZ DO Location:[facility] Appointment Type:PC Wellness Annual Future Scheduled Tests Laboratory* Basic Metabolic Panel 11/21/23 * HIV 1/2 Ab 05/30/23 Radiology* NM Myocardial Spect Rest/Stress 09/06/23 [facility] Evaluation note* Diagnosis Strep pharyngitis- Primary [facility] Diagnosis Viral upper respiratory tract infection with cough- Primary Acute upper respiratory infections of unspecified site SOB (shortness of breath) Shortness of breath [facility] [place] noteNo assessment information availableWC[facility] Work Phone: [facility] note* Diagnosis Rib pain- Primary Chest pain, unspecified [facility] Narrative No data available for this section [facility] Hospital Discharge instructions No data available for this section [facility] Hospital Discharge instructions* Attachments The following attachments cannot be sent through Care Everywhere. * Bacterial Upper Respiratory Infection Discharge Instructions, Adult (Albanian) [facility] No data available for this section [facility] Reason for referral (narrative)* Diagnostic Procedure Only (Routine) - Pending Review Specialty Diagnoses / Procedures Referred By Contac t Referred To Contact XR IMAGING Diagnoses Rib pain Procedures XR RIBS/CHEST 3V AP RIB/OBLS/CXR LEFT RADEX RIBS UNI W/POSTEROANT CH MINIMUM 3 VIEWS Carmita Khan APRN.SLICING MACHINE FEEDER [address] [place] [address] [place] [id number] Referral ID Status Reason Start Date Expiration Date Visits Requested Visits Authorized [id number] Pending Review Auto-Generat ed Referral 08/11/2023 09/09/2024 1 1 [facility] Summary Purpose Family History No Family History Records Found Relationship Condition Age at Onset Recorded Date/T des mother Congestive heart failure Unknown Diabetes mellitus Unknown Myocardial infarction Unknown Hypertension Unknown Hypercholesterolemia Unknown Renal failure Unknown Cerebrovascular accident (CVA) Unknown father Malignant neoplasm Unknown Advance Directives No Advanced Directives Records Found Advance Directive Response Recorded Date/ Time Living Will No August 11, 2023 8:29pm Power of Numerical Control Tool Programmer No August 10 8:29pm Chief Complaint and Reason for Visit Chief Complaint CHEST OTHER Additional Source Comments INFORMATION SOURCE (unrecogn ized section and content) DATE CREATED AUTHOR 10/14/2017 [facility] DATE CREATED AUTHOR AUTHOR'S ORGANIZ ATION 10/19/2017 [facility] DATE CREATED AUTHOR AUTHOR'S ORGANIZ ATION 10/10/2018 [facility] DATE CREATED AUTHOR AUTHOR'S ORGANIZ ATION 10/09/2022 [facility] DATE CREATED AUTHOR AUTHOR'S ORGANIZ ATION 01/04/2023 [facility] DATE CREATED AUTHOR AUTHOR'S ORGANIZ ATION 08/12/2023 [facility] DATE CREATED AUTHOR AUTHOR'S ORGANIZ ATION 11/15/2023 [facility] ([place]) DATE CREATED AUTHOR AUTHOR'S ORGANIZ ATION 06/15/2024 [facility] DATE CREATED AUTHOR AUTHOR'S ORGANIZ ATION 10/05/2024 [facility] DATE CREATED AUTHOR AUTHOR'S ORGANIZ ATION 10/09/2024 [facility] nter Care Team (unrecognized sect ion and content) Damaged Freight Inspector Relationship Specialty Start Date End Date Sid Alvarez DO [address] [place] [address] PCP - General 10/10/18 Damaged Freight Inspector Relationship Specialty Start Date End Date Sid Alvarez DO [address] [place] [address] PCP - General 10/10/18 Damaged Freight Inspector Relationship Specialty Start Date End Date Sid Alvarez DO [address] [place] [address] PCP - General Family Medicine 05/03/19 Team Status: Active Member Role Status Dates Sid Sears DO Family Provider Active Dr. Sid Alvarez DO Primary Care Provider Active Team Status: Inactive Member Role Status Dates Dr. Sid Alvarez DO Primary Care Provider Active Dr. Samy Alarcon MD Emergency Provider Active Damaged Freight Inspector Relationship Specialty Start Date End Date Sid Alvarez DO [address] [place] [address] PCP - General Family Medicine 05/03/19 Care Team (unrecognized sect ion and content) Personnel Name: SID ALVAREZ DO Address: Address: [address] [place] [address] Personnel Name: SID ALVAREZ DO Address: Address: [address] [place] [address] Care Team Personnel Name: KIMSID DO Position: P4 Physician - Primary Care Member Role: Primary Care Physician Address: Address: [address] [place] [address] Care Team Related Persons Name: ZULMA FLORENTINO Name: NONE, NONE Care Team Personnel Name: SID ALVAREZ DO Position: P4 Physician - Primary Care Member Role: Primary Care Physician Address: Address: [address] [place] [address]- Care Team Related Persons Name: ZULMA FLORENTINO Name: NONE, NONE Reason for Visit (unrecogniz ed section and content) Reason Comments Fever Sore Throat Fever, sore throat, body aches/chills for 2 days, has been taking OTC medications, highest recorded temperature at home 102.4 Reason Comments Viral Syndrome Cough, sob, sneezing has been going on a week Reason Comments Rib Pain Started 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 Source Comments (unrecognize d section and content) In the event this informatio n is protected by the Federal Confidentiality of Alcohol and Drug Abuse Patient Records regulations: The Federal rules restrict any use of the information to criminally investigate or prosecute any alcohol or drug abuse patient.[facility] the event this information is protected by the Federal Confidentiality of Alcohol and Drug Abuse Patient Records regulations: The Federal rules restrict any use of the information to criminally investigate or prosecute any alcohol or drug abuse patient.[facility] Goals (unrecognized section and content) Goals may be documented in a n alternate section FOR RECORDS PERTAINING TO PATIENTS WHO ARE OR HAVE BEEN ENROLLED IN A CHEMICAL DEPENDENCY/SUBSTANCEABUSE PROGRAM, SOME INFORMATION MAY BE OMITTED. This clinical summary was aggregated from multiple sources. Caution should be exercised in using it in the provision of clinical care. This summary normalizes information from multiple sources, and as a consequence, information in this document may materially change the coding, format and clinical context of patient data. In addition, data may be omitted in some cases. CLINICAL DECISIONS SHOULD BE BASED ON THE PRIMARY CLINICAL RECORDS. [facility]. provides no warranty or guarantee of the accuracy or completeness of information in this document.
[2024-10-12] MEDS: oxyCODONE 5 MG Tablet 10 MG PO (22:25)
[2024-10-12 23:00] VITALS: BP 160/76; PULSE 88; RESP 16; TEMP 36.6; O2SAT 99
--- NOTE | 2024-10-12 23:11 | EDS_ITS ---
HPI History of Present Illness Chief Complaint: Wound Check Informant: patient Narrative Narrative: Patient is a 49-year-old female with past medical history of anxiety and depression. Roughly 1 week ago she underwent surgery by podiatry on her left foot secondary to lipomas. She had a wound VAC placed at that time. She states that the wound VAC was to be present for roughly 12 days. She states that today the wound VAC stopped functioning. She reports that she contacted her [employer] filler office but did not hear back from him. She states that she was informed that if the VAC is not functioning for over 2 hours that it will need removed. Secondary to this she presents for evaluation. [facility] Medical History (Updated 10/13/24 @ 01:[address] Abner Romo, DO) Hx of lymphoma Physical exam, pre-employment PTSD (post-traumatic stress disorder) Generalized anxiety disorder Major depressive disorder, recurrent severe without psychotic features Depression Lipoma of axilla Hx of spinal stenosis Hx of pleurisy Hx of mixed connective tissue disease Carpal tunnel syndrome, right Bronchitis Home Medications ?Medication ?Instructions ?Recorded ?Last Taken ?Type ibuprofen 200 mg tablet 200 mg PO Q6H PRN fever or p ain 07/10/24 Unknown History oxycodone-acetaminophen 5 mg-325 1 tab PO Q6H PRN pain 3 days #12 10/12/24 Unknown Rx mg tablet (Percocet) tabs Allergy/AdvReac Type Severity Reaction Status Date / Time Beef Containing Products Allergy Angioedema Verified 10/12/24 21:50 corn Allergy Angioedema Verified 10/12/24 21:50 egg Allergy Angioedema Verified 10/12/24 21:50 Influenza Virus Vaccines Allergy Other Verified 10/12/24 21:50 (flu shot) Pork/Porcine Containing Allergy Angioedema Verified 10/12/24 21:50 Products rice Allergy Angioedema Verified 10/12/24 21:50 gabapentin (From Neurontin) AdvReac Other Verified 10/12/24 21:50 prochlorperazine (From AdvReac Other Verified 10/12/24 21:50 Compazine) Family History Mother CHF (congestive heart failure) Diabetes type 1 Myocardial infarction Hypertension Hypercholesterolemia Renal failure CVA (cerebral vascular accident) Father Cancer colon Surgical History History of carpal tunnel release Hx of colonoscopy H/O esophagogastroduodenoscopy Hx of cholecystectomy Hx of total hysterectomy Hx of arthroscopy of knee Social History (Updated 09/12/23 @ 22:[address] Ashish Thompson MD) Smoking Status: Current every day smoker tobacco type: cigarettes substance use type: does not use ROS ROS ED Constitutional Constitutional ED: Denies chills or fever(s) ENT ENT ED: Denies sore throat Cardiovascular Cardiovascular: Denies chest pain Respiratory/Chest Respiratory/Chest: Denies cough or dyspnea Gastrointestinal Gastrointestinal: Denies abdominal pain, diarrhea, nausea or vomiting Musculoskeletal Musculoskeletal: Reports other Details: Positive left foot pain Integumentary Reports other Details: Positive surgical wounds left foot Neurologic Neurologic: Reports paresthesias; Denies headache(s) Hematologic/Lymphatic Hematologic/Lymphatic: Denies easy bleeding or easy bruising EXAM Physical Exam Const Vital Signs: 10/12/24 21:50 10/12/24 21:57 10/12/24 23:00 Temperature 98.2 F 98.2 F 97.9 F Temperature Source Temporal Oral Oral Pulse Rate 98 98 88 Respiratory Rate 18 18 16 Blood Pressure 181/100 H 181/100 H 160/76 H Blood Pressure Mean 127 127 104 Pulse Ox 99 99 99 Oxygen Delivery Method Room Air Room Air Room Air 10/12/24 23:14 Temperature 98.0 F Temperature Source Pulse Rate 91 Respiratory Rate 18 Blood Pressure 166/81 H Blood Pressure Mean 109 Pulse Ox 98 Oxygen Delivery Method Positive well nourished, well developed and obese General Appearance ED: well developed Nutritional Appearance: obese HEENT HEENT Narrative: Normocephalic atraumatic Eyes PERRL and EOMs intact bilaterally General Eye ED: Negative for scleral icterus Neck supple Resp normal respiratory effort and clear to auscultation bilaterally Cardio regular rate and regular rhythm Extremity Extremity Narrative: Left lower extremity is neurovascularly intact Patient has postsurgical wounds to the dorsal aspect of the left foot over top of the fourth metatarsal region. There is also a postsurgical wound along the posterior aspect of the lateral malleolus. These wounds are clean dry and intact without secondary findings to suggest infection Patient does have postoperative swelling of the left foot but the foot is compressible going against compartment syndrome No lymphangitic streaking active bleeding or discharge noted Neuro oriented x3 and CN's II-XII intact bilaterally Sensorium / Orientation: alert Psych mental status grossly normal Skin Skin Narrative: Postsurgical wounds to the left foot as documented above MDM MDM MDM Narrative Medical decision making narrative: Patient arrived to the ER hypertensive but otherwise with stable vital. She reported that her wound VAC stopped functioning over 2 hours ago. We do not have any type of replacement parts for a wound VAC and therefore cannot provide a repeat or new wound VAC to carry out the patient's reported 12-day course. Therefore the wound VAC was removed. There is no findings of postoperative infection or compartment syndrome or DVT. Therefore there is no need for x-ray or blood work. The patient will have a new dressing placed over top of the postoperative wounds but is otherwise safe for discharge and can follow-up with her [employer]que[employer] filler as an outpatient. History & Record Review Discussion w/independent historian: Patient Discharge Plan Triage Chief Complaint: Wound Check ED Provider: Abner Romo Dx/Rx/DC Orders Clinical Impression: Encounter for post surgical wound check, Encounter for management of wound VAC, Hypertension, Anxiety and depression Instructions: Dressing Change Steps, ED Post Op Wound Check, General Prescriptions: New oxycodone-acetaminophen [Percocet] 5-325 mg tablet 1 tab PO Q6H PRN (Reason: pain) 3 Days Qty: 12 0RF No Action ibuprofen 200 mg tablet 200 mg PO Q6H PRN (Reason: fever or pain) Primary Care Provider: Michelle Alvarez Referrals: Elliot Fuller MD [Med Staff - Active Staff] - Michelle Alvarez DO [Primary Care Provider] - Activity Restrictions/Additional Instructions: Please continue to not bear any weight on the left leg/foot until you are cleared by your antisque[employer] filler. Leave the wrapping in place that was provided by the ER and follow-up with your [employer]que[employer] filler as directed. Return to the ER should you have any further concerns Print Language: Uzbek Disposition Disposition: Home, Self Care Discharge Date/Time: 10/12/24 23:21
[2024-10-12 23:14] VITALS: BP 166/81; PULSE 91; RESP 18; TEMP 36.7; O2SAT 98
== END 2024-10-12 23:21 | disposition home or self-care (01) ==
PROVIDERS: Emergency Provider Emergency Medicine; PCP Family Medicine; Referring Provider Emergency Medicine; Visit Provider Emergency Medicine
DX: Z48.89 Encounter for other specified surgical aftercare (principal); F41.9 Anxiety disorder, unspecified; Z90.710 Acquired absence of both cervix and uterus; F32.A Depression, unspecified; Z82.49 Family history of ischemic heart disease and other diseases of the circulatory system; I10 Essential (primary) hypertension; E66.9 Obesity, unspecified; R20.2 Paresthesia of skin; M79.672 Pain in left foot; F17.210 Nicotine dependence, cigarettes, uncomplicated; Z90.49 Acquired absence of other specified parts of digestive tract
CPT/HCPCS: 99282